=== PATIENT | male | born 1950 | race Caucasian/White ===

== ENCOUNTER 2017-10-23 09:13 | Inpatient (IN) | payer MEDICARE, SELFPAY ==
[2017-10-23] VITALS (16 sets, daily range): BP systolic 114–152; BP diastolic 63–86; PULSE 57–100; RESP 14–26; TEMP 36.6–36.9; O2SAT 91–98; BMI 33.0; BMI 32.1
--- NOTE | 2017-10-23 09:46 | CT_ITS ---
STUDY: CT BRAIN WITHOUT CONTRAST REASON FOR EXAM: Male, 67 years old. Dizziness. Right hand tremor. RADIATION DOSAGE (If Supplied By Facility): CTDIvol = ( 44.99 ) mGy, DLP = ( 796.11 ) mGycm TECHNIQUE: Transaxial CT imaging of the brain was performed without administration of intravenous contrast material. Individualized dose optimization techniques were used for this CT. COMPARISON: None. FINDINGS: Normal soft tissue structures. Normal calvarium. There is mild cerebral atrophy with widening of the extra-axial spaces and ventricular dilatation. Normal white matter tracts of the cerebral hemispheres. There is evidence of old lacunar infarcts in the basal ganglia worse on the left side. Focal encephalomalacia in the superior posterior aspect of the right parietal lobe. Normal brainstem. Normal cerebellum. There is no intracranial hemorrhage. There are no findings of an acute ischemic infarction. Atherosclerotic calcification of the vertebral arteries and cavernous portions of the internal carotid arteries bilaterally. Dense opacification of the right maxillary sinus. CT/Brain/Head without Contrast IMPRESSION: Chronic involutional changes of the brain. Right maxillary sinusitis. Electronically Signed: Shiva Payne MD at 11:20 EST Tel [phone], Service support ,
--- NOTE | 2017-10-23 09:46 | RAD_ITS ---
STUDY: X-RAY CHEST REASON FOR EXAM: Male, 67 years old. Generalized illness. Dizzy spells. TECHNIQUE: Single AP portable view of the chest. COMPARISON: Comparison is made with prior study dated November 01, 2013. FINDINGS: EKG electrodes are seen. Stable mild increased interstitial markings at the lung bases suggestive of scarring. There is no evidence of acute infiltration or CHF. There is no demonstrated pleural abnormality. Sternal cerclage wires and vascular clips are present from a prior sternotomy and coronary artery bypass graft procedure (CABG). Mild cardiomegaly. Normal mediastinum and nba. Normal visualized pulmonary arteries. There is atherosclerotic calcification of the aortic arch with tortuosity. There are diffuse degenerative changes of the visualized thoracic spine. Normal visualized ribs, clavicles, and shoulders. There is no demonstrated abnormality of the visualized soft tissue structures of the upper abdomen. RAD/Chest 1 View IMPRESSION: Cardiomegaly. Mild increased markings at the lung bases suggestive of scarring. No acute abnormality is seen. Electronically Signed: Shiva Payne MD at 10:46 EST Tel [phone], Service support ,
--- NOTE | 2017-10-23 09:46 | EKG12_ITS ---
Test Reason : OTHER PAIN Blood Pressure : / mmHG Vent. Rate : 094 BPM Atrial Rate : 166 BPM P-R Int : 000 ms QRS Dur : 112 ms QT Int : 410 ms P-R-T Axes : 000 -38 123 degrees QTc Int : 512 ms Atrial fibrillation Left axis deviation Inferior infarct , age undetermined Prolonged QT Poor R wave progression Anterior TN, age undetermined, cannot be excluded Abnormal ECG Confirmed by LINA RAINES, MARQUES ([id number]), television news video editor NATALIYA RODRIGUEZ ([id number]) on 10/24/2017 9:50:16 AM Referred By: EDMUNDO Confirmed By:MARQUES MILLS MD
[2017-10-23 10:32] LABS: Absolute Lymphocyte Count 1.95 X10^3/ul (0.83-4.51); Absolute Neutrophil Count 12.4 X10^3/uL (2.0-7.7); Basophil# 0.16 X10^3/uL; Eosinophil# 0.34 X10^3/uL; Eosinophils% 2.1 % (0-5); Hematocrit 44.5 % (40-54); Hemoglobin 15.2 g/dl (13.0-16.5); Lymphocyte # 1.95 X10^3/ul (4.0); Mean Corp Hgb Conc 34.2 g/gl (32-36); Mean Corpuscular Volume 90.6 fL (80-94); Mean Platelet Vol. 11.5 fl (6.2-12.0); Monocyte# 1.22 X10^3/uL; Monocyte% 7.5 % (0-10); Neutrophil # 12.44 X10^3/uL (2.7-7.7); Neutrophil % 76.9 % (47-70); Platelet Count 268 K/mm3 (150-450); RBC Distribution Width CV 14.3 % (11.6-14.6); RBC Distribution Width SD 47.1 fl (35.1-43.9); Red Blood Count 4.91 M/mm3 (4.6-6.2); White Blood Count 16.2 K/mm3 (4.4-11.0)
[2017-10-23 10:33] LABS: POSITIVE COUNT NO; POSITIVE DIFFERENTIAL NO; POSITIVE MORPHOLOGY NO
[2017-10-23 10:47] LABS: Anion Gap 7 (5-15); BUN 20 mg/dL (7-18); BUN/Creat Ratio 20.6 RATIO (10-20); Calcium,Total 9.1 mg/dL (8.5-10.1); Chloride 104 mmol/L (98-107); Creatinine, Serum 0.97 mg/dL (0.70-1.30); EST Glomerular Filtration Rate 82 mL/min (>60); Est Glom Filt Rate - Afr Amer 99 mL/min (>60); Estimated Creatinine Clearance 80.86 ml/min; Glucose 145 mg/dL (74-106); Potassium 3.8 mmol/L (3.5-5.1); Sodium Level 140 mmol/L (136-145)
--- NOTE | 2017-10-23 11:16 | ED.RN ---
BLUE TOP HEMOLYZED FOR THE 2ND TIME, LAB TO COME AND REDRAW.
[2017-10-23 11:25] LABS: Bedside Glucose 138 mg/dL (70-110)
[2017-10-23 11:39] LABS: Prothrombin Time (Protime)PT. 12.5 SECONDS (11.7-14.9)
[2017-10-23 11:40] LABS: Partial Thromboplast Time 32.1 Seconds (24.1-36.2)
--- NOTE | 2017-10-23 12:59 | ED.RN ---
PT DOES NOT WANT TO BE ADMITTED, WANTS TO GO HOME. UPDATED DR. WYATT, SHE REQUESTS DR. HENRIETTA RODRÍGUEZ, NO HOSPITALIST AND AMA FORMS TO BE PRINTED, LEAD ESTHETICIAN AWARE.
--- NOTE | 2017-10-23 13:22 | ED.DCSUM_ITS ---
- ER Visit Summary Date of Service: 10/23/17 Chief Complaint: [Dizziness, slurred speech] History of Present Illness: The patient is a 67 M [who woke up this morning with dizziness and slurred speech. He was not feeling well at all. He was feeling very weak. His wrist is been hurting and he has had a tremor. He has a history of coronary artery disease status post CABG diabetes hypertension COPD. Fever he denies cough he denies nausea vomiting he denies focal weakness chest pain or shortness of breath. He is a poor historian] Physical Examination: [] WN WD NAD PERRL EOMI MMM NECK supple and nontender, no masses RRR no murmur rub or gallop, no peripheral edema, symmetric radial pulses CTAB no respiratory distress ABDOMEN is soft and nontender, normal bowel sounds, no distension, no rebound or guarding SKIN is warm and dry no rashes Alert and Oriented x3, CN II-XII in tact, no motor or sensory deficits, gait normal NIH is 0 however the patient does have some ataxia with heel to toe testing No lymphadenopathy Test Results: [] Emergency Department Course and Treatment: [Stroke workup was pursued. EKG is a atrial arrhythmia. It appears to be a sinus rhythm with PACs however atrial fibrillation is also a consideration. Troponin was normal he does have a white count of 16.2. CT of the head shows multiple old lacunar infarcts and encephalomalacia but no acute process. Urinalysis was ordered. Recommended the patient be admitted to the hospital and he refused. He states he will be fine. I told him that he likely had a TIA versus a stroke his symptoms are currently resolved and he states that he would be fine to go home. I did contact contact and and awaiting return call. I will write him a prescription for aspirin daily as well as Augmentin for sinusitis seen on CAT scan. I did tell him to please return to the emergency department for any worsening symptoms and follow-up with his primary doctor as soon as possible. Patient spoke with his who convinced him to stay in the hospital he will be admitted.] Treatment Plan: [] Disposition: [Admit] Impression: [TIA/stroke] This note was generated with Border[employer] dictation software. It may contain incorrect words, spelling, and punctuation that were not noted in review of the chart prior to signing ED Disposition - Plan for ED Patient: Chief Complaint: Other, Pain/Inj Referrals: Ibrahima Chairez MD [Primary Care Provider] -
--- NOTE | 2017-10-23 13:23 | ED.RN ---
1300 PT DRESSED, REQUESTING IV REMOVED. IV WAS REMOVED AND BANDAGED PLACED. PENDING D/C INSTRUCTIONS AND RX FOR ATB (SINUS INFECTION).
--- NOTE | 2017-10-23 13:24 | ED.RN ---
AT BEDSIDE, PT WILL NOW STAY. LEFT ED TO SMOKE, AND BELONGINGS IN ROOM.
--- NOTE | 2017-10-23 14:46 | MRI_ITS ---
MRA Head W/O Contrast INDICATION: VERTIGOsharp,throbbing pains both hands x 1 week COMPARISON: None TECHNIQUE: MR angiogram of the [place] and 3-D pyfd-au-kvjrlx technique with 3-D reformatted images. FINDINGS: There is symmetric flow related signal and intracranial portions of the internal carotid arteries with symmetric supply to the anterior and middle cerebral arteries and their branching vessels. Posterior circulation demonstrates dominant left distal vertebral artery, normal confluence to the basilar artery. Basilar artery gives rise to both posterior cerebral arteries. Both posterior communicators as well as the anterior communicator demonstrate positive flow related signal. MRI/MRA Head ONLY without Contrast IMPRESSION: No evidence of large vessel occlusion at the [place]. at 1829 Reported and signed by: Jessica Camara MD Electronically Signed: Jessica Camara MD at 17:28 EST Tel , Service support ,
--- NOTE | 2017-10-23 14:46 | MRI_ITS ---
MRA Neck WO/W Contrast INDICATION: VERTIGOsharp,throbbing pains both hands x 1 week COMPARISON: None TECHNIQUE: MR angiogram of the neck and 2-D slpt-fs-[id number] technique and 3-D dvyv-fz-zrlidp technique with 3-D reformatted images. 10 mL of Gadavist was given intravenously. FINDINGS: No significant luminal narrowing at the origins of the common carotid arteries. There is evidence of mild, less than 20% luminal narrowing at the origin of the left internal carotid artery and approximately 40% short segment luminal narrowing at the origin of the right internal carotid artery. Peripheral filling defects are noted suggestive of arteriosclerotic plaque formation at the carotid bifurcations. Internal carotid arteries are otherwise normal and symmetric to the level of the skull base. Posterior circulation demonstrates mild dominance of the left vertebral artery. MRI/MRA Neck WITH and W/O Contrast IMPRESSION: Approximately 20% luminal narrowing at the origin of the left internal carotid artery. Short segment approximately 40% luminal narrowing at the origin of the right internal carotid artery. at 1833 Reported and signed by: Jessica Camara MD Electronically Signed: Jessica Camara MD at 17:32 EST Tel , Service support ,
--- NOTE | 2017-10-23 14:46 | ECHOD_ITS ---
Reason For Study: TIA/CVA Procedure This was a 2D Doppler, Color Flow transthoracic echocardiogram. The exam was of poor technical quality due to body habitus. The study was technically difficult. Contrast injection was performed. Exam performed portable in patient room. Left Ventricle Normal LV size. Mild segmental systolic dysfunction (see wall motion). The estimated ejection fraction is 45 %. Infero-Basal: Akinetic. Basal inferoseptal: Dyskinetic. Mid-Inferior: Hypokinetic. Mid-inferoseptal : Hypokinetic. Mid-anteroseptal : Hypokinetic. Inferior Mckinney : Hypokinetic. Septal Mckin[place] : Hypokinetic. Right Ventricle Normal RV size. Normal systolic function. Atria The left atrium is mildly enlarged. Normal right atrium. No doppler evidence for ASD. Bubble contrast study negative for right to left interatrial shunt. Mitral Valve There is mild mitral annular calcification. Extension of the mitral annular calcification onto the posterior mitral valve leaflet. Trivial mitral valve insufficiency. Tricuspid Valve Normal tricuspid valve. Trivial tricuspid valve insufficiency. Unable to estimate RV systolic pressure/pulmonary artery pressure due to technically difficult study. Aortic Valve Trisinus/trileaflet aortic valve. Mild diffuse aortic valve thickening. Mild diffuse aortic valve calcification. Pulmonic Valve The pulmonic valve is not well visualized. Great Vessels Normal sized aortic root. Pericardium/Pleural No pericardial effusion. Medication Performed a rapid injection of agitated mix of 9 cc saline and 1cc air to assess for atrial septal defect. Diluted definity 3ml given slow IV push to enhance endocardial definition. MMode/2D Measurements & Calculations LVIDd: 5.2 cm IVSd: 1.2 cm LVOT diam: 2.0 cm LVIDs: 4.1 cm LVPWd: 1.4 cm LVOT area: 3.2 cm2 RVDd: 4.0 cm FS: 21.0 % Ao root diam: 3.5 cm LAV(MOD-sp4): 85.8 ml EDV(MOD-sp4): 147.3 ml LA dimension: 4.9 cm ESV(MOD-sp4): 82.6 ml EF(MOD-sp4): 43.9 % EDV(MOD-sp2): 155.1 ml SV(MOD-sp4): 64.7 ml SV(MOD-sp2): 47.4 ml EF(MOD-sp2): 30.5 % LA A4 area: 26.4 cm2 RA A4 area: 21.3 cm2 Doppler Measurements & Calculations MV E max kin: 125.2 cm/sec Ao V2 max: 186.9 cm/sec LV V1 max: 114.8 cm/sec MV A max kin: 40.6 cm/sec Ao max P.0 mmHg LV V1 max P.3 mmHg MV E/A: 3.1 YESSICA(V,D): 2.0 cm2 PA V2 max: 89.4 cm/sec TR max P.2 mmHg Interpretation Summary The study was technically difficult. Contrast injection was performed. Mild segmental systolic dysfunction (see wall motion). The estimated ejection fraction is 45 %. The left atrium is mildly enlarged. There is mild mitral annular calcification. Extension of the mitral annular calcification onto the posterior mitral valve leaflet. Trivial mitral valve insufficiency. Trivial tricuspid valve insufficiency. Mild diffuse aortic valve thickening. Mild diffuse aortic valve calcification. Unable to estimate RV systolic pressure/pulmonary artery pressure due to technically difficult study. Bubble contrast study negative for right to left interatrial shunt. Ordering Physician: Behzad Carvajal Referring Physician: ARTEMIO SHRESTHA Performed By: Ashleigh Arviuz, VÍCTOR, RVT
--- NOTE | 2017-10-23 14:46 | MRI_ITS ---
MR Brain W/O Contrast INDICATION: CVAsharp,throbbing pains both hands x 1 week COMPARISON: MRI brain of January 2008 TECHNIQUE: Multiplanar multisequence MRI examination of the brain without contrast FINDINGS: There is evidence of a very small linear focus of restricted diffusion in the parasagittal cortex of the right frontal lobe (image 13), and a questionable ill-defined punctate focus of faintly restricted diffusion in the left lateral aspect of the body of the corpus callosum (image 20). These may represent very small acute and early chronic foci of infarction. New from the prior study from 2007 is a focal area of encephalomalacia with surrounding gliosis in the right parietal region, compatible with remote infarct, and a smaller infarcts in the bilateral basal ganglia and left frontal lobe. The ventricular system is normal in size and stable. There is no evidence of parenchymal hemorrhage, mass effect, midline shift, or abnormal extra-axial collection. There is normal positioning of the cerebellar tonsils. Mild mucosal thickening is noted throughout the paranasal sinuses and there is complete opacification of the right maxillary sinus with T2 hypointense material, fungal superinfection not excluded. MRI/Brain without Contrast IMPRESSION: Punctate focus of acute infarct in the parasagittal cortex of the right frontal lobe Questionable late subacute/early chronic punctate focus of infarction in the left lateral aspect of the body of the corpus callosum. Multiple bilateral supratentorial infarcts are new compared to 2008. Complete opacification of the right maxillary sinus with T2 hypointense material, concerning for fungal superinfection. at 1820 Reported and signed by: Jessica Camara MD N.B. : The above information has been verbally conveyed by Jessica Camara MD to [facility]- In-Patient RN, on 10/23/2017 19:02:42 (ET). Electronically Signed: Jessica Camara MD at 17:19 EST Tel , Service support , N.B. : The above information has been verbally conveyed by Jessica Camara MD to [facility]- In-Patient RN, on 10/23/2017 19:02:42 (ET).
[2017-10-23 15:56] LABS: Bedside Glucose 242 mg/dL (70-110)
[2017-10-23] MEDS: Glucerna Shake 120 ML LIQUID PO ×2 (17:45→21:51)
--- NOTE | 2017-10-23 20:50 | HP.PCM_ITS ---
Problem List (1) Dizziness Status: Acute (2) Slurred speech Status: Acute History of Present Illness Date of Admission: 10/23/17 Chief Complaint: Dizziness, slurred speech The patient is a 67 year old M was seen in the emergency room at [facility] with a chief complaint of dizziness and slurred speech which lasted for 1-1-1/2 hours starting early this morning when he awoke from sleep. Patient denies any focal weakness, he denies any visual disturbances, he denies any syncope. Workup in the emergency room included labs which showed an elevated white blood cell count 16.2, BUN was 20, glucose was 145. Patient's chest x-ray showed scarring at the lung bases, patient's CT of the brain showed focal encephalomalacia in the superior posterior right parietal lobe and multiple basal ganglia lacunar infarcts. Right maxillary sinusitis was also detected. EKG showed a normal sinus rhythm with PACs. At the time of my examination, patient's symptoms had resolved, he initially did not want to stay in the hospital and his convinced him to stay. Patient complains of wrist weakness and tremor in his right hand, he states though that the tremor in his right hand is been going on for a year. Patient states tremor is worse with movement. Patient takes a baby aspirin at home chronically every day, he had a history of atrial fibrillation but was taken off Coumadin several years ago-this appears to be in 2013 when he had a lower GI bleed. Patient was never restarted on the Coumadin. Patient will be admitted to PCU for TIA, MRI of the brain as well as MRA of the head and neck will be obtained, patient will be placed on Plavix in addition to his aspirin, neurology will see the patient, patient will have an echocardiogram and be evaluated by PT and OT as well as speech therapy. 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) COPD (chronic obstructive pulmonary disease) (Chronic) Depression (Chronic) CHF (congestive heart failure) (Chronic) ef=40% 2012 Allergies Penicillins Allergy (Verified 10/23/17 09:17) Rash Home Medications: Ambulatory Orders Medication Instructions Recorded Lisinopril [Prinivil] 10 mg PO DAILY 10/23/17 Metformin HCl 1,000 mg PO BID 10/23/17 Multivitamin/Iron/Folic Acid 1 each PO DAILY 10/23/17 [Centrum Adults Tablet] [place]-3 Fatty Acids/Fish Oil 1 each PO DAILY 10/23/17 [[place] 3 1,000 mg Softgel] Omeprazole 40 mg PO DAILY 10/23/17 Potassium Chloride [Klor-Con M20] 20 meq PO DAILY 10/23/17 Prednisone 10 mg PO DAILY PRN PRN 10/23/17 Sotalol HCl [Betapace AF (Beta 80 mg PO BID 10/23/17 Ahsan)] Vardenafil HCl [Levitra] 20 mg PO PRN PRN 10/23/17 Surgical History: coronary bypass surgery Psychiatric History: No pertinent psych hx Lives: Spouse/ Significant Other Smoking Status: Current every day smoker Tobacco Use: Cigarettes Alcohol: Rare Drugs: None - *Family History Maternal History Items: Cancer - Breast cancer Paternal History Items: Heart Disease - Congestive heart failure Review of Systems Constitutional: Denies: Anorexia, Chills, Fever, Night Sweats, Malaise, Weakness , Weight Change, Fatigue Eyes: Denies: Blurred vision, Cataracts, Conjunctivae Inflammation, Double vision, Drainage, Eyelid Inflammation HEENT: Denies: Difficulty Hearing, Difficulty Swallowing, Dysphasia, Ear Pain, Eye Pain, Head Aches, Hearing Changes, Nasal bleeding, Nasal Congestion, Post Nasal Drip Cardiovascular: Denies: Chest Pain, Claudication, Chest Pressure, Chest Tightness, Edema, Heaviness, Orthopnea, Palpitations, Paroxysmal Noc. Dyspnea Respiratory: Denies: Cough, Hemoptysis, Pleuritic Pain, Shortness of Breath, Shortness of breath at rest, Shortness of breath upon exertion, Sputum production, Wheezing Gastrointestinal: Denies: Abdominal Pain, Constipation, Diarrhea, Hematemesis, Hematochezia, Nausea, Melena, Vomiting Genitourinary: Denies: Dysuria, Frequency, Hematuria, Hesitancy, Incontinence, Nocturia, Retention, Urgency Musculoskeletal: Denies: Back Pain, Foot Pain, Hand Pain, Joint Pain, Joint stiffness, Joint swelling, Joint Tenderness, Leg Pain Skin: Denies: Dryness, Jaundice, Pruritis, Rash Neurological: Reports: Slurred speech, Tremor - Right hand tremor ?1 year, - - Dizziness. Denies: Balance problems, Blurred vision, Double vision, Difficulty swallowing, Focal weakness, Headaches, Incoordination, Numbness, Tingling Psychiatric: Denies: Anxiety, Depression, Homicidal Ideations, Suicidal Ideations Endocrine: Denies: Change in Body Habitus, Heat/ Cold Intolerance, Polydipsia, Polyuria Hematologic/ Lymphatic: Denies: Adenopathy, Anemia, Easy Bruising, Easy Bleeding , Petechiae, Purpura VTE Information - Inpt Only VTE Present on Admission: No VTE Mechan Device Prophylaxis: None VTE Pharm Prophylaxis ordered?: Yes Patient Problems: Active and Suspected Problems Dizziness (Acute) Slurred speech (Acute) - Physical Exam General: Alert, Oriented x3, Cooperative, No apparent distress, Well developed, Well nourished HEENT: Atraumatic, PERRLA, EOMI, Normocephalic Oral: Moist Mucosa Neck: Supple, No JVD, Negative Carotid Bruits, No Nuchal Rigidity, Trachea Midline, Thyroid Normal Size and Texture Lungs: Clear to auscultation, Normal air movement, No rhonchi, No wheeze, No rales Cardiovascular: Regular rate, Regular Rhythm, Normal S1, Normal S2, No murmurs, No Ectopic Activity, PMI Normal, No rub noted, No Gallop Abdomen: Bowel Sounds Present, Soft, Non Tender, Non-Distended, No hernias noted Extremities: No clubbing, No cyanosis, No edema, Capillary Refill Less than 3 Seconds Skin: No rashes, No breakdown Musculoskeletal: No Tenderness to Palpation of Joints or Extremities, No Muscle Wasting Neurological: Cranial nerves II-XII grossly intact, Neuro grossly intact, - - There is a resting tremor noted in the patient's right hand Psych/Mental Status: Normal Affect, Appropriate, Alert and oriented to time, place, person, mood and affect Vital Signs Temp Pulse Resp BP Pulse Ox 98.3 F 95 18 136/77 H 95 10/23/17 17:41 10/23/17 18:51 10/23/17 17:41 10/23/17 17:41 10/23/17 17:41 Assessment/Plan Active and Suspected Problems Dizziness (Acute) Slurred speech (Acute) #1 TIA versus acute ischemic stroke-patient will be admitted to PCU, MRA of the head and neck will be obtained, MRI of the brain will be obtained, patient will be placed on Plavix in addition to aspirin, echocardiogram will be obtained, neurochecks will be carried out, PT and OT as well as speech therapy will see the patient, patient will be seen by neurology #2 coronary artery disease #3 history of atrial fibrillation-currently he appears to be in sinus rhythm, monitor on telemetry #4 leukocytosis-and reviewed the patient's old lab work, there is been quite a few times with the patient has had an elevated white blood cell count, this will have to be investigated possibly as an outpatient. #5 tremor of the right hand-etiology unclear, patient does not have a visible tremor of the left hand. Neurology will evaluate patient #6 type 2 diabetes-blood sugars will be monitored, sliding scale insulin will be used #7 history of decreased ejection fraction-patient had an echocardiogram done in 2012 which showed a reduced ejection fraction of 40%, echocardiogram will be reordered as part of his stroke workup. #8 cerebrovascular disease as indicated on the patient's head CT today #9 hyperlipidemia-patient will be placed on Lipitor, he takes Crestor at home #10 hypertension Code Visit Inpatient E&M: 21601 Init Hosp L3
[2017-10-23] MEDS: Sotalol Hydrochloride 80 MG Tablet PO (21:52)
[2017-10-23] MEDS: Atorvastatin Calcium 80 MG Tablet PO (21:52)
[2017-10-23] MEDS: 0.9% NaCl Peripheral Flush Adult/Peds IV (21:54)
[2017-10-23 22:06] LABS: Bedside Glucose 216 mg/dL (70-110)
[2017-10-24] VITALS (15 sets, daily range): BP systolic 139–158; BP diastolic 65–84; PULSE 75–90; RESP 16–20; TEMP 36.5–36.8; O2SAT 88–97; BMI 32.1
[2017-10-24 00:42] LABS: Mucous, Urine 0 SEEN /hpf (<or=2+)
[2017-10-24 00:46] LABS: Color, Urine Yellow (Yellow); Glucose, Dipstick Normal (Normal); Ketone-Dipstick Negative (Negative); Leukocyte Esterase-Dipstick 25 /ul (Negative); Nitrite-Dipstick Negative (Negative); Occult Blood-Urine 25 /ul (Negative); Protein-Dipstick 100 mg/dl (Negative); Specific Gravity, Urine 1.015 (1.002-1.030); Urine Bilirubin Dipstick Negative (Negative); Urine Clarity Sl. Cloudy (Clear); Urine Urobilinogen 1 mg/dl (Normal)
[2017-10-24 00:53] LABS: Amorphous Sediment 1+ URATE; Bacteria 1+ /hpf (None Seen); Red Blood Cells-Urine 0-5 SEEN /hpf (0-5); Squamous Epithelial Cells - UA 0-5 SEEN /hpf (0-5); White Blood Cells 0-5 SEEN /hpf (0-5)
[2017-10-24 05:51] LABS: Absolute Lymphocyte Count 2.56 X10^3/ul (0.83-4.51); Absolute Neutrophil Count 9.2 X10^3/uL (2.0-7.7); Basophil# 0.21 X10^3/uL; Basophil% 1.5 % (0-1); Eosinophil# 0.34 X10^3/uL; Eosinophils% 2.5 % (0-5); Hematocrit 43.4 % (40-54); Hemoglobin 14.9 g/dl (13.0-16.5); Lymphocyte # 2.56 X10^3/ul (4.0); Lymphocyte % 18.8 % (19-41); Mean Corp Hgb Conc 34.3 g/gl (32-36); Mean Corpuscular Hgb 30.8 pg (27.0-32.0); Mean Corpuscular Volume 89.9 fL (80-94); Mean Platelet Vol. 11.2 fl (6.2-12.0); Monocyte# 1.24 X10^3/uL; Monocyte% 9.1 % (0-10); Neutrophil # 9.22 X10^3/uL (2.7-7.7); Neutrophil % 67.7 % (47-70); Platelet Count 269 K/mm3 (150-450); RBC Distribution Width CV 14.3 % (11.6-14.6); Red Blood Count 4.83 M/mm3 (4.6-6.2); White Blood Count 13.6 K/mm3 (4.4-11.0)
[2017-10-24 05:54] LABS: POSITIVE COUNT NO; POSITIVE DIFFERENTIAL NO; POSITIVE MORPHOLOGY NO
[2017-10-24 06:04] LABS: Cholesterol 192 mg/dL (200); High Density Lipoprotein 37 mg/dL; Triglycerides 184 mg/dL; Very Low Density Lipoprotein 37 mg/dL (5-40)
[2017-10-24 06:51] LABS: Bedside Glucose 168 mg/dL (70-110)
[2017-10-24] MEDS: Aspirin 81 MG TAB.CHEW PO (08:32)
--- NOTE | 2017-10-24 09:47 | CASEMGMT ---
This RN CM to bedside to complete CM assessment and pt is currently getting ECHO at this time. Will attempt again later. SStaten RN CM
[2017-10-24] MEDS: Glucerna Shake 120 ML LIQUID PO (10:29)
[2017-10-24] MEDS: Sotalol Hydrochloride 80 MG Tablet PO ×2 (10:30→21:06)
[2017-10-24] MEDS: Clopidogrel Bisulfate 75 MG Tablet PO (10:30)
[2017-10-24] MEDS: Lisinopril 10 MG Tablet PO (10:32)
--- NOTE | 2017-10-24 11:14 | CASEMGMT ---
Face to Face with patient for initial transition planning/care coordination assessment. RN EDGARD introduced self and role at [facility], pt voices understanding and consents to assessment at this time. Pt sitting up in bed in no distress at this time. Pt A/O x4 at this time and answers all questions appropriately at this time. Care providers, pharmacy, and demographics verified. See attached link. Pt voices no further concerns/needs at this time. Advised pt to ask for CM if any further questions/concerns/needs arise, voices understanding. PLAN: Home with [facility]. SStskye SHULTZ CM
[2017-10-24 12:01] LABS: Bedside Glucose 274 mg/dL (70-110)
--- NOTE | 2017-10-24 13:16 | PCM.PN.HOSP ---
Patient Problems: Active and Suspected Problems Slurred speech (Acute) Dizziness (Acute) Subjective: CC: Dizziness and slurred speech Is a 7-year-old male with history of coronary artery disease and chronic atrial fibrillation who currently does not take anticoagulation therapy due to GI bleeds in 2013. EGD and colonoscopy at the time did not reveal any clear source of bleeding. Vitals/I&O's: Vital Signs Temp Pulse Resp BP Pulse Ox 97.8 F 80 20 H 148/75 H 90 10/24/17 11:41 10/24/17 11:41 10/24/17 11:41 10/24/17 11:41 10/24/17 11:41 Oxygen Flow Rate 2 Oxygen Delivery Method Room Air Weight: 104.5 kg Body Mass Index (BMI) 32.1 Intake and Output for Last 24 Hours 10/22/17 10/23/17 10/24/17 23:59 23:59 23:59 Intake Total 960 / 960 Output Total 340 / 340 Balance 620 / 620 General: Alert, Oriented x3 HEENT: Atraumatic Oral: Moist Mucosa Neck: Supple Lungs: Clear to auscultation Cardiovascular: Regular rate, Normal S1, Normal S2 Abdomen: Bowel Sounds Present, Soft, Non Tender, Non-Distended Extremities: No edema Laboratory Results 10/23/17 21:49: POC Glucose 216 H 10/24/17 00:35: Urine Color Yellow, Urine Clarity Sl. Cloudy, Urine pH 6.0, Ur Specific [place] 1.015, Urine Protein 100 H, Urine Glucose (UA) Normal, Urine Ketones Negative, Urine Occult Blood 25 H, Urine Nitrite Negative, Urine Bilirubin Negative, Urine Urobilinogen 1 H, Ur Leukocyte Esterase 25 H, Urine RBC 0-5 SEEN, Urine WBC 0-5 SEEN, Ur Squamous Epith Cells 0-5 SEEN, Amorphous Sediment 1+ URATE, Urine Bacteria 1+, Urine Mucus 0 SEEN 10/24/17 05:25: WBC 13.6 H, RBC 4.83, Hgb 14.9, Hct 43.4, MCV 89.9, MCH 30.8, MCHC 34.3, RDW 14.3, RDW Differential 47.0 H, Plt Count 269, MPV 11.2, Immature Gran % (Auto) 0.400, Neut % (Auto) 67.7, Lymph % (Auto) 18.8 L, [place] % (Auto) 9.1, Eos % (Auto) 2.5, Baso % (Auto) 1.5 H, Absolute Neuts (auto) 9.2 H, Absolute Lymphs (auto) 2.56, Total Counted Not Reportable 10/24/17 05:25: Triglycerides 184, Cholesterol 192, LDL Cholesterol 118, VLDL Cholesterol 37, HDL Cholesterol 37 L 10/24/17 06:40: POC Glucose 168 H 10/24/17 11:26: POC Glucose 274 H Current Medications Acetaminophen (Tylenol) 650 mg PO Q4H PRN PRN PRN Reason: Headache/Temp>99F Aspirin (Aspirin, Baby) 81 mg PO DAILY@0800 [facility] Last Admin: 10/24/17 08:32 Dose: 81 mg Atorvastatin Calcium (Lipitor) 80 mg PO QHS [facility] Last Admin: 10/23/17 21:52 Dose: 80 mg Clopidogrel Bisulfate (Plavix) 75 mg PO DAILY [facility] Last Admin: 10/24/17 10:30 Dose: 75 mg Dextrose (D50w Syringe) 0 gm IV X1 PRN; Protocol PRN Reason: Hypoglycemia Fluticasone Propionate (Flonase Nasal [place]) 1 spray NASAL BID [facility] Glucagon () 1 mg IM .X1 PRN PRN Reason: Hypoglycemia Heparin Sodium (Porcine) (Heparin Na) 5,000 unit SC Q8 [facility] Last Admin: 10/24/17 05:31 Dose: 5,000 units Insulin Aspart (Novolog Flexpen (Bkc)) 0 units SC ACHS [facility] PRN Reason: Protocol Last Admin: 10/24/17 11:29 Dose: 6 u Lisinopril (Zestril) 10 mg PO DAILY [facility] Last Admin: 10/24/17 10:32 Dose: 10 mg Metformin HCl (Glucophage) 1,000 mg PO BIDCM [facility] Last Admin: 10/23/17 17:41 Dose: Not Given Pantoprazole Sodium (Protonix) 40 mg PO DAILY PRN PRN PRN Reason: GI UPSET Potassium Chloride (K-Dur) 20 meq PO DAILY [facility] Last Admin: 10/24/17 10:31 Dose: 20 meq Sodium Chloride () 5 - 30 ml IV UD PRN PRN Reason: SALINE FLUSH Last Admin: 10/23/17 21:54 Dose: 10 ml Sotalol HCl (Betapace (G)) 80 mg PO BID [facility] Last Admin: 10/24/17 10:30 Dose: 80 mg Assessment/Plan Active and Suspected Problems Slurred speech (Acute) Dizziness (Acute) 1. Cardioembolic stroke from A. fib; patient will be started on Eliquis 2 Coronary artery disease; he reports no symptoms of angina at this time, will continue his cardioprotective medications as they are. 3 chronic atrial fibrillation; anticoagulation therapy due to previous GI bleed. 4 right hand tremor may be related to his stroke , neurology consulted. 5. DM 2; we will continue on RISS 6. Dyslipidemia; he is on statin. Code Visit Inpatient E&M: 23785 Subs Hosp L3
--- NOTE | 2017-10-24 13:37 | PN_ITS ---
Patient Problems: Active and Suspected Problems Slurred speech (Acute) Dizziness (Acute) Subjective: CC: Dizziness and slurred speech Is a 7-year-old male with history of coronary artery disease and chronic atrial fibrillation who currently does not take anticoagulation therapy due to GI bleeds in 2013. EGD and colonoscopy at the time did not reveal any clear source of bleeding. Vitals/I&O's: Vital Signs Temp Pulse Resp BP Pulse Ox 97.8 F 80 20 H 148/75 H 90 10/24/17 11:41 10/24/17 11:41 10/24/17 11:41 10/24/17 11:41 10/24/17 11:41 Oxygen Flow Rate 2 Oxygen Delivery Method Room Air Weight: 104.5 kg Body Mass Index (BMI) 32.1 Intake and Output for Last 24 Hours 10/22/17 10/23/17 10/24/17 23:59 23:59 23:59 Intake Total 960 / 960 Output Total 340 / 340 Balance 620 / 620 General: Alert, Oriented x3 HEENT: Atraumatic Oral: Moist Mucosa Neck: Supple Lungs: Clear to auscultation Cardiovascular: Regular rate, Normal S1, Normal S2 Abdomen: Bowel Sounds Present, Soft, Non Tender, Non-Distended Extremities: No edema Laboratory Results 10/23/17 21:49: POC Glucose 216 H 10/24/17 00:35: Urine Color Yellow, Urine Clarity Sl. Cloudy, Urine pH 6.0, Ur Specific [place] 1.015, Urine Protein 100 H, Urine Glucose (UA) Normal, Urine Ketones Negative, Urine Occult Blood 25 H, Urine Nitrite Negative, Urine Bilirubin Negative, Urine Urobilinogen 1 H, Ur Leukocyte Esterase 25 H, Urine RBC 0-5 SEEN, Urine WBC 0-5 SEEN, Ur Squamous Epith Cells 0-5 SEEN, Amorphous Sediment 1+ URATE, Urine Bacteria 1+, Urine Mucus 0 SEEN 10/24/17 05:25: WBC 13.6 H, RBC 4.83, Hgb 14.9, Hct 43.4, MCV 89.9, MCH 30.8, MCHC 34.3, RDW 14.3, RDW Differential 47.0 H, Plt Count 269, MPV 11.2, Immature Gran % (Auto) 0.400, Neut % (Auto) 67.7, Lymph % (Auto) 18.8 L, [place] % (Auto) 9.1, Eos % (Auto) 2.5, Baso % (Auto) 1.5 H, Absolute Neuts (auto) 9.2 H, Absolute Lymphs (auto) 2.56, Total Counted Not Reportable 10/24/17 05:25: Triglycerides 184, Cholesterol 192, LDL Cholesterol 118, VLDL Cholesterol 37, HDL Cholesterol 37 L 10/24/17 06:40: POC Glucose 168 H 10/24/17 11:26: POC Glucose 274 H Current Medications Acetaminophen (Tylenol) 650 mg PO Q4H PRN PRN PRN Reason: Headache/Temp>99F Aspirin (Aspirin, Baby) 81 mg PO DAILY@0800 [facility] Last Admin: 10/24/17 08:32 Dose: 81 mg Atorvastatin Calcium (Lipitor) 80 mg PO QHS [facility] Last Admin: 10/23/17 21:52 Dose: 80 mg Clopidogrel Bisulfate (Plavix) 75 mg PO DAILY [facility] Last Admin: 10/24/17 10:30 Dose: 75 mg Dextrose (D50w Syringe) 0 gm IV X1 PRN; Protocol PRN Reason: Hypoglycemia Fluticasone Propionate (Flonase Nasal [place]) 1 spray NASAL BID [facility] Glucagon () 1 mg IM .X1 PRN PRN Reason: Hypoglycemia Heparin Sodium (Porcine) (Heparin Na) 5,000 unit SC Q8 [facility] Last Admin: 10/24/17 05:31 Dose: 5,000 units Insulin Aspart (Novolog Flexpen (Bkc)) 0 units SC ACHS [facility] PRN Reason: Protocol Last Admin: 10/24/17 11:29 Dose: 6 u Lisinopril (Zestril) 10 mg PO DAILY [facility] Last Admin: 10/24/17 10:32 Dose: 10 mg Metformin HCl (Glucophage) 1,000 mg PO BIDCM [facility] Last Admin: 10/23/17 17:41 Dose: Not Given Pantoprazole Sodium (Protonix) 40 mg PO DAILY PRN PRN PRN Reason: GI UPSET Potassium Chloride (K-Dur) 20 meq PO DAILY [facility] Last Admin: 10/24/17 10:31 Dose: 20 meq Sodium Chloride () 5 - 30 ml IV UD PRN PRN Reason: SALINE FLUSH Last Admin: 10/23/17 21:54 Dose: 10 ml Sotalol HCl (Betapace (G)) 80 mg PO BID [facility] Last Admin: 10/24/17 10:30 Dose: 80 mg Assessment/Plan Active and Suspected Problems Slurred speech (Acute) Dizziness (Acute) 1. Cardioembolic stroke from A. fib; patient will be started on Eliquis 2 Coronary artery disease; he reports no symptoms of angina at this time, will continue his cardioprotective medications as they are. 3 chronic atrial fibrillation; anticoagulation therapy due to previous GI bleed. 4 right hand tremor may be related to his stroke , neurology consulted. 5. DM 2; we will continue on RISS 6. Dyslipidemia; he is on statin. Code Visit Inpatient E&M: 28258 Subs Hosp L3
--- NOTE | 2017-10-24 13:54 | PCM.CONS.GEN ---
Reason for Consult Date of Consultation: 10/24/17 Reason for Consultation: vertigo History of Present Illness: The patient is a 67 year old right handed white male with history of afib, previously on coumadin, dc'd due to gi bleed. doesnt remember name of gi doctor, yesterday am awoke with spinning, now resolved, no recent illness, infection, fevers or chills. believes coumadin dc'd '10. per hosp note:The patient is a 67 year old M was seen in the emergency room at [facility] with a chief complaint of dizziness and slurred speech which lasted for 1-1-1/2 hours starting early this morning when he awoke from sleep. Patient denies any focal weakness, he denies any visual disturbances, he denies any syncope. Workup in the emergency room included labs which showed an elevated white blood cell count 16.2, BUN was 20, glucose was 145. Patient's chest x-ray showed scarring at the lung bases, patient's CT of the brain showed focal encephalomalacia in the superior posterior right parietal lobe and multiple basal ganglia lacunar infarcts. Right maxillary sinusitis was also detected. EKG showed a normal sinus rhythm with PACs. At the time of my examination, patient's symptoms had resolved, he initially did not want to stay in the hospital and his convinced him to stay. Patient complains of wrist weakness and tremor in his right hand, he states though that the tremor in his right hand is been going on for a year. Patient states tremor is worse with movement. Patient takes a baby aspirin at home chronically every day, he had a history of atrial fibrillation but was taken off Coumadin several years ago-this appears to be in 2013 when he had a lower GI bleed. Patient was never restarted on the Coumadin. Patient will be admitted to PCU for TIA, MRI of the brain as well as MRA of the head and neck will be obtained, patient will be placed on Plavix in addition to his aspirin, neurology will see the patient, patient will have an echocardiogram and be evaluated by PT and OT as well as speech therapy. 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) COPD (chronic obstructive pulmonary disease) (Chronic) Depression (Chronic) CHF (congestive heart failure) (Chronic) ef=40% 2012 Allergies Penicillins Allergy (Verified 10/23/17 09:17) Rash Home Medications: Ambulatory Orders Medication Instructions Recorded Lisinopril [Prinivil] 10 mg PO DAILY 10/23/17 Metformin HCl 1,000 mg PO BID 10/23/17 Multivitamin/Iron/Folic Acid 1 each PO DAILY 10/23/17 [Centrum Adults Tablet] [place]-3 Fatty Acids/Fish Oil 1 each PO DAILY 10/23/17 [[place] 3 1,000 mg Softgel] Omeprazole 40 mg PO DAILY 10/23/17 Potassium Chloride [Klor-Con M20] 20 meq PO DAILY 10/23/17 Prednisone 10 mg PO DAILY PRN PRN 10/23/17 Sotalol HCl [Betapace AF (Beta 80 mg PO BID 10/23/17 Ahsan)] Vardenafil HCl [Levitra] 20 mg PO PRN PRN 10/23/17 Surgical History: coronary bypass surgery Psychiatric History: No pertinent psych hx Lives: Spouse/ Significant Other Smoking Status: Current every day smoker Tobacco Use: Cigarettes Alcohol: Rare Drugs: None - *Family History Maternal History Items: Cancer - Breast cancer Paternal History Items: Heart Disease - Congestive heart failure Review of Systems Constitutional: Denies: Chills, Fever, Weight Change HEENT: Denies: Head Aches, Sinus Congestion, Sinus Drainage Cardiovascular: Denies: Chest Pain, Palpitations Respiratory: Denies: Cough, Shortness of breath at rest, Sputum production Gastrointestinal: Denies: Abdominal Pain, Nausea, Vomiting Genitourinary: Denies: Dysuria Musculoskeletal: Denies: Joint Pain, Joint Tenderness Skin: Denies: Rash, Wounds Neurological: Denies: Numbness, Tingling, Focal weakness Psychiatric: Denies: Anxiety, Depression, Homicidal Ideations, Suicidal Ideations Hematologic/ Lymphatic: Denies: Easy Bruising, Easy Bleeding Patient Problems: Active and Suspected Problems Dizziness (Acute) Slurred speech (Acute) - Physical Exam General: Alert, Oriented x3, Cooperative HEENT: Atraumatic, PERRLA, EOMI, Normocephalic Neck: Supple, No JVD, Negative Carotid Bruits Lungs: Clear to auscultation, Normal air movement Cardiovascular: Regular rate, No murmurs Abdomen: Bowel Sounds Present, Soft, Non Tender Extremities: No edema, Capillary Refill Less than 3 Seconds Skin: No rashes, No breakdown Musculoskeletal: No Tenderness to Palpation of Joints or Extremities Neurological: Cranial nerves II-XII grossly intact, - - rest tremor on right, masked facies Psych/Mental Status: Normal Affect, Appropriate Vital Signs Temp Pulse Resp BP Pulse Ox 36.6 C 80 20 H 148/75 H 90 10/24/17 11:41 10/24/17 11:41 10/24/17 11:41 10/24/17 11:41 10/24/17 11:41 Oxygen Flow Rate 2 Oxygen Delivery Method Room Air Weight: 104.5 kg Body Mass Index (BMI) 32.1 Intake and Output for Last 24 Hours 10/22/17 10/23/17 10/24/17 23:59 23:59 23:59 Intake Total 960 / 960 Output Total 340 / 340 Balance 620 / 620 Laboratory Tests Past 24 Hrs 10/24/17 10/24/17 10/24/17 00:35 05:25 05:25 WBC 13.6 H RBC 4.83 Hgb 14.9 Hct 43.4 MCV 89.9 MCH 30.8 MCHC 34.3 RDW 14.3 RDW Differential 47.0 H Plt Count 269 MPV 11.2 Immature Gran % (Auto) 0.400 Neut % (Auto) 67.7 Lymph % (Auto) 18.8 [place] % (Auto) 9.1 Eos % (Auto) 2.5 Baso % (Auto) 1.5 H Absolute Neuts (auto) 9.2 H Absolute Lymphs (auto) 2.56 Total Counted Not Reportable Triglycerides 184 Cholesterol 192 LDL Cholesterol 118 VLDL Cholesterol 37 HDL Cholesterol 37 L Urine Color Yellow Urine Clarity Sl. Cloudy Urine pH 6.0 Ur Specific [place] 1.015 Urine Protein 100 H Urine Glucose (UA) Normal Urine Ketones Negative Urine Occult Blood 25 H Urine Nitrite Negative Urine Bilirubin Negative Urine Urobilinogen 1 H Ur Leukocyte Esterase 25 H Urine RBC 0-5 SEEN Urine WBC 0-5 SEEN Ur Squamous Epith Cells 0-5 SEEN Amorphous Sediment 1+ URATE Urine Bacteria 1+ Urine Mucus 0 SEEN POC Glucose 10/24/17 10/24/17 10/23/17 11:26 06:40 21:49 POC Glucose 274 H 168 H 216 H Assessment/Plan Active and Suspected Problems Dizziness (Acute) Slurred speech (Acute) 1. cardioembolic cva, afib pt/ot/sp restart oac if ok with gi ?hemoccult 2. parkinsonism: outpt rx
--- NOTE | 2017-10-24 14:47 | CASEMGMT ---
SW spoke with patient as he was asking about doing a healthcare power of commercial real estate attorney. He said his was interested and she left for about an hour. SW told him SW will leave the documents with him and SW can check back with him tomorrow. Arlene PAREDES MSW
[2017-10-24 16:06] LABS: Bedside Glucose 206 mg/dL (70-110)
[2017-10-24] MEDS: 0.9% NaCl Peripheral Flush Adult/Peds IV ×2 (16:58→21:06)
[2017-10-24] MEDS: Fluticasone 0.05% 1 SPRAY NASAL.SRY NASAL (21:06)
[2017-10-24] MEDS: Acetaminophen 325 MG Tablet 650 MG PO (21:06)
[2017-10-24] MEDS: Atorvastatin Calcium 80 MG Tablet PO (21:06)
[2017-10-24 21:16] LABS: Bedside Glucose 225 mg/dL (70-110)
[2017-10-25] VITALS (7 sets, daily range): BP systolic 127–158; BP diastolic 77–98; PULSE 78–92; RESP 18; TEMP 36.3–36.4; O2SAT 92–96
[2017-10-25 06:56] LABS: Bedside Glucose 221 mg/dL (70-110)
[2017-10-25] MEDS: Aspirin 81 MG TAB.CHEW PO (09:32)
[2017-10-25] MEDS: Sotalol Hydrochloride 80 MG Tablet PO (09:32)
[2017-10-25] MEDS: Lisinopril 10 MG Tablet PO (09:33)
[2017-10-25] MEDS: Acetaminophen 325 MG Tablet 650 MG PO (09:33)
[2017-10-25] MEDS: Fluticasone 0.05% 1 SPRAY NASAL.SRY NASAL (09:33)
[2017-10-25] MEDS: Clopidogrel Bisulfate 75 MG Tablet PO (09:33)
--- NOTE | 2017-10-25 12:29 | PCM.DC ---
- Discharge Diagnoses Current Active Problems: Current Active and Chronic Problems Slurred speech (Acute) Dizziness (Acute) You will use the following diet at home:: Regular Discharge Activity: Return to Normal Activity Allergies/Adverse Reactions: Allergies Penicillins Allergy (Verified 10/23/17 09:17) Rash Medications to take at Discharge Lisinopril [Prinivil] 10 mg PO DAILY 10/23/17 Metformin HCl 1,000 mg PO BID 10/23/17 Multivitamin/Iron/Folic Acid [Centrum Adults Tablet] 1 each PO DAILY 10/23/17 [place]-3 Fatty Acids/Fish Oil [[place] 3 1,000 mg Softgel] 1 each PO DAILY 10/23/17 Omeprazole 40 mg PO DAILY 10/23/17 Potassium Chloride [Klor-Con M20] 20 meq PO DAILY 10/23/17 Prednisone 10 mg PO DAILY PRN PRN 10/23/17 Sotalol HCl [Betapace AF (Beta Ahsan)] 80 mg PO BID 10/23/17 Vardenafil HCl [Levitra] 20 mg PO PRN PRN 10/23/17 Apixaban [Eliquis] 5 mg PO BID #60 tab 10/25/17 Aspirin [Aspirin, Baby] 81 mg PO DAILY@0800 tab.chew 10/25/17 The following prescriptions were given: Apixaban [Eliquis] 5 mg PO BID #60 tab Primary Care Physician: Ibrahima Chairez MD [Primary Care Provider] - Within 2 Weeks
--- NOTE | 2017-10-25 12:31 | DS.PCM_ITS ---
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 EGD and colonoscopy at the time did not reveal any clear source of bleeding except a polyp that was resected. He presented to the emergency room with dizziness and slurred speech, contrast CT scan of the head showed chronic involutional changes of the brain and right maxillary sinusitis. MRI of the brain showed; Punctate focus of acute infarct in the parasagittal cortex of the right frontal lobe. Questionable late subacute/early chronic punctate focus of infarction inthe left lateral aspect of the body of the corpus callosum.Multiple bilateral supratentorial infarcts are new compared to 2008. Complete opacification of the right maxillary sinus with T2 hypointense material, concerning for fungal superinfection. Patient was seen by neurology and was recommended to restart his oral anticoagulation for his A. fib as his stroke is cardioembolic in nature. He was started on Eliquis. 1. Cardioembolic stroke from A. fib; patient will be started on Eliquis. 2 Coronary artery disease; he reports no symptoms of angina at this time, will continue his cardioprotective medications as they are. 3 chronic atrial fibrillation; anticoagulation therapy due to previous GI bleed. 4 right hand tremor may be related to his stroke , neurology consulted. 5. DM 2; we will continue on RISS 6. Dyslipidemia; he is on statin. 7.Complete opacification of the right maxillary sinus with T2 hypointense material, concerning for fungal superinfection; oral Diflucan and recommended to follow with his primary care doctor to coordinate consultation with an ENT surgeon. Discharge Diet: No Restrictions Discharge Activity: Return to Normal Activity Home Medications: Medications to take at Discharge Lisinopril [Prinivil] 10 mg PO DAILY 10/23/17 Metformin HCl 1,000 mg PO BID 10/23/17 Multivitamin/Iron/Folic Acid [Centrum Adults Tablet] 1 each PO DAILY 10/23/17 [place]-3 Fatty Acids/Fish Oil [[place] 3 1,000 mg Softgel] 1 each PO DAILY Omeprazole 40 mg PO DAILY 10/23/17 Potassium Chloride [Klor-Con M20] 20 meq PO DAILY 10/23/17 Prednisone 10 mg PO DAILY PRN PRN 10/23/17 Sotalol HCl [Betapace AF (Beta Ahsan)] 80 mg PO BID 10/23/17 Vardenafil HCl [Levitra] 20 mg PO PRN PRN 10/23/17 Apixaban [Eliquis] 5 mg PO BID #60 tab 10/25/17 Aspirin [Aspirin, Baby] 81 mg PO DAILY@0800 tab.chew 10/25/17 Following Prescrptions Were Given to Patient: Apixaban [Eliquis] 5 mg PO BID #60 tab Primary Care Physician: Ibrahima Chairez MD [Primary Care Provider] - Within 2 Weeks Disposition: Home Patient Condition:: Good Meaningful Use Info Meaningful Use Diagnoses (Choose all that apply): None applicable Code Visit Inpatient E&M: 85777 Disch Hosp
[2017-10-25 12:45] LABS: Bedside Glucose 226 mg/dL (70-110)
--- NOTE | 2017-10-25 13:00 | CASEMGMT ---
Addendum entered by Kayla Negro 10/25/17 13:42: Wendi SHULTZ CM spoke with Mera at [facility] and she states that pt's co-pay for Eliquis will be $47.00/month. Pt given 30 day free trial card for Eliquis at this time. Pt and updated on all at this time, voice understanding. Theo SHULTZ aware that pt is ready for discharge, voices understanding. Daphne SHULTZ CM Original Note: Per Dr. Odell, pt to be sent home on Eliquis. Script to [facility]. Call placed to [facility] and they state to call back in about 30min to check co-pay. Daphne SHULTZ CM
[2017-10-25] MEDS: APIXABAN 5 MG TABLET PO (13:51)
--- NOTE | 2017-10-25 13:58 | NURSING ---
discharge instructions given to pt &
== END 2017-10-25 13:59 | disposition home health service (06) | DRG 65 ==
LOC: ED 10:42 → PCU 14:25
PROVIDERS: Admitting Provider Internal Medicine; Emergency Provider Emergency Medicine; Family Provider Family Medicine; PCP Family Medicine; Visit Provider Internal Medicine
DX: I63.40 Cerebral infarction due to embolism of unspecified cerebral artery (principal); I50.32 Chronic diastolic (congestive) heart failure; I48.2 Chronic atrial fibrillation; I11.0 Hypertensive heart disease with heart failure; E11.9 Type 2 diabetes mellitus without complications; J32.0 Chronic maxillary sinusitis; E78.5 Hyperlipidemia, unspecified; R47.81 Slurred speech; J44.9 Chronic obstructive pulmonary disease, unspecified; Z23 Encounter for immunization; R42 Dizziness and giddiness; F17.210 Nicotine dependence, cigarettes, uncomplicated; F32.9 Major depressive disorder, single episode, unspecified; K21.9 Gastro-esophageal reflux disease without esophagitis; I25.10 Atherosclerotic heart disease of native coronary artery without angina pectoris; R25.1 Tremor, unspecified; Z79.82 Long term (current) use of aspirin; Z95.1 Presence of aortocoronary bypass graft; Z79.84 Long term (current) use of oral hypoglycemic drugs
CPT/HCPCS: 36415; 70450; 70544; 70549; 70551; 71045; 80048; 80061; 81001; 82962; 84484; 85025; 85610; 85730; 92523; 93005; 93306; 97110; 97116; 97162; 97166; 97530; 97802; 99285; A9585; Q9957; 90686; A4216; C8929

== ENCOUNTER → 2018-02-13 06:29 | Outpatient (CLI) | payer MEDICARE, SELFPAY ==
--- NOTE | 2018-02-13 10:29 | NEURO_ITS ---
NCS and/or EMG Patient Report Ordering Doctor: Gina Sawant DATE OF SERVICE: 02/13/18 This is a bilateral upper extremity nerve conduction study performed on this 68- year-old male with a history of dropping things for an unknown timeframe as well as tremor in his right hand. Denies pain in arms or hands, and no history of neck pain but he does have a history of diabetes. Bilateral upper extremity sensory and motor nerve conduction studies are performed. The median motor and sensory distal latencies are prolonged bilaterally into the moderate to severe range, worse on the right side. Velocities are symmetrically slowed, amplitudes are diminished on the right. Ulnar motor amplitude is diffusely reduced on the left side, with slowed conduction velocities. The ulnar sensory responses are preserved as are the radial sensory responses. Bilateral median and left ulnar F wave latency is prolonged. Impression this is an abnormal electrophysiology study of the bilateral upper extremities consistent with moderate to severe carpal tunnel syndrome at the wrist bilaterally, there is also a non-localizable left ulnar neuropathy.
== END ==
PROVIDERS: Family Provider Family Medicine; PCP Family Medicine; Visit Provider Nurse Practitioner Acute Care
DX: R20.0 Anesthesia of skin (principal)
CPT/HCPCS: 95911

== ENCOUNTER 2018-02-23 23:53 | Inpatient (IN) | payer MEDICARE, MEDICAID, SELFPAY ==
--- NOTE | 2018-02-24 03:30 | DT_ITS ---
This patient was seen during an EMR downtime February 19, 2018 - February 26, 2018. This patient may have a combination of paper and electronic documentation or all paper documentation. All documentation is viewable within the e-chart portion of [employer] for each patient visit.
--- NOTE | 2018-02-24 13:36 | EKG12_ITS ---
Test Reason : WEAKNESS Blood Pressure : / mmHG Vent. Rate : 088 BPM Atrial Rate : 097 BPM P-R Int : 000 ms QRS Dur : 118 ms QT Int : 432 ms P-R-T Axes : 000 -35 106 degrees QTc Int : 522 ms Sinus with 1st degree block Confirmed by LUIS MIGUEL KAPOOR MD ([id number]), desk editor NATALIYA RODRIGUEZ ([id number]) on 02/28/2018 5:38:15 PM Referred By: CARLOS Confirmed By:LUIS MIGUEL KAPOOR MD
--- NOTE | 2018-02-24 16:12 | MRI_ITS ---
STUDY: MRI BRAIN WITHOUT CONTRAST REASON FOR EXAM: Male, 68 years old. Weakness, unable to follow directions. TECHNIQUE: Standardized multiplanar fat and water weighted pulse sequences were obtained. COMPARISON: None. FINDINGS: There is moderate cerebral atrophy with widening of the extra-axial spaces and ventricular dilatation. There are multiple confluent white matter hyperintensities, distributed throughout the deep white matter tracts of the cerebral hemispheres, consistent with severe chronic white matter ischemic changes. Encephalomalacia within the left frontal and right posterior parietal-occipital region. There is a punctate region of acute infarct within the left inferior medial cerebellum measuring approximately 5 mm and within the right cerebral peduncle periphery as seen on series 4 image 14 measuring approximately 3 mm. Normal bilateral basal ganglia. Normal thalami. There is no extra-axial fluid accumulation. Normal flow voids within the major intracranial circulation suggesting patency by spin echo criteria. Normal sella turcica, pituitary gland, infundibular stalk, optic chiasm and hypothalamus. Normal tectal plate and pineal gland. There are chronic white matter ischemic changes of the sage. The midbrain and medulla are otherwise normal. Normal basal cisterns. Normal bilateral temporal bones. Normal bilateral internal auditory canals. No demonstrated orbital abnormality, within the constraints of a routine brain study. Normal visualized paranasal sinuses. Normal calvarium and skull base. Normal visualized soft tissue structures. Normal visualized upper cervical spine. MRI/Brain without Contrast IMPRESSION: 1. Punctate infarcts within the left medial inferior cerebellum and right lateral cerebral peduncle as above. No evidence of large territorial ischemia. No evidence of acute intracranial bleed or mass. Electronically Signed: Arden Vivas DO at 22:20 EDT , Service support ,
--- NOTE | 2018-02-24 16:12 | MRI_ITS ---
STUDY: MRI CERVICAL SPINE WITHOUT CONTRAST REASON FOR EXAM: Male, 68 years old. Weakness, no history obtained from patient, unable to respond, combative. TECHNIQUE: Standardized fat and water weighted pulse sequences were obtained in the sagittal and axial planes. Overall severely limited exam secondary to motion artifact with nearly unreadable axial imaging. COMPARISON: None FINDINGS: Normal foramen magnum and brainstem-cervical cord junction. Normal craniovertebral junction. Normal anterior atlantoaxial articulation. Normal odontoid process. Normal cervical lordosis. Normal vertebral bodies and posterior osseous elements. C2-3: Disc desiccation and decreased disc space with minor disc bulge without associated spinal canal narrowing or foraminal narrowing. C3-4: Mild decreased disc space and broad-based disc bulge effacing the thecal sac without evidence of cord signal abnormality. There is likely bilateral mild to moderate foraminal narrowing though limited. C4-5: Disc desiccation and disc osteophyte complex partially effacing the thecal sac. There is likely left mild to moderate foraminal narrowing with no significant spinal canal narrowing, however limited by motion. C5-6: Disc desiccation and disc osteophyte complex effacing the thecal sac with likely moderate bilateral foraminal narrowing secondary to uncovertebral joint arthropathy, however limited in view. C6-7: Normal endplates. Normal disc height, signal and morphology. Normal central canal and intervertebral neural foramina. C7-T1: Normal endplates. Normal disc height, signal and morphology. Normal central canal and intervertebral neural foramina. Normal cervical cord. Normal visualized soft tissue structures. MRI/Spine Cervical (Routine) IMPRESSION: 1. Severely limited exam secondary to motion artifact with noted degenerative changes as above. Electronically Signed: Arden Vivas DO at 20:31 EDT , Service support ,
[2018-02-25 07:36] LABS: Hematocrit 37.6 % (40-54); Hemoglobin 12.3 g/dl (13.0-16.5); Mean Corp Hgb Conc 32.7 g/gl (32-36); Mean Corpuscular Hgb 29.1 pg (27.0-32.0); Mean Corpuscular Volume 88.9 fL (80-94); Mean Platelet Vol. 10.7 fl (6.2-12.0); Platelet Count 337 K/mm3 (150-450); RBC Distribution Width CV 15.2 % (11.6-14.6); RBC Distribution Width SD 48.9 fl (35.1-43.9); Red Blood Count 4.23 M/mm3 (4.6-6.2); Scan Indicated on CBC? Y/N NO; White Blood Count 12.4 K/mm3 (4.4-11.0)
[2018-02-25 12:48] LABS: Anion Gap 7 (5-15); BUN 17 mg/dL (7-18); BUN/Creat Ratio 20.7 RATIO (10-20); Calcium,Total 9.3 mg/dL (8.5-10.1); Chloride 107 mmol/L (98-107); Cholesterol 113 mg/dL (200); Creatinine, Serum 0.82 mg/dL (0.70-1.30); EST Glomerular Filtration Rate 100 mL/min (>60); Est Glom Filt Rate - Afr Amer 121 mL/min (>60); Glucose 144 mg/dL (74-106); High Density Lipoprotein 41 mg/dL; Magnesium 1.8 mg/dL (1.6-2.6); Sodium Level 143 mmol/L (136-145); Triglycerides 81 mg/dL; Very Low Density Lipoprotein 16 mg/dL (5-40)
--- NOTE | 2018-02-25 16:20 | CT_ITS ---
STUDY: CTA OF THE BRAIN REASON FOR EXAM: Male, 68 years old. CVA WORK UP RADIATION DOSAGE (If Supplied By Facility): CTDIvol = ( 35.72 ) mGy, DLP = ( 1553.09 ) mGycm TECHNIQUE: CT angiography was performed with a multi-detector CT scanner. Data acquisition was obtained from the skull base through the vertex following intravenous administration of 100 ml of ISO 370. MIP images were reconstructed from the axial data set. Post-processing of the angiographic images was performed, with multiplanar reformation and 3D reconstruction. Individualized dose optimization techniques were used for this CT. COMPARISON: None. FINDINGS: Normal bilateral petrous carotid arteries. There is calcified plaque formation of the right cavernous carotid artery, without a cross-sectional luminal stenosis. There is calcified plaque formation of the left cavernous carotid artery, without a cross-sectional luminal stenosis. Normal right A1 segments of the anterior cerebral artery. Normal left A1 segments of the anterior cerebral artery. Normal intact anterior communicating artery (ACOM). Normal bilateral A2 segments of the anterior cerebral arteries. Normal right M1 and M2 segments of the middle cerebral arteries, with a normal M1 bifurcation. Normal left M1 and M2 segments of the middle cerebral arteries, with a normal M1 bifurcation. Normal right posterior communicating artery (PCOM). Normal left posterior communicating artery (PCOM). Normal bilateral vertebral arteries. Normal basilar artery with a normal basilar bifurcation. The visualized bilateral superior cerebellar (SCA) arteries are normal. Normal bilateral P1, P2 and visualized P3 segments of the posterior cerebral arteries. There is no demonstrated aneurysm of the [place]. There is mild cerebral atrophy with widening of the extra-axial spaces and ventricular dilatation. There are areas of decreased attenuation within the white matter tracts of the supratentorial brain, consistent with microvascular disease changes. Normal basal ganglia and thalami. Normal brainstem. There is mild cerebellar atrophy. CT/CTA Head W/WO Contrast IMPRESSION: There is no hemodynamically significant stenosis. Calculated stenosis of the Right and Left ICA's is less than 50%. Electronically Signed: Kvng Dietz MD at 18:03 EDT , Service support ,
--- NOTE | 2018-02-25 16:20 | CT_ITS ---
STUDY: CTA NECK WITH CONTRAST REASON FOR EXAM: Male, 68 years old. CVA WORK UP RADIATION DOSAGE (If Supplied By Facility): CTDIvol = ( 35.72 ) mGy, DLP = ( 1553.09 ) mGycm TECHNIQUE: CT angiography with multi-detector data acquisition was performed from the aortic arch to the skull base following intravenous administration of 100 ml of Isovue 370 contrast. MIP images were reconstructed from the axial data set. Post-processing of the angiographic images was performed, with multiplanar reformation and 3D reconstruction. COMPARISON: None. FINDINGS: Multiple median sternotomy wires are noted consistent for cardiac surgery. There are scattered blebs and bullae. This can be seen in pulmonary emphysema. Scattered bilateral groundglass infiltrates bilaterally. AORTIC ARCH: Normal visualized aortic arch. Normal origins of the brachiocephalic, left common carotid, and left subclavian arteries. RIGHT CAROTID ARTERIES: Normal right common carotid artery (CCA). Normal right common carotid bulb. There is mild atherosclerotic plaque formation of the origin of the right internal carotid artery with less than 50% cross sectional diameter stenosis. Normal visualized cervical portion of the right internal carotid artery. Normal origin of the right external carotid artery (ECA). LEFT CAROTID ARTERIES: Normal left common carotid artery (CCA). Normal left common carotid bulb. There is mild atherosclerotic plaque formation of the origin of the left internal carotid artery with less than 50% cross sectional diameter stenosis. Normal visualized cervical portion of the left internal carotid artery. Normal origin of the left external carotid artery (ECA). VERTEBRAL ARTERIES: Normal bilateral vertebral arteries. CT/CTA Neck W/WO Contrast IMPRESSION: There are calcifications around the cavernous carotid arteries. This is consistent for atherosclerotic disease. No hemodynamically sent to stenosis. Scattered bilateral ground glass densities suggest possible air trapping or restrictive airways disease. Electronically Signed: Kvng Dietz MD at 18:04 EDT , Service support ,
[2018-02-26] VITALS (11 sets, daily range): BP systolic 118–147; BP diastolic 68–82; PULSE 77–110; RESP 14–20; TEMP 36.4–36.7; O2SAT 92–96
--- NOTE | 2018-02-26 07:50 | ECHOD_ITS ---
Reason For Study: TIA/CVA Procedure This was a 2D Doppler, Color Flow transthoracic echocardiogram. The study was technically difficult. Contrast injection was performed. Exam performed portable in patient room. Left Ventricle Normal LV size. The estimated ejection fraction is 55 %. Unable to assess diastolic dysfunction. No regional wall motion abnormalities noted. Right Ventricle Normal RV size. Normal systolic function. Atria The left atrium is mildly enlarged. Normal right atrium. Mitral Valve Normal mitral valve. Tricuspid Valve Normal tricuspid valve. Mild (1+) tricuspid valve insufficiency. Pulmonary artery systolic pressure is 31 mmHg. Aortic Valve Trisinus/trileaflet aortic valve. Moderate focal aortic valve calcification. Peak aortic valve gradient 19 mmHg. Mean aortic valve gradient 11 mmHg. Mild aortic stenosis. Pulmonic Valve Normal pulmonic valve. Great Vessels Normal aortic root. The pulmonary artery is normal size. Normal inferior vena cava. Pericardium/Pleural No pericardial effusion. Medication Diluted definity 4.0ml given slow IV push to enhance endocardial definition. MMode/2D Measurements & Calculations LVIDd: 5.3 cm IVSd: 1.3 cm LVOT diam: 2.2 cm LVIDs: 3.8 cm LVPWd: 1.3 cm LVOT area: 3.9 cm2 RVDd: 3.4 cm FS: 27.9 % Ao root diam: 3.0 cm LAV(MOD-bp): 86.2 ml LA dimension: 4.5 cm LAV(MOD-bp) Indexed: 37.4 ml/m2 LA A4 area: 23.8 cm2 LAV(MOD-sp2): 86.9 ml LAV(MOD-sp4): 79.6 ml RA A4 area: 19.9 cm2 Doppler Measurements & Calculations MV E max kendrick: 123.4 cm/sec Lat Peak E' Kendrick: 8.6 cm/sec Med Peak E' Kendrick: 7.6 cm/sec E/E' lat: 14.3 E/E' med: 16.2 Ao V2 max: 219.5 cm/sec LV V1 max: 105.5 cm/sec SV(LVOT): 75.9 ml Ao max P.3 mmHg LV V1 max P.5 mmHg Ao V2 mean: 160.1 cm/sec LV V1 mean P.3 mmHg Ao mean P.2 mmHg LV V1 mean: 72.3 cm/sec Ao V2 VTI: 38.0 cm LV V1 VTI: 19.2 cm YESSICA(I,D): 2.0 cm2 YESSICA(V,D): 1.9 cm2 PA V2 max: 98.8 cm/sec TR max kendrick: 254.6 cm/sec TR max P.0 mmHg Interpretation Summary Normal LV size. The estimated ejection fraction is 55 %. Unable to assess diastolic dysfunction. The left atrium is mildly enlarged. Pulmonary artery systolic pressure is 31 mmHg. Contrast injection was performed. Ordering Physician: Jose Hoang MD Referring Physician: Gina Sawant Performed By: Lay Banks RDCS, RVT
[2018-02-26] MEDS: 0.9% Normal Saline 1,000 ML 75 ML IV (08:50)
[2018-02-26] MEDS: Ipratropium/Albuterol Sulfate 3 ML AMPUL.NEB INHALATION ×3 (09:05→22:52)
[2018-02-26 09:29] LABS: Hemoglobin A1c 6.8 % (4.2-6.3)
[2018-02-26 09:29] LABS: Vitamin B12 719 pg/mL (211-911)
--- NOTE | 2018-02-26 10:54 | CASEMGMT ---
Addendum entered by Samantha Benitez 02/26/18 11:59: SW spoke w/ in the hallway, reviewed the benefits w/. SW also asked for a second choice in the event [facility] cannot take pt. TCU is their second choice. SW will let know as soon as this SW knows, if [facility] can take pt. ORLANDO Lovell, [employer]CHITECT Original Note: Addendum entered by Samantha Benitez 02/26/18 11:34: SW spoke w/Jackie from [facility], they are reviewing the referral and will let this SW know if they can take pt. Also, she states pt's benefits are as follows: days 1-20 are covered at 100%, beyond 20 days the copay is $167/day with a maximum out of pocket of $5800. SW will let pt's know. ORLANDO Lovell, RENETTA Original Note: PT/OT are recommending SNF placement for pt. SW spoke w/pt and in room in regard to plan. in agreement w/SNF placement for now, would like [facility], as they know an RN who works there. SW explained will send the referral to see if they can take pt. Pt inquired about cost, SW explained that if [facility] can take pt, they will get an authorization from [facility] to cover the cost. would like to know what specifically are the halfway benefits. SW explained will find out. SW called [facility], message left for Jackie and referral faxed. SW also left in message if she can take pt, will she call insurance, if not, this SW will call to find out benefits. SW will continue to follow. OR[place]O Lovell, RENETTA
--- NOTE | 2018-02-26 11:45 | PCM.PN.NEU ---
Subjective: Patient and his are present. Treatment options are discussed. His tells me today that he likely has missed a number of doses of his Eliquis. We discussed a simpler option including once a day dosing with Xarelto to which she agrees to. Believes that he is improved today but still has some left-sided weakness. We discussed possible rehab, the patient is reluctant at this point but agrees to discuss this with his . Swallow evaluation is pending. Objective: Mentation he is alert and oriented Masked facies Mild bradyphrenia Right resting tremor. - Physical Exam General: Alert, Oriented x3, Cooperative Vital Signs Pulse Resp Pulse Ox 106 H 20 H 92 02/26/18 09:05 02/26/18 09:05 02/26/18 09:05 Oxygen Delivery Method Room Air Laboratory Tests Past 24 Hrs 02/25/18 02/26/18 05:10 05:10 Sodium 143 Potassium 4.0 Chloride 107 Carbon Dioxide 29.0 Anion Gap 7 BUN 17 Creatinine 0.82 Est GFR (MDRD) Af Amer 121 Est GFR (MDRD) Non-Af 100 BUN/Creatinine Ratio 20.7 H Glucose 144 H Hemoglobin A1c 6.8 H Calcium 9.3 Magnesium 1.8 Triglycerides 81 Cholesterol 113 LDL Cholesterol 56 VLDL Cholesterol 16 HDL Cholesterol 41 Current Medications Generic Name Dose Route Start Last Admin Trade Name Freq PRN Reason Stop Dose Admin Acetaminophen 650 mg 02/24/18 02:00 Tylenol PO Q4H PRN PRN PAIN/FEVER Albuterol Sulfate 2.5 mg 02/24/18 09:16 Ventolin Aerosols INHALATION Q2H PRN PRN DYSPNEA/WHEEZING Albuterol/Ipratropium 3 ml 02/24/18 09:30 02/26/18 09:05 Duoneb INHALATION 3 ml Q4H.RT [facility] Administration Allopurinol 100 mg 02/24/18 10:00 Zyloprim PO DAILY [facility] Apixaban 5 mg 02/24/18 10:00 Eliquis PO BID [facility] Atorvastatin Calcium 80 mg 02/25/18 22:00 Lipitor PO QHS [facility] Carbidopa/Levodopa 1 tablet 02/24/18 14:00 Sinemet PO TID [facility] Famotidine 20 mg 02/24/18 10:00 Pepcid PO BID [facility] Ferrous Sulfate 325 mg 02/24/18 10:00 Ferrous Sulfate PO BID [facility] Furosemide 40 mg 02/24/18 10:00 Lasix PO BID [facility] Hydralazine HCl 10 mg 02/24/18 10:19 Apresoline Iv IV Q4H PRN PRN SBP >/= 160 Hydrocortisone 1 applic 02/24/18 10:00 Hytone TOPICAL DAILY [facility] Sodium Chloride 1,000 mls @ 75 mls/hr 02/26/18 09:10 IV .[id number] [facility] Insulin Human Lispro 0 unit 02/24/18 11:00 Humalog Kwikpen (Bkc) SC ACHS [facility] Protocol Lisinopril 10 mg 02/24/18 10:00 Zestril PO DAILY [facility] Morphine Sulfate 1 - 2 mg 02/24/18 02:00 IV Q4H PRN PRN SEVERE PAIN (6-10/10) Multivitamins/Minerals 1 tablet 02/24/18 10:00 Multivitamin With Minerals PO DAILY [facility] Nystatin 1 applic 02/24/18 22:00 Mycostatin Powder TOPICAL TID [facility] Uvies-2-Yfch Ethyl Esters 1 gm 02/24/18 10:00 Lovaza PO DAILY [facility] Ondansetron HCl 4 mg 02/24/18 02:00 Zofran IV Q6H PRN PRN NAUSEA/VOMITING Oxycodone HCl 5 - 10 mg 02/24/18 02:00 Oxyir PO Q4H PRN PRN MILD-MOD PAIN (1-5/10) Potassium Chloride 40 meq 02/24/18 10:00 K-Dur PO DAILY [facility] Sodium Chloride 5 - 30 ml 02/24/18 09:18 IV UD PRN SALINE FLUSH Sotalol HCl 80 mg 02/24/18 10:00 Betapace (G) PO BID [facility] I reviewed his MRI. He has 2 punctate infarcts, he has a right peduncular infarct which is acute, and a left cerebellar infarct which I think is probably acute/subacute. Reviewed the CTA of his head and neck which appears to be essentially normal. Medical Necessity - Tobacco Use Smoking Status: Current every day smoker Assessment/Plan All Active Problems Slurred speech (Acute) Dizziness (Acute) Impression: 1. Acute bilateral cerebellar infarcts likely due to atrial fibrillation, suboptimal compliance with Eliquis: Recommend change to once daily dosing with Xarelto PT, OT, speech therapy, await clearance from speech therapy BP control Recommend acute inpatient rehab, patient considering. 2. Parkinsonism: Stable. Continue current dose of Sinemet when able to take p.o.
--- NOTE | 2018-02-26 11:49 | PN.NEURO_ITS ---
Subjective: Patient and his are present. Treatment options are discussed. His tells me today that he likely has missed a number of doses of his Eliquis. We discussed a simpler option including once a day dosing with Xarelto to which she agrees to. Believes that he is improved today but still has some left- sided weakness. We discussed possible rehab, the patient is reluctant at this point but agrees to discuss this with his . Swallow evaluation is pending. Objective: Mentation he is alert and oriented Masked facies Mild bradyphrenia Right resting tremor. - Physical Exam General: Alert, Oriented x3, Cooperative Vital Signs Pulse Resp Pulse Ox 106 H 20 H 92 02/26/18 09:05 02/26/18 09:05 02/26/18 09:05 Oxygen Delivery Method Room Air Laboratory Tests Past 24 Hrs 02/25/18 02/26/18 05:10 05:10 Sodium 143 Potassium 4.0 Chloride 107 Carbon Dioxide 29.0 Anion Gap 7 BUN 17 Creatinine 0.82 Est GFR (MDRD) Af Amer 121 Est GFR (MDRD) Non-Af 100 BUN/Creatinine Ratio 20.7 H Glucose 144 H Hemoglobin A1c 6.8 H Calcium 9.3 Magnesium 1.8 Triglycerides 81 Cholesterol 113 LDL Cholesterol 56 VLDL Cholesterol 16 HDL Cholesterol 41 Current Medications Generic Name Dose Route Start Last Admin Trade Name Freq PRN Reason Stop Dose Admin Acetaminophen 650 mg 02/24/18 02:00 Tylenol PO Q4H PRN PRN PAIN/FEVER Albuterol Sulfate 2.5 mg 02/24/18 09:16 Ventolin Aerosols INHALATION Q2H PRN PRN DYSPNEA/WHEEZING Albuterol/Ipratropium 3 ml 02/24/18 09:30 02/26/18 09:05 Duoneb INHALATION 3 ml Q4H.RT [facility] Administration Allopurinol 100 mg 02/24/18 10:00 Zyloprim PO DAILY [facility] Apixaban 5 mg 02/24/18 10:00 Eliquis PO BID [facility] Atorvastatin Calcium 80 mg 02/25/18 22:00 Lipitor PO QHS [facility] Carbidopa/Levodopa 1 tablet 02/24/18 14:00 Sinemet PO TID [facility] Famotidine 20 mg 02/24/18 10:00 Pepcid PO BID [facility] Ferrous Sulfate 325 mg 02/24/18 10:00 Ferrous Sulfate PO BID [facility] Furosemide 40 mg 02/24/18 10:00 Lasix PO BID [facility] Hydralazine HCl 10 mg 02/24/18 10:19 Apresoline Iv IV Q4H PRN PRN SBP >/= 160 Hydrocortisone 1 applic 02/24/18 10:00 Hytone TOPICAL DAILY [facility] Sodium Chloride 1,000 mls @ 75 mls/hr 02/26/18 09:10 IV .[id number] [facility] Insulin Human Lispro 0 unit 02/24/18 11:00 Humalog Kwikpen (Bkc) SC ACHS [facility] Protocol Lisinopril 10 mg 02/24/18 10:00 Zestril PO DAILY [facility] Morphine Sulfate 1 - 2 mg 02/24/18 02:00 IV Q4H PRN PRN SEVERE PAIN (6-10/10) Multivitamins/Minerals 1 tablet 02/24/18 10:00 Multivitamin With Minerals PO DAILY [facility] Nystatin 1 applic 02/24/18 22:00 Mycostatin Powder TOPICAL TID [facility] Owjie-3-Vofk Ethyl Esters 1 gm 02/24/18 10:00 Lovaza PO DAILY [facility] Ondansetron HCl 4 mg 02/24/18 02:00 Zofran IV Q6H PRN PRN NAUSEA/VOMITING Oxycodone HCl 5 - 10 mg 02/24/18 02:00 Oxyir PO Q4H PRN PRN MILD-MOD PAIN (1-5/10) Potassium Chloride 40 meq 02/24/18 10:00 K-Dur PO DAILY [facility] Sodium Chloride 5 - 30 ml 02/24/18 09:18 IV UD PRN SALINE FLUSH Sotalol HCl 80 mg 02/24/18 10:00 Betapace (G) PO BID [facility] I reviewed his MRI. He has 2 punctate infarcts, he has a right peduncular infarct which is acute, and a left cerebellar infarct which I think is probably acute/subacute. Reviewed the CTA of his head and neck which appears to be essentially normal. Medical Necessity - Tobacco Use Smoking Status: Current every day smoker Assessment/Plan All Active Problems Slurred speech (Acute) Dizziness (Acute) Impression: 1. Acute bilateral cerebellar infarcts likely due to atrial fibrillation, suboptimal compliance with Eliquis: * Recommend change to once daily dosing with Xarelto * PT, OT, speech therapy, await clearance from speech therapy * BP control * Recommend acute inpatient rehab, patient considering. 2. Parkinsonism: Stable. Continue current dose of Sinemet when able to take p.o.
--- NOTE | 2018-02-26 12:54 | CASEMGMT ---
SW received a message from Jackie at [facility], they can take pt as long as pt is okay w/not smoking at [facility], asked when to start precert. SW called , let her know that [facility] can take pt, and asked about pt's smoking. states pt does not smoke much, and it's probably best not to ask him about smoking and remind him about it. states she asked for pt to be prescribed a patch here. states she is hoping pt will go to rehab, she states she asked pt's son to come in and talk to pt about it, as pt does not want to go. explains she does not want pt to be mad at her for making this decision. SW offered support to . SW called [facility], message left for Jackie letting her know that SW spoke w/, and the smoking should not be an issue for pt. SW also let her know she can start precert now, though if she needs updated PT/OT we will fax those whenever available. SW will continue to follow, plan is for pt to go to [facility] at discharge pending precert. [place]O Lovell, [employer]OT[employer]YING EQUIPMENT MECHANIC
[2018-02-26 13:31] LABS: Bedside Glucose 157 mg/dL (70-110)
[2018-02-26] MEDS: Famotidine 20 MG Tablet PO ×2 (13:52→21:54)
[2018-02-26] MEDS: Allopurinol 100 MG Tablet PO (13:53)
[2018-02-26] MEDS: Carbidopa/Levodopa 25/100 Tablet PO ×2 (13:53→21:54)
[2018-02-26] MEDS: Multivitamins,Ther W-Minerals Tablet 1 TABLET PO (13:53)
[2018-02-26] MEDS: Sotalol Hydrochloride 80 MG Tablet PO ×2 (13:54→21:53)
[2018-02-26] MEDS: APIXABAN 5 MG TABLET PO ×2 (13:54→21:53)
[2018-02-26] MEDS: Lisinopril 10 MG Tablet PO (13:54)
[2018-02-26] MEDS: Omega-3 Acid Ethyl Esters 1 GM Capsule PO (13:54)
[2018-02-26] MEDS: Furosemide 40 MG Tablet PO ×2 (13:55→21:56)
[2018-02-26] MEDS: Ferrous Sulfate 325 MG Tablet PO ×2 (13:55→21:53)
[2018-02-26] MEDS: Insulin Lispro 100 UNIT/ML INSULN.PEN SC ×3 (13:55→21:51)
[2018-02-26] MEDS: Nystatin Powder 15gm Bottle 1 APPLIC TOPICAL ×3 (14:00→21:54)
[2018-02-26 18:05] LABS: Bedside Glucose 254 mg/dL (70-110)
[2018-02-26] MEDS: Atorvastatin Calcium 80 MG Tablet PO (21:54)
[2018-02-26 23:00] LABS: Bedside Glucose 260 mg/dL (70-110)
[2018-02-27] VITALS (13 sets, daily range): BP systolic 116–142; BP diastolic 68–78; PULSE 76–99; RESP 14–18; TEMP 36.6–36.8; O2SAT 92–94
[2018-02-27] MEDS: Ipratropium/Albuterol Sulfate 3 ML AMPUL.NEB INHALATION ×3 (03:30→14:34)
[2018-02-27] MEDS: Carbidopa/Levodopa 25/100 Tablet PO ×2 (05:43→13:55)
[2018-02-27] MEDS: Nystatin Powder 15gm Bottle 1 APPLIC TOPICAL ×2 (05:43→13:56)
[2018-02-27 06:35] LABS: Bacteria 0 SEEN /hpf (None Seen); Mucous, Urine 0 SEEN /hpf (<or=2+); Red Blood Cells-Urine 0 SEEN /hpf (0-5); White Blood Cells 0 SEEN /hpf (0-5)
[2018-02-27 06:55] LABS: Bedside Glucose 190 mg/dL (70-110)
[2018-02-27 06:57] LABS: Anion Gap 6 (5-15); BUN 18 mg/dL (7-18); BUN/Creat Ratio 18.5 RATIO (10-20); Calcium,Total 8.3 mg/dL (8.5-10.1); Chloride 108 mmol/L (98-107); Creatinine, Serum 0.97 mg/dL (0.70-1.30); EST Glomerular Filtration Rate 82 mL/min (>60); Est Glom Filt Rate - Afr Amer 99 mL/min (>60); Glucose 181 mg/dL (74-106); Magnesium 1.6 mg/dL (1.6-2.6); Sodium Level 140 mmol/L (136-145)
[2018-02-27 06:57] LABS: Color, Urine Yellow (Yellow); Glucose, Dipstick NEGATIVE (Normal); Ketone-Dipstick Negative (Negative); Specific Gravity, Urine 1.005 (1.002-1.030); Urine Bilirubin Dipstick Negative (Negative); Urine Clarity Clear (Clear)
[2018-02-27 06:58] LABS: Leukocyte Esterase-Dipstick 25 /ul (Negative); Nitrite-Dipstick Negative (Negative); Occult Blood-Urine 25 /ul (Negative); Protein-Dipstick 100 mg/dl (Negative); Squamous Epithelial Cells - UA 0-5 SEEN /hpf (0-5); Urine Urobilinogen Normal (Normal)
[2018-02-27] MEDS: Insulin Lispro 100 UNIT/ML INSULN.PEN SC ×2 (08:12→11:25)
[2018-02-27] MEDS: Ferrous Sulfate 325 MG Tablet PO (08:13)
[2018-02-27] MEDS: Sotalol Hydrochloride 80 MG Tablet PO (08:13)
[2018-02-27] MEDS: Hydrocortisone 2.5% Crm 1 APPLIC TOPICAL (08:13)
[2018-02-27] MEDS: Omega-3 Acid Ethyl Esters 1 GM Capsule PO (08:14)
[2018-02-27] MEDS: Furosemide 40 MG Tablet PO (08:14)
[2018-02-27] MEDS: Famotidine 20 MG Tablet PO (08:15)
[2018-02-27] MEDS: Lisinopril 10 MG Tablet PO (08:15)
[2018-02-27] MEDS: Allopurinol 100 MG Tablet PO (08:15)
[2018-02-27] MEDS: Multivitamins,Ther W-Minerals Tablet 1 TABLET PO (08:15)
[2018-02-27] MEDS: APIXABAN 5 MG TABLET PO (08:15)
--- NOTE | 2018-02-27 08:38 | CASEMGMT ---
ANT faxed PT/OT notes from yesterday to [facility] and asked that she start the pre-cert. Plan: d/c to [facility] [place] pending insurance approval. Arlene PAREDES MSW
[2018-02-27 09:55] LABS: BUN 17 mg/dL (7-18); BUN/Creat Ratio 21.5 RATIO (10-20); Calcium,Total 9.4 mg/dL (8.5-10.1); Creatinine, Serum 0.79 mg/dL (0.70-1.30); EST Glomerular Filtration Rate 104 mL/min (>60); Est Glom Filt Rate - Afr Amer 126 mL/min (>60); Glucose 106 mg/dL (74-106); Magnesium 1.8 mg/dL (1.6-2.6); Sodium Level 142 mmol/L (136-145)
[2018-02-27 09:56] LABS: Anion Gap 9 (5-15); Chloride 105 mmol/L (98-107); Potassium 3.9 mmol/L (3.5-5.1); Thyroid Stim Hormone (TSH) 3.14 uIU/mL (0.358-3.74)
[2018-02-27 10:38] LABS: Anion Gap 7 (5-15); BUN 20 mg/dL (7-18); BUN/Creat Ratio 23.8 RATIO (10-20); Calcium,Total 9.4 mg/dL (8.5-10.1); Chloride 103 mmol/L (98-107); Creatinine, Serum 0.84 mg/dL (0.70-1.30); EST Glomerular Filtration Rate 97 mL/min (>60); Est Glom Filt Rate - Afr Amer 118 mL/min (>60); Glucose 116 mg/dL (74-106); Sodium Level 138 mmol/L (136-145)
[2018-02-27 11:01] LABS: Bedside Glucose 157 mg/dL (70-110)
[2018-02-27 11:05] LABS: Bedside Glucose 231 mg/dL (70-110)
--- NOTE | 2018-02-27 12:11 | PCM.PN.HOSP ---
Vitals/I&O's: Vital Signs Temp Pulse Resp BP Pulse Ox 98.0 F 77 16 116/68 92 02/27/18 11:49 02/27/18 11:49 02/27/18 11:49 02/27/18 11:49 02/27/18 11:49 Oxygen Delivery Method Room Air Weight: 97.4 kg Intake and Output for Last 24 Hours 02/25/18 02/26/18 02/27/18 23:59 23:59 23:59 Intake Total 1278 / 1278 360 / 360 Balance 1278 / 1278 360 / 360 Laboratory Results 02/26/18 06:46: POC Glucose 157 H 02/26/18 11:42: POC Glucose 157 H 02/26/18 17:37: POC Glucose 254 H 02/26/18 21:48: POC Glucose 260 H 02/27/18 05:50: Sodium 140, Potassium 4.0, Chloride 108 H, Carbon Dioxide 26.0, Anion Gap 6, BUN 18, Creatinine 0.97, Est GFR (MDRD) Af Amer 99, Est GFR (MDRD) Non-Af 82, BUN/Creatinine Ratio 18.5, Glucose 181 H, Calcium 8.3 L, Magnesium 1.6 02/27/18 06:44: POC Glucose 190 H 02/27/18 11:02: POC Glucose 231 H Current Medications Acetaminophen (Tylenol) 650 mg PO Q4H PRN PRN PRN Reason: PAIN/FEVER Albuterol Sulfate (Ventolin Aerosols) 2.5 mg INHALATION Q2H PRN PRN PRN Reason: DYSPNEA/WHEEZING Albuterol/Ipratropium (Duoneb) 3 ml INHALATION Q4H.RT [facility] Last Admin: 02/27/18 11:10 Dose: Not Given Allopurinol (Zyloprim) 100 mg PO DAILY [facility] Last Admin: 02/27/18 08:15 Dose: 100 mg Apixaban (Eliquis) 5 mg PO BID [facility] Last Admin: 02/27/18 08:15 Dose: 5 mg Atorvastatin Calcium (Lipitor) 80 mg PO QHS [facility] Last Admin: 02/26/18 21:54 Dose: 80 mg Carbidopa/Levodopa (Sinemet) 1 tablet PO TID [facility] Last Admin: 02/27/18 05:43 Dose: 1 tablet Dextrose (D50w Syringe) 0 gm IV X1 PRN; Protocol PRN Reason: Hypoglycemia Famotidine (Pepcid) 20 mg PO BID [facility] Last Admin: 02/27/18 08:15 Dose: 20 mg Ferrous Sulfate (Ferrous Sulfate) 325 mg PO BID [facility] Last Admin: 02/27/18 08:13 Dose: 325 mg Furosemide (Lasix) 40 mg PO BID [facility] Last Admin: 02/27/18 08:14 Dose: 40 mg Glucagon () 1 mg IM .X1 PRN PRN Reason: Hypoglycemia Hydralazine HCl (Apresoline Iv) 10 mg IV Q4H PRN PRN PRN Reason: SBP >/= 160 Hydrocortisone (Hytone) 1 applic TOPICAL DAILY [facility] Last Admin: 02/27/18 08:13 Dose: 1 applicatio Insulin Human Lispro (Humalog Kwikpen (Bkc)) 0 unit SC ACHS ALCIRA PRN Reason: Protocol Last Admin: 02/27/18 11:25 Dose: 3 unit Lisinopril (Zestril) 10 mg PO DAILY [facility] Last Admin: 02/27/18 08:15 Dose: 10 mg Morphine Sulfate () 1 - 2 mg IV Q4H PRN PRN PRN Reason: SEVERE PAIN (6-10/10) Multivitamins/Minerals (Multivitamin With Minerals) 1 tablet PO DAILY [facility] Last Admin: 02/27/18 08:15 Dose: 1 tablet Nystatin (Mycostatin Powder) 1 applic TOPICAL TID [facility] Last Admin: 02/27/18 05:43 Dose: 1 applic Waakv-0-Ddzw Ethyl Esters (Lovaza) 1 gm PO DAILY [facility] Last Admin: 02/27/18 08:14 Dose: 1 gm Ondansetron HCl (Zofran) 4 mg IV Q6H PRN PRN PRN Reason: NAUSEA/VOMITING Oxycodone HCl (Oxyir) 5 - 10 mg PO Q4H PRN PRN PRN Reason: MILD-MOD PAIN (1-5/10) Potassium Chloride (K-Dur) 40 meq PO DAILY [facility] Last Admin: 02/27/18 08:14 Dose: 40 meq Sodium Chloride () 5 - 30 ml IV UD PRN PRN Reason: SALINE FLUSH Sotalol HCl (Betapace (G)) 80 mg PO BID [facility] Last Admin: 02/27/18 08:13 Dose: 80 mg Medical Necessity - Tobacco Use Smoking Status: Unknown if ever smoked Assessment/Plan All Active Problems Slurred speech (Acute) Dizziness (Acute)
--- NOTE | 2018-02-27 14:01 | CASEMGMT ---
Received insurance approval for patient to [facility]. interior design assistant paged physician to let him know. Arlene PAREDES MSW
--- NOTE | 2018-02-27 14:40 | TREXTCAR_ITS ---
- Diet 02/26/18 17:55 Diet: Cardiac: Calorie-Controlled Food consistency:: Mechanical Soft/Ground Liquid Consistency:: [place] Thick Dietary Modifications:: [place] Thick Liquids Mechanical Soft Diet Diet Comments: Supervision with feeding. Pills whole with purees. How many daily calories?: 1800 calorie - Routine Orders/Code Status Code Status: Full Code - Therapies Physical Therapy: Eval and Treat Occupational Therapy: Eval and Treat Speech Therapy: Eval and Treat - Allergies/Procedures Done in Hospital Allergies/Adverse Reactions: Allergies Penicillins Allergy (Verified 10/23/17 09:17) Rash varenicline [From Chantix] Adverse Reaction (Verified 02/26/18 13:51) Unknown - Type of Care/Length of Stay Estimated LOS: Convalescent Care Less Than 30 days Type of Care Needed: Skilled Rehab Potential: Fair Prognosis: Fair - Additional Orders/Day of Discharge H&P will serve as current which was dated: 02/24/18 Day of Discharge: 02/27/18 - Dietary and Speech Recommendations Dietitian Recommendations/Changes: Consider liberal carbohydrate-controlled, cardiac with texture/consistency as per speech. Current weight as able. - Follow Up Care Primary Care Physician: Ibrahima Chairez MD [Primary Care Provider] - Within 2 Weeks
--- NOTE | 2018-02-27 14:40 | PCM.DC.SUM ---
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 Subsequent workup revealed acute bilateral cerebellar infarcts likely due to atrial fibrillation, suboptimal compliance with Eliquis. Neurology was consulted and Dr. Angel recommended changing to once daily dosing with Xarelto, PT, OT, speech therapy and BP control. The patient was discharged to a [facility] facility to continue post acute care and rehabilitation. Regarding his Parkinsonism disease this is stable. He is to continue Sinemet . Exam at the time of discharge; vital signs were stable. He was alert and oriented to time place and person. He did not appear to be any form of distress. S1 and S2 heard no murmur or gallop Lung exam was clear to auscultation with no adventitious sounds. Abdomen was soft nontender with normal bowel sounds. extremity exam did not reveal any edema, palpable pulses bilaterally. Neurologic ; alert and oriented to time place and person. Rest tremor. strength 4/4 on the left U/L extremities. Discharge Diet: No Restrictions Home Medications: Medications to take at Discharge Lisinopril [Prinivil] 10 mg PO DAILY 10/23/17 Metformin HCl 1,000 mg PO BID 10/23/17 [place]-3 Fatty Acids/Fish Oil [[place] 3 1,000 mg Softgel] 1 each PO DAILY 10/23/17 Omeprazole 40 mg PO DAILY 10/23/17 Potassium Chloride [Klor-Con M20] 20 meq PO DAILY 10/23/17 Sotalol HCl [Betapace AF (Beta Ahsan)] 80 mg PO BID 10/23/17 Vardenafil HCl [Levitra] 20 mg PO PRN PRN 10/23/17 Aspirin [Aspirin, Baby] 81 mg PO DAILY@0800 tab.chew 10/25/17 Albuterol Inhaler [Ventolin Hfa] 1 puff INHALATION Q4H PRN PRN 02/26/18 Allopurinol 100 mg PO DAILY 02/26/18 Carbidopa/Levodopa 25/100 [Sinemet 25/100] 1 tablet PO BIDAC 02/26/18 Ferrous Sulfate [Iron] 325 mg PO BID 02/26/18 Furosemide [Lasix] 40 mg PO BID 02/26/18 Insulin Aspart [Novolog Flexpen] 10 units SC DINNER 02/26/18 Insulin Aspart [Novolog Flexpen] 10 units SC LUNCH 02/26/18 Insulin Aspart [Novolog Flexpen] 20 units SC BREAKFAST 02/26/18 Insulin Glargine,Hum.rec.anlog [Toujeo Solostar] 44 unit SQ DAILY 02/26/18 Atorvastatin Calcium [Lipitor] 80 mg PO QHS tablet 02/27/18 Carbidopa/Levodopa 25/100 [Sinemet 25/100] 1 tablet PO TID tablet 02/27/18 Famotidine [Pepcid] 20 mg PO BID tablet 02/27/18 Ferrous Sulfate 325 mg PO BID tablet 02/27/18 Furosemide [Lasix] 40 mg PO BID tablet 02/27/18 Hydrocortisone 2.5% Crm [Hytone] 1 applic TOPICAL DAILY tube 02/27/18 Lisinopril [Zestril] 10 mg PO DAILY tablet 02/27/18 Nicotine [Nicotine Patch] 1 each TD DAILY #14 patch.td24 02/27/18 Nystatin Powder [Mycostatin Powder] 1 applic TOPICAL TID bottle 02/27/18 [place]-3 Acid Ethyl Esters [Lovaza] 1 gm PO DAILY capsule 02/27/18 Potassium Chloride [K-Dur] 40 meq PO DAILY tablet 02/27/18 Prednisone 10 mg PO DAILY #0 02/27/18 Rivaroxaban [Xarelto] 20 mg PO DAILY 30 Days #30 tablet 02/27/18 Following Prescrptions Were Given to Patient: Nicotine [Nicotine Patch] 1 each TD DAILY #14 patch.td24 Rivaroxaban [Xarelto] 20 mg PO DAILY 30 Days #30 tablet Primary Care Physician: Ibrahima Chairez MD [Primary Care Provider] - Within 2 Weeks Disposition: Senior Living facility Patient Condition:: Good Medical Necessity - Tobacco Use Smoking Status: Heavy Smoker (>10/day) - Smoking cessation advised patient was discharged on nicotine patch Meaningful Use Info Meaningful Use Diagnoses (Choose all that apply): None applicable Code Visit Inpatient E&M: 13816 Disch Hosp
--- NOTE | 2018-02-27 15:02 | CASEMGMT ---
Patient is ready for discharge to [facility]. Faxed orders to [facility]. Completed convalescent on HENS. Called [facility] and arranged transportation for 430 via [employer] van. SW called patient's and notified her of garbage pick up man time. SW also left a message for Jackie letting her know. RN was also notified. SW also let patient's know about cost of ambulette. Plan: d/c to [facility] under skilled level of care on a convalescent stay. [facility] transported via [employer] van. Arlene PAREDES CIRCULATION ASSISTANT
--- NOTE | 2018-02-27 15:05 | NURSING ---
report called to Falgnui SHULTZ at [facility]
[2018-02-27 16:45] LABS: AST(SGOT) 17 U/L (15-37); Alanine Aminotransfer ALT/SGPT 8 U/L (16-61); Albumin, Serum 2.2 g/dL (3.2-5.0); Alkaline Phosphatase 169 U/L (45-117); Bilirubin, Direct 0.21 mg/dL (0.00-0.30); CPK Total, Creatine Kinase 22 U/L (39-308); Globulin 4.8 g/dL (2.2-4.2)
[2018-02-27 18:01] LABS: White Blood Count 11.7 K/mm3 (4.4-11.0)
[2018-02-27 18:02] LABS: Absolute Lymphocyte Count 1.86 X10^3/ul (0.83-4.51); Basophil# 0.18 X10^3/uL; Basophil% 1.3 % (0-1); Eosinophil# 0.38 X10^3/uL; Eosinophils% 3.3 % (0-5); Hematocrit 37.3 % (40-54); Hemoglobin 12.2 g/dl (13.0-16.5); Lymphocyte # 1.86 X10^3/ul (4.0); Mean Corp Hgb Conc 32.7 g/gl (32-36); Mean Corpuscular Hgb 29.4 pg (27.0-32.0); Mean Corpuscular Volume 89.9 fL (80-94); Monocyte# 1.26 X10^3/uL; Monocyte% 10.8 % (0-10); Neutrophil # 7.96 X10^3/uL (2.7-7.7); Neutrophil % 68.2 % (47-70); POSITIVE COUNT NO; POSITIVE DIFFERENTIAL NO; POSITIVE MORPHOLOGY NO; Platelet Count 351 K/mm3 (150-450); RBC Distribution Width SD 48.8 fl (35.1-43.9); Red Blood Count 4.15 M/mm3 (4.6-6.2)
[2018-02-27 21:33] LABS: Basophil% 1.2 % (0-1); Eosinophils% 3.3 % (0-5); Hematocrit 38.4 % (40-54); Hemoglobin 12.8 g/dl (13.0-16.5); Mean Corp Hgb Conc 33.3 g/gl (32-36); Mean Corpuscular Hgb 29.7 pg (27.0-32.0); Mean Corpuscular Volume 89.1 fL (80-94); Mean Platelet Vol. 10.7 fl (6.2-12.0); Monocyte% 9.9 % (0-10); Neutrophil # 8.92 X10^3/uL (2.7-7.7); Neutrophil % 68.2 % (47-70); POSITIVE COUNT NO; POSITIVE DIFFERENTIAL NO; POSITIVE MORPHOLOGY NO; Platelet Count 354 K/mm3 (150-450); RBC Distribution Width CV 14.9 % (11.6-14.6); RBC Distribution Width SD 48.8 fl (35.1-43.9); Red Blood Count 4.31 M/mm3 (4.6-6.2); White Blood Count 13.1 K/mm3 (4.4-11.0)
[2018-02-27 21:34] LABS: Absolute Lymphocyte Count 2.22 X10^3/ul (0.83-4.51); Absolute Neutrophil Count 8.9 X10^3/uL (2.0-7.7); Basophil# 0.16 X10^3/uL; Eosinophil# 0.43 X10^3/uL; Lymphocyte # 2.22 X10^3/ul (4.0)
[2018-03-02 14:47] LABS: Bedside Glucose 249 mg/dL (70-110)
[2018-03-02 14:51] LABS: Bedside Glucose 187 mg/dL (70-110)
[2018-03-02 15:16] LABS: Bedside Glucose 154 mg/dL (70-110)
[2018-03-02 18:29] LABS: Bedside Glucose 160 mg/dL (70-110)
[2018-03-02 18:31] LABS: Bedside Glucose 144 mg/dL (70-110)
[2018-03-02 18:32] LABS: Bedside Glucose 127 mg/dL (70-110)
[2018-03-02 18:34] LABS: Bedside Glucose 127 mg/dL (70-110)
[2018-03-03 14:39] LABS: Bedside Glucose 119 mg/dL (70-110)
== END 2018-02-27 16:36 | disposition skilled nursing facility (03) | DRG 65 ==
LOC: ED 02-24 08:33 → PCU 02-26 10:03 → MS3 02-28 13:33
PROVIDERS: Family Medicine; Internal Medicine; Admitting Provider Family Medicine; Emergency Provider Emergency Medicine; Family Provider Family Medicine; PCP Family Medicine; Visit Provider Internal Medicine
DX: I63.443 Cerebral infarction due to embolism of bilateral cerebellar arteries (principal); G81.94 Hemiplegia, unspecified affecting left nondominant side; R47.89 Other speech disturbances; I11.0 Hypertensive heart disease with heart failure; I50.9 Heart failure, unspecified; E11.9 Type 2 diabetes mellitus without complications; J44.9 Chronic obstructive pulmonary disease, unspecified; G20 Parkinson's disease; R29.6 Repeated falls; I48.0 Paroxysmal atrial fibrillation; I25.10 Atherosclerotic heart disease of native coronary artery without angina pectoris; F17.210 Nicotine dependence, cigarettes, uncomplicated; F32.9 Major depressive disorder, single episode, unspecified; K21.9 Gastro-esophageal reflux disease without esophagitis; M10.9 Gout, unspecified; E78.5 Hyperlipidemia, unspecified; Z86.73 Personal history of transient ischemic attack (TIA), and cerebral infarction without residual deficits; Z79.84 Long term (current) use of oral hypoglycemic drugs; Z79.51 Long term (current) use of inhaled steroids; Z79.02 Long term (current) use of antithrombotics/antiplatelets; Z79.899 Other long term (current) drug therapy
CPT/HCPCS: 36415; 70496; 70498; 70551; 72141; 80048; 80061; 80076; 81001; 82140; 82550; 82607; 82962; 83036; 83735; 84443; 84484; 85025; 85027; 92507; 92526; 93005; 93306; 94640; 97110; 97116; 97162; 97166; 97530; 97802; 97803; 99284; J7030; Q9957; Q9967; A4216; C8929; G8978; G8979; G8987; G8988

== ENCOUNTER 2018-03-20 18:52 | Inpatient (IN) | payer MEDICARE, MEDICAID, SELFPAY ==
[2018-03-20] VITALS (9 sets, daily range): BP systolic 92–113; BP diastolic 50–62; PULSE 69–77; RESP 14–27; TEMP 36.2–36.6; O2SAT 91–95; BMI 27.2; BMI 27.1; BMI 27.3
--- NOTE | 2018-03-20 19:48 | CT_ITS ---
STUDY: CT BRAIN WITHOUT CONTRAST REASON FOR EXAM: Male, 68 years old. Altered mental status. RADIATION DOSAGE (If Supplied By Facility): CTDIvol = ( 44.99 ) mGy, DLP = ( 829.85 ) mGycm TECHNIQUE: Transaxial CT imaging of the brain was performed without administration of intravenous contrast material. Individualized dose optimization techniques were used for this CT. COMPARISON: 02/25/2018. FINDINGS: There is no definite acute abnormality. There is diffuse mild symmetric atrophy. There is atrophy of the posterior fossa structures. There is diffuse small vessel ischemic disease of the white matter. There are stable bilateral lacunar infarcts. Stable encephalomalacia in the right occipital lobe from previous infarct. There is no definite acute infarct. There is no bleed. There is no gross mass, mass effect, or midline shift. There is no acute abnormality of the skull. No fractures. Grossly normal orbits. Grossly normal sinuses. CT/Brain/Head without Contrast IMPRESSION: Chronic age related changes and atrophy. No acute abnormality or change. Electronically Signed: Tj Farley MD at 21:22 EDT , Service support ,
--- NOTE | 2018-03-20 19:49 | EKG12_ITS ---
Test Reason : ABD LABS Blood Pressure : / mmHG Vent. Rate : 069 BPM Atrial Rate : 069 BPM P-R Int : 248 ms QRS Dur : 114 ms QT Int : 482 ms P-R-T Axes : 000 -40 097 degrees QTc Int : 516 ms Sinus rhythm with 1st degree A-V block Left axis deviation Low voltage QRS Inferior infarct , age undetermined Prolonged QT Abnormal ECG Confirmed by EMELIA RAINES, LUIS MIGUEL ([id number]), publication editor NATALIYA RODRIGUEZ ([id number]) on 03/22/2018 2:34:47 PM Referred By: LYUBOV Confirmed By:LUIS MIGUEL KAPOOR MD
[2018-03-20] MEDS: 0.9% Normal Saline 1,000 ML 150 ML IV (20:15)
[2018-03-20 20:29] LABS: Absolute Lymphocyte Count 1.56 X10^3/ul (0.83-4.51); Absolute Neutrophil Count 18.1 X10^3/uL (2.0-7.7); Basophil# 0.16 X10^3/uL; Basophil% 0.7 % (0-1); Eosinophil# 0.24 X10^3/uL; Eosinophils% 1.1 % (0-5); Hematocrit 48.4 % (40-54); Hemoglobin 15.6 g/dl (13.0-16.5); International Normalized Ratio 1.2; Lymphocyte # 1.56 X10^3/ul (4.0); Lymphocyte % 7.3 % (19-41); Mean Corp Hgb Conc 32.2 g/gl (32-36); Mean Corpuscular Hgb 28.9 pg (27.0-32.0); Mean Corpuscular Volume 89.6 fL (80-94); Mean Platelet Vol. 12.2 fl (6.2-12.0); Monocyte# 1.32 X10^3/uL; Monocyte% 6.2 % (0-10); Neutrophil # 18.13 X10^3/uL (2.7-7.7); Neutrophil % 84.5 % (47-70); Platelet Count 246 K/mm3 (150-450); Prothrombin Time (Protime)PT. 15.5 SECONDS (11.7-14.9); RBC Distribution Width CV 15.9 % (11.6-14.6); RBC Distribution Width SD 50.6 fl (35.1-43.9); White Blood Count 21.5 K/mm3 (4.4-11.0)
[2018-03-20 20:30] LABS: Partial Thromboplast Time 35.1 Seconds (24.1-36.2)
--- NOTE | 2018-03-20 20:30 | RAD_ITS ---
STUDY: X-RAY CHEST REASON FOR EXAM: Male, 68 years old. Dehydration. TECHNIQUE: Single AP portable view of the chest. COMPARISON: 10/23/2017. FINDINGS: The lungs are hyperexpanded. There are coarsened interstitial markings suggestive of mild chronic fibrosis. No gross focal infiltrates. No gross effusions. Sternal cerclage wires and vascular clips are present from a prior sternotomy and coronary artery bypass graft procedure (CABG). Normal mediastinum and nba. Normal visualized pulmonary arteries. Normal visualized aortic arch and descending thoracic aorta. The visualized bones and joints show degenerative changes. There is no demonstrated abnormality of the visualized soft tissue structures of the upper abdomen. RAD/Chest 1 View (Portable) IMPRESSION: There are findings consistent with COPD. There is no evidence of acute chest disease. Electronically Signed: Tj Farley MD at 20:49 EDT , Service support ,
[2018-03-20 20:34] LABS: POSITIVE COUNT NO; POSITIVE DIFFERENTIAL NO; POSITIVE MORPHOLOGY NO
[2018-03-20 20:42] LABS: ALB/GLOB Ratio 0.3 RATIO (0.9-2.4); AST(SGOT) 18 U/L (15-37); Alanine Aminotransfer ALT/SGPT < 6 U/L (16-61); Albumin, Serum 2.3 g/dL (3.2-5.0); Alkaline Phosphatase 190 U/L (45-117); Anion Gap 7 (5-15); BUN 86 mg/dL (7-18); BUN/Creat Ratio 20.6 RATIO (10-20); Calcium,Total 10.1 mg/dL (8.5-10.1); Chloride 131 mmol/L (98-107); Creatinine, Serum 4.18 mg/dL (0.70-1.30); EST Glomerular Filtration Rate 15 mL/min (>60); Est Glom Filt Rate - Afr Amer 18 mL/min (>60); Estimated Creatinine Clearance 17.95 ml/min; Globulin 6.6 g/dL (2.2-4.2); Glucose 178 mg/dL (74-106); Lipase 130 U/L (73-393); Potassium 7.1 mmol/L (3.5-5.1); Protein, Total 8.9 g/dL (6.4-8.2); Sodium Level 157 mmol/L (136-145)
--- NOTE | 2018-03-20 20:42 | ED.RN ---
lab called with critical lab results. potassium level 7.1. Chloride level 131. Dr. Rice made aware. no new orders at this time
[2018-03-20 20:59] LABS: Bacteria 0 SEEN /hpf (None Seen); Mucous, Urine 0 SEEN /hpf (<or=2+); Red Blood Cells-Urine 0 SEEN /hpf (0-5)
[2018-03-20 21:01] LABS: Color, Urine Yellow (Yellow); Glucose, Dipstick Normal (Normal); Ketone-Dipstick 5 mg/dl (Negative); Leukocyte Esterase-Dipstick 25 /ul (Negative); Nitrite-Dipstick Negative (Negative); Occult Blood-Urine 10 /ul (Negative); Protein-Dipstick 30 mg/dl (Negative); Urine Clarity Clear (Clear); Urine Urobilinogen Normal (Normal)
[2018-03-20 21:03] LABS: Urine Bilirubin Dipstick 1 mg/dL (Negative)
[2018-03-20 21:13] LABS: Hyaline Cast 10-25 SEEN /lpf (0-5); Squamous Epithelial Cells - UA 5-10 SEEN /hpf (0-5)
[2018-03-20 21:14] LABS: Amorphous Sediment 1+; Calcium Oxalate Crystals Ur RARE /hpf (<or=2+)
[2018-03-20 21:15] LABS: White Blood Cells 0-5 SEEN /hpf (0-5)
[2018-03-20] MEDS: 0.9% Normal Saline 1,000 ML 999 ML IV (21:23)
--- NOTE | 2018-03-20 21:40 | ED.VISSUMM ---
- ER Visit Summary Date of Service: 03/20/18 Chief Complaint: Abnormal labs History of Present Illness: The patient is a 68 M who recently was given a diagnosis of Parkinson's and shortly thereafter was diagnosed with acute bilateral cerebellar infarcts. He was transferred to rehab facility where he has been on a mechanical soft diet for the . states he has been getting rather depressed and seemed like he is giving up. Most recently had blood work done which showed worsening creatinine and BUN and elevated potassium. states he has been increasingly confused. He has history of these recent stroke coronary artery disease having had a CABG, atrial fibrillation, Parkinson's, CHF with ejection fraction of 40%, hypercholesterolemia and diabetes. Physical Examination: 101/55 temperature 97.9 heart rate is 69 respirations are 22 pulse ox is 95% on 2 L. Gen: Well-nourished well-developed Head: Normocephalic atraumatic Eyes: Perrl EOMI ENT: TMs clear no rhinorrhea moist dry membranes Neck: Supple no lymphadenopathy no JVD nontender CVS: Regular rate rhythm no murmurs normal S1-S2 Respiratory: No distress clear to auscultation bilaterally chest nontender Abdomen: Soft nontender nondistended normal bowel sounds no masses Back: Nontender Extremity: Nontender no edema Skin: Normal color no rash Neuro: Lethargic. Attentive. Moves all extremities ?4. Responds to voice. Test Results: EKG shows a sinus rhythm with a first-degree AV block. This does not seem particularly changed him prior though the QT interval is slightly longer. White count 21.5. Sodium of 157 with potassium of 7.1. Chloride 131. Bicarb is 19. Normal anion gap. Glucose 178 with a BUN of 86 and a creatinine of 4.18. Chest x-ray and head CT showed no acute findings Emergency Department Course and Treatment: Patient received a liter of IV fluids prehospital. He received an additional liter of fluids here in the department as well as an amp of bicarbonate. Cardenas catheter was placed which returned only 60 cc. I believe the patient should be hydrated. This will most likely fix his potassium which at this point he is not having ectopy or significant widening of the QRS interval or QT interval. Per hospital policy patient will go to the ICU. Impression: 1. Acute renal failure 2. Metabolic encephalopathy 3. Hyperkalemia/hyponatremia 4. Dehydration 5. Critical care time 35 minutes This note was generated with [employer] dictation software. It may contain incorrect words, spelling, and punctuation that were not noted in review of the chart prior to signing ED Disposition - Plan for ED Patient: Chief Complaint: Abn Labs Referrals: Wesley Maldonado MD [Primary Care Provider] -
--- NOTE | 2018-03-20 22:24 | ED.RN ---
, LIBBY, PHONE NUMBER: [phone] CALL HER WITH CHANGE IN PT'S CONDITION PLEASE; INFORMED OF 9AM ROUNDS IN ICU
[2018-03-20] MEDS: Sodium Bicarbonate 8.4% 50 ML Syringe 50 MEQ IV (22:37)
--- NOTE | 2018-03-20 23:29 | PCM.HP.STD ---
Problem List (1) Acute renal failure Status: Acute (2) Hyperkalemia Status: Acute (3) Dehydration Status: Acute (4) Slurred speech Status: Chronic (5) Atrial fibrillation Status: Chronic (6) Benign essential hypertension Status: Chronic (7) CHF (congestive heart failure) Status: Chronic Comment: ef=40% 2012, 55% in February of 2018 (8) COPD (chronic obstructive pulmonary disease) Status: Chronic (9) Depression Status: Chronic (10) Gastroesophageal reflux disease Status: Chronic (11) History of coronary artery bypass graft x 2 Status: Chronic (12) Hyperlipidemia Status: Chronic (13) Tobacco abuse Status: Chronic Comment: 1/2 ppd now 3ppd in the past (14) Type 2 diabetes mellitus Status: Chronic (15) Parkinsons disease Status: Chronic (16) Recent cerebrovascular accident (CVA) Status: Chronic Comment: BL cerebellar infarcts February 2018 (17) Dysphagia Status: Chronic (18) Metabolic encephalopathy Status: Acute History of Present Illness Date of Admission: 03/20/18 Chief Complaint: sent to the ED from [facility] for increased BUN/CREAT and increased confusion The patient is a 68 year old M with a past medical history of COPD, coronary artery disease, CABG in the past, hypertension, diabetes mellitus type 2, GERD, hyperlipidemia, depression, atrial fibrillation, tobacco dependence, recently diagnosed Parkinson's disease and recently diagnosed bilateral cerebellar ischemic infarcts in early February 2018 who was sent to the [facility] ED due to increasing BUN/CREAT in association with change in mental status. Vital signs at presentation to the emergency room were temperature 97.5, pulse rate 90, blood pressure 140/80, respiratory rate 18 and he was 93% saturated on room air. White blood cell count was elevated at 21.5 with 84.5% neutrophils. Hemoglobin was 15.6 and platelets were within normal limits. Sodium was increased at 157 and the potassium was increased at 7.1. Bicarb was low at 19 and the BUN was 86 with a creatinine of 4.18. UA had 0-5 WBCs but 10-25 hyaline casts per high-power field. On physical examination he is unable to follow commands and is obtunded with slurred speech. His stated he has not been eating at the [place] because he does not like how the food looks and dose not like thickened liquids. He has continued to take Furosemide despite poor intake. He is being admitted to the hospital for KARO and hyperkalemia. Past Medical History Past Medical History (Chronic Problems): Chronic Problems Parkinsons disease (Chronic) Recent cerebrovascular accident (CVA) (Chronic) BL cerebellar infarcts February 2018 Dysphagia (Chronic) Depression (Chronic) COPD (chronic obstructive pulmonary disease) (Chronic) 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) Tobacco abuse (Chronic) 1/2 ppd now 3ppd in the past Hyperlipidemia (Chronic) Gastroesophageal reflux disease (Chronic) Type 2 diabetes mellitus (Chronic) Benign essential hypertension (Chronic) Slurred speech (Chronic) CHF (congestive heart failure) (Chronic) ef=40% 2012, 55% in February of 2018 Atrial fibrillation (Chronic) Allergies Penicillins Allergy (Verified 03/20/18 19:39) Rash varenicline [From Chantix] Adverse Reaction (Verified 03/20/18 19:39) Unknown Home Medications: Ambulatory Orders Medication Instructions Recorded Metformin HCl 500 mg PO BID 10/23/17 Omeprazole 20 mg PO DAILY 10/23/17 Potassium Chloride [Klor-Con M20] 20 meq PO DAILY 10/23/17 Sotalol HCl [Betapace AF (Beta 80 mg PO BID 10/23/17 Ahsan)] Aspirin [Aspirin, Baby] 81 mg PO DAILY@0800 tab.chew 10/25/17 Albuterol Inhaler [Ventolin Hfa] 1 puff INHALATION Q4H PRN PRN 02/26/18 Allopurinol 100 mg PO DAILY 02/26/18 Carbidopa/Levodopa 25/100 [Sinemet 1 tablet PO BIDAC 02/26/18 25/100] Furosemide [Lasix] 40 mg PO BID 02/26/18 Insulin Aspart [Novolog Flexpen] 8 units SC TIDCM 02/26/18 Atorvastatin Calcium [Lipitor] 80 mg PO QHS tablet 02/27/18 Famotidine [Pepcid] 20 mg PO BID tablet 02/27/18 Ferrous Sulfate 325 mg PO BID tablet 02/27/18 Lisinopril [Zestril] 10 mg PO DAILY tablet 02/27/18 [place]-3 Acid Ethyl Esters [Lovaza] 1 gm PO DAILY capsule 02/27/18 Rivaroxaban [Xarelto] 20 mg PO DAILY 30 Days #30 tablet 02/27/18 Nicotine [Nicotine Patch] 21 mg TD DAILY 03/20/18 Surgical History: coronary bypass surgery Psychiatric History: Depression Lives: Residential Smoking Status: Light Smoker (<10/day) Tobacco Use: Cigarettes Alcohol: None Drugs: None - *Family History Maternal History Items: Cancer - Breast cancer Paternal History Items: Heart Disease - Congestive heart failure Review of Systems Unable to obtain accurate/complete ROS d/t: could not be obtained....he is obtunded and unable to answer questions VTE Information - Inpt Only VTE Present on Admission: No VTE Mechan Device Prophylaxis: SCD's, Knee High HIREN Hose VTE Pharm Prophylaxis ordered?: No Reason prophylaxis not ordered:: Treatment Not Indicated - has been on Xarelto for AF Patient Problems: Active and Suspected Problems Acute renal failure (Acute) Hyperkalemia (Acute) Dehydration (Acute) Metabolic encephalopathy (Acute) - Physical Exam General: Well developed, Well nourished, Lethargic, Non-Cooperative, - - unable to answer my questions or follow commands HEENT: Atraumatic, PERRLA, Normocephalic Oral: Dry Mucosa Neck: No Nodes, No Nuchal Rigidity, Trachea Midline Lungs: Clear to auscultation, Diminished, - - very poor inspiratory effort Cardiovascular: Regular rate, Regular Rhythm, Normal S1, Normal S2, No murmurs, No rub noted, No Gallop Abdomen: Bowel Sounds Present, Soft, Non-Distended, - - no guarding with palpation Extremities: No clubbing, No cyanosis, No edema, Diminished Peripheral Pulses Skin: No rashes, No breakdown Musculoskeletal: No Muscle Wasting Neurological: Cranial nerves II-XII grossly intact, - - moving all extremities, has tremors of the hands BL Psych/Mental Status: - - non-cooperative due to metabolic encephalopathy Vital Signs Temp Pulse Resp BP Pulse Ox 97.4 F L 75 27 H 113/50 L 94 03/20/18 22:13 03/20/18 23:18 03/20/18 22:13 03/20/18 22:13 03/20/18 22:13 Oxygen Flow Rate (L/min) 3 Oxygen Delivery Method Nasal Cannula Laboratory Tests Past 24 Hrs 03/20/18 23:11 MRSA (PCR) Pending Assessment/Plan All Active Problems Acute renal failure (Acute) Hyperkalemia (Acute) Dehydration (Acute) Metabolic encephalopathy (Acute) Impressions 1. KARO - due to dehydration 2. Hyperkalemia 3. dehydration due to poor intake with continued administration of Furosemide 4. Recent, second week of February, BL cerebellar infarcts 5. dysphagia - on soft diet with nectar thick liquids 6. HTN 7. DM II 8. HLD 9. CAD with hx of CABG 10. COPD 11. Atrial fibrillation 12. GERD 13. History of depression 14. Chronic anticoagulation with Xarelto 15. Gout with hyperuricemia on allopurinol 16. Recently diagnosed Parkinson's disease 17. Tobacco dependence 18. metabolic encephalopathy Admit to the ICU hydrate with D5 0.[address] eval prior to starting a diet accuchecks and SSI coverage DC Lisinopril and Potassium and Lasix. Hold all oral meds tonight DC the Xarelto......will either need to use Eliquis or heparin infusion if unable to take PO.......may take a few days for the Xarelto to wash out Recheck the lab in the AM I find no source of infection so will not order antibiotics at this time Accurate I&O's....henson inserted in the ED daily weights Depending on the lab in the AM may need to consult nephrology Smoking cessation counselling when he is alert and able to participate. He has a hx of depression and is not currently on an antidepressant.......when he is able to take PO again will need to start an antidepressant in light of recent strokes, diagnosis of PD and now with KARO. He should be getting psychotherapy in the [place] Code Visit Inpatient E&M: 41435 Init Hosp L3
[2018-03-20] MEDS: Dext 5%-0.45% NS 1,000 ML 125 ML IV (23:45)
[2018-03-21] VITALS (31 sets, daily range): BP systolic 91–128; BP diastolic 48–89; PULSE 68–79; RESP 14–26; TEMP 36.2–37.1; O2SAT 91–99
[2018-03-21 00:45] LABS: M R Staph aureus DNA By PCR Negative (Negative); Probe Check PASS; Specimen Processing Control PASS
[2018-03-21] MEDS: Insulin Lispro 100 UNIT/ML INSULN.PEN SC ×5 (00:49→22:07)
[2018-03-21 00:56] LABS: Bedside Glucose 179 mg/dL (70-110)
[2018-03-21 04:59] LABS: International Normalized Ratio 1.3; Prothrombin Time (Protime)PT. 15.8 SECONDS (11.7-14.9)
[2018-03-21 05:08] LABS: Absolute Lymphocyte Count 2.03 X10^3/ul (0.83-4.51); Absolute Neutrophil Count 17.4 X10^3/uL (2.0-7.7); Basophil# 0.19 X10^3/uL; Basophil% 0.9 % (0-1); Differential Indicated SCAN CRITERIA MET; Eosinophil# 0.24 X10^3/uL; Eosinophils% 1.1 % (0-5); Hematocrit 41.3 % (40-54); Hemoglobin 13.3 g/dl (13.0-16.5); Lymphocyte # 2.03 X10^3/ul (4.0); Lymphocyte % 9.6 % (19-41); Mean Corp Hgb Conc 32.2 g/gl (32-36); Mean Corpuscular Hgb 28.9 pg (27.0-32.0); Mean Corpuscular Volume 89.8 fL (80-94); Mean Platelet Vol. 12.8 fl (6.2-12.0); Monocyte# 1.22 X10^3/uL; Monocyte% 5.8 % (0-10); Neutrophil % 82.4 % (47-70); POSITIVE COUNT NO; POSITIVE DIFFERENTIAL NO; POSITIVE MORPHOLOGY YES; Platelet Count 228 K/mm3 (150-450); RBC Distribution Width CV 15.8 % (11.6-14.6); RBC Distribution Width SD 50.5 fl (35.1-43.9); White Blood Count 21.1 K/mm3 (4.4-11.0)
[2018-03-21 05:25] LABS: ALB/GLOB Ratio 0.4 RATIO (0.9-2.4); AST(SGOT) 16 U/L (15-37); Alanine Aminotransfer ALT/SGPT 7 U/L (16-61); Albumin, Serum 2.1 g/dL (3.2-5.0); Alkaline Phosphatase 156 U/L (45-117); Anion Gap 7 (5-15); BUN 81 mg/dL (7-18); BUN/Creat Ratio 21.8 RATIO (10-20); Calcium,Total 9.4 mg/dL (8.5-10.1); Chloride 130 mmol/L (98-107); Creatinine, Serum 3.72 mg/dL (0.70-1.30); EST Glomerular Filtration Rate 17 mL/min (>60); Est Glom Filt Rate - Afr Amer 21 mL/min (>60); Estimated Creatinine Clearance 20.17 ml/min; Globulin 5.2 g/dL (2.2-4.2); Glucose 239 mg/dL (74-106); Magnesium 1.4 mg/dL (1.6-2.6); Phosphorus 3.8 mg/dL (2.5-4.9); Potassium 6.1 mmol/L (3.5-5.1); Protein, Total 7.3 g/dL (6.4-8.2); Sodium Level 158 mmol/L (136-145)
--- NOTE | 2018-03-21 06:26 | CON.PCM_ITS ---
Reason for Consult Date of Consultation: 03/21/18 Reason for Consultation: Acute kidney injury History of Present Illness: The patient is a 68-year-old male, with a history as outlined below, who presented to the emergency department on March 20 with encephalopathy and acute kidney injury. The patient currently resides in a nursing facility following a cardioembolic stroke (B/L cerebellar infarctions) from atrial fibrillation recently. The patient also has a history of parkinsonism, coronary artery disease status post CABG, reported COPD of unknown severity and atrial fibrillation. The patient's baseline mentation is not known. Per documentation , the patient's p.o. intake has been suboptimal, as the patient is currently prescribed some form of a modified diet and he has not been happy with the food choices made available to him. Despite this, the patient has been continued on 40 mg of Lasix twice daily. On presentation to the emergency department, the patient was noted to be afebrile hemodynamically stable. He was maintaining appropriate oxygen saturations on 3 L/min. Laboratory evaluation revealed elevated white blood cell count to 21,000. INR was normal at 1.2. Sodium was elevated to 157 with a potassium of 7.1, chloride of 131, bicarbonate of 19 and creatinine of 4.18. The patient's BUN was elevated to 86. The patient was noted to have a serum creatinine of 1.19 on March 07, 2018. Troponin was negative. MRSA screen was negative. CT head was negative for acute intracranial pathology and plain film chest x-ray showed no acute cardiopulmonary process. The patient was initially started on IV fluid hydration with D5 half-normal saline. He was subsequently transferred to the medical intensive care unit for ongoing management. Past Medical History Past Medical History (Chronic Problems): Chronic Problems Parkinsons disease (Chronic) Recent cerebrovascular accident (CVA) (Chronic) BL cerebellar infarcts February 2018 Dysphagia (Chronic) Depression (Chronic) COPD (chronic obstructive pulmonary disease) (Chronic) 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) Tobacco abuse (Chronic) 1/2 ppd now 3ppd in the past Hyperlipidemia (Chronic) Gastroesophageal reflux disease (Chronic) Type 2 diabetes mellitus (Chronic) Benign essential hypertension (Chronic) Slurred speech (Chronic) CHF (congestive heart failure) (Chronic) ef=40% 2012, 55% in February of 2018 Atrial fibrillation (Chronic) Allergies Penicillins Allergy (Verified 03/20/18 19:39) Rash varenicline [From Chantix] Adverse Reaction (Verified 03/20/18 19:39) Unknown Home Medications: Ambulatory Orders Medication Instructions Recorded Metformin HCl 500 mg PO BID 10/23/17 Omeprazole 20 mg PO DAILY 10/23/17 Potassium Chloride [Klor-Con M20] 20 meq PO DAILY 10/23/17 Sotalol HCl [Betapace AF (Beta 80 mg PO BID 10/23/17 Ahsan)] Aspirin [Aspirin, Baby] 81 mg PO DAILY@0800 tab.chew 10/25/17 Albuterol Inhaler [Ventolin Hfa] 1 puff INHALATION Q4H PRN PRN 02/26/18 Allopurinol 100 mg PO DAILY 02/26/18 Carbidopa/Levodopa 25/100 [Sinemet 1 tablet PO BIDAC 02/26/18 25/100] Furosemide [Lasix] 40 mg PO BID 02/26/18 Insulin Aspart [Novolog Flexpen] 8 units SC TIDCM 02/26/18 Atorvastatin Calcium [Lipitor] 80 mg PO QHS tablet 02/27/18 Famotidine [Pepcid] 20 mg PO BID tablet 02/27/18 Ferrous Sulfate 325 mg PO BID tablet 02/27/18 Lisinopril [Zestril] 10 mg PO DAILY tablet 02/27/18 [place]-3 Acid Ethyl Esters [Lovaza] 1 gm PO DAILY capsule 02/27/18 Rivaroxaban [Xarelto] 20 mg PO DAILY 30 Days #30 tablet 02/27/18 Nicotine [Nicotine Patch] 21 mg TD DAILY 03/20/18 Surgical History: coronary bypass surgery Psychiatric History: Depression Lives: Detention Smoking Status: Light Smoker (<10/day) Tobacco Use: Cigarettes Alcohol: None Drugs: None - *Family History Maternal History Items: Cancer - Breast cancer Paternal History Items: Heart Disease - Congestive heart failure Review of Systems Unable to obtain accurate/complete ROS d/t: Due to current encephalopathic state Patient Problems: Active and Suspected Problems Acute renal failure (Acute) Hyperkalemia (Acute) Dehydration (Acute) Metabolic encephalopathy (Acute) Hypernatremia (Acute) Hypernatremia (Acute) Objective: The patient's most recent lab work, culture data and imaging studies have all been personally reviewed. Head CT revealed chronic age-related changes and atrophy. Plain film chest x-ray revealed no acute cardiopulmonary process. - Physical Exam General: Lethargic, - - Will arouse and track to verbal stimulation. No acute distress. Resting comfortably in bed. HEENT: Atraumatic, Normocephalic Oral: Dry Mucosa Neck: Supple, No Nodes, Trachea Midline Lungs: - - Globally diminished air movement bilaterally. No appreciable wheezes , rales or rhonchi. Cardiovascular: Regular rate, Regular Rhythm, Normal S1, Normal S2, No murmurs Abdomen: Bowel Sounds Present, Soft, Non Tender, Non-Distended Extremities: No clubbing, No cyanosis, No edema Skin: No breakdown Musculoskeletal: No Muscle Wasting Lymphatic: No Cervical, Supraclavicular, or Inguinal Adenopathy Neurological: - - Appears to move all extremities spontaneously. Baseline tremors present. The patient is essentially nonverbal. Psych/Mental Status: Flat Affect Vital Signs Temp Pulse Resp BP Pulse Ox 97.8 F 70 21 H 120/59 L 97 03/21/18 06:00 03/21/18 06:00 03/21/18 06:00 03/21/18 06:00 03/21/18 06:00 Oxygen Flow Rate (L/min) 2 Oxygen Delivery Method Room Air Weight: 189 lb 13.088 oz Body Mass Index (BMI) 27.1 Intake and Output for Last 24 Hours 03/19/18 03/20/18 03/21/18 23:59 23:59 23:59 Intake Total 6 / 2056 Output Total 410 / 410 Balance 1646 / 1646 Laboratory Tests Past 24 Hrs 03/20/18 03/21/18 03/21/18 23:11 04:30 04:30 WBC 21.1 H RBC 4.60 Hgb 13.3 Hct 41.3 MCV 89.8 MCH 28.9 MCHC 32.2 RDW 15.8 H RDW Differential 50.5 H Plt Count 228 MPV 12.8 H Immature Gran % (Auto) 0.200 Neut % (Auto) 82.4 H Lymph % (Auto) 9.6 L [place] % (Auto) 5.8 Eos % (Auto) 1.1 Baso % (Auto) 0.9 Absolute Neuts (auto) 17.4 H Absolute Lymphs (auto) 2.03 Total Counted Pending PT 15.8 H INR 1.3 Sodium Potassium Chloride Carbon Dioxide Anion Gap BUN Creatinine Estim Creat Clear Calc Est GFR (MDRD) Af Amer Est GFR (MDRD) Non-Af BUN/Creatinine Ratio Glucose Calcium Phosphorus Magnesium Total Bilirubin AST ALT Alkaline Phosphatase Total Protein Albumin Globulin Albumin/Globulin Ratio MRSA (PCR) Negative 03/21/18 04:30 WBC RBC Hgb Hct MCV MCH MCHC RDW RDW Differential Plt Count MPV Immature Gran % (Auto) Neut % (Auto) Lymph % (Auto) [place] % (Auto) Eos % (Auto) Baso % (Auto) Absolute Neuts (auto) Absolute Lymphs (auto) Total Counted PT INR Sodium 158 H Potassium 6.1 H* Chloride 130 H* Carbon Dioxide 21.0 Anion Gap 7 BUN 81 H Creatinine 3.72 H Estim Creat Clear Calc 20.17 Est GFR (MDRD) Af Amer 21 L Est GFR (MDRD) Non-Af 17 L BUN/Creatinine Ratio 21.8 H Glucose 239 H Calcium 9.4 Phosphorus 3.8 Magnesium 1.4 L Total Bilirubin 0.50 AST 16 ALT 7 L Alkaline Phosphatase 156 H Total Protein 7.3 Albumin 2.1 L Globulin 5.2 H Albumin/Globulin Ratio 0.4 L MRSA (PCR) POC Glucose 03/21/18 00:48 POC Glucose 179 H Clinical Impression(s) from Imaging Studies Brain CT 03/20/18 19:48 IMPRESSION: Chronic age related changes and atrophy. No acute abnormality or change. Electronically Signed: Tj Farley MD at 21:22 EDT , Service support , Chest X-Ray 03/20/18 20:30 IMPRESSION: There are findings consistent with COPD. There is no evidence of acute chest disease. Electronically Signed: Tj Farley MD at 20:49 EDT , Service support , Assessment/Plan Active and Suspected Problems Acute renal failure (Acute) Hyperkalemia (Acute) Dehydration (Acute) Metabolic encephalopathy (Acute) Hypernatremia (Acute) Hypernatremia (Acute) RECOMMENDATIONS: 1. Transition to D5W for supplemental IV fluid hydration. 2. Medical management of hyperkalemia 3. Check urine lytes and osmolality 4. Obtain nephrology consultation. 5. Clarify patient's baseline mentation. Patient to remain n.p.o. for now. He will require formal speech therapy evaluation prior to advancement of diet. 6. Agree with discontinuation of Lasix and lisinopril. 7. Continue to hold Xarelto. Start weight-based heparin infusion. IMPRESSIONS: 1. Acute kidney injury/hypernatremia/hyperkalemia/hyperchloremia Likely multifactorial in etiology with intravascular volume depletion leading to prerenal azotemia as a likely inciting factor, compounded by concurrent use of diuretics and SUNNY inhibitor. Plan to continue supplemental IV fluid hydration with D5W. Monitor serial electrolytes. Continue to hold diuretics and SUNNY inhibitor. Avoid additional nephrotoxic medications. There is no current indication for renal replacement therapy. Nephrology consultation is pending. 2. Metabolic encephalopathy Likely related to metabolic derangements in the setting of acute kidney injury. The patient's baseline mentation is a bit unclear. Will clarify this with the patient's . Anticipate slow improvement with correction of the patient' s underlying metabolic/electrolyte derangements. CT head revealed no acute intracranial pathology. 3. Failure to thrive following recent CVA/baseline parkinsonism/dysphagia The patient's underlying nutrition status will need to be addressed during this hospitalization. Will ask speech therapy to evaluate the patient. If he is unable to take n.p.o. nutrition, will need to seek alternative means of feeding. May need to consider PEG tube placement. In the meantime, a small bore feeding tube may need to be placed to facilitate p.o. medication administration. 4. Paroxysmal atrial fibrillation Given the patient's renal insufficiency and metabolic derangements, recommend holding Xarelto and transitioning to weight-based heparin infusion. Nutrition/ p.o. status will need to be addressed prior to resumption of oral anticoagulants. Continue sotalol. 5. Reported COPD of unknown severity/coronary artery disease status post CABG/ history of tobacco dependence/hyperlipidemia/diabetes Complicates care, management, recovery and prognosis. Discontinue metformin and initiate sliding scale insulin coverage. P.o. medications are currently on hold. Continue scheduled bronchodilators as ordered. This note was generated with [employer] software. It may contain incorrect words, spelling, and punctuation that were not noted in checking the note before signing. Code Visit Inpatient E&M: 20935 Init Hosp L3
[2018-03-21] MEDS: CHLORHEXIDINE GLUC 2% CLOTH 1 EACH TOWELETTE TOPICAL (06:28)
--- NOTE | 2018-03-21 06:42 | US_ITS ---
STUDY: RENAL ULTRASOUND - COMPLETE REASON FOR EXAM: Male, 68 years old. Acute renal failure TECHNIQUE: Transverse and longitudinal imaging of the kidneys and bladder was obtained using real-time ultrasound. COMPARISON: None. FINDINGS: RIGHT KIDNEY: The right kidney is normal in location. The right kidney measures 11.9 x 6.3 x 6.6 cm. The renal cortex is normal in appearance. The renal cortex measures 8.1 mm (obtained in the sagittal plane mid pole from the capsule to the pyramid- normal is greater than or equal to 6 mm). There is no demonstrated renal mass. There is no dilatation of the collecting system. LEFT KIDNEY: The left kidney is normal in location. The left kidney measures 12.9 x 6.9 x 5.9 cm. The renal cortex is normal in appearance. The renal cortex measures 12.2 mm (obtained in the sagittal plane mid pole from the capsule to the pyramid- normal is greater than or equal to 6 mm). There is no demonstrated renal mass. There is no dilatation of the collecting system. BLADDER: The urinary bladder is decompressed with a Cardenas catheter present. US/Kidney and Bladder IMPRESSION: The kidneys are normal in size and echogenicity without hydronephrosis. Electronically Signed: Charo Mccoy MD at 11:36 EDT Tel Direct: [phone], Service support ,
[2018-03-21 07:11] LABS: Bedside Glucose 228 mg/dL (70-110)
[2018-03-21 07:59] LABS: Osmolality, Serum 357 mOsm/KG (280-301)
[2018-03-21 07:59] LABS: Osmolality, Urine 526 mOsm/KG
--- NOTE | 2018-03-21 09:39 | PCM.PN.HOSP ---
Patient Problems: Active and Suspected Problems Acute renal failure (Acute) Hyperkalemia (Acute) Dehydration (Acute) Metabolic encephalopathy (Acute) Hypernatremia (Acute) Hypernatremia (Acute) Subjective: The patient is a 68 year old M with a past medical history of COPD, coronary artery disease, CABG , hypertension, diabetes mellitus type 2, GERD, hyperlipidemia, depression, atrial fibrillation, tobacco dependence, recently diagnosed Parkinson's disease and recently diagnosed bilateral cerebellar ischemic infarcts in early February 2018. He was admitted via the ED on 03/[facility]/18 [facility] on account of altered mental status and increase in BUN and creatinine. In the ED was noted to have hyperkalemia with potassium of 7.1 and hyponatremia with sodium of 157. He was reported to not have been eating in the prison because he did not like the nectar thick liquids. He has continued to take his diuretics despite his poor intake as well. Labs also showed leukocytosis with white cell count of 21.5 with 84.5% neutrophils, platelets and hemoglobin were within normal limits. BUN was 86 and creatinine was 4.18. He was admitted and is being managed for acute kidney injury, hyperkalemia and hypernatremia. Patient seen and examined. He was conscious and alert but not very responsive. He would only monitor in response to questions asked. Unable to do review of systems as patient has expressive and receptive aphasia. Vitals/I&O's: Vital Signs Temp Pulse Resp BP Pulse Ox 97.9 F 70 21 H 121/64 H 96 03/21/18 08:00 03/21/18 08:00 03/21/18 08:00 03/21/18 08:00 03/21/18 08:00 Oxygen Flow Rate (L/min) 1 Oxygen Delivery Method Nasal Cannula Weight: 193 lb 12.581 oz Body Mass Index (BMI) 27.1 Intake and Output for Last 24 Hours 03/19/18 03/20/18 03/21/18 23:59 23:59 23:59 Intake Total 2055 / 2055 Output Total 410 / 410 Balance 1646 / 1646 General: Alert, - - not responsive to questions asked. has expressive and receptive aphasia HEENT: Atraumatic, PERRLA, EOMI, Normocephalic Oral: Dry Mucosa Neck: Supple, No JVD, Negative Carotid Bruits Lungs: Clear to auscultation, Normal air movement, No rhonchi, No wheeze Cardiovascular: Regular rate, Regular Rhythm, Normal S1, Normal S2, No murmurs Abdomen: Bowel Sounds Present, Soft, Non Tender, Non-Distended, No Hepato-splenomegaly Extremities: No clubbing, No cyanosis, No edema, Capillary Refill Less than 3 Seconds Skin: No rashes, No breakdown Musculoskeletal: No Tenderness to Palpation of Joints or Extremities Lymphatic: No Cervical, Supraclavicular, or Inguinal Adenopathy Neurological: Cranial nerves II-XII grossly intact, - - has hyperreflexia in all extremities. Reflexes were brisk in all extremities (3+), with clonus bilaterally. Extensor plantar reflexes were equivocal Psych/Mental Status: - - conscious, flat affect, expressive and receptive aphasia Laboratory Results 03/20/18 23:11: MRSA (PCR) Negative 03/21/18 00:48: POC Glucose 179 H 03/21/18 04:30: WBC 21.1 H, RBC 4.60, Hgb 13.3, Hct 41.3, MCV 89.8, MCH 28.9, MCHC 32.2, RDW 15.8 H, RDW Differential 50.5 H, Plt Count 228, MPV 12.8 H, Immature Gran % (Auto) 0.200, Neut % (Auto) 82.4 H, Lymph % (Auto) 9.6 L, [place] % (Auto) 5.8, Eos % (Auto) 1.1, Baso % (Auto) 0.9, Absolute Neuts (auto) 17.4 H, Absolute Lymphs (auto) 2.03, Total Counted Not Reportable 03/21/18 04:30: PT 15.8 H, INR 1.3 03/21/18 04:30: Sodium 158 H, Potassium 6.1 H*, Chloride 130 H*, Carbon Dioxide 21.0, Anion Gap 7, BUN 81 H, Creatinine 3.72 H, Estim Creat Clear Calc 20.17, Est GFR (MDRD) Af Amer 21 L, Est GFR (MDRD) Non-Af 17 L, BUN/Creatinine Ratio 21.8 H, Glucose 239 H, Calcium 9.4, Phosphorus 3.8, Magnesium 1.4 L, Total Bilirubin 0.50, AST 16, ALT 7 L, Alkaline Phosphatase 156 H, Total Protein 7.3, Albumin 2.1 L, Globulin 5.2 H, Albumin/Globulin Ratio 0.4 L 03/21/18 06:55: Serum Osmolality 357 H 03/21/18 07:00: Urine Osmolality 526 03/21/18 07:08: POC Glucose 228 H Current Medications Allopurinol (Zyloprim) 100 mg PO DAILYCM [facility] Last Admin: 03/21/18 09:31 Dose: Not Given Aspirin (Aspirin, Baby) 81 mg PO DAILY@0800 [facility] Last Admin: 03/21/18 09:29 Dose: Not Given Atorvastatin Calcium (Lipitor) 80 mg PO QHS [facility] Last Admin: 03/21/18 00:35 Dose: Not Given Carbidopa/Levodopa (Sinemet) 1 tablet PO BIDAC [facility] Last Admin: 03/21/18 07:50 Dose: Not Given Chlorhexidine Gluconate () 1 each TOPICAL DAILY [facility] Last Admin: 03/21/18 06:28 Dose: 1 each Famotidine (Pepcid) 20 mg PO BID [facility] Last Admin: 03/21/18 00:35 Dose: Not Given Sodium Chloride () 250 mls @ 15 mls/hr IV .[id number] PRN PRN Reason: SALINE FLUSH Dextrose () 1,000 mls @ 150 mls/hr IV .[id number] [facility] Last Admin: 03/21/18 06:45 Dose: 150 mls/hr Insulin Human Lispro (Humalog Kwikpen (Bkc)) 0 unit SC ACHS [facility] PRN Reason: Protocol Last Admin: 03/21/18 07:51 Dose: 2 u Magnesium Hydroxide (Milk Of Magnesia) 30 ml PO DAILY PRN PRN PRN Reason: Constipation Nicotine (Nicoderm Cq (Pbkc)) 21 mg TRANSDERM. DAILY [facility] Nutritional Formula (Lactose Free) (Glucerna Shake) 120 ml PO TIDCM [facility] Last Admin: 03/21/18 09:31 Dose: Not Given [id number] Ethyl Esters (Lovaza) 1 gm PO DAILY [facility] Sodium Chloride () 5 - 30 ml IV UD PRN PRN Reason: SALINE FLUSH Sotalol HCl (Betapace (G)) 80 mg PO BID [facility] Last Admin: 03/21/18 00:34 Dose: Not Given Medical Necessity - Tobacco Use Smoking Status: Light Smoker (<10/day) Tobacco Use: Cigarettes Assessment/Plan All Active Problems Acute renal failure (Acute) Hyperkalemia (Acute) Dehydration (Acute) Metabolic encephalopathy (Acute) Hypernatremia (Acute) Hypernatremia (Acute) This 68-year-old male admitted from the prison with complaint of altered mental status and worsening kidney function. 1. Altered mental status likely due to metabolic encephalopathy from azotemia and hypernatremia noted to be more confused in SNF patient is conscious this morning, but has expressive and receptive aphasia, from recent bilateral cerebellar infarcts CT head done was negative for any acute intracranial process received IVF to help with hydration; will continue will monitor 2. KARO and azotemia likely pre-renal due to decreased intake had not been eating in the SNF due to him not liking the thickened meals had also been taking his furosemide despite his poor oral intake Cr was 4.18 on admission; down to 3.72 today; BUN down to 81 from 86 on admission eGFR was 15, up to 17 today. nephrology consulted; will await rec's received IV NS on admission; fluid switched by sales training manager to D5W due to hypernatremia. Will await nephrology rec's about IVF. lasix on hold 3. Hyperkalemia K was 7.1 on admission; now down to 6.1. No EKG changes on admisson lisinopril, potassium on hold kayexalate not an option as patient is NPO nephrology consulted. Potassium on hold 3. Hypernatremia this is likely hypovolemic duye to hyponatremia. serum osmolality is 357, pointing towards hypovolemia and dehydration. This is supported by BUN/Cr ration of ~21 received IVF NS 2L since admission. Now switched to D5W per sales training manager nephrology consulted; will await rec's will check urine electrolytes 4. Dysphagia due to stroke had bilateral cerebellar infarcts in 6.18; was not eating food in the prison because he was thickened and he did not like it. At risk of aspiration. Will get formal swallow evaluation by speech therapy before commencing diet. Monitor. 5. Leucocytosis: possibly reactive. No active focus of infection. CXR showed no clear infiltrate. Lungs are clear to auscultation. He has been afebrile, and UA showed no clear evidence of UTI. will monitor for now. 6. Diabetes mellitus accuchecks ACHS on ISS; awaiting formal speech therapy evaluation before resuming usual meds-metformin, insulin 8IU tidwm 7. History of bilateral cerebellar infarcts still has receptive and receptive aphasia; has hyperreflexia as well on aspirin, statin; on xarelto, which is currently on hold as he is NPO. Will start heparin drip to anticoagulate him in the interim 8. Afib: rate controlled. On sotalol and xarelto. xarelto on hold currently. Will start heparin drip due to history of recent cardioembolic stroke. 9. Parkinson's disease: on levodopa/carbidopa 10. Gout: on allopurinol 10. CAD with CABG: on aspirin, statin, 12. history of depression: May need psychotherapy DVT prophylaxis; SCDs This note was generated with [employer] dictation software. It may contain incorrect words, spelling, and punctuation that were not noted in checking the note before signing. A Code Visit Inpatient E&M: 18427 Subs Hosp L3
--- NOTE | 2018-03-21 10:04 | PN_ITS ---
Patient Problems: Active and Suspected Problems Acute renal failure (Acute) Hyperkalemia (Acute) Dehydration (Acute) Metabolic encephalopathy (Acute) Hypernatremia (Acute) Hypernatremia (Acute) Subjective: The patient is a 68 year old M with a past medical history of COPD, coronary artery disease, CABG , hypertension, diabetes mellitus type 2, GERD, hyperlipidemia, depression, atrial fibrillation, tobacco dependence, recently diagnosed Parkinson's disease and recently diagnosed bilateral cerebellar ischemic infarcts in early February 2018. He was admitted via the ED on 03/20/18 from his custodial on account of altered mental status and increase in BUN and creatinine. In the ED was noted to have hyperkalemia with potassium of 7.1 and hyponatremia with sodium of 157. He was reported to not have been eating in the custodial because he did not like the nectar thick liquids. He has continued to take his diuretics despite his poor intake as well. Labs also showed leukocytosis with white cell count of 21.5 with 84.5% neutrophils, platelets and hemoglobin were within normal limits. BUN was 86 and creatinine was 4.18. He was admitted and is being managed for acute kidney injury, hyperkalemia and hypernatremia. Patient seen and examined. He was conscious and alert but not very responsive. He would only monitor in response to questions asked. Unable to do review of systems as patient has expressive and receptive aphasia. Vitals/I&O's: Vital Signs Temp Pulse Resp BP Pulse Ox 97.9 F 70 21 H 121/64 H 96 03/21/18 08:00 03/21/18 08:00 03/21/18 08:00 03/21/18 08:00 03/21/18 08:00 Oxygen Flow Rate (L/min) 1 Oxygen Delivery Method Nasal Cannula Weight: 193 lb 12.581 oz Body Mass Index (BMI) 27.1 Intake and Output for Last 24 Hours 03/19/18 03/20/18 03/21/18 23:59 23:59 23:59 Intake Total 2055 / 2055 Output Total 410 / 410 Balance 1646 / 1646 General: Alert, - - not responsive to questions asked. has expressive and receptive aphasia HEENT: Atraumatic, PERRLA, EOMI, Normocephalic Oral: Dry Mucosa Neck: Supple, No JVD, Negative Carotid Bruits Lungs: Clear to auscultation, Normal air movement, No rhonchi, No wheeze Cardiovascular: Regular rate, Regular Rhythm, Normal S1, Normal S2, No murmurs Abdomen: Bowel Sounds Present, Soft, Non Tender, Non-Distended, No Hepato- splenomegaly Extremities: No clubbing, No cyanosis, No edema, Capillary Refill Less than 3 Seconds Skin: No rashes, No breakdown Musculoskeletal: No Tenderness to Palpation of Joints or Extremities Lymphatic: No Cervical, Supraclavicular, or Inguinal Adenopathy Neurological: Cranial nerves II-XII grossly intact, - - has hyperreflexia in all extremities. Reflexes were brisk in all extremities (3+), with clonus bilaterally. Extensor plantar reflexes were equivocal Psych/Mental Status: - - conscious, flat affect, expressive and receptive aphasia Laboratory Results 03/20/18 23:11: MRSA (PCR) Negative 03/21/18 00:48: POC Glucose 179 H 03/21/18 04:30: WBC 21.1 H, RBC 4.60, Hgb 13.3, Hct 41.3, MCV 89.8, MCH 28.9, MCHC 32.2, RDW 15.8 H, RDW Differential 50.5 H, Plt Count 228, MPV 12.8 H, Immature Gran % (Auto) 0.200, Neut % (Auto) 82.4 H, Lymph % (Auto) 9.6 L, [place] % (Auto) 5.8, Eos % (Auto) 1.1, Baso % (Auto) 0.9, Absolute Neuts (auto) 17.4 H , Absolute Lymphs (auto) 2.03, Total Counted Not Reportable 03/21/18 04:30: PT 15.8 H, INR 1.3 03/21/18 04:30: Sodium 158 H, Potassium 6.1 H*, Chloride 130 H*, Carbon Dioxide 21.0, Anion Gap 7, BUN 81 H, Creatinine 3.72 H, Estim Creat Clear Calc 20.17, Est GFR (MDRD) Af Amer 21 L, Est GFR (MDRD) Non-Af 17 L, BUN/Creatinine Ratio 21.8 H, Glucose 239 H, Calcium 9.4, Phosphorus 3.8, Magnesium 1.4 L, Total Bilirubin 0.50, AST 16, ALT 7 L, Alkaline Phosphatase 156 H, Total Protein 7.3, Albumin 2.1 L, Globulin 5.2 H, Albumin/Globulin Ratio 0.4 L 03/21/18 06:55: Serum Osmolality 357 H 03/21/18 07:00: Urine Osmolality 526 03/21/18 07:08: POC Glucose 228 H Current Medications Allopurinol (Zyloprim) 100 mg PO DAILYCM [facility] Last Admin: 03/21/18 09:31 Dose: Not Given Aspirin (Aspirin, Baby) 81 mg PO DAILY@0800 [facility] Last Admin: 03/21/18 09:29 Dose: Not Given Atorvastatin Calcium (Lipitor) 80 mg PO QHS [facility] Last Admin: 03/21/18 00:35 Dose: Not Given Carbidopa/Levodopa (Sinemet) 1 tablet PO BIDAC [facility] Last Admin: 03/21/18 07:50 Dose: Not Given Chlorhexidine Gluconate () 1 each TOPICAL DAILY [facility] Last Admin: 03/21/18 06:28 Dose: 1 each Famotidine (Pepcid) 20 mg PO BID [facility] Last Admin: 03/21/18 00:35 Dose: Not Given Sodium Chloride () 250 mls @ 15 mls/hr IV .[id number] PRN PRN Reason: SALINE FLUSH Dextrose () 1,000 mls @ 150 mls/hr IV .[id number] [facility] Last Admin: 03/21/18 06:45 Dose: 150 mls/hr Insulin Human Lispro (Humalog Kwikpen (Bkc)) 0 unit SC ACHS [facility] PRN Reason: Protocol Last Admin: 03/21/18 07:51 Dose: 2 u Magnesium Hydroxide (Milk Of Magnesia) 30 ml PO DAILY PRN PRN PRN Reason: Constipation Nicotine (Nicoderm Cq (Pbkc)) 21 mg TRANSDERM. DAILY [facility] Nutritional Formula (Lactose Free) (Glucerna Shake) 120 ml PO TIDCM [facility] Last Admin: 03/21/18 09:31 Dose: Not Given Qyuhw-2-Sjol Ethyl Esters (Lovaza) 1 gm PO DAILY [facility] Sodium Chloride () 5 - 30 ml IV UD PRN PRN Reason: SALINE FLUSH Sotalol HCl (Betapace (G)) 80 mg PO BID [facility] Last Admin: 03/21/18 00:34 Dose: Not Given Medical Necessity - Tobacco Use Smoking Status: Light Smoker (<10/day) Tobacco Use: Cigarettes Assessment/Plan All Active Problems Acute renal failure (Acute) Hyperkalemia (Acute) Dehydration (Acute) Metabolic encephalopathy (Acute) Hypernatremia (Acute) Hypernatremia (Acute) This 68-year-old male admitted from the custodial with complaint of altered mental status and worsening kidney function. 1. Altered mental status likely due to metabolic encephalopathy from azotemia and hypernatremia * noted to be more confused in SNF * patient is conscious this morning, but has expressive and receptive aphasia, from recent bilateral cerebellar infarcts * CT head done was negative for any acute intracranial process * received IVF to help with hydration; will continue * will monitor * 2. KARO and azotemia likely pre-renal due to decreased intake * had not been eating in the SNF due to him not liking the thickened meals * had also been taking his furosemide despite his poor oral intake * Cr was 4.18 on admission; down to 3.72 today; BUN down to 81 from 86 on admission * eGFR was 15, up to 17 today. * nephrology consulted; will await rec's * received IV NS on admission; fluid switched by building pressure washer to D5W due to hypernatremia. Will await nephrology rec's about IVF. * lasix on hold * 3. Hyperkalemia * K was 7.1 on admission; now down to 6.1. No EKG changes on admisson * lisinopril, potassium on hold * kayexalate not an option as patient is NPO * nephrology consulted. Potassium on hold * 3. Hypernatremia * this is likely hypovolemic duye to hyponatremia. * serum osmolality is 357, pointing towards hypovolemia and dehydration. This is supported by BUN/Cr ration of ~21 * received IVF NS 2L since admission. Now switched to D5W per building pressure washer * nephrology consulted; will await rec's * will check urine electrolytes * 4. Dysphagia due to stroke * had bilateral cerebellar infarcts in 6.18; was not eating food in the custodial because he was thickened and he did not like it. * At risk of aspiration. Will get formal swallow evaluation by speech therapy before commencing diet. * Monitor. * 5. Leucocytosis: * possibly reactive. No active focus of infection. CXR showed no clear infiltrate. Lungs are clear to auscultation. He has been afebrile, and UA showed no clear evidence of UTI. * will monitor for now. 6. Diabetes mellitus * accuchecks ACHS * on ISS; awaiting formal speech therapy evaluation before resuming usual meds- metformin, insulin 8IU tidwm * 7. History of bilateral cerebellar infarcts * still has receptive and receptive aphasia; has hyperreflexia as well * on aspirin, statin; on xarelto, which is currently on hold as he is NPO. Will start heparin drip to anticoagulate him in the interim 8. Afib: rate controlled. On sotalol and xarelto. xarelto on hold currently. Will start heparin drip due to history of recent cardioembolic stroke. 9. Parkinson's disease: on levodopa/carbidopa 10. Gout: on allopurinol 10. CAD with CABG: on aspirin, statin, 12. history of depression: May need psychotherapy DVT prophylaxis; SCDs This note was generated with [employer] dictation software. It may contain incorrect words, spelling, and punctuation that were not noted in checking the note before signing. A Code Visit Inpatient E&M: [id number] [facility] L3
[2018-03-21] MEDS: 0.9% NaCl Peripheral Flush Adult/Peds IV ×4 (11:31→18:30)
[2018-03-21 12:25] LABS: Urea Nitrogen, Urine 794 mg/dL (NO RANGE EST.)
[2018-03-21 12:51] LABS: Bedside Glucose 276 mg/dL (70-110)
--- NOTE | 2018-03-21 12:52 | PCM.CONS.R ---
Problem List (1) Hypernatremia Status: Acute (2) Hypernatremia Status: Acute (3) Acute renal failure Status: Acute (4) Hyperkalemia Status: Acute Consultation - Renal 03/21/18 PCP/ Referring MD: Requesting physician: Dr Puente Primary care physician: Augustus Maldonado MD Reason for Consultation:: KARO - History of Present Illness History of Present Illness: The patient is a 68 year old M presented to hospital with AMS. history of AFIB and cardioembolic stroke. apparently was on a modified diet and could not eat for the most part. has been obtunded for 2-3 days now as per family. found to have KARO, several electrolyte abnormalities. currently drowsy, minimally responsive most of history is from charts - Allergies Allergies: Allergies Penicillins Allergy (Verified 03/20/18 19:39) Rash varenicline [From Chantix] Adverse Reaction (Verified 03/20/18 19:39) Unknown - Current Medications Current Medications: Current Medications Allopurinol (Zyloprim) 100 mg PO DAILYCM [facility] Last Admin: 03/21/18 09:31 Dose: Not Given Aspirin (Aspirin, Baby) 81 mg PO DAILY@0800 [facility] Last Admin: 03/21/18 09:29 Dose: Not Given Atorvastatin Calcium (Lipitor) 80 mg PO QHS [facility] Last Admin: 03/21/18 00:35 Dose: Not Given Carbidopa/Levodopa (Sinemet) 1 tablet PO BIDAC [facility] Last Admin: 03/21/18 07:50 Dose: Not Given Chlorhexidine Gluconate () 1 each TOPICAL DAILY [facility] Last Admin: 03/21/18 06:28 Dose: 1 each Famotidine (Pepcid) 20 mg PO BID [facility] Last Admin: 03/21/18 11:26 Dose: Not Given Heparin Sodium (Porcine) (Heparin Na) 0 unit IV UD PRN PRN Reason: Protocol Sodium Chloride () 250 mls @ 15 mls/hr IV .[id number] PRN PRN Reason: SALINE FLUSH Dextrose () 1,000 mls @ 150 mls/hr IV .[id number] [facility] Last Admin: 03/21/18 06:45 Dose: 150 mls/hr Heparin Sodium/Sodium Chloride () 25,000 unit in 250 mls @ 12 mls/hr IV .[id number] [facility]; As Directed PRN Reason: Protocol Last Admin: 03/21/18 12:34 Dose: 12 mls/hr Insulin Human Lispro (Humalog Kwikpen (Bkc)) 0 unit SC ACHS [facility] PRN Reason: Protocol Last Admin: 03/21/18 12:38 Dose: 3 u Magnesium Hydroxide (Milk Of Magnesia) 30 ml PO DAILY PRN PRN PRN Reason: Constipation Nicotine (Nicoderm Cq (Pbkc)) 21 mg TRANSDERM. DAILY [facility] Last Admin: 03/21/18 11:25 Dose: 21 mg Nutritional Formula (Lactose Free) (Glucerna Shake) 120 ml PO TIDCM [facility] Last Admin: 03/21/18 12:49 Dose: Not Given Vljkd-[id number] Ethyl Esters (Lovaza) 1 gm PO DAILY [facility] Last Admin: 03/21/18 10:33 Dose: Not Given Sodium Bicarbonate (Sodium Bicarbonate 8.4%) 100 meq IV X1 ONE Stop: 03/21/18 12:48 Sodium Chloride () 5 - 30 ml IV UD PRN PRN Reason: SALINE FLUSH Last Admin: 03/21/18 11:31 Dose: 10 ml Sotalol HCl (Betapace (G)) 80 mg PO BID [facility] Last Admin: 03/21/18 10:32 Dose: Not Given - Past Medical History Past Medical History (Chronic Problems): Chronic Problems Parkinsons disease (Chronic) Recent cerebrovascular accident (CVA) (Chronic) BL cerebellar infarcts February 2018 Dysphagia (Chronic) Depression (Chronic) COPD (chronic obstructive pulmonary disease) (Chronic) 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) Tobacco abuse (Chronic) 1/2 ppd now 3ppd in the past Hyperlipidemia (Chronic) Gastroesophageal reflux disease (Chronic) Type 2 diabetes mellitus (Chronic) Benign essential hypertension (Chronic) Slurred speech (Chronic) CHF (congestive heart failure) (Chronic) ef=40% 2012, 55% in February of 2018 Atrial fibrillation (Chronic) - Past Surgical History Surgical History: coronary bypass surgery - Social History Smoking Status: Light Smoker (<10/day) Alcohol: None Drugs: None - Family History Maternal History Items: Cancer - Breast cancer Paternal History Items: Heart Disease - Congestive heart failure Review of Systems Unable to obtain accurate/complete ROS d/t: mental status Patient Problems: Active and Suspected Problems Acute renal failure (Acute) Hyperkalemia (Acute) Dehydration (Acute) Metabolic encephalopathy (Acute) Hypernatremia (Acute) Hypernatremia (Acute) - Physical Exam General: Confused Neck: Supple Lungs: Clear to auscultation Cardiovascular: Regular rate Abdomen: Bowel Sounds Present Extremities: No clubbing Skin: No rashes Musculoskeletal: No Tenderness to Palpation of Joints or Extremities Vital Signs Temp Pulse Resp BP Pulse Ox 97.8 F 72 26 H 113/64 96 03/21/18 12:00 03/21/18 12:00 03/21/18 12:00 03/21/18 12:00 03/21/18 12:00 Oxygen Flow Rate (L/min) 2 Oxygen Delivery Method Nasal Cannula Weight: 87.9 kg Body Mass Index (BMI) 27.1 Intake and Output for Last 24 Hours 03/19/18 03/20/18 03/21/18 23:59 23:59 23:59 Intake Total 2056 / 2056 Output Total 410 / 410 Balance 1646 / 1646 Laboratory Tests Past 24 Hrs 03/20/18 03/21/18 03/21/18 23:11 04:30 04:30 WBC 21.1 H RBC 4.60 Hgb 13.3 Hct 41.3 MCV 89.8 MCH 28.9 MCHC 32.2 RDW 15.8 H RDW Differential 50.5 H Plt Count 228 MPV 12.8 H Immature Gran % (Auto) 0.200 Neut % (Auto) 82.4 H Lymph % (Auto) 9.6 L [place] % (Auto) 5.8 Eos % (Auto) 1.1 Baso % (Auto) 0.9 Absolute Neuts (auto) 17.4 H Absolute Lymphs (auto) 2.03 Total Counted Not Reportable PT 15.8 H INR 1.3 Sodium Potassium Chloride Carbon Dioxide Anion Gap BUN Creatinine Estim Creat Clear Calc Est GFR (MDRD) Af Amer Est GFR (MDRD) Non-Af BUN/Creatinine Ratio Glucose Serum Osmolality Calcium Phosphorus Magnesium Total Bilirubin AST ALT Alkaline Phosphatase Total Protein Albumin Globulin Albumin/Globulin Ratio Urine Osmolality Urine Creatinine Urine Urea Nitrogen MRSA (PCR) Negative 03/21/18 03/21/18 03/21/18 04:30 06:55 07:00 WBC RBC Hgb Hct MCV MCH MCHC RDW RDW Differential Plt Count MPV Immature Gran % (Auto) Neut % (Auto) Lymph % (Auto) [place] % (Auto) Eos % (Auto) Baso % (Auto) Absolute Neuts (auto) Absolute Lymphs (auto) Total Counted PT INR Sodium 158 H Potassium 6.1 H* Chloride 130 H* Carbon Dioxide 21.0 Anion Gap 7 BUN 81 H Creatinine 3.72 H Estim Creat Clear Calc 20.17 Est GFR (MDRD) Af Amer 21 L Est GFR (MDRD) Non-Af 17 L BUN/Creatinine Ratio 21.8 H Glucose 239 H Serum Osmolality 357 H Calcium 9.4 Phosphorus 3.8 Magnesium 1.4 L Total Bilirubin 0.50 AST 16 ALT 7 L Alkaline Phosphatase 156 H Total Protein 7.3 Albumin 2.1 L Globulin 5.2 H Albumin/Globulin Ratio 0.4 L Urine Osmolality 526 Urine Creatinine Urine Urea Nitrogen MRSA (PCR) 03/21/18 03/21/18 11:20 11:20 WBC RBC Hgb Hct MCV MCH MCHC RDW RDW Differential Plt Count MPV Immature Gran % (Auto) Neut % (Auto) Lymph % (Auto) [place] % (Auto) Eos % (Auto) Baso % (Auto) Absolute Neuts (auto) Absolute Lymphs (auto) Total Counted PT INR Sodium Potassium Chloride Carbon Dioxide Anion Gap BUN Creatinine Estim Creat Clear Calc Est GFR (MDRD) Af Amer Est GFR (MDRD) Non-Af BUN/Creatinine Ratio Glucose Serum Osmolality Calcium Phosphorus Magnesium Total Bilirubin AST ALT Alkaline Phosphatase Total Protein Albumin Globulin Albumin/Globulin Ratio Urine Osmolality Urine Creatinine 131.00 Urine Urea Nitrogen 794 MRSA (PCR) POC Glucose 03/21/18 03/21/18 03/21/18 12:37 07:08 00:48 POC Glucose 276 H 228 H 179 H Assessment/Plan All Active Problems Acute renal failure (Acute) Hyperkalemia (Acute) Dehydration (Acute) Metabolic encephalopathy (Acute) Hypernatremia (Acute) Hypernatremia (Acute) KARO. normal baseline as of last month (2 weeks ago). looks significantly dehydrated. urine output is borderline but present. hyperkalemia better. hold off on [employer] TE[employer]ER. should improve with IVF resuscitation Hypernatremia. likely related to poor oral intake. unlikely DI as he is not making much urine. Free water deficit of almost 5 L. will correct over 2 days. continue D5W for today. repeat BMP this afternoon Hyperkalemia. better. likely related to non gap acidosis as he is significantly hyperchloremic. will give 100 meq of sodium bicarbonate as IV push. NPO hence cant give oral kayexalate d/w family and ICU staff
--- NOTE | 2018-03-21 13:00 | CON.PCM_ITS ---
Problem List (1) Hypernatremia Status: Acute (2) Hypernatremia Status: Acute (3) Acute renal failure Status: Acute (4) Hyperkalemia Status: Acute Consultation - Renal 03/21/18 PCP/ Referring MD: Requesting physician: Dr Puente Primary care physician: Augustus Maldonado MD Reason for Consultation:: KARO - History of Present Illness History of Present Illness: The patient is a 68 year old M presented to hospital with AMS. history of AFIB and cardioembolic stroke. apparently was on a modified diet and could not eat for the most part. has been obtunded for 2-3 days now as per family. found to have KARO, several electrolyte abnormalities. currently drowsy, minimally responsive most of history is from charts - Allergies Allergies: Allergies Penicillins Allergy (Verified 03/20/18 19:39) Rash varenicline [From Chantix] Adverse Reaction (Verified 03/20/18 19:39) Unknown - Current Medications Current Medications: Current Medications Allopurinol (Zyloprim) 100 mg PO DAILYCM [facility] Last Admin: 03/21/18 09:31 Dose: Not Given Aspirin (Aspirin, Baby) 81 mg PO DAILY@0800 [facility] Last Admin: 03/21/18 09:29 Dose: Not Given Atorvastatin Calcium (Lipitor) 80 mg PO QHS [facility] Last Admin: 03/21/18 00:35 Dose: Not Given Carbidopa/Levodopa (Sinemet) 1 tablet PO BIDAC [facility] Last Admin: 03/21/18 07:50 Dose: Not Given Chlorhexidine Gluconate () 1 each TOPICAL DAILY [facility] Last Admin: 03/21/18 06:28 Dose: 1 each Famotidine (Pepcid) 20 mg PO BID [facility] Last Admin: 03/21/18 11:26 Dose: Not Given Heparin Sodium (Porcine) (Heparin Na) 0 unit IV UD PRN PRN Reason: Protocol Sodium Chloride () 250 mls @ 15 mls/hr IV .[id number] PRN PRN Reason: SALINE FLUSH Dextrose () 1,000 mls @ 150 mls/hr IV .[id number] [facility] Last Admin: 03/21/18 06:45 Dose: 150 mls/hr Heparin Sodium/Sodium Chloride () 25,000 unit in 250 mls @ 12 mls/hr IV .[id number] [facility]; As Directed PRN Reason: Protocol Last Admin: 03/21/18 12:34 Dose: 12 mls/hr Insulin Human Lispro (Humalog Kwikpen (Bkc)) 0 unit SC ACHS [facility] PRN Reason: Protocol Last Admin: 03/21/18 12:38 Dose: 3 u Magnesium Hydroxide (Milk Of Magnesia) 30 ml PO DAILY PRN PRN PRN Reason: Constipation Nicotine (Nicoderm Cq (Pbkc)) 21 mg TRANSDERM. DAILY [facility] Last Admin: 03/21/18 11:25 Dose: 21 mg Nutritional Formula (Lactose Free) (Glucerna Shake) 120 ml PO TIDCM [facility] Last Admin: 03/21/18 12:49 Dose: Not Given [id number] Ethyl Esters (Lovaza) 1 gm PO DAILY [facility] Last Admin: 03/21/18 10:33 Dose: Not Given Sodium Bicarbonate (Sodium Bicarbonate 8.4%) 100 meq IV X1 ONE Stop: 03/21/18 12:48 Sodium Chloride () 5 - 30 ml IV UD PRN PRN Reason: SALINE FLUSH Last Admin: 03/21/18 11:31 Dose: 10 ml Sotalol HCl (Betapace (G)) 80 mg PO BID [facility] Last Admin: 03/21/18 10:32 Dose: Not Given - Past Medical History Past Medical History (Chronic Problems): Chronic Problems Parkinsons disease (Chronic) Recent cerebrovascular accident (CVA) (Chronic) BL cerebellar infarcts February 2018 Dysphagia (Chronic) Depression (Chronic) COPD (chronic obstructive pulmonary disease) (Chronic) 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) Tobacco abuse (Chronic) 1/2 ppd now 3ppd in the past Hyperlipidemia (Chronic) Gastroesophageal reflux disease (Chronic) Type 2 diabetes mellitus (Chronic) Benign essential hypertension (Chronic) Slurred speech (Chronic) CHF (congestive heart failure) (Chronic) ef=40% 2012, 55% in February of 2018 Atrial fibrillation (Chronic) - Past Surgical History Surgical History: coronary bypass surgery - Social History Smoking Status: Light Smoker (<10/day) Alcohol: None Drugs: None - Family History Maternal History Items: Cancer - Breast cancer Paternal History Items: Heart Disease - Congestive heart failure Review of Systems Unable to obtain accurate/complete ROS d/t: mental status Patient Problems: Active and Suspected Problems Acute renal failure (Acute) Hyperkalemia (Acute) Dehydration (Acute) Metabolic encephalopathy (Acute) Hypernatremia (Acute) Hypernatremia (Acute) - Physical Exam General: Confused Neck: Supple Lungs: Clear to auscultation Cardiovascular: Regular rate Abdomen: Bowel Sounds Present Extremities: No clubbing Skin: No rashes Musculoskeletal: No Tenderness to Palpation of Joints or Extremities Vital Signs Temp Pulse Resp BP Pulse Ox 97.8 F 72 26 H 113/64 96 03/21/18 12:00 03/21/18 12:00 03/21/18 12:00 03/21/18 12:00 03/21/18 12:00 Oxygen Flow Rate (L/min) 2 Oxygen Delivery Method Nasal Cannula Weight: 87.9 kg Body Mass Index (BMI) 27.1 Intake and Output for Last 24 Hours 03/19/18 03/20/18 03/21/18 23:59 23:59 23:59 Intake Total 2056 / 2056 Output Total 410 / 410 Balance 1646 / 1646 Laboratory Tests Past 24 Hrs 03/20/18 03/21/18 03/21/18 23:11 04:30 04:30 WBC 21.1 H RBC 4.60 Hgb 13.3 Hct 41.3 MCV 89.8 MCH 28.9 MCHC 32.2 RDW 15.8 H RDW Differential 50.5 H Plt Count 228 MPV 12.8 H Immature Gran % (Auto) 0.200 Neut % (Auto) 82.4 H Lymph % (Auto) 9.6 L [place] % (Auto) 5.8 Eos % (Auto) 1.1 Baso % (Auto) 0.9 Absolute Neuts (auto) 17.4 H Absolute Lymphs (auto) 2.03 Total Counted Not Reportable PT 15.8 H INR 1.3 Sodium Potassium Chloride Carbon Dioxide Anion Gap BUN Creatinine Estim Creat Clear Calc Est GFR (MDRD) Af Amer Est GFR (MDRD) Non-Af BUN/Creatinine Ratio Glucose Serum Osmolality Calcium Phosphorus Magnesium Total Bilirubin AST ALT Alkaline Phosphatase Total Protein Albumin Globulin Albumin/Globulin Ratio Urine Osmolality Urine Creatinine Urine Urea Nitrogen MRSA (PCR) Negative 03/21/18 03/21/18 03/21/18 04:30 06:55 07:00 WBC RBC Hgb Hct MCV MCH MCHC RDW RDW Differential Plt Count MPV Immature Gran % (Auto) Neut % (Auto) Lymph % (Auto) [place] % (Auto) Eos % (Auto) Baso % (Auto) Absolute Neuts (auto) Absolute Lymphs (auto) Total Counted PT INR Sodium 158 H Potassium 6.1 H* Chloride 130 H* Carbon Dioxide 21.0 Anion Gap 7 BUN 81 H Creatinine 3.72 H Estim Creat Clear Calc 20.17 Est GFR (MDRD) Af Amer 21 L Est GFR (MDRD) Non-Af 17 L BUN/Creatinine Ratio 21.8 H Glucose 239 H Serum Osmolality 357 H Calcium 9.4 Phosphorus 3.8 Magnesium 1.4 L Total Bilirubin 0.50 AST 16 ALT 7 L Alkaline Phosphatase 156 H Total Protein 7.3 Albumin 2.1 L Globulin 5.2 H Albumin/Globulin Ratio 0.4 L Urine Osmolality 526 Urine Creatinine Urine Urea Nitrogen MRSA (PCR) 03/21/18 03/21/18 11:20 11:20 WBC RBC Hgb Hct MCV MCH MCHC RDW RDW Differential Plt Count MPV Immature Gran % (Auto) Neut % (Auto) Lymph % (Auto) [place] % (Auto) Eos % (Auto) Baso % (Auto) Absolute Neuts (auto) Absolute Lymphs (auto) Total Counted PT INR Sodium Potassium Chloride Carbon Dioxide Anion Gap BUN Creatinine Estim Creat Clear Calc Est GFR (MDRD) Af Amer Est GFR (MDRD) Non-Af BUN/Creatinine Ratio Glucose Serum Osmolality Calcium Phosphorus Magnesium Total Bilirubin AST ALT Alkaline Phosphatase Total Protein Albumin Globulin Albumin/Globulin Ratio Urine Osmolality Urine Creatinine 131.00 Urine Urea Nitrogen 794 MRSA (PCR) POC Glucose 03/21/18 03/21/18 03/21/18 12:37 07:08 00:48 POC Glucose 276 H 228 H 179 H Assessment/Plan All Active Problems Acute renal failure (Acute) Hyperkalemia (Acute) Dehydration (Acute) Metabolic encephalopathy (Acute) Hypernatremia (Acute) Hypernatremia (Acute) KARO. normal baseline as of last month (2 weeks ago). looks significantly dehydrated. urine output is borderline but present. hyperkalemia better. 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 should improve with IVF resuscitation Hypernatremia. likely related to poor oral intake. unlikely DI as he is not making much urine. Free water deficit of almost 5 L. will correct over 2 days. continue D5W for today. repeat BMP this afternoon Hyperkalemia. better. likely related to non gap acidosis as he is significantly hyperchloremic. will give 100 meq of sodium bicarbonate as IV push. NPO hence cant give oral kayexalate d/w family and ICU staff
[2018-03-21] MEDS: Sodium Bicarbonate 8.4% 50 ML Syringe 100 MEQ IV (13:49)
[2018-03-21 16:52] LABS: Anion Gap 6 (5-15); BUN 71 mg/dL (7-18); BUN/Creat Ratio 23.8 RATIO (10-20); Calcium,Total 9.4 mg/dL (8.5-10.1); Chloride 126 mmol/L (98-107); Creatinine, Serum 2.98 mg/dL (0.70-1.30); EST Glomerular Filtration Rate 23 mL/min (>60); Est Glom Filt Rate - Afr Amer 27 mL/min (>60); Estimated Creatinine Clearance 25.18 ml/min; Glucose 231 mg/dL (74-106); Potassium 5.4 mmol/L (3.5-5.1); Sodium Level 155 mmol/L (136-145)
[2018-03-21 18:20] LABS: Bedside Glucose 233 mg/dL (70-110)
[2018-03-21 22:16] LABS: Bedside Glucose 223 mg/dL (70-110)
[2018-03-22] VITALS (29 sets, daily range): BP systolic 88–160; BP diastolic 51–95; PULSE 68–104; RESP 13–30; TEMP 36.3–36.9; O2SAT 92–99
[2018-03-22 02:08] LABS: Partial Thromboplast Time 132.2 Seconds (24.1-36.2)
[2018-03-22] MEDS: CHLORHEXIDINE GLUC 2% CLOTH 1 EACH TOWELETTE TOPICAL (02:27)
[2018-03-22 04:47] LABS: Absolute Neutrophil Count 9.6 X10^3/uL (2.0-7.7); Basophil# 0.15 X10^3/uL; Basophil% 1.1 % (0-1); Eosinophil# 0.58 X10^3/uL; Eosinophils% 4.4 % (0-5); Hematocrit 38.2 % (40-54); Hemoglobin 12.3 g/dl (13.0-16.5); Mean Corp Hgb Conc 32.2 g/gl (32-36); Mean Corpuscular Hgb 28.4 pg (27.0-32.0); Mean Corpuscular Volume 88.2 fL (80-94); Mean Platelet Vol. 12.4 fl (6.2-12.0); Monocyte# 0.92 X10^3/uL; Monocyte% 6.9 % (0-10); Neutrophil # 9.64 X10^3/uL (2.7-7.7); Neutrophil % 72.5 % (47-70); Platelet Count 193 K/mm3 (150-450); RBC Distribution Width CV 15.7 % (11.6-14.6); RBC Distribution Width SD 49.9 fl (35.1-43.9); Red Blood Count 4.33 M/mm3 (4.6-6.2); White Blood Count 13.3 K/mm3 (4.4-11.0)
[2018-03-22 04:48] LABS: POSITIVE COUNT NO; POSITIVE DIFFERENTIAL NO; POSITIVE MORPHOLOGY NO
[2018-03-22 04:50] LABS: International Normalized Ratio 1.2; Prothrombin Time (Protime)PT. 15.6 SECONDS (11.7-14.9)
[2018-03-22 04:59] LABS: Albumin, Serum 1.9 g/dL (3.2-5.0); BUN 56 mg/dL (7-18); BUN/Creat Ratio 25.6 RATIO (10-20); Calcium,Total 9.3 mg/dL (8.5-10.1); Chloride 123 mmol/L (98-107); Creatinine, Serum 2.19 mg/dL (0.70-1.30); EST Glomerular Filtration Rate 32 mL/min (>60); Est Glom Filt Rate - Afr Amer 39 mL/min (>60); Estimated Creatinine Clearance 34.26 ml/min; Glucose 266 mg/dL (74-106); Phosphorus 2.9 mg/dL (2.5-4.9); Potassium 4.7 mmol/L (3.5-5.1); Sodium Level 153 mmol/L (136-145)
--- NOTE | 2018-03-22 05:05 | PN_ITS ---
Subjective: The patient was seen and examined at the bedside this morning. Events from the last 24 hours have been reviewed. The patient is currently afebrile, hemodynamically stable and maintaining appropriate oxygen saturations on 2 L/ min via nasal cannula. Nursing staff reports his supplemental oxygen was applied overnight, as the patient was noted to have periodic oxygen desaturations while sleeping. His urine output has increased. Given that the patient is currently n.p.o., he has become more tremulous due to inability to administer his baseline Sinemet. Objective: The patient's most recent lab work, culture data and imaging studies have all been personally reviewed. Head CT revealed chronic age-related changes and atrophy. Plain film chest x-ray revealed no acute cardiopulmonary process. Leukocytosis has improved. Sodium is down to 153 with a normal potassium and improving chloride of 123. Creatinine is also improving. Renal ultrasound revealed kidneys to be normal in size and echogenicity without hydronephrosis. General: - - More alert today. No acute distress. Resting comfortably in bed. is present at the bedside. HEENT: Atraumatic, Normocephalic Oral: No Gingival or Mucosal Lesions/ Ulcerations Neck: Supple, No Nodes, Trachea Midline Lungs: No rhonchi, No wheeze, No rales, Diminished, - - Poor patient dependent inspiratory effort. Cardiovascular: Regular rate, Regular Rhythm, Normal S1, Normal S2, No murmurs Abdomen: Soft, Non Tender, Hypoactive Bowel Sounds Extremities: No clubbing, No cyanosis, No edema Skin: No breakdown Musculoskeletal: No Muscle Wasting Lymphatic: No Cervical, Supraclavicular, or Inguinal Adenopathy Neurological: - - Follows and tracks to verbal stimulus. Still is essentially nonverbal, however. Moves extremities spontaneously. Psych/Mental Status: Flat Affect Vital Signs Temp Pulse Resp BP Pulse Ox 98.1 F 78 20 H 121/57 H 94 03/22/18 00:00 03/22/18 00:00 03/22/18 00:00 03/22/18 00:00 03/22/18 00:00 Oxygen Flow Rate (L/min) 2 Oxygen Delivery Method Room Air Weight: 193 lb 12.581 oz Body Mass Index (BMI) 27.1 Intake and Output for Last 24 Hours 03/20/18 03/21/18 03/22/18 23:59 23:59 23:59 Intake Total 3919 / 3919 953.9 / 953.9 Output Total 1010 / 1010 400 / 400 Balance 2909 / 2909 553.9 / 553.9 Labs (Last 48 Hours) 03/20/18 03/21/18 03/21/18 23:11 00:48 04:30 WBC 21.1 H RBC 4.60 Hgb 13.3 Hct 41.3 MCV 89.8 MCH 28.9 MCHC 32.2 RDW 15.8 H RDW Differential 50.5 H Plt Count 228 MPV 12.8 H Immature Gran % (Auto) 0.200 Neut % (Auto) 82.4 H Lymph % (Auto) 9.6 L [place] % (Auto) 5.8 Eos % (Auto) 1.1 Baso % (Auto) 0.9 Absolute Neuts (auto) 17.4 H Absolute Lymphs (auto) 2.03 Total Counted Not Reportable PT INR APTT Sodium Potassium Chloride Carbon Dioxide Anion Gap BUN Creatinine Estim Creat Clear Calc Est GFR (MDRD) Af Amer Est GFR (MDRD) Non-Af BUN/Creatinine Ratio Glucose Serum Osmolality Calcium Phosphorus Magnesium Total Bilirubin AST ALT Alkaline Phosphatase Total Protein Albumin Globulin Albumin/Globulin Ratio Urine Osmolality Urine Creatinine Urine Urea Nitrogen MRSA (PCR) Negative POC Glucose 179 H 03/21/18 03/21/18 03/21/18 04:30 04:30 06:55 WBC RBC Hgb Hct MCV MCH MCHC RDW RDW Differential Plt Count MPV Immature Gran % (Auto) Neut % (Auto) Lymph % (Auto) [place] % (Auto) Eos % (Auto) Baso % (Auto) Absolute Neuts (auto) Absolute Lymphs (auto) Total Counted PT 15.8 H INR 1.3 APTT Sodium 158 H Potassium 6.1 H* Chloride 130 H* Carbon Dioxide 21.0 Anion Gap 7 BUN 81 H Creatinine 3.72 H Estim Creat Clear Calc 20.17 Est GFR (MDRD) Af Amer 21 L Est GFR (MDRD) Non-Af 17 L BUN/Creatinine Ratio 21.8 H Glucose 239 H Serum Osmolality 357 H Calcium 9.4 Phosphorus 3.8 Magnesium 1.4 L Total Bilirubin 0.50 AST 16 ALT 7 L Alkaline Phosphatase 156 H Total Protein 7.3 Albumin 2.1 L Globulin 5.2 H Albumin/Globulin Ratio 0.4 L Urine Osmolality Urine Creatinine Urine Urea Nitrogen MRSA (PCR) POC Glucose 03/21/18 03/21/18 03/21/18 07:00 07:08 11:20 WBC RBC Hgb Hct MCV MCH MCHC RDW RDW Differential Plt Count MPV Immature Gran % (Auto) Neut % (Auto) Lymph % (Auto) [place] % (Auto) Eos % (Auto) Baso % (Auto) Absolute Neuts (auto) Absolute Lymphs (auto) Total Counted PT INR APTT Sodium Potassium Chloride Carbon Dioxide Anion Gap BUN Creatinine Estim Creat Clear Calc Est GFR (MDRD) Af Amer Est GFR (MDRD) Non-Af BUN/Creatinine Ratio Glucose Serum Osmolality Calcium Phosphorus Magnesium Total Bilirubin AST ALT Alkaline Phosphatase Total Protein Albumin Globulin Albumin/Globulin Ratio Urine Osmolality 526 Urine Creatinine 131.00 Urine Urea Nitrogen MRSA (PCR) POC Glucose 228 H 03/21/18 03/21/18 03/21/18 11:20 12:37 16:10 WBC RBC Hgb Hct MCV MCH MCHC RDW RDW Differential Plt Count MPV Immature Gran % (Auto) Neut % (Auto) Lymph % (Auto) [place] % (Auto) Eos % (Auto) Baso % (Auto) Absolute Neuts (auto) Absolute Lymphs (auto) Total Counted PT INR APTT Sodium 155 H Potassium 5.4 H Chloride 126 H Carbon Dioxide 23.0 Anion Gap 6 BUN 71 H Creatinine 2.98 H Estim Creat Clear Calc 25.18 Est GFR (MDRD) Af Amer 27 L Est GFR (MDRD) Non-Af 23 L BUN/Creatinine Ratio 23.8 H Glucose 231 H Serum Osmolality Calcium 9.4 Phosphorus Magnesium Total Bilirubin AST ALT Alkaline Phosphatase Total Protein Albumin Globulin Albumin/Globulin Ratio Urine Osmolality Urine Creatinine Urine Urea Nitrogen 794 MRSA (PCR) POC Glucose 276 H 03/21/18 03/21/18 03/21/18 18:03 18:26 22:06 WBC RBC Hgb Hct MCV MCH MCHC RDW RDW Differential Plt Count MPV Immature Gran % (Auto) Neut % (Auto) Lymph % (Auto) [place] % (Auto) Eos % (Auto) Baso % (Auto) Absolute Neuts (auto) Absolute Lymphs (auto) Total Counted PT INR APTT 86.0 H Sodium Potassium Chloride Carbon Dioxide Anion Gap BUN Creatinine Estim Creat Clear Calc Est GFR (MDRD) Af Amer Est GFR (MDRD) Non-Af BUN/Creatinine Ratio Glucose Serum Osmolality Calcium Phosphorus Magnesium Total Bilirubin AST ALT Alkaline Phosphatase Total Protein Albumin Globulin Albumin/Globulin Ratio Urine Osmolality Urine Creatinine Urine Urea Nitrogen MRSA (PCR) POC Glucose 233 H 223 H 03/22/18 03/22/18 03/22/18 01:40 04:35 04:35 WBC 13.3 H RBC 4.33 L Hgb 12.3 L Hct 38.2 L MCV 88.2 MCH 28.4 MCHC 32.2 RDW 15.7 H RDW Differential 49.9 H Plt Count 193 MPV 12.4 H Immature Gran % (Auto) 0.100 Neut % (Auto) 72.5 H Lymph % (Auto) 15.0 L [place] % (Auto) 6.9 Eos % (Auto) 4.4 Baso % (Auto) 1.1 H Absolute Neuts (auto) 9.6 H Absolute Lymphs (auto) 2.00 Total Counted Not Reportable PT INR APTT 132.2 H* Sodium 153 H Potassium 4.7 Chloride 123 H Carbon Dioxide 24.0 Anion Gap BUN 56 H Creatinine 2.19 H Estim Creat Clear Calc 34.26 Est GFR (MDRD) Af Amer 39 L Est GFR (MDRD) Non-Af 32 L BUN/Creatinine Ratio 25.6 H Glucose 266 H Serum Osmolality Calcium 9.3 Phosphorus 2.9 Magnesium Total Bilirubin AST ALT Alkaline Phosphatase Total Protein Albumin 1.9 L Globulin Albumin/Globulin Ratio Urine Osmolality Urine Creatinine Urine Urea Nitrogen MRSA (PCR) POC Glucose 03/22/18 04:35 WBC RBC Hgb Hct MCV MCH MCHC RDW RDW Differential Plt Count MPV Immature Gran % (Auto) Neut % (Auto) Lymph % (Auto) [place] % (Auto) Eos % (Auto) Baso % (Auto) Absolute Neuts (auto) Absolute Lymphs (auto) Total Counted PT 15.6 H INR 1.2 APTT Sodium Potassium Chloride Carbon Dioxide Anion Gap BUN Creatinine Estim Creat Clear Calc Est GFR (MDRD) Af Amer Est GFR (MDRD) Non-Af BUN/Creatinine Ratio Glucose Serum Osmolality Calcium Phosphorus Magnesium Total Bilirubin AST ALT Alkaline Phosphatase Total Protein Albumin Globulin Albumin/Globulin Ratio Urine Osmolality Urine Creatinine Urine Urea Nitrogen MRSA (PCR) POC Glucose Clinical Impression(s) from Imaging Studies Brain CT 03/20/18 19:48 IMPRESSION: Chronic age related changes and atrophy. No acute abnormality or change. Electronically Signed: Tj Farley MD at 21:22 EDT , Service support , Chest X-Ray 03/20/18 20:30 IMPRESSION: There are findings consistent with COPD. There is no evidence of acute chest disease. Electronically Signed: Tj Farley MD at 20:49 EDT , Service support , Renal Ultrasound 03/21/18 06:42 IMPRESSION: The kidneys are normal in size and echogenicity without hydronephrosis. Electronically Signed: Charo Mccoy MD at 11:36 EDT Tel Direct: [phone], Service support , Medical Necessity - Tobacco Use Smoking Status: Light Smoker (<10/day) Tobacco Use: Cigarettes Assessment/Plan All Active Problems Acute renal failure (Acute) Hyperkalemia (Acute) Dehydration (Acute) Metabolic encephalopathy (Acute) Hypernatremia (Acute) Hypernatremia (Acute) RECOMMENDATIONS: 1. Continue D5W for supplemental IV fluid hydration. 2. Recheck BMP this afternoon. 3. Reevaluation by speech therapy this morning. If the patient does not pass a swallow evaluation, consider alternative means of nutrition. 4. Continue weight-based heparin infusion. 5. Continue insulin coverage. IMPRESSIONS: 1. Acute kidney injury/hypernatremia/hyperkalemia/hyperchloremia Improving at this time. Likely multifactorial in etiology with intravascular volume depletion leading to prerenal azotemia as a likely inciting factor, compounded by concurrent use of diuretics and SUNNY inhibitor. Plan to continue supplemental IV fluid hydration with D5W. Recheck BMP this afternoon. Continue to hold diuretics and SUNNY inhibitor. Avoid additional nephrotoxic medications. There is no current indication for renal replacement therapy. Nephrology is following with recommendations appreciated. 2. Metabolic encephalopathy Improving. Likely related to metabolic derangements in the setting of acute kidney injury. Anticipate slow improvement with correction of the patient's underlying metabolic/electrolyte derangements. CT head revealed no acute intracranial pathology. 3. Failure to thrive following recent CVA/baseline parkinsonism/dysphagia The patient's underlying nutrition status will need to be addressed during this hospitalization. Speech therapy to reevaluate patient this morning. If he is unable to take p.o. nutrition, will need to seek alternative means of feeding. May need to consider PEG tube placement. In the meantime, a small bore feeding tube may need to be placed to facilitate p.o. medication administration. 4. Paroxysmal atrial fibrillation Given the patient's renal insufficiency and metabolic derangements, continue holding Xarelto. Continue weight-based heparin infusion. Nutrition/p.o. status will need to be addressed prior to resumption of oral anticoagulants. Continue sotalol. 5. Reported COPD of unknown severity/coronary artery disease status post CABG/ history of tobacco dependence/hyperlipidemia/diabetes Complicates care, management, recovery and prognosis. Discontinue metformin and continue sliding scale insulin coverage. P.o. medications are currently on hold. Continue scheduled bronchodilators as ordered. This note was generated with [employer] dictation software. It may contain incorrect words, spelling, and punctuation that were not noted in checking the note before signing. Code Visit Inpatient E&M: 29[facility]
[2018-03-22] MEDS: Insulin Lispro 100 UNIT/ML INSULN.PEN SC ×4 (06:14→22:55)
[2018-03-22 06:21] LABS: Bedside Glucose 248 mg/dL (70-110)
[2018-03-22 08:43] LABS: Partial Thromboplast Time 76.8 Seconds (24.1-36.2)
[2018-03-22] MEDS: 0.9% NaCl Peripheral Flush Adult/Peds IV (09:34)
--- NOTE | 2018-03-22 09:43 | PCM.PN.HOSP ---
Patient Problems: Active and Suspected Problems Acute renal failure (Acute) Hyperkalemia (Acute) Dehydration (Acute) Metabolic encephalopathy (Acute) Hypernatremia (Acute) Hypernatremia (Acute) Subjective: The patient is a 68 year old M with a past medical history of COPD, coronary artery disease, CABG , hypertension, diabetes mellitus type 2, GERD, hyperlipidemia, depression, atrial fibrillation, tobacco dependence, recently diagnosed Parkinson's disease and recently diagnosed bilateral cerebellar ischemic infarcts in early February 2018. He was admitted via the ED on 03/20/18 from his [facility] on account of altered mental status and increase in BUN and creatinine. In the ED was noted to have hyperkalemia with potassium of 7.1 and hyponatremia with sodium of 157. He was reported to not have been eating in the [facility] because he did not like the nectar thick liquids. He has continued to take his diuretics despite his poor intake as well. Labs also showed leukocytosis with white cell count of 21.5 with 84.5% neutrophils, platelets and hemoglobin were within normal limits. BUN was 86 and creatinine was 4.18. He was admitted and is being managed for acute kidney injury, hyperkalemia and hypernatremia. Patient seen and examined this morning. He still aphasic and so not able to communicate. According to his nurse his tremors have increased because he is not getting his Parkinson disease medications. Remained afebrile overnight and was put on oxygen yesterday because of some desaturation. Has otherwise remained stable. He is due to have a barium swallow this morning. Vitals/I&O's: Vital Signs Temp Pulse Resp BP Pulse Ox 97.7 F L 72 22 H 127/63 H 96 03/22/18 08:00 03/22/18 09:00 03/22/18 09:00 03/22/18 09:00 03/22/18 09:00 Oxygen Flow Rate (L/min) 3 Oxygen Delivery Method Nasal Cannula Weight: 192 lb 10.944 oz Body Mass Index (BMI) 27.1 Intake and Output for Last 24 Hours 03/20/18 03/21/18 03/22/18 23:59 23:59 23:59 Intake Total 3919 / 3919 1768.3 / 1768.3 Output Total 1010 / 1010 900 / 900 Balance 2909 / 2909 868.3 / 868.3 General: - - alert, aphasic. Unable to communicate HEENT: Atraumatic, PERRLA, EOMI, Normocephalic Oral: Dry Mucosa Neck: Supple, No JVD, Negative Carotid Bruits Lungs: Normal air movement, - - Mildly decreased breath sounds in lung bases. Cardiovascular: Regular rate, Regular Rhythm, Normal S1, Normal S2, No murmurs Abdomen: Bowel Sounds Present, Soft, Non Tender, Non-Distended, No Hepato-splenomegaly Extremities: No clubbing, No cyanosis, No edema, Capillary Refill Less than 3 Seconds, - Skin: No rashes, No breakdown Musculoskeletal: No Tenderness to Palpation of Joints or Extremities Lymphatic: No Cervical, Supraclavicular, or Inguinal Adenopathy Neurological: Cranial nerves II-XII grossly intact, - - has tremors mainly of LUE and RUE, as well as clonus of both LEs and mild hypertonia in all extremities Psych/Mental Status: - - alert, aphasic. Laboratory Results 03/21/18 11:20: Urine Creatinine 131.00 03/21/18 11:20: Urine Urea Nitrogen 794 03/21/18 12:37: POC Glucose 276 H 03/21/18 16:10: Sodium 155 H, Potassium 5.4 H, Chloride 126 H, Carbon Dioxide 23.0, Anion Gap 6, BUN 71 H, Creatinine 2.98 H, Estim Creat Clear Calc 25.18, Est GFR (MDRD) Af Amer 27 L, Est GFR (MDRD) Non-Af 23 L, BUN/Creatinine Ratio 23.8 H, Glucose 231 H, Calcium 9.4 03/21/18 18:03: POC Glucose 233 H 03/21/18 18:26: APTT 86.0 H 03/21/18 22:06: POC Glucose 223 H 03/22/18 01:40: APTT 132.2 H* 03/22/18 04:35: WBC 13.3 H, RBC 4.33 L, Hgb 12.3 L, Hct 38.2 L, MCV 88.2, MCH 28.4, MCHC 32.2, RDW 15.7 H, RDW Differential 49.9 H, Plt Count 193, MPV 12.4 H, Immature Gran % (Auto) 0.100, Neut % (Auto) 72.5 H, Lymph % (Auto) 15.0 L, [place] % (Auto) 6.9, Eos % (Auto) 4.4, Baso % (Auto) 1.1 H, Absolute Neuts (auto) 9.6 H, Absolute Lymphs (auto) 2.00, Total Counted Not Reportable 03/22/18 04:35: Sodium 153 H, Potassium 4.7, Chloride 123 H, Carbon Dioxide 24.0, BUN 56 H, Creatinine 2.19 H, Estim Creat Clear Calc 34.26, Est GFR (MDRD) Af Amer 39 L, Est GFR (MDRD) Non-Af 32 L, BUN/Creatinine Ratio 25.6 H, Glucose 266 H, Calcium 9.3, Phosphorus 2.9, Albumin 1.9 L 03/22/18 04:35: PT 15.6 H, INR 1.2 03/22/18 06:12: POC Glucose 248 H 03/22/18 08:10: APTT 76.8 H Current Medications Allopurinol (Zyloprim) 100 mg PO DAILYCM [facility] Last Admin: 03/22/18 07:52 Dose: Not Given Aspirin (Aspirin, Baby) 81 mg PO DAILY@0800 [facility] Last Admin: 03/22/18 07:52 Dose: Not Given Atorvastatin Calcium (Lipitor) 80 mg PO QHS [facility] Last Admin: 03/21/18 21:23 Dose: Not Given Carbidopa/Levodopa (Sinemet) 1 tablet PO BIDAC [facility] Last Admin: 03/22/18 07:52 Dose: Not Given Chlorhexidine Gluconate () 1 each TOPICAL DAILY [facility] Last Admin: 03/22/18 02:27 Dose: 1 each Famotidine (Pepcid) 20 mg PO BID [facility] Last Admin: 03/22/18 09:35 Dose: Not Given Heparin Sodium (Porcine) (Heparin Na) 0 unit IV UD PRN PRN Reason: Protocol Sodium Chloride () 250 mls @ 15 mls/hr IV .[id number] PRN PRN Reason: SALINE FLUSH Dextrose () 1,000 mls @ 150 mls/hr IV .[id number] [facility] Last Admin: 03/22/18 09:35 Dose: Not Given Heparin Sodium/Sodium Chloride () 25,000 unit in 250 mls @ 12 mls/hr IV .[id number] [facility]; As Directed PRN Reason: Protocol Last Admin: 03/21/18 12:34 Dose: 12 mls/hr Insulin Human Lispro (Humalog Kwikpen (Bkc)) 0 unit SC ACHS ALCIR[facility] PRN Reason: Protocol Magnesium Hydroxide (Milk Of Magnesia) 30 ml PO DAILY PRN PRN PRN Reason: Constipation Nicotine (Nicoderm Cq (Pbkc)) 21 mg TRANSDERM. DAILY [facility] Last Admin: 03/22/18 09:36 Dose: 21 mg Nutritional Formula (Lactose Free) (Glucerna Shake) 120 ml PO TIDCM [facility] Last Admin: 03/22/18 07:52 Dose: Not Given Fxgox-5-Iwoi Ethyl Esters (Lovaza) 1 gm PO DAILY [facility] Last Admin: 03/22/18 09:35 Dose: Not Given Sodium Chloride () 5 - 30 ml IV UD PRN PRN Reason: SALINE FLUSH Last Admin: 03/22/18 09:34 Dose: 10 ml Sotalol HCl (Betapace (G)) 80 mg PO BID [facility] Last Admin: 03/22/18 09:35 Dose: Not Given Medical Necessity - Tobacco Use Smoking Status: Light Smoker (<10/day) Tobacco Use: Cigarettes Assessment/Plan All Active Problems Acute renal failure (Acute) Hyperkalemia (Acute) Dehydration (Acute) Metabolic encephalopathy (Acute) Hypernatremia (Acute) Hypernatremia (Acute) This 68-year-old male [facility] with complaint of altered mental status and worsening kidney function. 1. metabolic encephalopathy from azotemia and hypernatremia resolving Patient conscious but still has expressive and receptive aphasia from bilateral cervical infarcts. CT head negative for any acute intracranial process. hypernatremia and azotemia are resolving. Will continue monitoring. 2. Pre-renal KARO and azotemia from decreased intake Resolving. Trended down from 4.18 on admission to 2.19. On D5 water due to hyponatremia. Will continue to monitor. nephrology on board. renal ultrasound showed normal kidneys and normal echogenicity with no hydronephrosis 3. Hyperkalemia due to KARO Resolving. Potassium was 7.1 admission is down to 4.7 today. nephrology on board. Potassium supplementation on hold. We will continue monitoring. 4. Hypernatremia Resolving. Sodium was 157 on admission is around 153 today. On D5 water. Will continue. nephrology on board 5 Dysphagia due to stroke had bilateral cerebellar infarcts in 6.18; was not eating food in the [facility] because he was thickened and he did not like it. At risk of aspiration. failed formal swallow evaluation by speech therapy to get modified barium swallow today will keep NPO 6. Leucocytosis: possibly reactive. No active focus of infection. CXR showed no clear infiltrate. Lungs are clear to auscultation. He has been afebrile, and UA showed no clear evidence of UTI. resolving. Was 21.5 on admission, and is down to 13.3 toay. will continue monitoring 7. Diabetes mellitus accuchecks ACHS on ISS; currently NPO, so oral medications on hold-metformin 8. History of bilateral cerebellar infarcts still has receptive and receptive aphasia; has hyperreflexia as well on aspirin, statin; on xarelto, which is currently on hold as he is NPO. Will start heparin drip to anticoagulate him in the interim 9. Afib: rate controlled. On sotalol and xarelto. xarelto on hold currently. on heparin drip due to history of recent cardioembolic stroke. 9. Parkinson's disease: on levodopa/carbidopa, which he has not been receiving o/a of being NPO 10. Gout: on allopurinol 11. CAD with CABG: on aspirin, statin, 12. history of depression: will benefit from psychotherapy on outpatient basis 13. DVT prophylaxis; SCDs; heparin drip This note was generated with [employer] dictation software. It may contain incorrect words, spelling, and punctuation that were not noted in checking the note before signing. A Code Visit Inpatient E&M: 31950 Subs Hosp L3
--- NOTE | 2018-03-22 09:56 | PN_ITS ---
Patient Problems: Active and Suspected Problems Acute renal failure (Acute) Hyperkalemia (Acute) Dehydration (Acute) Metabolic encephalopathy (Acute) Hypernatremia (Acute) Hypernatremia (Acute) Subjective: The patient is a 68 year old M with a past medical history of COPD, coronary artery disease, CABG , hypertension, diabetes mellitus type 2, GERD, hyperlipidemia, depression, atrial fibrillation, tobacco dependence, recently diagnosed Parkinson's disease and recently diagnosed bilateral cerebellar ischemic infarcts in early February 2018. [facility] of altered mental status and increase in BUN and creatinine. In the ED was noted to have hyperkalemia with potassium of 7.1 and hyponatremia with sodium of 157. He was reported to not have been eating in the jail because he did not like the nectar thick liquids. He has continued to take his diuretics despite his poor intake as well. Labs also showed leukocytosis with white cell count of 21.5 with 84.5% neutrophils, platelets and hemoglobin were within normal limits. BUN was 86 and creatinine was 4.18. He was admitted and is being managed for acute kidney injury, hyperkalemia and hypernatremia. Patient seen and examined this morning. He still aphasic and so not able to communicate. According to his nurse his tremors have increased because he is not getting his Parkinson disease medications. Remained afebrile overnight and was put on oxygen yesterday because of some desaturation. Has otherwise remained stable. He is due to have a barium swallow this morning. Vitals/I&O's: Vital Signs Temp Pulse Resp BP Pulse Ox 97.7 F L 72 22 H 127/63 H 96 03/22/18 08:00 03/22/18 09:00 03/22/18 09:00 03/22/18 09:00 03/22/18 09:00 Oxygen Flow Rate (L/min) 3 Oxygen Delivery Method Nasal Cannula Weight: 192 lb 10.944 oz Body Mass Index (BMI) 27.1 Intake and Output for Last 24 Hours 03/20/18 03/21/18 03/22/18 23:59 23:59 23:59 Intake Total 3919 / 3919 1768.3 / 1768.3 Output Total 1010 / 1010 900 / 900 Balance 2909 / 2909 868.3 / 868.3 General: - - alert, aphasic. Unable to communicate HEENT: Atraumatic, PERRLA, EOMI, Normocephalic Oral: Dry Mucosa Neck: Supple, No JVD, Negative Carotid Bruits Lungs: Normal air movement, - - Mildly decreased breath sounds in lung bases. Cardiovascular: Regular rate, Regular Rhythm, Normal S1, Normal S2, No murmurs Abdomen: Bowel Sounds Present, Soft, Non Tender, Non-Distended, No Hepato- splenomegaly Extremities: No clubbing, No cyanosis, No edema, Capillary Refill Less than 3 Seconds, - Skin: No rashes, No breakdown Musculoskeletal: No Tenderness to Palpation of Joints or Extremities Lymphatic: No Cervical, Supraclavicular, or Inguinal Adenopathy Neurological: Cranial nerves II-XII grossly intact, - - has tremors mainly of LUE and RUE, as well as clonus of both LEs and mild hypertonia in all extremities Psych/Mental Status: - - alert, aphasic. Laboratory Results 03/21/18 11:20: Urine Creatinine 131.00 03/21/18 11:20: Urine Urea Nitrogen 794 03/21/18 12:37: POC Glucose 276 H 03/21/18 16:10: Sodium 155 H, Potassium 5.4 H, Chloride 126 H, Carbon Dioxide 23.0, Anion Gap 6, BUN 71 H, Creatinine 2.98 H, Estim Creat Clear Calc 25.18, Est GFR (MDRD) Af Amer 27 L, Est GFR (MDRD) Non-Af 23 L, BUN/Creatinine Ratio 23.8 H, Glucose 231 H, Calcium 9.4 03/21/18 18:03: POC Glucose 233 H 03/21/18 18:26: APTT 86.0 H 03/21/18 22:06: POC Glucose 223 H 03/22/18 01:40: APTT 132.2 H* 03/22/18 04:35: WBC 13.3 H, RBC 4.33 L, Hgb 12.3 L, Hct 38.2 L, MCV 88.2, MCH 28.4, MCHC 32.2, RDW 15.7 H, RDW Differential 49.9 H, Plt Count 193, MPV 12.4 H , Immature Gran % (Auto) 0.100, Neut % (Auto) 72.5 H, Lymph % (Auto) 15.0 L, [place] % (Auto) 6.9, Eos % (Auto) 4.4, Baso % (Auto) 1.1 H, Absolute Neuts (auto) 9.6 H, Absolute Lymphs (auto) 2.00, Total Counted Not Reportable 03/22/18 04:35: Sodium 153 H, Potassium 4.7, Chloride 123 H, Carbon Dioxide 24.0 , BUN 56 H, Creatinine 2.19 H, Estim Creat Clear Calc 34.26, Est GFR (MDRD) Af Amer 39 L, Est GFR (MDRD) Non-Af 32 L, BUN/Creatinine Ratio 25.6 H, Glucose 266 H, Calcium 9.3, Phosphorus 2.9, Albumin 1.9 L 03/22/18 04:35: PT 15.6 H, INR 1.2 03/22/18 06:12: POC Glucose 248 H 03/22/18 08:10: APTT 76.8 H Current Medications Allopurinol (Zyloprim) 100 mg PO DAILYCM [facility] Last Admin: 03/22/18 07:52 Dose: Not Given Aspirin (Aspirin, Baby) 81 mg PO DAILY@0800 [facility] Last Admin: 03/22/18 07:52 Dose: Not Given Atorvastatin Calcium (Lipitor) 80 mg PO QHS [facility] Last Admin: 03/21/18 21:23 Dose: Not Given Carbidopa/Levodopa (Sinemet) 1 tablet PO BIDAC [facility] Last Admin: 03/22/18 07:52 Dose: Not Given Chlorhexidine Gluconate () 1 each TOPICAL DAILY [facility] Last Admin: 03/22/18 02:27 Dose: 1 each Famotidine (Pepcid) 20 mg PO BID [facility] Last Admin: 03/22/18 09:35 Dose: Not Given Heparin Sodium (Porcine) (Heparin Na) 0 unit IV UD PRN PRN Reason: Protocol Sodium Chloride () 250 mls @ 15 mls/hr IV .[id number] PRN PRN Reason: SALINE FLUSH Dextrose () 1,000 mls @ 150 mls/hr IV .[id number] [facility] Last Admin: 03/22/18 09:35 Dose: Not Given Heparin Sodium/Sodium Chloride () 25,000 unit in 250 mls @ 12 mls/hr IV .[id number] [facility]; As Directed PRN Reason: Protocol Last Admin: 03/21/18 12:34 Dose: 12 mls/hr Insulin Human Lispro (Humalog Kwikpen (Bkc)) 0 unit SC ACHS [facility] PRN Reason: Protocol Magnesium Hydroxide (Milk Of Magnesia) 30 ml PO DAILY PRN PRN PRN Reason: Constipation Nicotine (Nicoderm Cq (Pbkc)) 21 mg TRANSDERM. DAILY [facility] Last Admin: 03/22/18 09:36 Dose: 21 mg Nutritional Formula (Lactose Free) (Glucerna Shake) 120 ml PO TIDCM [facility] Last Admin: 03/22/18 07:52 Dose: Not Given Ohibw-9-Ttix Ethyl Esters (Lovaza) 1 gm PO DAILY [facility] Last Admin: 03/22/18 09:35 Dose: Not Given Sodium Chloride () 5 - 30 ml IV UD PRN PRN Reason: SALINE FLUSH Last Admin: 03/22/18 09:34 Dose: 10 ml Sotalol HCl (Betapace (G)) 80 mg PO BID [facility] Last Admin: 03/22/18 09:35 Dose: Not Given Medical Necessity - Tobacco Use Smoking Status: Light Smoker (<10/day) Tobacco Use: Cigarettes Assessment/Plan All Active Problems Acute renal failure (Acute) Hyperkalemia (Acute) Dehydration (Acute) Metabolic encephalopathy (Acute) Hypernatremia (Acute) Hypernatremia (Acute) This 68-year-old male [facility] with complaint of altered mental status and worsening kidney function. 1. metabolic encephalopathy from azotemia and hypernatremia * resolving * Patient conscious but still has expressive and receptive aphasia from bilateral cervical infarcts. * CT head negative for any acute intracranial process. * hypernatremia and azotemia are resolving. * Will continue monitoring. * 2. Pre-renal KARO and azotemia from decreased intake * Resolving. Trended down from 4.18 on admission to 2.19. * On D5 water due to hyponatremia. Will continue to monitor. * nephrology on board. * renal ultrasound showed normal kidneys and normal echogenicity with no hydronephrosis * 3. Hyperkalemia due to KARO * Resolving. Potassium was 7.1 admission is down to 4.7 today. * nephrology on board. Potassium supplementation on hold. We will continue monitoring. * 4. Hypernatremia * Resolving. Sodium was 157 on admission is around 153 today. * On D5 water. Will continue. * nephrology on board * 5 Dysphagia due to stroke * had bilateral cerebellar infarcts in 6.18; was not eating food in the jail because he was thickened and he did not like it. * At risk of aspiration. * failed formal swallow evaluation by speech therapy * to get modified barium swallow today * will keep NPO * 6. Leucocytosis: * possibly reactive. No active focus of infection. CXR showed no clear infiltrate. Lungs are clear to auscultation. He has been afebrile, and UA showed no clear evidence of UTI. * resolving. Was 21.5 on admission, and is down to 13.3 toay. * will continue monitoring * 7. Diabetes mellitus * accuchecks ACHS * on ISS; currently NPO, so oral medications on hold-metformin * * 8. History of bilateral cerebellar infarcts * still has receptive and receptive aphasia; has hyperreflexia as well * on aspirin, statin; on xarelto, which is currently on hold as he is NPO. Will start heparin drip to anticoagulate him in the interim 9. Afib: rate controlled. * On sotalol and xarelto. xarelto on hold currently. * on heparin drip due to history of recent cardioembolic stroke. 9. Parkinson's disease: on levodopa/carbidopa, which he has not been receiving o /a of being NPO 10. Gout: on allopurinol 11. CAD with CABG: on aspirin, statin, 12. history of depression: will benefit from psychotherapy on outpatient basis 13. DVT prophylaxis; SCDs; heparin drip This note was generated with [employer] dictation software. It may contain incorrect words, spelling, and punctuation that were not noted in checking the note before signing. A Code Visit Inpatient E&M: 54542 Subs Hosp L3
--- NOTE | 2018-03-22 10:03 | CASEMGMT ---
SW participated in ICU rounds this morning, pt is here from [facility], has been there since February 27. Pt's is present. SW spoke w/ in room in regard to discharge plan after rounds. expressed concern in regard to pt returning to [facility], she is questioning how pt became so dehydrated at the longterm. plans to speak w/someone at the longterm about what happened. She is also going to speak w/pt and his family(pt has children from a previous marriage) to see what they want to do when pt leaves the hospital. did ask if he needs to return to a longterm. SW explained that if she can manage pt at home this is fine, however this may be difficult. SW explained we can make a longterm referral to a different facility if they would like to make a change, and SW gave a list of SNF's in the area, and gave her this SW's number as well. SW explained will check back w/her tomorrow regarding new referral to a different SNF vs. pt returning to [facility]. SW will continue to follow. ORLANDO Lovell, [employer]GER
[2018-03-22 12:20] LABS: Bedside Glucose 333 mg/dL (70-110)
[2018-03-22 14:44] LABS: Partial Thromboplast Time 71.7 Seconds (24.1-36.2)
[2018-03-22 14:51] LABS: Anion Gap 6 (5-15); BUN 43 mg/dL (7-18); BUN/Creat Ratio 24.6 RATIO (10-20); Calcium,Total 8.7 mg/dL (8.5-10.1); Chloride 117 mmol/L (98-107); Creatinine, Serum 1.75 mg/dL (0.70-1.30); EST Glomerular Filtration Rate 42 mL/min (>60); Est Glom Filt Rate - Afr Amer 50 mL/min (>60); Estimated Creatinine Clearance 42.87 ml/min; Glucose 268 mg/dL (74-106); Potassium 4.5 mmol/L (3.5-5.1); Sodium Level 145 mmol/L (136-145)
[2018-03-22 16:41] LABS: Bedside Glucose 206 mg/dL (70-110)
[2018-03-22] MEDS: Dext 5%-0.45% NS 1,000 ML 100 ML IV (17:30)
[2018-03-22 20:57] LABS: Partial Thromboplast Time 65.4 Seconds (24.1-36.2)
[2018-03-22 23:01] LABS: Bedside Glucose 160 mg/dL (70-110)
[2018-03-23] VITALS (19 sets, daily range): BP systolic 86–131; BP diastolic 52–80; PULSE 77–92; RESP 12–33; TEMP 36.7–37.2; O2SAT 94–99
[2018-03-23] MEDS: Dext 5%-0.45% NS 1,000 ML 100 ML IV (03:33)
[2018-03-23] MEDS: CHLORHEXIDINE GLUC 2% CLOTH 1 EACH TOWELETTE TOPICAL (04:26)
[2018-03-23 04:29] LABS: Absolute Lymphocyte Count 1.75 X10^3/ul (0.83-4.51); Absolute Neutrophil Count 9.3 X10^3/uL (2.0-7.7); Basophil# 0.08 X10^3/uL; Basophil% 0.6 % (0-1); Eosinophil# 0.53 X10^3/uL; Eosinophils% 4.1 % (0-5); Hematocrit 36.9 % (40-54); Hemoglobin 11.9 g/dl (13.0-16.5); Lymphocyte # 1.75 X10^3/ul (4.0); Lymphocyte % 13.7 % (19-41); Mean Corp Hgb Conc 32.2 g/gl (32-36); Mean Corpuscular Hgb 28.5 pg (27.0-32.0); Mean Corpuscular Volume 88.3 fL (80-94); Mean Platelet Vol. 12.8 fl (6.2-12.0); Monocyte# 1.13 X10^3/uL; Monocyte% 8.8 % (0-10); Neutrophil # 9.28 X10^3/uL (2.7-7.7); Neutrophil % 72.6 % (47-70); Platelet Count 186 K/mm3 (150-450); RBC Distribution Width CV 15.6 % (11.6-14.6); RBC Distribution Width SD 49.3 fl (35.1-43.9); Red Blood Count 4.18 M/mm3 (4.6-6.2); White Blood Count 12.8 K/mm3 (4.4-11.0)
[2018-03-23 04:30] LABS: POSITIVE COUNT NO; POSITIVE DIFFERENTIAL NO; POSITIVE MORPHOLOGY NO
[2018-03-23 04:36] LABS: Partial Thromboplast Time 71.8 Seconds (24.1-36.2)
[2018-03-23 04:39] LABS: Anion Gap 7 (5-15); BUN 37 mg/dL (7-18); BUN/Creat Ratio 24.2 RATIO (10-20); Calcium,Total 9.1 mg/dL (8.5-10.1); Chloride 117 mmol/L (98-107); Creatinine, Serum 1.53 mg/dL (0.70-1.30); EST Glomerular Filtration Rate 49 mL/min (>60); Est Glom Filt Rate - Afr Amer 59 mL/min (>60); Estimated Creatinine Clearance 49.04 ml/min; Glucose 160 mg/dL (74-106); Magnesium 1.6 mg/dL (1.6-2.6); Potassium 4.4 mmol/L (3.5-5.1); Sodium Level 148 mmol/L (136-145)
[2018-03-23] MEDS: Insulin Lispro 100 UNIT/ML INSULN.PEN SC ×4 (06:41→22:18)
[2018-03-23 06:51] LABS: Bedside Glucose 174 mg/dL (70-110)
--- NOTE | 2018-03-23 07:10 | PN_ITS ---
Subjective: The patient was seen and examined at the bedside this morning. Events from the last 24 hours have been reviewed. The patient is currently afebrile, hemodynamically stable and maintaining appropriate oxygen saturations on 3 L/ min via nasal cannula. The patient is currently overall net +6.6 L for the admission. Sodium is up this morning to 148, after the patient's fluids were changed to D5 half-normal saline by nephrology. Creatinine continues to improve. There are tentative plans for the patient to undergo a modified barium swallow today. Objective: The patient's most recent lab work, culture data and imaging studies have all been personally reviewed. Head CT revealed chronic age-related changes and atrophy. Plain film chest x-ray revealed no acute cardiopulmonary process. Renal ultrasound revealed kidneys to be normal in size and echogenicity without hydronephrosis. General: Alert, No apparent distress, - HEENT: Atraumatic, PERRLA, Normocephalic Oral: No Gingival or Mucosal Lesions/ Ulcerations Neck: Supple, No Nodes, Trachea Midline Lungs: No rhonchi, No wheeze, No rales, Diminished Cardiovascular: Regular rate, Regular Rhythm, Normal S1, Normal S2, No murmurs Abdomen: Soft, Non Tender, Non-Distended, Hypoactive Bowel Sounds Extremities: No clubbing, No cyanosis, No edema Skin: - - No significant change from previous. Musculoskeletal: No Tenderness to Palpation of Joints or Extremities Lymphatic: No Cervical, Supraclavicular, or Inguinal Adenopathy Neurological: - - Little interval change. Still aphasic. Mild resting upper extremity tremor. Psych/Mental Status: Flat Affect Vital Signs Temp Pulse Resp BP Pulse Ox 98.9 F 79 15 89/77 L 96 03/23/18 04:00 03/23/18 06:00 03/23/18 06:00 03/23/18 06:00 03/23/18 06:45 Oxygen Flow Rate (L/min) 4 Oxygen Delivery Method Nasal Cannula Weight: 201 lb 4.513 oz Body Mass Index (BMI) 27.1 Intake and Output for Last 24 Hours 03/21/18 03/22/18 03/23/18 23:59 23:59 23:59 Intake Total 3919 / 3919 4638.3 / 4638.3 1288.8 / 1288.8 Output Total 1010 / 1010 1700 / 1700 450 / 450 Balance 2909 / 2909 2938.3 / 2938.3 838.8 / 838.8 Labs (Last 48 Hours) 03/21/18 03/21/18 03/21/18 06:55 07:00 07:08 WBC RBC Hgb Hct MCV MCH MCHC RDW RDW Differential Plt Count MPV Immature Gran % (Auto) Neut % (Auto) Lymph % (Auto) Mcculloch % (Auto) Eos % (Auto) Baso % (Auto) Absolute Neuts (auto) Absolute Lymphs (auto) Total Counted PT INR APTT Sodium Potassium Chloride Carbon Dioxide Anion Gap BUN Creatinine Estim Creat Clear Calc Est GFR (MDRD) Af Amer Est GFR (MDRD) Non-Af BUN/Creatinine Ratio Glucose Serum Osmolality 357 H Calcium Phosphorus Magnesium Albumin Urine Osmolality 526 Urine Creatinine Urine Urea Nitrogen POC Glucose 228 H 03/21/18 03/21/18 03/21/18 11:20 11:20 12:37 WBC RBC Hgb Hct MCV MCH MCHC RDW RDW Differential Plt Count MPV Immature Gran % (Auto) Neut % (Auto) Lymph % (Auto) Mcculloch % (Auto) Eos % (Auto) Baso % (Auto) Absolute Neuts (auto) Absolute Lymphs (auto) Total Counted PT INR APTT Sodium Potassium Chloride Carbon Dioxide Anion Gap BUN Creatinine Estim Creat Clear Calc Est GFR (MDRD) Af Amer Est GFR (MDRD) Non-Af BUN/Creatinine Ratio Glucose Serum Osmolality Calcium Phosphorus Magnesium Albumin Urine Osmolality Urine Creatinine 131.00 Urine Urea Nitrogen 794 POC Glucose 276 H 03/21/18 03/21/18 03/21/18 16:10 18:03 18:26 WBC RBC Hgb Hct MCV MCH MCHC RDW RDW Differential Plt Count MPV Immature Gran % (Auto) Neut % (Auto) Lymph % (Auto) Mcculloch % (Auto) Eos % (Auto) Baso % (Auto) Absolute Neuts (auto) Absolute Lymphs (auto) Total Counted PT INR APTT 86.0 H Sodium 155 H Potassium 5.4 H Chloride 126 H Carbon Dioxide 23.0 Anion Gap 6 BUN 71 H Creatinine 2.98 H Estim Creat Clear Calc 25.18 Est GFR (MDRD) Af Amer 27 L Est GFR (MDRD) Non-Af 23 L BUN/Creatinine Ratio 23.8 H Glucose 231 H Serum Osmolality Calcium 9.4 Phosphorus Magnesium Albumin Urine Osmolality Urine Creatinine Urine Urea Nitrogen POC Glucose 233 H 03/21/18 03/22/18 03/22/18 22:06 01:40 04:35 WBC 13.3 H RBC 4.33 L Hgb 12.3 L Hct 38.2 L MCV 88.2 MCH 28.4 MCHC 32.2 RDW 15.7 H RDW Differential 49.9 H Plt Count 193 MPV 12.4 H Immature Gran % (Auto) 0.100 Neut % (Auto) 72.5 H Lymph % (Auto) 15.0 L Mcculloch % (Auto) 6.9 Eos % (Auto) 4.4 Baso % (Auto) 1.1 H Absolute Neuts (auto) 9.6 H Absolute Lymphs (auto) 2.00 Total Counted Not Reportable PT INR APTT 132.2 H* Sodium Potassium Chloride Carbon Dioxide Anion Gap BUN Creatinine Estim Creat Clear Calc Est GFR (MDRD) Af Amer Est GFR (MDRD) Non-Af BUN/Creatinine Ratio Glucose Serum Osmolality Calcium Phosphorus Magnesium Albumin Urine Osmolality Urine Creatinine Urine Urea Nitrogen POC Glucose 223 H 03/22/18 03/22/18 03/22/18 04:35 04:35 06:12 WBC RBC Hgb Hct MCV MCH MCHC RDW RDW Differential Plt Count MPV Immature Gran % (Auto) Neut % (Auto) Lymph % (Auto) Mcculloch % (Auto) Eos % (Auto) Baso % (Auto) Absolute Neuts (auto) Absolute Lymphs (auto) Total Counted PT 15.6 H INR 1.2 APTT Sodium 153 H Potassium 4.7 Chloride 123 H Carbon Dioxide 24.0 Anion Gap BUN 56 H Creatinine 2.19 H Estim Creat Clear Calc 34.26 Est GFR (MDRD) Af Amer 39 L Est GFR (MDRD) Non-Af 32 L BUN/Creatinine Ratio 25.6 H Glucose 266 H Serum Osmolality Calcium 9.3 Phosphorus 2.9 Magnesium Albumin 1.9 L Urine Osmolality Urine Creatinine Urine Urea Nitrogen POC Glucose 248 H 03/22/18 03/22/18 03/22/18 08:10 11:44 14:15 WBC RBC Hgb Hct MCV MCH MCHC RDW RDW Differential Plt Count MPV Immature Gran % (Auto) Neut % (Auto) Lymph % (Auto) Mcculloch % (Auto) Eos % (Auto) Baso % (Auto) Absolute Neuts (auto) Absolute Lymphs (auto) Total Counted PT INR APTT 76.8 H 71.7 H Sodium Potassium Chloride Carbon Dioxide Anion Gap BUN Creatinine Estim Creat Clear Calc Est GFR (MDRD) Af Amer Est GFR (MDRD) Non-Af BUN/Creatinine Ratio Glucose Serum Osmolality Calcium Phosphorus Magnesium Albumin Urine Osmolality Urine Creatinine Urine Urea Nitrogen POC Glucose 333 H 03/22/18 03/22/18 03/22/18 14:15 16:37 20:25 WBC RBC Hgb Hct MCV MCH MCHC RDW RDW Differential Plt Count MPV Immature Gran % (Auto) Neut % (Auto) Lymph % (Auto) Mcculloch % (Auto) Eos % (Auto) Baso % (Auto) Absolute Neuts (auto) Absolute Lymphs (auto) Total Counted PT INR APTT 65.4 H Sodium 145 Potassium 4.5 Chloride 117 H Carbon Dioxide 22.0 Anion Gap 6 BUN 43 H Creatinine 1.75 H Estim Creat Clear Calc 42.87 Est GFR (MDRD) Af Amer 50 L Est GFR (MDRD) Non-Af 42 L BUN/Creatinine Ratio 24.6 H Glucose 268 H Serum Osmolality Calcium 8.7 Phosphorus Magnesium Albumin Urine Osmolality Urine Creatinine Urine Urea Nitrogen POC Glucose 206 H 03/22/18 03/23/18 03/23/18 22:52 04:10 04:10 WBC 12.8 H RBC 4.18 L Hgb 11.9 L Hct 36.9 L MCV 88.3 MCH 28.5 MCHC 32.2 RDW 15.6 H RDW Differential 49.3 H Plt Count 186 MPV 12.8 H Immature Gran % (Auto) 0.200 Neut % (Auto) 72.6 H Lymph % (Auto) 13.7 L Mcculloch % (Auto) 8.8 Eos % (Auto) 4.1 Baso % (Auto) 0.6 Absolute Neuts (auto) 9.3 H Absolute Lymphs (auto) 1.75 Total Counted Not Reportable PT INR APTT Sodium 148 H Potassium 4.4 Chloride 117 H Carbon Dioxide 24.0 Anion Gap 7 BUN 37 H Creatinine 1.53 H Estim Creat Clear Calc 49.04 Est GFR (MDRD) Af Amer 59 L Est GFR (MDRD) Non-Af 49 L BUN/Creatinine Ratio 24.2 H Glucose 160 H Serum Osmolality Calcium 9.1 Phosphorus Magnesium 1.6 Albumin Urine Osmolality Urine Creatinine Urine Urea Nitrogen POC Glucose 160 H 03/23/18 03/23/18 04:10 06:41 WBC RBC Hgb Hct MCV MCH MCHC RDW RDW Differential Plt Count MPV Immature Gran % (Auto) Neut % (Auto) Lymph % (Auto) Mcculloch % (Auto) Eos % (Auto) Baso % (Auto) Absolute Neuts (auto) Absolute Lymphs (auto) Total Counted PT INR APTT 71.8 H Sodium Potassium Chloride Carbon Dioxide Anion Gap BUN Creatinine Estim Creat Clear Calc Est GFR (MDRD) Af Amer Est GFR (MDRD) Non-Af BUN/Creatinine Ratio Glucose Serum Osmolality Calcium Phosphorus Magnesium Albumin Urine Osmolality Urine Creatinine Urine Urea Nitrogen POC Glucose 174 H Clinical Impression(s) from Imaging Studies Brain CT 03/20/18 19:48 IMPRESSION: Chronic age related changes and atrophy. No acute abnormality or change. Electronically Signed: Tj Farley MD at 21:22 EDT , Service support , Chest X-Ray 03/20/18 20:30 IMPRESSION: There are findings consistent with COPD. There is no evidence of acute chest disease. Electronically Signed: Tj Farley MD at 20:49 EDT , Service support , Renal Ultrasound 03/21/18 06:42 IMPRESSION: The kidneys are normal in size and echogenicity without hydronephrosis. Electronically Signed: Charo Mccoy MD at 11:36 EDT Tel Direct: [phone], Service support , Medical Necessity - Tobacco Use Smoking Status: Light Smoker (<10/day) Tobacco Use: Cigarettes Assessment/Plan All Active Problems Acute renal failure (Acute) Hyperkalemia (Acute) Dehydration (Acute) Metabolic encephalopathy (Acute) Hypernatremia (Acute) Hypernatremia (Acute) RECOMMENDATIONS: 1. Continue supplemental IV fluid hydration per nephrology recommendations. 2. Await results of modified barium swallow. May need to consider PEG tube placement, if the patient fails. 3. Continue weight-based heparin infusion. 4. Continue insulin coverage. IMPRESSIONS: 1. Acute kidney injury/hypernatremia/hyperkalemia/hyperchloremia Improving at this time. Likely multifactorial in etiology with intravascular volume depletion leading to prerenal azotemia as a likely inciting factor, compounded by concurrent use of diuretics and SUNNY inhibitor. Plan to continue supplemental IV fluid hydration. Continue to hold diuretics and SUNNY inhibitor. Avoid additional nephrotoxic medications. There is no current indication for renal replacement therapy. Nephrology is following with recommendations appreciated. 2. Metabolic encephalopathy Improving. Likely related to metabolic derangements in the setting of acute kidney injury. Anticipate slow improvement with correction of the patient's underlying metabolic/electrolyte derangements. CT head revealed no acute intracranial pathology. 3. Failure to thrive following recent CVA/baseline parkinsonism/dysphagia The patient's underlying nutrition status will need to be addressed during this hospitalization. Speech therapy is following with plans for modified barium swallow today. If he is unable to take p.o. nutrition, will need to seek alternative means of feeding. May need to consider PEG tube placement. 4. Paroxysmal atrial fibrillation Given the patient's renal insufficiency and metabolic derangements, continue holding Xarelto. Continue weight-based heparin infusion. Nutrition/p.o. status will need to be addressed prior to resumption of oral anticoagulants. Continue sotalol. 5. Reported COPD of unknown severity/coronary artery disease status post CABG/ history of tobacco dependence/hyperlipidemia/diabetes Complicates care, management, recovery and prognosis. Continue sliding scale insulin coverage. P.o. medications are currently on hold. Continue scheduled bronchodilators as ordered. This note was generated with [employer] dictation software. It may contain incorrect words, spelling, and punctuation that were not noted in checking the note before signing. DISPOSITION: The patient is medically stable for transfer out of the intensive care unit. Code Visit Inpatient E&M: 94216 [facility] Hosp L3
--- NOTE | 2018-03-23 09:26 | CASEMGMT ---
Addendum entered by Samantha Benitez 03/23/18 11:32: SW left a message for Jackie at [facility] letting her know pt was not able to participate in the barium swallow today. It is anticipated pt will be here through the weekend, so to start the precert on Monday. SW to follow up on Monday. [place]O Lovell, RENETTA Original Note: Addendum entered by Samantha Benitez 03/23/18 10:36: SW called [facility], message left and updates faxed. SW will call back once it is better known the plan for pt in regard to his ability to swallow, pt having a barium swallow at present. Once those results are known, it will be better understood when pt may be ready for discharge. SW will then let [facility] know when to start the precert. [place] Lovell, RENETTA Original Note: SW spoke w/pt's at the bedside, pt is sleeping at present. states she spoke w/the nurses at [facility] and they explained everything that happened leading up to pt's hospitalization. states if pt still needs SNF is comfortable w/pt returning to [facility] and [facility] states they will take pt back. SW explained will make referral back to [facility], and if pt starts doing better he can return home, otherwise, in agreement to plan for return to [facility]. SW will fax updates to [facility] and call shortly. [place]O Lovell, RENETTA
--- NOTE | 2018-03-23 09:47 | PCM.PN.HOSP ---
Patient Problems: Active and Suspected Problems Acute renal failure (Acute) Hyperkalemia (Acute) Dehydration (Acute) Metabolic encephalopathy (Acute) Hypernatremia (Acute) Hypernatremia (Acute) Subjective: he patient is a 68 year old M with a past medical history of COPD, coronary artery disease, CABG , hypertension, diabetes mellitus type 2, GERD, hyperlipidemia, depression, atrial fibrillation, tobacco dependence, recently diagnosed Parkinson's disease and recently diagnosed bilateral cerebellar ischemic infarcts in early February 2018. He was admitted via the ED on 03/20/18 from his longterm on account of altered mental status and increase in BUN and creatinine. In the ED was noted to have hyperkalemia with potassium of 7.1 and hyponatremia with sodium of 157. He was reported to not have been eating in the longterm because he did not like the nectar thick liquids. He has continued to take his diuretics despite his poor intake as well. Labs also showed leukocytosis with white cell count of 21.5 with 84.5% neutrophils, platelets and hemoglobin were within normal limits. BUN was 86 and creatinine was 4.18. He was admitted and is being managed for acute kidney injury, hyperkalemia and hypernatremia. Patient feels well he fell yesterday and is awaiting modified barium swallow. Patient seen and examined today. He is still aphasic and so unable to do review of systems I will communicate with him. According to nurse, no active issues overnight. Vitals/I&O's: Vital Signs Temp Pulse Resp BP Pulse Ox 98.9 F 78 22 H 130/64 H 96 03/23/18 04:00 03/23/18 08:00 03/23/18 08:00 03/23/18 08:00 03/23/18 08:00 Oxygen Flow Rate (L/min) 4 Oxygen Delivery Method Nasal Cannula Weight: 201 lb 4.513 oz Body Mass Index (BMI) 27.1 Intake and Output for Last 24 Hours 03/21/18 03/22/18 03/23/18 23:59 23:59 23:59 Intake Total 3919 / 3919 4638.3 / 4638.3 1288.8 / 1288.8 Output Total 1010 / 1010 1700 / 1700 450 / 450 Balance 2909 / 2909 2938.3 / 2938.3 838.8 / 838.8 General: Alert, - - Expressive and receptive aphasia. Oral: Dry Mucosa Neck: Supple, No JVD, Negative Carotid Bruits Lungs: Clear to auscultation, Normal air movement Cardiovascular: Regular rate, Regular Rhythm, Normal S1, Normal S2, No murmurs Abdomen: Bowel Sounds Present, Soft, Non Tender, Non-Distended, No Hepato-splenomegaly Extremities: No edema, Capillary Refill Less than 3 Seconds Skin: No rashes, No breakdown Musculoskeletal: No Tenderness to Palpation of Joints or Extremities Lymphatic: No Cervical, Supraclavicular, or Inguinal Adenopathy Neurological: Cranial nerves II-XII grossly intact Psych/Mental Status: - - Expressive and receptive aphasia. Tremors of right upper and lower extremities improved. Still has clonus of both lower extremities. Laboratory Results 03/22/18 11:44: POC Glucose 333 H 03/22/18 14:15: APTT 71.7 H 03/22/18 14:15: Sodium 145, Potassium 4.5, Chloride 117 H, Carbon Dioxide 22.0, Anion Gap 6, BUN 43 H, Creatinine 1.75 H, Estim Creat Clear Calc 42.87, Est GFR (MDRD) Af Amer 50 L, Est GFR (MDRD) Non-Af 42 L, BUN/Creatinine Ratio 24.6 H, Glucose 268 H, Calcium 8.7 03/22/18 16:37: POC Glucose 206 H 03/22/18 20:25: APTT 65.4 H 03/22/18 22:52: POC Glucose 160 H 03/23/18 04:10: WBC 12.8 H, RBC 4.18 L, Hgb 11.9 L, Hct 36.9 L, MCV 88.3, MCH 28.5, MCHC 32.2, RDW 15.6 H, RDW Differential 49.3 H, Plt Count 186, MPV 12.8 H, Immature Gran % (Auto) 0.200, Neut % (Auto) 72.6 H, Lymph % (Auto) 13.7 L, Price % (Auto) 8.8, Eos % (Auto) 4.1, Baso % (Auto) 0.6, Absolute Neuts (auto) 9.3 H, Absolute Lymphs (auto) 1.75, Total Counted Not Reportable 03/23/18 04:10: Sodium 148 H, Potassium 4.4, Chloride 117 H, Carbon Dioxide 24.0, Anion Gap 7, BUN 37 H, Creatinine 1.53 H, Estim Creat Clear Calc 49.04, Est GFR (MDRD) Af Amer 59 L, Est GFR (MDRD) Non-Af 49 L, BUN/Creatinine Ratio 24.2 H, Glucose 160 H, Calcium 9.1, Magnesium 1.6 03/23/18 04:10: APTT 71.8 H 03/23/18 06:41: POC Glucose 174 H Current Medications Allopurinol (Zyloprim) 100 mg PO DAILYCM [facility] Last Admin: 03/23/18 08:52 Dose: Not Given Aspirin (Aspirin, Baby) 81 mg PO DAILY@0800 [facility] Last Admin: 03/23/18 08:52 Dose: Not Given Atorvastatin Calcium (Lipitor) 80 mg PO QHS [facility] Last Admin: 03/22/18 21:27 Dose: Not Given Carbidopa/Levodopa (Sinemet) 1 tablet PO BIDAC [facility] Last Admin: 03/23/18 07:35 Dose: Not Given Chlorhexidine Gluconate () 1 each TOPICAL DAILY [facility] Last Admin: 03/23/18 04:26 Dose: 1 each Famotidine (Pepcid) 20 mg PO BID [facility] Last Admin: 03/22/18 21:27 Dose: Not Given Heparin Sodium (Porcine) (Heparin Na) 0 unit IV UD PRN PRN Reason: Protocol Sodium Chloride () 250 mls @ 15 mls/hr IV .[id number] PRN PRN Reason: SALINE FLUSH Heparin Sodium/Sodium Chloride () 25,000 unit in 250 mls @ 12 mls/hr IV .[id number] [facility]; As Directed PRN Reason: Protocol Last Admin: 03/22/18 16:44 Dose: 12 mls/hr Insulin Human Lispro (Humalog Kwikpen (Bkc)) 0 unit SC ACHS [facility] PRN Reason: Protocol Last Admin: 03/23/18 06:41 Dose: 2 units Magnesium Hydroxide (Milk Of Magnesia) 30 ml PO DAILY PRN PRN PRN Reason: Constipation Nicotine (Nicoderm Cq (Pbkc)) 21 mg TRANSDERM. DAILY [facility] Last Admin: 03/22/18 09:36 Dose: 21 mg Zsoun-4-Sezm Ethyl Esters (Lovaza) 1 gm PO DAILY [facility] Last Admin: 03/22/18 09:35 Dose: Not Given Sodium Chloride () 5 - 30 ml IV UD PRN PRN Reason: SALINE FLUSH Last Admin: 03/22/18 09:34 Dose: 10 ml Sotalol HCl (Betapace (G)) 80 mg PO BID [facility] Last Admin: 03/22/18 21:27 Dose: Not Given Medical Necessity - Tobacco Use Smoking Status: Light Smoker (<10/day) Tobacco Use: Cigarettes Assessment/Plan All Active Problems Acute renal failure (Acute) Hyperkalemia (Acute) Dehydration (Acute) Metabolic encephalopathy (Acute) Hypernatremia (Acute) Hypernatremia (Acute) This 68-year-old male admitted from the longterm with complaint of altered mental status and worsening kidney function. 1. metabolic encephalopathy from azotemia and hypernatremia resolving Patient conscious but still has expressive and receptive aphasia from bilateral cervical infarcts. CT head negative for any acute intracranial process. hypernatremia and azotemia are resolving. Will continue monitoring. 2. Pre-renal KARO and azotemia from decreased intake resolved. Cr is now down to 1.53 D5W stopped yesterday per nephro. Will consider resuming for gentle hydration renal ultrasound WNL nephrology on board 3. Hyperkalemia due to KARO resoved. K is 4.4 today 4. Hypernatremia Resolving. Na is 148 today WIll resume D5W at gentle rate. nephrology on board 5 Dysphagia due to stroke (bilateral cerebellar infarcts) had bilateral cerebellar infarcts in 618; was not eating food in the longterm because he was thickened and he did not like it. At risk of aspiration. failed formal swallow evaluation by speech therapy; awaiting modified barium swallow today If he fails the barium swallow, will discuss possibility of PEG tube with family maintain NPO 6. Leucocytosis: resolving. Likely reactive. down to 12.8 today. Continue monitoring 7. Diabetes mellitus accuchecks ACHS on ISS; currently NPO, so oral medications on hold-metformin 8. History of bilateral cerebellar infarcts still has receptive and receptive aphasia; on aspirin, statin; on heparin drip as xarelto is on hold 9. Afib: rate controlled. On sotalol and xarelto. xarelto on hold currently. on heparin drip due to history of recent cardioembolic stroke. 10. Parkinson's disease: on levodopa/carbidopa, which he has not been receiving o/a of being NPO 11. Gout: on allopurinol 12. CAD with CABG: on aspirin, statin, 13. history of depression: will benefit from psychotherapy on outpatient basis 14. DVT prophylaxis; SCDs; heparin drip 3:16pm I spoke with extensively about the option of a PEG tube in light of patient failing the modified barium swallow. stated that she would like patient to be involved in the discussion. and I went to the patient's bedside. He was much more alert and was able to communicate. He stated that he would prefer to wait for couple more days to see if he could swallow orally before the option for PEG tube. I also proposed passing an NG tube to give patient nutrition for now. Patient and refused option of an NG tube and said they would want to wait until about Monday to make the decision about a PEG tube. This note was generated with [employer] dictation software. It may contain incorrect words, spelling, and punctuation that were not noted in checking the note before signing. A Code Visit Inpatient E&M: 86559 [facility] Hosp L3
--- NOTE | 2018-03-23 09:54 | PN_ITS ---
Patient Problems: Active and Suspected Problems Acute renal failure (Acute) Hyperkalemia (Acute) Dehydration (Acute) Metabolic encephalopathy (Acute) Hypernatremia (Acute) Hypernatremia (Acute) Subjective: he patient is a 68 year old M with a past medical history of COPD, coronary artery disease, CABG , hypertension, diabetes mellitus type 2, GERD, hyperlipidemia, depression, atrial fibrillation, tobacco dependence, recently diagnosed Parkinson's disease and recently diagnosed bilateral cerebellar ischemic infarcts in early February 2018. He was admitted via the ED on 03/20/18 from his snf on account of altered mental status and increase in BUN and creatinine. In the ED was noted to have hyperkalemia with potassium of 7.1 and hyponatremia with sodium of 157. He was reported to not have been eating in the snf because he did not like the nectar thick liquids. He has continued to take his diuretics despite his poor intake as well. Labs also showed leukocytosis with white cell count of 21.5 with 84.5% neutrophils, platelets and hemoglobin were within normal limits. BUN was 86 and creatinine was 4.18. He was admitted and is being managed for acute kidney injury, hyperkalemia and hypernatremia. Patient feels well he fell yesterday and is awaiting modified barium swallow. Patient seen and examined today. He is still aphasic and so unable to do review of systems I will communicate with him. According to nurse, no active issues overnight. Vitals/I&O's: Vital Signs Temp Pulse Resp BP Pulse Ox 98.9 F 78 22 H 130/64 H 96 03/23/18 04:00 03/23/18 08:00 03/23/18 08:00 03/23/18 08:00 03/23/18 08:00 Oxygen Flow Rate (L/min) 4 Oxygen Delivery Method Nasal Cannula Weight: 201 lb 4.513 oz Body Mass Index (BMI) 27.1 Intake and Output for Last 24 Hours 03/21/18 03/22/18 03/23/18 23:59 23:59 23:59 Intake Total 3919 / 3919 4638.3 / 4638.3 1288.8 / 1288.8 Output Total 1010 / 1010 1700 / 1700 450 / 450 Balance 2909 / 2909 2938.3 / 2938.3 838.8 / 838.8 General: Alert, - - Expressive and receptive aphasia. Oral: Dry Mucosa Neck: Supple, No JVD, Negative Carotid Bruits Lungs: Clear to auscultation, Normal air movement Cardiovascular: Regular rate, Regular Rhythm, Normal S1, Normal S2, No murmurs Abdomen: Bowel Sounds Present, Soft, Non Tender, Non-Distended, No Hepato- splenomegaly Extremities: No edema, Capillary Refill Less than 3 Seconds Skin: No rashes, No breakdown Musculoskeletal: No Tenderness to Palpation of Joints or Extremities Lymphatic: No Cervical, Supraclavicular, or Inguinal Adenopathy Neurological: Cranial nerves II-XII grossly intact Psych/Mental Status: - - Expressive and receptive aphasia. Tremors of right upper and lower extremities improved. Still has clonus of both lower extremities. Laboratory Results 03/22/18 11:44: POC Glucose 333 H 03/22/18 14:15: APTT 71.7 H 03/22/18 14:15: Sodium 145, Potassium 4.5, Chloride 117 H, Carbon Dioxide 22.0, Anion Gap 6, BUN 43 H, Creatinine 1.75 H, Estim Creat Clear Calc 42.87, Est GFR (MDRD) Af Amer 50 L, Est GFR (MDRD) Non-Af 42 L, BUN/Creatinine Ratio 24.6 H, Glucose 268 H, Calcium 8.7 03/22/18 16:37: POC Glucose 206 H 03/22/18 20:25: APTT 65.4 H 03/22/18 22:52: POC Glucose 160 H 03/23/18 04:10: WBC 12.8 H, RBC 4.18 L, Hgb 11.9 L, Hct 36.9 L, MCV 88.3, MCH 28.5, MCHC 32.2, RDW 15.6 H, RDW Differential 49.3 H, Plt Count 186, MPV 12.8 H , Immature Gran % (Auto) 0.200, Neut % (Auto) 72.6 H, Lymph % (Auto) 13.7 L, [place] % (Auto) 8.8, Eos % (Auto) 4.1, Baso % (Auto) 0.6, Absolute Neuts (auto) 9.3 H, Absolute Lymphs (auto) 1.75, Total Counted Not Reportable 03/23/18 04:10: Sodium 148 H, Potassium 4.4, Chloride 117 H, Carbon Dioxide 24.0 , Anion Gap 7, BUN 37 H, Creatinine 1.53 H, Estim Creat Clear Calc 49.04, Est GFR (MDRD) Af Amer 59 L, Est GFR (MDRD) Non-Af 49 L, BUN/Creatinine Ratio 24.2 H , Glucose 160 H, Calcium 9.1, Magnesium 1.6 03/23/18 04:10: APTT 71.8 H 03/23/18 06:41: POC Glucose 174 H Current Medications Allopurinol (Zyloprim) 100 mg PO DAILYCM [facility] Last Admin: 03/23/18 08:52 Dose: Not Given Aspirin (Aspirin, Baby) 81 mg PO DAILY@0800 [facility] Last Admin: 03/23/18 08:52 Dose: Not Given Atorvastatin Calcium (Lipitor) 80 mg PO QHS [facility] Last Admin: 03/22/18 21:27 Dose: Not Given Carbidopa/Levodopa (Sinemet) 1 tablet PO BIDAC [facility] Last Admin: 03/23/18 07:35 Dose: Not Given Chlorhexidine Gluconate () 1 each TOPICAL DAILY [facility] Last Admin: 03/23/18 04:26 Dose: 1 each Famotidine (Pepcid) 20 mg PO BID [facility] Last Admin: 03/22/18 21:27 Dose: Not Given Heparin Sodium (Porcine) (Heparin Na) 0 unit IV UD PRN PRN Reason: Protocol Sodium Chloride () 250 mls @ 15 mls/hr IV .[id number] PRN PRN Reason: SALINE FLUSH Heparin Sodium/Sodium Chloride () 25,000 unit in 250 mls @ 12 mls/hr IV .[id number] [facility]; As Directed PRN Reason: Protocol Last Admin: 03/22/18 16:44 Dose: 12 mls/hr Insulin Human Lispro (Humalog Kwikpen (Bkc)) 0 unit SC ACHS [facility] PRN Reason: Protocol Last Admin: 03/23/18 06:41 Dose: 2 units Magnesium Hydroxide (Milk Of Magnesia) 30 ml PO DAILY PRN PRN PRN Reason: Constipation Nicotine (Nicoderm Cq (Pbkc)) 21 mg TRANSDERM. DAILY [facility] Last Admin: 03/22/18 09:36 Dose: 21 mg [id number] Ethyl Esters (Lovaza) 1 gm PO DAILY [facility] Last Admin: 03/22/18 09:35 Dose: Not Given Sodium Chloride () 5 - 30 ml IV UD PRN PRN Reason: SALINE FLUSH Last Admin: 03/22/18 09:34 Dose: 10 ml Sotalol HCl (Betapace (G)) 80 mg PO BID [facility] Last Admin: 03/22/18 21:27 Dose: Not Given Medical Necessity - Tobacco Use Smoking Status: Light Smoker (<10/day) Tobacco Use: Cigarettes Assessment/Plan All Active Problems Acute renal failure (Acute) Hyperkalemia (Acute) Dehydration (Acute) Metabolic encephalopathy (Acute) Hypernatremia (Acute) Hypernatremia (Acute) This 68-year-old male admitted from the snf with complaint of altered mental status and worsening kidney function. 1. metabolic encephalopathy from azotemia and hypernatremia * resolving * Patient conscious but still has expressive and receptive aphasia from bilateral cervical infarcts. * CT head negative for any acute intracranial process. * hypernatremia and azotemia are resolving. * Will continue monitoring. * 2. Pre-renal KARO and azotemia from decreased intake * resolved. Cr is now down to 1.53 * D5W stopped yesterday per nephro. Will consider resuming for gentle hydration * renal ultrasound WNL * nephrology on board * 3. Hyperkalemia due to KARO * resoved. K is 4.4 today * * * 4. Hypernatremia * Resolving. Na is 148 today * WIll resume D5W at gentle rate. * nephrology on board * 5 Dysphagia due to stroke (bilateral cerebellar infarcts) * had bilateral cerebellar infarcts in 03.05; was not eating food in the snf because he was thickened and he did not like it. * At risk of aspiration. * failed formal swallow evaluation by speech therapy; awaiting modified barium swallow today * If he fails the barium swallow, will discuss possibility of PEG tube with family * maintain NPO * 6. Leucocytosis: * resolving. Likely reactive. * down to 12.8 today. * Continue monitoring * 7. Diabetes mellitus * accuchecks ACHS * on ISS; currently NPO, so oral medications on hold-metformin * * 8. History of bilateral cerebellar infarcts * still has receptive and receptive aphasia; * on aspirin, statin; on heparin drip as xarelto is on hold 9. Afib: rate controlled. * On sotalol and xarelto. xarelto on hold currently. * on heparin drip due to history of recent cardioembolic stroke. 10. Parkinson's disease: on levodopa/carbidopa, which he has not been receiving o/a of being NPO 11. Gout: on allopurinol 12. CAD with CABG: on aspirin, statin, 13. history of depression: will benefit from psychotherapy on outpatient basis 14. DVT prophylaxis; SCDs; heparin drip 3:16pm I spoke with extensively about the option of a PEG tube in light of patient failing the modified barium swallow. stated that she would like patient to be involved in the discussion. and I went to the patient's bedside. He was much more alert and was able to communicate. He stated that he would prefer to wait for couple more days to see if he could swallow orally before the option for PEG tube. I also proposed passing an NG tube to give patient nutrition for now. Patient and refused option of an NG tube and said they would want to wait until about Monday to make the decision about a PEG tube. This note was generated with [employer] dictation software. It may contain incorrect words, spelling, and punctuation that were not noted in checking the note before signing. A Code Visit Inpatient E&M: 99413 Subs Hosp L3
--- NOTE | 2018-03-23 10:05 | PN.RENAL_ITS ---
Patient Problems: Active and Suspected Problems Acute renal failure (Acute) Hyperkalemia (Acute) Dehydration (Acute) Metabolic encephalopathy (Acute) Hypernatremia (Acute) Hypernatremia (Acute) Subjective: drowsy poorly responsive - Physical Exam HEENT: Atraumatic, PERRLA, EOMI, Normocephalic Neck: Supple, No JVD, Negative Carotid Bruits Lungs: Clear to auscultation, Normal air movement Cardiovascular: Regular rate, No murmurs Abdomen: Bowel Sounds Present, Soft, Non Tender Extremities: No edema, Capillary Refill Less than 3 Seconds Skin: No rashes, No breakdown Musculoskeletal: No Tenderness to Palpation of Joints or Extremities Vital Signs Temp Pulse Resp BP Pulse Ox 98.9 F 78 22 H 130/64 H 96 03/23/18 04:00 03/23/18 08:00 03/23/18 08:00 03/23/18 08:00 03/23/18 08:00 Oxygen Flow Rate (L/min) 4 Oxygen Delivery Method Nasal Cannula Weight: 91.3 kg Body Mass Index (BMI) 27.1 Intake and Output for Last 24 Hours 03/21/18 03/22/18 03/23/18 23:59 23:59 23:59 Intake Total 3919 / 3919 4638.3 / 4638.3 1288.8 / 1288.8 Output Total 1010 / 1010 1700 / 1700 450 / 450 Balance 2909 / 2909 2938.3 / 2938.3 838.8 / 838.8 Laboratory Tests Past 24 Hrs 03/22/18 03/22/18 03/22/18 14:15 14:15 20:25 WBC RBC Hgb Hct MCV MCH MCHC RDW RDW Differential Plt Count MPV Immature Gran % (Auto) Neut % (Auto) Lymph % (Auto) [place] % (Auto) Eos % (Auto) Baso % (Auto) Absolute Neuts (auto) Absolute Lymphs (auto) Total Counted APTT 71.7 H 65.4 H Sodium 145 Potassium 4.5 Chloride 117 H Carbon Dioxide 22.0 Anion Gap 6 BUN 43 H Creatinine 1.75 H Estim Creat Clear Calc 42.87 Est GFR (MDRD) Af Amer 50 L Est GFR (MDRD) Non-Af 42 L BUN/Creatinine Ratio 24.6 H Glucose 268 H Calcium 8.7 Magnesium 03/23/18 03/23/18 03/23/18 04:10 04:10 04:10 WBC 12.8 H RBC 4.18 L Hgb 11.9 L Hct 36.9 L MCV 88.3 MCH 28.5 MCHC 32.2 RDW 15.6 H RDW Differential 49.3 H Plt Count 186 MPV 12.8 H Immature Gran % (Auto) 0.200 Neut % (Auto) 72.6 H Lymph % (Auto) 13.7 L [place] % (Auto) 8.8 Eos % (Auto) 4.1 Baso % (Auto) 0.6 Absolute Neuts (auto) 9.3 H Absolute Lymphs (auto) 1.75 Total Counted Not Reportable APTT 71.8 H Sodium 148 H Potassium 4.4 Chloride 117 H Carbon Dioxide 24.0 Anion Gap 7 BUN 37 H Creatinine 1.53 H Estim Creat Clear Calc 49.04 Est GFR (MDRD) Af Amer 59 L Est GFR (MDRD) Non-Af 49 L BUN/Creatinine Ratio 24.2 H Glucose 160 H Calcium 9.1 Magnesium 1.6 POC Glucose 03/23/18 03/22/18 03/22/18 06:41 22:52 16:37 POC Glucose 174 H 160 H 206 H 03/22/18 11:44 POC Glucose 333 H Medical Necessity - Tobacco Use Smoking Status: Light Smoker (<10/day) Tobacco Use: Cigarettes Assessment/Plan All Active Problems Acute renal failure (Acute) Hyperkalemia (Acute) Dehydration (Acute) Metabolic encephalopathy (Acute) Hypernatremia (Acute) Hypernatremia (Acute) KARO. normal baseline as of last month (2 weeks ago). KARO likely related to volume depletion. urine output is ok. hyperkalemia better. creatinine overall improved significantly Hypernatremia. likely related to poor oral intake. unlikely DI as he is not making that much urine. sodium is at 148, slightly higher today. will change back fluids to D5W Hyperkalemia. better. patient going for barium swallow today, Looking at his mental status unlikely to pass. ? PEG tube d/w ICU staff
--- NOTE | 2018-03-23 10:30 | RAD_ITS ---
STUDY: X-RAY - ESOPHAGUS (BARIUM SWALLOW) WITH FLUOROSCOPY REASON FOR EXAM: Male, 68 years old. Dysphagia. TECHNIQUE: Patient was unable to drink the barium. FLUOROSCOPY TIME (if supplied): (0:37) minutes/seconds RAD/Esophagus Only IMPRESSION: The examination was not performed. The patient was not able to drink the barium. Electronically Signed: Shiva Payne MD at 11:54 EDT Tel [phone], Service support ,
[2018-03-23 13:06] LABS: Bedside Glucose 197 mg/dL (70-110)
--- NOTE | 2018-03-23 15:38 | NURSING ---
Maximus from speech therapy, stated pt could have medications in crushed in pureed food.
[2018-03-23 17:01] LABS: Bedside Glucose 223 mg/dL (70-110)
[2018-03-23] MEDS: Sotalol Hydrochloride 80 MG Tablet PO (22:19)
[2018-03-23] MEDS: Famotidine 20 MG Tablet PO (22:19)
[2018-03-23] MEDS: Atorvastatin Calcium 80 MG Tablet PO (22:25)
[2018-03-23 23:31] LABS: Bedside Glucose 156 mg/dL (70-110)
[2018-03-24] VITALS (11 sets, daily range): BP systolic 104–126; BP diastolic 49–62; PULSE 63–88; RESP 16–20; TEMP 36.7–37.8; O2SAT 92–97
[2018-03-24 06:36] LABS: Absolute Lymphocyte Count 1.39 X10^3/ul (0.83-4.51); Absolute Neutrophil Count 8.9 X10^3/uL (2.0-7.7); Basophil# 0.07 X10^3/uL; Basophil% 0.6 % (0-1); Eosinophil# 0.48 X10^3/uL; Eosinophils% 4.1 % (0-5); Hematocrit 34.6 % (40-54); Hemoglobin 11.4 g/dl (13.0-16.5); Lymphocyte # 1.39 X10^3/ul (4.0); Lymphocyte % 11.9 % (19-41); Mean Corp Hgb Conc 32.9 g/gl (32-36); Mean Corpuscular Hgb 28.9 pg (27.0-32.0); Mean Corpuscular Volume 87.6 fL (80-94); Monocyte# 0.91 X10^3/uL; Monocyte% 7.8 % (0-10); Neutrophil # 8.85 X10^3/uL (2.7-7.7); Neutrophil % 75.4 % (47-70); Platelet Count 171 K/mm3 (150-450); RBC Distribution Width CV 15.3 % (11.6-14.6); RBC Distribution Width SD 47.9 fl (35.1-43.9); Red Blood Count 3.95 M/mm3 (4.6-6.2); White Blood Count 11.7 K/mm3 (4.4-11.0)
[2018-03-24 06:37] LABS: Partial Thromboplast Time 68.8 Seconds (24.1-36.2)
[2018-03-24 06:38] LABS: POSITIVE COUNT NO; POSITIVE DIFFERENTIAL NO; POSITIVE MORPHOLOGY NO
[2018-03-24 07:06] LABS: Anion Gap 9 (5-15); BUN 23 mg/dL (7-18); BUN/Creat Ratio 19.8 RATIO (10-20); Calcium,Total 8.3 mg/dL (8.5-10.1); Chloride 114 mmol/L (98-107); Creatinine, Serum 1.16 mg/dL (0.70-1.30); EST Glomerular Filtration Rate 67 mL/min (>60); Est Glom Filt Rate - Afr Amer 81 mL/min (>60); Estimated Creatinine Clearance 64.68 ml/min; Glucose 179 mg/dL (74-106); Potassium 3.8 mmol/L (3.5-5.1); Sodium Level 143 mmol/L (136-145)
[2018-03-24 07:11] LABS: Bedside Glucose 219 mg/dL (70-110)
[2018-03-24] MEDS: Allopurinol 100 MG Tablet PO (08:39)
[2018-03-24] MEDS: Carbidopa/Levodopa 25/100 Tablet PO ×2 (08:39→16:22)
[2018-03-24] MEDS: Aspirin 81 MG TAB.CHEW PO (08:39)
[2018-03-24] MEDS: Insulin Lispro 100 UNIT/ML INSULN.PEN SC ×4 (08:40→23:53)
--- NOTE | 2018-03-24 08:49 | PCM.PROGNOTE ---
Patient Problems: Active and Suspected Problems Acute renal failure (Acute) Hyperkalemia (Acute) Dehydration (Acute) Metabolic encephalopathy (Acute) Hypernatremia (Acute) Hypernatremia (Acute) Subjective: The patient was seen and examined at the bedside this morning. Events from the last 24 hours have been reviewed. The patient is currently afebrile, hemodynamically stable and maintaining appropriate oxygen saturations on 4 L/min via nasal cannula. Modified barium swallow was unable to be completed yesterday due to patient lethargy. He refused NG placement. He remains n.p.o. accordingly. Metabolic/electrolyte abnormalities have resolved. The patient is now overall net +7.1 L for the admission. Objective: The patient's most recent lab work, culture data and imaging studies have all been personally reviewed. Head CT revealed chronic age-related changes and atrophy. Plain film chest x-ray revealed no acute cardiopulmonary process. Renal ultrasound revealed kidneys to be normal in size and echogenicity without hydronephrosis. - Physical Exam General: Alert, No apparent distress HEENT: Atraumatic, PERRLA, Normocephalic Oral: No Gingival or Mucosal Lesions/ Ulcerations Neck: Supple, No Nodes, Trachea Midline Lungs: No rhonchi, No wheeze, No rales, Diminished Cardiovascular: Regular rate, Regular Rhythm, Normal S1, Normal S2, No murmurs Abdomen: Bowel Sounds Present, Soft, Non Tender Extremities: No clubbing, No cyanosis, No edema Skin: No breakdown Musculoskeletal: No Tenderness to Palpation of Joints or Extremities Lymphatic: No Cervical, Supraclavicular, or Inguinal Adenopathy Neurological: Cranial nerves II-XII grossly intact, - - Receptive and expressive aphasia. Mild tremors present Vital Signs Temp Pulse Resp BP Pulse Ox 98.0 F 74 18 120/54 L 97 03/24/18 03:35 03/24/18 06:57 03/24/18 03:35 03/24/18 03:35 03/24/18 03:35 Oxygen Flow Rate (L/min) 4 Oxygen Delivery Method Nasal Cannula Weight: 201 lb 4.513 oz Body Mass Index (BMI) 27.1 Intake and Output for Last 24 Hours 03/22/18 03/23/18 03/24/18 23:59 23:59 23:59 Intake Total 4638.3 / 4638.3 3102.8 / 3102.8 612 / 612 Output Total 1700 / 1700 2125 / 2125 250 / 250 Balance 2938.3 / 2938.3 977.8 / 977.8 362 / 362 Laboratory Tests Past 24 Hrs 03/24/18 03/24/18 03/24/18 05:35 05:35 05:35 WBC 11.7 H RBC 3.95 L Hgb 11.4 L Hct 34.6 L MCV 87.6 MCH 28.9 MCHC 32.9 RDW 15.3 H RDW Differential 47.9 H Plt Count 171 MPV 13.0 H Immature Gran % (Auto) 0.200 Neut % (Auto) 75.4 H Lymph % (Auto) 11.9 L [place] % (Auto) 7.8 Eos % (Auto) 4.1 Baso % (Auto) 0.6 Absolute Neuts (auto) 8.9 H Absolute Lymphs (auto) 1.39 Total Counted Not Reportable APTT 68.8 H Sodium 143 Potassium 3.8 Chloride 114 H Carbon Dioxide 20.0 L Anion Gap 9 BUN 23 H Creatinine 1.16 Estim Creat Clear Calc 64.68 Est GFR (MDRD) Af Amer 81 Est GFR (MDRD) Non-Af 67 BUN/Creatinine Ratio 19.8 Glucose 179 H Calcium 8.3 L POC Glucose 03/24/18 03/23/18 03/23/18 07:05 22:05 16:53 POC Glucose 219 H 156 H 223 H 03/23/18 13:01 POC Glucose 197 H Clinical Impression(s) from Imaging Studies Brain CT 03/20/18 19:48 IMPRESSION: Chronic age related changes and atrophy. No acute abnormality or change. Electronically Signed: Tj Farley MD at 21:22 EDT , Service support , Chest X-Ray 03/20/18 20:30 IMPRESSION: There are findings consistent with COPD. There is no evidence of acute chest disease. Electronically Signed: Tj Farley MD at 20:49 EDT , Service support , Renal Ultrasound 03/21/18 06:42 IMPRESSION: The kidneys are normal in size and echogenicity without hydronephrosis. Electronically Signed: Charo Mccoy MD at 11:36 EDT Tel Direct: [phone], Service support , Barium Swallow X-Ray 03/23/18 10:30 IMPRESSION: The examination was not performed. The patient was not able to drink the barium. Electronically Signed: Shiva Payne MD at 11:54 EDT Tel [phone], Service support , Medical Necessity - Tobacco Use Smoking Status: Light Smoker (<10/day) Tobacco Use: Cigarettes Assessment/Plan All Active Problems Acute renal failure (Acute) Hyperkalemia (Acute) Dehydration (Acute) Metabolic encephalopathy (Acute) Hypernatremia (Acute) Hypernatremia (Acute) RECOMMENDATIONS: 1. Recommend discontinuation of supplemental IV fluids, as the patient is significantly overall net positive. 2. Patient to remain n.p.o., pending further evaluation/recommendations by speech therapy. 3. Continue weight-based heparin infusion. 4. Continue insulin coverage. IMPRESSIONS: 1. Acute kidney injury/hypernatremia/hyperkalemia/hyperchloremia Improving at this time. Likely multifactorial in etiology with intravascular volume depletion leading to prerenal azotemia as a likely inciting factor, compounded by concurrent use of diuretics and SUNNY inhibitor. Continue to hold diuretics and SUNNY inhibitor. Avoid additional nephrotoxic medications. There is no current indication for renal replacement therapy. Nephrology is following with recommendations appreciated. Recommend discontinuation of supplemental IV fluids at this time. 2. Metabolic encephalopathy Improving. Likely related to metabolic derangements in the setting of acute kidney injury. Anticipate slow improvement with correction of the patient's underlying metabolic/electrolyte derangements. CT head revealed no acute intracranial pathology. 3. Failure to thrive following recent CVA/baseline parkinsonism/dysphagia The patient's underlying nutrition status will need to be addressed during this hospitalization. Speech therapy is following. If he is unable to take p.o. nutrition, will need to seek alternative means of feeding. May need to consider PEG tube placement. 4. Paroxysmal atrial fibrillation Given the patient's renal insufficiency and metabolic derangements, continue holding Xarelto. Continue weight-based heparin infusion. Nutrition/p.o. status will need to be addressed prior to resumption of oral anticoagulants. Continue sotalol. 5. Reported COPD of unknown severity/coronary artery disease status post CABG/history of tobacco dependence/hyperlipidemia/diabetes Complicates care, management, recovery and prognosis. Continue sliding scale insulin coverage. P.o. medications are currently on hold. Continue scheduled bronchodilators as ordered. This note was generated with [employer] dictation software. It may contain incorrect words, spelling, and punctuation that were not noted in checking the note before signing. Given the lack of ongoing ICU needs, will sign off. Please call with any additional questions. Code Visit Inpatient E&M: 03046 Subs Hosp L2
--- NOTE | 2018-03-24 08:53 | PN_ITS ---
Patient Problems: Active and Suspected Problems Acute renal failure (Acute) Hyperkalemia (Acute) Dehydration (Acute) Metabolic encephalopathy (Acute) Hypernatremia (Acute) Hypernatremia (Acute) Subjective: The patient was seen and examined at the bedside this morning. Events from the last 24 hours have been reviewed. The patient is currently afebrile, hemodynamically stable and maintaining appropriate oxygen saturations on 4 L/ min via nasal cannula. Modified barium swallow was unable to be completed yesterday due to patient lethargy. He refused NG placement. He remains n.p.o. accordingly. Metabolic/electrolyte abnormalities have resolved. The patient is now overall net +7.1 L for the admission. Objective: The patient's most recent lab work, culture data and imaging studies have all been personally reviewed. Head CT revealed chronic age-related changes and atrophy. Plain film chest x-ray revealed no acute cardiopulmonary process. Renal ultrasound revealed kidneys to be normal in size and echogenicity without hydronephrosis. - Physical Exam General: Alert, No apparent distress HEENT: Atraumatic, PERRLA, Normocephalic Oral: No Gingival or Mucosal Lesions/ Ulcerations Neck: Supple, No Nodes, Trachea Midline Lungs: No rhonchi, No wheeze, No rales, Diminished Cardiovascular: Regular rate, Regular Rhythm, Normal S1, Normal S2, No murmurs Abdomen: Bowel Sounds Present, Soft, Non Tender Extremities: No clubbing, No cyanosis, No edema Skin: No breakdown Musculoskeletal: No Tenderness to Palpation of Joints or Extremities Lymphatic: No Cervical, Supraclavicular, or Inguinal Adenopathy Neurological: Cranial nerves II-XII grossly intact, - - Receptive and expressive aphasia. Mild tremors present Vital Signs Temp Pulse Resp BP Pulse Ox 98.0 F 74 18 120/54 L 97 03/24/18 03:35 03/24/18 06:57 03/24/18 03:35 03/24/18 03:35 03/24/18 03:35 Oxygen Flow Rate (L/min) 4 Oxygen Delivery Method Nasal Cannula Weight: 201 lb 4.513 oz Body Mass Index (BMI) 27.1 Intake and Output for Last 24 Hours 03/22/18 03/23/18 03/24/18 23:59 23:59 23:59 Intake Total 4638.3 / 4638.3 3102.8 / 3102.8 612 / 612 Output Total 1700 / 1700 2125 / 2125 250 / 250 Balance 2938.3 / 2938.3 977.8 / 977.8 362 / 362 Laboratory Tests Past 24 Hrs 03/24/18 03/24/18 03/24/18 05:35 05:35 05:35 WBC 11.7 H RBC 3.95 L Hgb 11.4 L Hct 34.6 L MCV 87.6 MCH 28.9 MCHC 32.9 RDW 15.3 H RDW Differential 47.9 H Plt Count 171 MPV 13.0 H Immature Gran % (Auto) 0.200 Neut % (Auto) 75.4 H Lymph % (Auto) 11.9 L [place] % (Auto) 7.8 Eos % (Auto) 4.1 Baso % (Auto) 0.6 Absolute Neuts (auto) 8.9 H Absolute Lymphs (auto) 1.39 Total Counted Not Reportable APTT 68.8 H Sodium 143 Potassium 3.8 Chloride 114 H Carbon Dioxide 20.0 L Anion Gap 9 BUN 23 H Creatinine 1.16 Estim Creat Clear Calc 64.68 Est GFR (MDRD) Af Amer 81 Est GFR (MDRD) Non-Af 67 BUN/Creatinine Ratio 19.8 Glucose 179 H Calcium 8.3 L POC Glucose 03/24/18 03/23/18 03/23/18 07:05 22:05 16:53 POC Glucose 219 H 156 H 223 H 03/23/18 13:01 POC Glucose 197 H Clinical Impression(s) from Imaging Studies Brain CT 03/20/18 19:48 IMPRESSION: Chronic age related changes and atrophy. No acute abnormality or change. Electronically Signed: Tj Farley MD at 21:22 EDT , Service support , Chest X-Ray 03/20/18 20:30 IMPRESSION: There are findings consistent with COPD. There is no evidence of acute chest disease. Electronically Signed: Tj Farley MD at 20:49 EDT , Service support , Renal Ultrasound 03/21/18 06:42 IMPRESSION: The kidneys are normal in size and echogenicity without hydronephrosis. Electronically Signed: Charo Mccoy MD at 11:36 EDT Tel Direct: [phone], Service support , Barium Swallow X-Ray 03/23/18 10:30 IMPRESSION: The examination was not performed. The patient was not able to drink the barium. Electronically Signed: Shiva Payne MD at 11:54 EDT Tel [phone], Service support , Medical Necessity - Tobacco Use Smoking Status: Light Smoker (<10/day) Tobacco Use: Cigarettes Assessment/Plan All Active Problems Acute renal failure (Acute) Hyperkalemia (Acute) Dehydration (Acute) Metabolic encephalopathy (Acute) Hypernatremia (Acute) Hypernatremia (Acute) RECOMMENDATIONS: 1. Recommend discontinuation of supplemental IV fluids, as the patient is significantly overall net positive. 2. Patient to remain n.p.o., pending further evaluation/recommendations by speech therapy. 3. Continue weight-based heparin infusion. 4. Continue insulin coverage. IMPRESSIONS: 1. Acute kidney injury/hypernatremia/hyperkalemia/hyperchloremia Improving at this time. Likely multifactorial in etiology with intravascular volume depletion leading to prerenal azotemia as a likely inciting factor, compounded by concurrent use of diuretics and SUNNY inhibitor. Continue to hold diuretics and SUNNY inhibitor. Avoid additional nephrotoxic medications. There is no current indication for renal replacement therapy. Nephrology is following with recommendations appreciated. Recommend discontinuation of supplemental IV fluids at this time. 2. Metabolic encephalopathy Improving. Likely related to metabolic derangements in the setting of acute kidney injury. Anticipate slow improvement with correction of the patient's underlying metabolic/electrolyte derangements. CT head revealed no acute intracranial pathology. 3. Failure to thrive following recent CVA/baseline parkinsonism/dysphagia The patient's underlying nutrition status will need to be addressed during this hospitalization. Speech therapy is following. If he is unable to take p.o. nutrition, will need to seek alternative means of feeding. May need to consider PEG tube placement. 4. Paroxysmal atrial fibrillation Given the patient's renal insufficiency and metabolic derangements, continue holding Xarelto. Continue weight-based heparin infusion. Nutrition/p.o. status will need to be addressed prior to resumption of oral anticoagulants. Continue sotalol. 5. Reported COPD of unknown severity/coronary artery disease status post CABG/ history of tobacco dependence/hyperlipidemia/diabetes Complicates care, management, recovery and prognosis. Continue sliding scale insulin coverage. P.o. medications are currently on hold. Continue scheduled bronchodilators as ordered. This note was generated with [employer] dictation software. It may contain incorrect words, spelling, and punctuation that were not noted in checking the note before signing. Given the lack of ongoing ICU needs, will sign off. Please call with any additional questions. Code Visit Inpatient E&M: 84648 Subs Hosp L2
[2018-03-24] MEDS: Sotalol Hydrochloride 80 MG Tablet PO (10:31)
[2018-03-24] MEDS: Famotidine 20 MG Tablet PO (10:33)
[2018-03-24] MEDS: Omega-3 Acid Ethyl Esters 1 GM Capsule PO (10:33)
--- NOTE | 2018-03-24 10:57 | PCM.PN.HOSP ---
Patient Problems: Active and Suspected Problems Acute renal failure (Acute) Hyperkalemia (Acute) Dehydration (Acute) Metabolic encephalopathy (Acute) Hypernatremia (Acute) Hypernatremia (Acute) Subjective: patient is a 68 year old M with a past medical history of COPD, coronary artery disease, CABG , hypertension, diabetes mellitus type 2, GERD, hyperlipidemia, depression, atrial fibrillation, tobacco dependence, recently diagnosed Parkinson's disease and recently diagnosed bilateral cerebellar ischemic infarcts in early February 2018. He was admitted via the ED on 03/20/18 from his [place] [facility] on account of altered mental status and increase in BUN and creatinine. In the ED was noted to have hyperkalemia with potassium of 7.1 and hyponatremia with sodium of 157. He was reported to not have been eating in the [place] [facility] because he did not like the nectar thick liquids. Labs also showed leukocytosis with white cell count of 21.5 with 84.5% neutrophils, platelets and hemoglobin were within normal limits. BUN was 86 and creatinine was 4.18. He was admitted and managed for acute kidney injury, metabolic encephalopathy, hyperkalemia and hypernatremia. Patient seen and examined today. He is much more alert and able to talk to me. He denies any fever or chills, any cough or chest pain, any shortness of breath, abdominal pain, any diarrhea vomiting. He was reevaluated by speech therapy yesterday and passed a swallow exam. He is currently on nectar thick liquids. Vitals reviewed and labs reviewed. Vitals/I&O's: Vital Signs Temp Pulse Resp BP Pulse Ox 98.4 F 74 18 112/49 L 97 03/24/18 09:35 03/24/18 09:35 03/24/18 09:35 03/24/18 09:35 03/24/18 09:35 Oxygen Flow Rate (L/min) 4 Oxygen Delivery Method Nasal Cannula Weight: 205 lb 11.06 oz Body Mass Index (BMI) 27.1 Intake and Output for Last 24 Hours 03/22/18 03/23/18 03/24/18 23:59 23:59 23:59 Intake Total 4638.3 / 4638.3 3102.8 / 3102.8 612 / 612 Output Total 1700 / 1700 2125 / 2125 250 / 250 Balance 2938.3 / 2938.3 977.8 / 977.8 362 / 362 General: Alert, Oriented x3, Cooperative HEENT: Atraumatic, PERRLA, EOMI, Normocephalic Oral: Dry Mucosa Neck: Supple, No JVD, Negative Carotid Bruits Lungs: Clear to auscultation, Normal air movement, No rhonchi, No wheeze, No rales Cardiovascular: Regular rate, Regular Rhythm, Normal S1, Normal S2, No murmurs Abdomen: Bowel Sounds Present, Soft, Non Tender, Non-Distended, No Hepato-splenomegaly Extremities: No clubbing, No cyanosis, No edema, Capillary Refill Less than 3 Seconds Skin: No rashes, No breakdown Musculoskeletal: No Tenderness to Palpation of Joints or Extremities Lymphatic: No Cervical, Supraclavicular, or Inguinal Adenopathy Neurological: Cranial nerves II-XII grossly intact, - - Patient is much more alert and able to communicate. He answers questions asked today. Tremors of extremities have improved significantly. Psych/Mental Status: Normal Affect, Appropriate, Alert and oriented to time, place, person, mood and affect Laboratory Results 03/23/18 13:01: POC Glucose 197 H 03/23/18 16:53: POC Glucose 223 H 03/23/18 22:05: POC Glucose 156 H 03/24/18 05:35: WBC 11.7 H, RBC 3.95 L, Hgb 11.4 L, Hct 34.6 L, MCV 87.6, MCH 28.9, MCHC 32.9, RDW 15.3 H, RDW Differential 47.9 H, Plt Count 171, MPV 13.0 H, Immature Gran % (Auto) 0.200, Neut % (Auto) 75.4 H, Lymph % (Auto) 11.9 L, [place] % (Auto) 7.8, Eos % (Auto) 4.1, Baso % (Auto) 0.6, Absolute Neuts (auto) 8.9 H, Absolute Lymphs (auto) 1.39, Total Counted Not Reportable 03/24/18 05:35: Sodium 143, Potassium 3.8, Chloride 114 H, Carbon Dioxide 20.0 L, Anion Gap 9, BUN 23 H, Creatinine 1.16, Estim Creat Clear Calc 64.68, Est GFR (MDRD) Af Amer 81, Est GFR (MDRD) Non-Af 67, BUN/Creatinine Ratio 19.8, Glucose 179 H, Calcium 8.3 L 03/24/18 05:35: APTT 68.8 H 03/24/18 07:05: POC Glucose 219 H Current Medications Allopurinol (Zyloprim) 100 mg PO DAILYCM [facility] Last Admin: 03/24/18 08:39 Dose: 100 mg Aspirin (Aspirin, Baby) 81 mg PO DAILY@0800 [facility] Last Admin: 03/24/18 08:39 Dose: 81 mg Atorvastatin Calcium (Lipitor) 80 mg PO QHS [facility] Last Admin: 03/23/18 22:25 Dose: 80 mg Carbidopa/Levodopa (Sinemet) 1 tablet PO BIDAC [facility] Last Admin: 03/24/18 08:39 Dose: 1 tablet Chlorhexidine Gluconate () 1 each TOPICAL DAILY [facility] Last Admin: 03/24/18 10:32 Dose: Not Given Famotidine (Pepcid) 20 mg PO BID [facility] Last Admin: 03/24/18 10:33 Dose: 20 mg Heparin Sodium (Porcine) (Heparin Na) 0 unit IV UD PRN PRN Reason: Protocol Sodium Chloride () 250 mls @ 15 mls/hr IV .[id number] PRN PRN Reason: SALINE FLUSH Heparin Sodium/Sodium Chloride () 25,000 unit in 250 mls @ 12 mls/hr IV .[id number] [facility]; As Directed PRN Reason: Protocol Last Admin: 03/23/18 23:49 Dose: 12 mls/hr Dextrose () 1,000 mls @ 100 mls/hr IV .Q10H [facility] Last Admin: 03/24/18 08:38 Dose: 100 mls/hr Insulin Human Lispro (Humalog Kwikpen (Bkc)) 0 unit SC ACHS [facility] PRN Reason: Protocol Last Admin: 03/24/18 08:40 Dose: 4 units Magnesium Hydroxide (Milk Of Magnesia) 30 ml PO DAILY PRN PRN PRN Reason: Constipation Nicotine (Nicoderm Cq (Pbkc)) 21 mg TRANSDERM. DAILY [facility] Last Admin: 03/24/18 10:32 Dose: 21 mg [id number] Ethyl Esters (Lovaza) 1 gm PO DAILY [facility] Last Admin: 03/24/18 10:33 Dose: 1 gm Sodium Chloride () 5 - 30 ml IV UD PRN PRN Reason: SALINE FLUSH Last Admin: 03/22/18 09:34 Dose: 10 ml Sotalol HCl (Betapace (G)) 80 mg PO BID [facility] Last Admin: 03/24/18 10:31 Dose: 80 mg Medical Necessity - Tobacco Use Smoking Status: Light Smoker (<10/day) Tobacco Use: Cigarettes Assessment/Plan All Active Problems Acute renal failure (Acute) Hyperkalemia (Acute) Dehydration (Acute) Metabolic encephalopathy (Acute) Hypernatremia (Acute) Hypernatremia (Acute) This 68-year-old male admitted from the [place] [facility] with complaint of altered mental status and worsening kidney function. 1. metabolic encephalopathy from azotemia and hypernatremia resolved Patient is much more alert today and is able to answer questions appropriately. continue monitoring. . 2. Pre-renal KARO and azotemia from decreased intake resolved. Cr is now down to 1.53 D5W stopped yesterday per nephro. Will consider resuming for gentle hydration renal ultrasound WNL nephrology on board 3. Hyperkalemia due to KARO resolved. K is 4.4 today 4. Hypernatremia Resolved. Na is 143 today nephrology on board 5 Dysphagia due to stroke (bilateral cerebellar infarcts) Resolving. Speech is much clear today. Tolerated by speech yesterday. Past swallow eval and is currently on nectar thick liquids. Aspiration precautions. 6. Reactive Leucocytosis: resolving is 11.7 today Continue monitoring 7. Diabetes mellitus accuchecks ACHS now on nectar thick liquids on ISS: if he tolerates it, will resume oral hypoglycemic agents 8. History of bilateral cerebellar infarcts Stable. Expressive receptive aphasia has improved significantly. Now that he can take oral intake, will stop heparin drip and resume Xarelto. 9. Afib: rate controlled. On sotalol and xarelto. Will resume xarelto as he can take in orally now. 10. Parkinson's disease: on levodopa/carbidopa; will resume, as he can now take in nectar thick liquids. 11. Gout: on allopurinol 12. CAD with CABG: on aspirin, statin, 13. history of depression: will benefit from psychotherapy on outpatient basis 14. DVT prophylaxis; SCDs; will resume xarelto today and stop heparin drip Disposition: DC to [place] [facility]. Awaiting precert. This note was generated with [employer] software. It may contain incorrect words, spelling, and punctuation that were not noted in checking the note before signing. A Code Visit Inpatient E&M: 67439 Subs Hosp L3
--- NOTE | 2018-03-24 11:07 | PN_ITS ---
Patient Problems: Active and Suspected Problems Acute renal failure (Acute) Hyperkalemia (Acute) Dehydration (Acute) Metabolic encephalopathy (Acute) Hypernatremia (Acute) Hypernatremia (Acute) Subjective: patient is a 68 year old M with a past medical history of COPD, coronary artery disease, CABG , hypertension, diabetes mellitus type 2, GERD, hyperlipidemia, depression, atrial fibrillation, tobacco dependence, recently diagnosed Parkinson's disease and recently diagnosed bilateral cerebellar ischemic infarcts in early February 2018. He was [facility] on account of altered mental status and increase in BUN and creatinine. In the ED was noted to have hyperkalemia with potassium of 7.1 and hyponatremia with sodium of 157. He was reported to not have been eating in the [facility] because he did not like the nectar thick liquids. Labs also showed leukocytosis with white cell count of 21.5 with 84.5% neutrophils, platelets and hemoglobin were within normal limits. BUN was 86 and creatinine was 4.18. He was admitted and managed for acute kidney injury, metabolic encephalopathy, hyperkalemia and hypernatremia. Patient seen and examined today. He is much more alert and able to talk to me. He denies any fever or chills, any cough or chest pain, any shortness of breath, abdominal pain, any diarrhea vomiting. He was reevaluated by speech therapy yesterday and passed a swallow exam. He is currently on nectar thick liquids. Vitals reviewed and labs reviewed. Vitals/I&O's: Vital Signs Temp Pulse Resp BP Pulse Ox 98.4 F 74 18 112/49 L 97 03/24/18 09:35 03/24/18 09:35 03/24/18 09:35 03/24/18 09:35 03/24/18 09:35 Oxygen Flow Rate (L/min) 4 Oxygen Delivery Method Nasal Cannula Weight: 205 lb 11.06 oz Body Mass Index (BMI) 27.1 Intake and Output for Last 24 Hours 03/22/18 03/23/18 03/24/18 23:59 23:59 23:59 Intake Total 4638.3 / 4638.3 3102.8 / 3102.8 612 / 612 Output Total 1700 / 1700 2125 / 2125 250 / 250 Balance 2938.3 / 2938.3 977.8 / 977.8 362 / 362 General: Alert, Oriented x3, Cooperative HEENT: Atraumatic, PERRLA, EOMI, Normocephalic Oral: Dry Mucosa Neck: Supple, No JVD, Negative Carotid Bruits Lungs: Clear to auscultation, Normal air movement, No rhonchi, No wheeze, No rales Cardiovascular: Regular rate, Regular Rhythm, Normal S1, Normal S2, No murmurs Abdomen: Bowel Sounds Present, Soft, Non Tender, Non-Distended, No Hepato- splenomegaly Extremities: No clubbing, No cyanosis, No edema, Capillary Refill Less than 3 Seconds Skin: No rashes, No breakdown Musculoskeletal: No Tenderness to Palpation of Joints or Extremities Lymphatic: No Cervical, Supraclavicular, or Inguinal Adenopathy Neurological: Cranial nerves II-XII grossly intact, - - Patient is much more alert and able to communicate. He answers questions asked today. Tremors of extremities have improved significantly. Psych/Mental Status: Normal Affect, Appropriate, Alert and oriented to time, place, person, mood and affect Laboratory Results 03/23/18 13:01: POC Glucose 197 H 03/23/18 16:53: POC Glucose 223 H 03/23/18 22:05: POC Glucose 156 H 03/24/18 05:35: WBC 11.7 H, RBC 3.95 L, Hgb 11.4 L, Hct 34.6 L, MCV 87.6, MCH 28.9, MCHC 32.9, RDW 15.3 H, RDW Differential 47.9 H, Plt Count 171, MPV 13.0 H , Immature Gran % (Auto) 0.200, Neut % (Auto) 75.4 H, Lymph % (Auto) 11.9 L, [place] % (Auto) 7.8, Eos % (Auto) 4.1, Baso % (Auto) 0.6, Absolute Neuts (auto) 8.9 H, Absolute Lymphs (auto) 1.39, Total Counted Not Reportable 03/24/18 05:35: Sodium 143, Potassium 3.8, Chloride 114 H, Carbon Dioxide 20.0 L , Anion Gap 9, BUN 23 H, Creatinine 1.16, Estim Creat Clear Calc 64.68, Est GFR (MDRD) Af Amer 81, Est GFR (MDRD) Non-Af 67, BUN/Creatinine Ratio 19.8, Glucose 179 H, Calcium 8.3 L 03/24/18 05:35: APTT 68.8 H 03/24/18 07:05: POC Glucose 219 H Current Medications Allopurinol (Zyloprim) 100 mg PO DAILYCM [facility] Last Admin: 03/24/18 08:39 Dose: 100 mg Aspirin (Aspirin, Baby) 81 mg PO DAILY@0800 [facility] Last Admin: 03/24/18 08:39 Dose: 81 mg Atorvastatin Calcium (Lipitor) 80 mg PO QHS [facility] Last Admin: 03/23/18 22:25 Dose: 80 mg Carbidopa/Levodopa (Sinemet) 1 tablet PO BIDAC [facility] Last Admin: 03/24/18 08:39 Dose: 1 tablet Chlorhexidine Gluconate () 1 each TOPICAL DAILY [facility] Last Admin: 03/24/18 10:32 Dose: Not Given Famotidine (Pepcid) 20 mg PO BID [facility] Last Admin: 03/24/18 10:33 Dose: 20 mg Heparin Sodium (Porcine) (Heparin Na) 0 unit IV UD PRN PRN Reason: Protocol Sodium Chloride () 250 mls @ 15 mls/hr IV .[id number] PRN PRN Reason: SALINE FLUSH Heparin Sodium/Sodium Chloride () 25,000 unit in 250 mls @ 12 mls/hr IV .[id number] [facility]; As Directed PRN Reason: Protocol Last Admin: 03/23/18 23:49 Dose: 12 mls/hr Dextrose () 1,000 mls @ 100 mls/hr IV .Q10H [facility] Last Admin: 03/24/18 08:38 Dose: 100 mls/hr Insulin Human Lispro (Humalog Kwikpen (Bkc)) 0 unit SC ACHS [facility] PRN Reason: Protocol Last Admin: 03/24/18 08:40 Dose: 4 units Magnesium Hydroxide (Milk Of Magnesia) 30 ml PO DAILY PRN PRN PRN Reason: Constipation Nicotine (Nicoderm Cq (Pbkc)) 21 mg TRANSDERM. DAILY [facility] Last Admin: 03/24/18 10:32 Dose: 21 mg Eeevv-4-Bfcn Ethyl Esters (Lovaza) 1 gm PO DAILY [facility] Last Admin: 03/24/18 10:33 Dose: 1 gm Sodium Chloride () 5 - 30 ml IV UD PRN PRN Reason: SALINE FLUSH Last Admin: 03/22/18 09:34 Dose: 10 ml Sotalol HCl (Betapace (G)) 80 mg PO BID [facility] Last Admin: 03/24/18 10:31 Dose: 80 mg Medical Necessity - Tobacco Use Smoking Status: Light Smoker (<10/day) Tobacco Use: Cigarettes Assessment/Plan All Active Problems Acute renal failure (Acute) Hyperkalemia (Acute) Dehydration (Acute) Metabolic encephalopathy (Acute) Hypernatremia (Acute) Hypernatremia (Acute) This 68-year-old male [facility] with complaint of altered mental status and worsening kidney function. 1. metabolic encephalopathy from azotemia and hypernatremia * resolved * Patient is much more alert today and is able to answer questions appropriately. * continue monitoring. * . * 2. Pre-renal KARO and azotemia from decreased intake * resolved. Cr is now down to 1.53 * D5W stopped yesterday per nephro. Will consider resuming for gentle hydration * renal ultrasound WNL * nephrology on board * 3. Hyperkalemia due to KARO * resolved. K is 4.4 today * * * 4. Hypernatremia * Resolved. Na is 143 today * nephrology on board * 5 Dysphagia due to stroke (bilateral cerebellar infarcts) * Resolving. Speech is much clear today. * Tolerated by speech yesterday. Past swallow eval and is currently on nectar thick liquids. * Aspiration precautions. * * 6. Reactive Leucocytosis: * resolving * is 11.7 today * Continue monitoring * 7. Diabetes mellitus * accuchecks ACHS * now on nectar thick liquids * on ISS: if he tolerates it, will resume oral hypoglycemic agents * * 8. History of bilateral cerebellar infarcts * Stable. Expressive receptive aphasia has improved significantly. * Now that he can take oral intake, will stop heparin drip and resume Xarelto. 9. Afib: rate controlled. * On sotalol and xarelto. Will resume xarelto as he can take in orally now. * 10. Parkinson's disease: on levodopa/carbidopa; will resume, as he can now take in nectar thick liquids. 11. Gout: on allopurinol 12. CAD with CABG: on aspirin, statin, 13. history of depression: will benefit from psychotherapy on outpatient basis 14. DVT prophylaxis; SCDs; will resume xarelto today and stop heparin drip Disposition: DC to [facility]. Awaiting precert. This note was generated with [employer] software. It may contain incorrect words, spelling, and punctuation that were not noted in checking the note before signing. A Code Visit Inpatient E&M: [id number] Subs Hosp L3
[2018-03-24 12:15] LABS: Bedside Glucose 219 mg/dL (70-110)
--- NOTE | 2018-03-24 14:09 | NURSING ---
While feeding pt he continuosly coughed. Notifed ST and she will reevaluate in am. NPO until further eval.
--- NOTE | 2018-03-24 15:30 | PCM.PN.REN ---
Patient Problems: Active and Suspected Problems Acute renal failure (Acute) Hyperkalemia (Acute) Dehydration (Acute) Metabolic encephalopathy (Acute) Hypernatremia (Acute) Hypernatremia (Acute) Subjective: looks remarkably better today - Physical Exam General: Alert, Cooperative HEENT: Atraumatic, PERRLA, EOMI, Normocephalic Neck: Supple, No JVD, Negative Carotid Bruits Lungs: Clear to auscultation, Normal air movement Cardiovascular: Regular rate, No murmurs Abdomen: Bowel Sounds Present, Soft, Non Tender Extremities: No edema, Capillary Refill Less than 3 Seconds Skin: No rashes, No breakdown Musculoskeletal: No Tenderness to Palpation of Joints or Extremities Psych/Mental Status: Normal Affect, Appropriate Vital Signs Temp Pulse Resp BP Pulse Ox 98.4 F 63 18 112/49 L 96 03/24/18 09:35 03/24/18 11:08 03/24/18 09:35 03/24/18 09:35 03/24/18 10:59 Oxygen Flow Rate (L/min) 4 Oxygen Delivery Method Nasal Cannula Weight: 93.3 kg Body Mass Index (BMI) 27.1 Intake and Output for Last 24 Hours 03/22/18 03/23/18 03/24/18 23:59 23:59 23:59 Intake Total 4638.3 / 4638.3 3102.8 / 3102.8 1429 / 1429 Output Total 1700 / 1700 2125 / 2125 650 / 650 Balance 2938.3 / 2938.3 977.8 / 977.8 779 / 779 Laboratory Tests Past 24 Hrs 03/24/18 03/24/18 03/24/18 05:35 05:35 05:35 WBC 11.7 H RBC 3.95 L Hgb 11.4 L Hct 34.6 L MCV 87.6 MCH 28.9 MCHC 32.9 RDW 15.3 H RDW Differential 47.9 H Plt Count 171 MPV 13.0 H Immature Gran % (Auto) 0.200 Neut % (Auto) 75.4 H Lymph % (Auto) 11.9 L [place] % (Auto) 7.8 Eos % (Auto) 4.1 Baso % (Auto) 0.6 Absolute Neuts (auto) 8.9 H Absolute Lymphs (auto) 1.39 Total Counted Not Reportable APTT 68.8 H Sodium 143 Potassium 3.8 Chloride 114 H Carbon Dioxide 20.0 L Anion Gap 9 BUN 23 H Creatinine 1.16 Estim Creat Clear Calc 64.68 Est GFR (MDRD) Af Amer 81 Est GFR (MDRD) Non-Af 67 BUN/Creatinine Ratio 19.8 Glucose 179 H Calcium 8.3 L POC Glucose 03/24/18 03/24/18 03/23/18 12:11 07:05 22:05 POC Glucose 219 H 219 H 156 H 03/23/18 16:53 POC Glucose 223 H Medical Necessity - Tobacco Use Smoking Status: Light Smoker (<10/day) Tobacco Use: Cigarettes Assessment/Plan All Active Problems Acute renal failure (Acute) Hyperkalemia (Acute) Dehydration (Acute) Metabolic encephalopathy (Acute) Hypernatremia (Acute) Hypernatremia (Acute) KARO. normal baseline as of last month (2 weeks ago). KARO likely related to volume depletion. urine output is ok. hyperkalemia better. creatinine overall improved significantly Hypernatremia. likely related to poor oral intake. unlikely DI as he is not making that much urine. sodium is close to normal now Hyperkalemia. better. he is now cleared for nectar thich liquids. can dc IV fluids as monitor. doesnt look like he is eating much. refused PEG tube
[2018-03-24 16:50] LABS: Bedside Glucose 234 mg/dL (70-110)
[2018-03-24] MEDS: Dext 5%-0.45% NS 1,000 ML 100 ML IV (21:14)
[2018-03-24 23:56] LABS: Bedside Glucose 207 mg/dL (70-110)
[2018-03-25] VITALS (11 sets, daily range): BP systolic 103–127; BP diastolic 48–64; PULSE 74–90; RESP 18; TEMP 36.8–37.3; O2SAT 93–97
[2018-03-25 05:49] LABS: Absolute Lymphocyte Count 1.28 X10^3/ul (0.83-4.51); Absolute Neutrophil Count 8.4 X10^3/uL (2.0-7.7); Basophil# 0.07 X10^3/uL; Basophil% 0.6 % (0-1); Eosinophil# 0.42 X10^3/uL; Eosinophils% 3.8 % (0-5); Hematocrit 32.8 % (40-54); Lymphocyte # 1.28 X10^3/ul (4.0); Lymphocyte % 11.4 % (19-41); Mean Corp Hgb Conc 33.5 g/gl (32-36); Mean Corpuscular Hgb 29.2 pg (27.0-32.0); Mean Platelet Vol. 12.1 fl (6.2-12.0); Monocyte# 0.95 X10^3/uL; Monocyte% 8.5 % (0-10); Neutrophil # 8.43 X10^3/uL (2.7-7.7); Neutrophil % 75.4 % (47-70); POSITIVE COUNT NO; POSITIVE DIFFERENTIAL NO; POSITIVE MORPHOLOGY NO; Platelet Count 158 K/mm3 (150-450); RBC Distribution Width CV 15.2 % (11.6-14.6); RBC Distribution Width SD 46.4 fl (35.1-43.9); Red Blood Count 3.77 M/mm3 (4.6-6.2); White Blood Count 11.2 K/mm3 (4.4-11.0)
[2018-03-25 06:07] LABS: Anion Gap 6 (5-15); BUN 22 mg/dL (7-18); BUN/Creat Ratio 20.6 RATIO (10-20); Calcium,Total 8.9 mg/dL (8.5-10.1); Chloride 115 mmol/L (98-107); Creatinine, Serum 1.07 mg/dL (0.70-1.30); EST Glomerular Filtration Rate 74 mL/min (>60); Est Glom Filt Rate - Afr Amer 89 mL/min (>60); Estimated Creatinine Clearance 70.12 ml/min; Glucose 203 mg/dL (74-106); Potassium 3.8 mmol/L (3.5-5.1); Sodium Level 142 mmol/L (136-145)
[2018-03-25] MEDS: Dext 5%-0.45% NS 1,000 ML 100 ML IV ×2 (06:21→17:36)
[2018-03-25] MEDS: Insulin Lispro 100 UNIT/ML INSULN.PEN SC ×4 (06:22→23:57)
[2018-03-25 06:31] LABS: Bedside Glucose 190 mg/dL (70-110)
--- NOTE | 2018-03-25 12:00 | NURSING ---
Spoke with Kristen in lab-will draw labs to initiate Heparin drip.
[2018-03-25 12:22] LABS: Absolute Lymphocyte Count 1.27 X10^3/ul (0.83-4.51); Absolute Neutrophil Count 7.8 X10^3/uL (2.0-7.7); Basophil# 0.04 X10^3/uL; Basophil% 0.4 % (0-1); Eosinophil# 0.41 X10^3/uL; Eosinophils% 3.9 % (0-5); Hematocrit 34.3 % (40-54); Hemoglobin 11.2 g/dl (13.0-16.5); Lymphocyte # 1.27 X10^3/ul (4.0); Lymphocyte % 12.2 % (19-41); Mean Corp Hgb Conc 32.7 g/gl (32-36); Mean Corpuscular Hgb 28.1 pg (27.0-32.0); Mean Corpuscular Volume 86.2 fL (80-94); Mean Platelet Vol. 12.3 fl (6.2-12.0); Monocyte# 0.91 X10^3/uL; Monocyte% 8.7 % (0-10); Neutrophil # 7.78 X10^3/uL (2.7-7.7); Neutrophil % 74.7 % (47-70); POSITIVE COUNT NO; POSITIVE DIFFERENTIAL NO; POSITIVE MORPHOLOGY NO; Platelet Count 166 K/mm3 (150-450); RBC Distribution Width CV 15.6 % (11.6-14.6); RBC Distribution Width SD 48.5 fl (35.1-43.9); Red Blood Count 3.98 M/mm3 (4.6-6.2); White Blood Count 10.4 K/mm3 (4.4-11.0)
[2018-03-25 12:29] LABS: International Normalized Ratio 1.2; Prothrombin Time (Protime)PT. 14.8 SECONDS (11.7-14.9)
[2018-03-25 12:30] LABS: Partial Thromboplast Time 42.1 Seconds (24.1-36.2)
--- NOTE | 2018-03-25 12:54 | PCM.PN.HOSP ---
Patient Problems: Active and Suspected Problems Acute renal failure (Acute) Hyperkalemia (Acute) Dehydration (Acute) Metabolic encephalopathy (Acute) Hypernatremia (Acute) Hypernatremia (Acute) Subjective: patient is a 68 year old M with a past medical history of COPD, coronary artery disease, CABG , hypertension, diabetes mellitus type 2, GERD, hyperlipidemia, depression, atrial fibrillation, tobacco dependence, recently diagnosed Parkinson's disease and recently diagnosed bilateral cerebellar ischemic infarcts in early February 2018. He was admitted via the ED on 03/20/18 from his custodial on account of altered mental status and increase in BUN and creatinine. In the ED was noted to have hyperkalemia with potassium of 7.1 and hyponatremia with sodium of 157. He was reported to not have been eating in the custodial because he did not like the nectar thick liquids. Labs also showed leukocytosis with white cell count of 21.5 with 84.5% neutrophils, platelets and hemoglobin were within normal limits. BUN was 86 and creatinine was 4.18. He was admitted and managed for acute kidney injury, metabolic encephalopathy, hyperkalemia and hypernatremia. Seen and examined. He feels well and has no complaints. He is alert and oriented and is able to communicate verbally. He denies any fever chills, any cough or chest pain, shortness of breath, abdominal pain, any diarrhea vomiting. Patient was made n.p.o. yesterday again because when nurse attempted to feed him he started choking. He therefore did not receive Xarelto last night. Vitals/I&O's: Vital Signs Temp Pulse Resp BP Pulse Ox 99.2 F H 79 18 105/54 L 94 03/25/18 09:30 03/25/18 11:09 03/25/18 09:30 03/25/18 09:30 03/25/18 09:30 Oxygen Flow Rate (L/min) 3 Oxygen Delivery Method Nasal Cannula Weight: 203 lb 4.259 oz Body Mass Index (BMI) 27.1 Intake and Output for Last 24 Hours 03/23/18 03/24/18 03/25/18 23:59 23:59 23:59 Intake Total 3102.8 / 3102.8 2220 / 2220 1205 / 1205 Output Total 2125 / 2125 1225 / 1225 675 / 675 Balance 977.8 / 977.8 995 / 995 530 / 530 General: Alert, Oriented x3, Cooperative, No apparent distress HEENT: Atraumatic, PERRLA, EOMI, Normocephalic Oral: Dry Mucosa Neck: Supple, No JVD, Negative Carotid Bruits, No Nodes Lungs: Clear to auscultation, Normal air movement, No rhonchi, No wheeze, No rales Cardiovascular: No murmurs, Irregular Rate - and rhythm Abdomen: Bowel Sounds Present, Soft, Non Tender, Non-Distended, No Hepato-splenomegaly Extremities: No clubbing, No cyanosis, No edema, Capillary Refill Less than 3 Seconds Skin: No rashes, No breakdown Musculoskeletal: No Tenderness to Palpation of Joints or Extremities Lymphatic: No Cervical, Supraclavicular, or Inguinal Adenopathy Neurological: Cranial nerves II-XII grossly intact, - - still has some tremors of his LUE but it is much better. Psych/Mental Status: Normal Affect, Appropriate, Alert and oriented to time, place, person, mood and affect Laboratory Results 03/24/18 16:25: POC Glucose 234 H 03/24/18 23:47: POC Glucose 207 H 03/25/18 05:30: WBC 11.2 H, RBC 3.77 L, Hgb 11.0 L, Hct 32.8 L, MCV 87.0, MCH 29.2, MCHC 33.5, RDW 15.2 H, RDW Differential 46.4 H, Plt Count 158, MPV 12.1 H, Immature Gran % (Auto) 0.300, Neut % (Auto) 75.4 H, Lymph % (Auto) 11.4 L, [place] % (Auto) 8.5, Eos % (Auto) 3.8, Baso % (Auto) 0.6, Absolute Neuts (auto) 8.4 H, Absolute Lymphs (auto) 1.28, Total Counted Not Reportable 03/25/18 05:30: Sodium 142, Potassium 3.8, Chloride 115 H, Carbon Dioxide 21.0, Anion Gap 6, BUN 22 H, Creatinine 1.07, Estim Creat Clear Calc 70.12, Est GFR (MDRD) Af Amer 89, Est GFR (MDRD) Non-Af 74, BUN/Creatinine Ratio 20.6 H, Glucose 203 H, Calcium 8.9 07/08/18 06:19: POC Glucose 190 H 03/25/18 12:10: WBC 10.4, RBC 3.98 L, Hgb 11.2 L, Hct 34.3 L, MCV 86.2, MCH 28.1, MCHC 32.7, RDW 15.6 H, RDW Differential 48.5 H, Plt Count 166, MPV 12.3 H, Immature Gran % (Auto) 0.100, Neut % (Auto) 74.7 H, Lymph % (Auto) 12.2 L, [place] % (Auto) 8.7, Eos % (Auto) 3.9, Baso % (Auto) 0.4, Absolute Neuts (auto) 7.8 H, Absolute Lymphs (auto) 1.27, Total Counted Not Reportable 03/25/18 12:10: PT 14.8, INR 1.2, APTT 42.1 H Current Medications Allopurinol (Zyloprim) 100 mg PO DAILYCM [facility] Last Admin: 03/25/18 08:33 Dose: Not Given Aspirin (Aspirin, Baby) 81 mg PO DAILY@0800 [facility] Last Admin: 03/25/18 08:33 Dose: Not Given Atorvastatin Calcium (Lipitor) 80 mg PO QHS [facility] Last Admin: 03/24/18 21:14 Dose: Not Given Carbidopa/Levodopa (Sinemet) 1 tablet PO BIDAC [facility] Last Admin: 03/25/18 08:33 Dose: Not Given Chlorhexidine Gluconate () 1 each TOPICAL DAILY [facility] Last Admin: 03/25/18 10:13 Dose: Not Given Famotidine (Pepcid) 20 mg PO BID [facility] Last Admin: 03/25/18 10:14 Dose: Not Given Heparin Sodium (Porcine) (Heparin Na) 0 unit IV UD PRN PRN Reason: Protocol Sodium Chloride () 250 mls @ 15 mls/hr IV .[id number] PRN PRN Reason: SALINE FLUSH Dextrose/Sodium Chloride () 1,000 mls @ 100 mls/hr IV .Q10H [facility] Last Admin: 03/25/18 06:21 Dose: 100 mls/hr Heparin Sodium/Dextrose () 25,000 units in 250 mls @ 14 mls/hr IV .[id number] [facility]; As Directed PRN Reason: Protocol Insulin Human Lispro (Humalog Kwikpen (Bkc)) 0 unit SC Q6 [facility] PRN Reason: Protocol Last Admin: 03/25/18 11:56 Dose: 4 u Magnesium Hydroxide (Milk Of Magnesia) 30 ml PO DAILY PRN PRN PRN Reason: Constipation Nicotine (Nicoderm Cq (Pbkc)) 21 mg TRANSDERM. DAILY [facility] Last Admin: 03/25/18 11:37 Dose: Not Given [id number] Ethyl Esters (Lovaza) 1 gm PO DAILY [facility] Last Admin: 03/25/18 10:14 Dose: Not Given Sodium Chloride () 5 - 30 ml IV UD PRN PRN Reason: SALINE FLUSH Last Admin: 03/22/18 09:34 Dose: 10 ml Sotalol HCl (Betapace (G)) 80 mg PO BID [facility] Last Admin: 03/25/18 10:13 Dose: Not Given Medical Necessity - Tobacco Use Smoking Status: Light Smoker (<10/day) Tobacco Use: Cigarettes Assessment/Plan All Active Problems Acute renal failure (Acute) Hyperkalemia (Acute) Dehydration (Acute) Metabolic encephalopathy (Acute) Hypernatremia (Acute) Hypernatremia (Acute) This 68-year-old male admitted from the custodial with complaint of altered mental status and worsening kidney function. 1. metabolic encephalopathy from azotemia and hypernatremia resolved 2. Pre-renal KARO and azotemia from decreased intake resolved. renal ultrasound WNL nephrology on board 5 Dysphagia due to stroke (bilateral cerebellar infarcts) Resolving. Speech is much clear today. Past swallow evaluation by speech yesterday. However when nurse tried feeding patient started to choke and so he was made n.p.o. again. Per discussion with patient and , the okay with having PEG tube placed. General surgery consulted. Spoke to Dr. Mars. For PEG tube placement tomorrow. 6. Reactive Leucocytosis: resolved. na is 10.4 today 7. Diabetes mellitus accuchecks q6hrs on NPO sliding scale now on nectar thick liquids on ISS: if he tolerates it, will resume oral hypoglycemic agents 8. History of bilateral cerebellar infarcts Stable. Expressive receptive aphasia has improved significantly. resumed heparin drip as he was made NPO again 9. Afib: rate controlled. On sotalol and xarelto. Didnt get xarelto overnight due to NPO state will resume heparin drip 10. Parkinson's disease: on levodopa/carbidopa; 11. Gout: on allopurinol 12. CAD with CABG: on aspirin, statin, 13. history of depression: stable 14. DVT prophylaxis; SCDs; will resume start heparin drip again as he is NPO. Disposition: DC to custodial tomorrow after PEG tube if PreCert received. This note was generated with [employer] software. It may contain incorrect words, spelling, and punctuation that were not noted in checking the note before signing. Code Visit Inpatient E&M: 77422 Subs Hosp L3
--- NOTE | 2018-03-25 12:59 | PN_ITS ---
Patient Problems: Active and Suspected Problems Acute renal failure (Acute) Hyperkalemia (Acute) Dehydration (Acute) Metabolic encephalopathy (Acute) Hypernatremia (Acute) Hypernatremia (Acute) Subjective: patient is a 68 year old M with a past medical history of COPD, coronary artery disease, CABG , hypertension, diabetes mellitus type 2, GERD, hyperlipidemia, depression, atrial fibrillation, tobacco dependence, recently diagnosed Parkinson's disease and recently diagnosed bilateral cerebellar ischemic infarcts in early February 2018. He was admitted via the ED on 03/20/18 from his long term on account of altered mental status and increase in BUN and creatinine. In the ED was noted to have hyperkalemia with potassium of 7.1 and hyponatremia with sodium of 157. He was reported to not have been eating in the long term because he did not like the nectar thick liquids. Labs also showed leukocytosis with white cell count of 21.5 with 84.5% neutrophils, platelets and hemoglobin were within normal limits. BUN was 86 and creatinine was 4.18. He was admitted and managed for acute kidney injury, metabolic encephalopathy, hyperkalemia and hypernatremia. Seen and examined. He feels well and has no complaints. He is alert and oriented and is able to communicate verbally. He denies any fever chills, any cough or chest pain, shortness of breath, abdominal pain, any diarrhea vomiting. Patient was made n.p.o. yesterday again because when nurse attempted to feed him he started choking. He therefore did not receive Xarelto last night. Vitals/I&O's: Vital Signs Temp Pulse Resp BP Pulse Ox 99.2 F H 79 18 105/54 L 94 03/25/18 09:30 03/25/18 11:09 03/25/18 09:30 03/25/18 09:30 03/25/18 09:30 Oxygen Flow Rate (L/min) 3 Oxygen Delivery Method Nasal Cannula Weight: 203 lb 4.259 oz Body Mass Index (BMI) 27.1 Intake and Output for Last 24 Hours 03/23/18 03/24/18 03/25/18 23:59 23:59 23:59 Intake Total 3102.8 / 3102.8 2220 / 2220 1205 / 1205 Output Total 2125 / 2125 1225 / 1225 675 / 675 Balance 977.8 / 977.8 995 / 995 530 / 530 General: Alert, Oriented x3, Cooperative, No apparent distress HEENT: Atraumatic, PERRLA, EOMI, Normocephalic Oral: Dry Mucosa Neck: Supple, No JVD, Negative Carotid Bruits, No Nodes Lungs: Clear to auscultation, Normal air movement, No rhonchi, No wheeze, No rales Cardiovascular: No murmurs, Irregular Rate - and rhythm Abdomen: Bowel Sounds Present, Soft, Non Tender, Non-Distended, No Hepato- splenomegaly Extremities: No clubbing, No cyanosis, No edema, Capillary Refill Less than 3 Seconds Skin: No rashes, No breakdown Musculoskeletal: No Tenderness to Palpation of Joints or Extremities Lymphatic: No Cervical, Supraclavicular, or Inguinal Adenopathy Neurological: Cranial nerves II-XII grossly intact, - - still has some tremors of his LUE but it is much better. Psych/Mental Status: Normal Affect, Appropriate, Alert and oriented to time, place, person, mood and affect Laboratory Results 03/24/18 16:25: POC Glucose 234 H 03/24/18 23:47: POC Glucose 207 H 03/25/18 05:30: WBC 11.2 H, RBC 3.77 L, Hgb 11.0 L, Hct 32.8 L, MCV 87.0, MCH 29.2, MCHC 33.5, RDW 15.2 H, RDW Differential 46.4 H, Plt Count 158, MPV 12.1 H , Immature Gran % (Auto) 0.300, Neut % (Auto) 75.4 H, Lymph % (Auto) 11.4 L, [place] % (Auto) 8.5, Eos % (Auto) 3.8, Baso % (Auto) 0.6, Absolute Neuts (auto) 8.4 H, Absolute Lymphs (auto) 1.28, Total Counted Not Reportable 03/25/18 05:30: Sodium 142, Potassium 3.8, Chloride 115 H, Carbon Dioxide 21.0, Anion Gap 6, BUN 22 H, Creatinine 1.07, Estim Creat Clear Calc 70.12, Est GFR ( MDRD) Af Amer 89, Est GFR (MDRD) Non-Af 74, BUN/Creatinine Ratio 20.6 H, Glucose 203 H, Calcium 8.9 07/08/18 06:19: POC Glucose 190 H 03/25/18 12:10: WBC 10.4, RBC 3.98 L, Hgb 11.2 L, Hct 34.3 L, MCV 86.2, MCH 28.1 , MCHC 32.7, RDW 15.6 H, RDW Differential 48.5 H, Plt Count 166, MPV 12.3 H, Immature Gran % (Auto) 0.100, Neut % (Auto) 74.7 H, Lymph % (Auto) 12.2 L, [place] % (Auto) 8.7, Eos % (Auto) 3.9, Baso % (Auto) 0.4, Absolute Neuts (auto) 7.8 H, Absolute Lymphs (auto) 1.27, Total Counted Not Reportable 03/25/18 12:10: PT 14.8, INR 1.2, APTT 42.1 H Current Medications Allopurinol (Zyloprim) 100 mg PO DAILYCM [facility] Last Admin: 03/25/18 08:33 Dose: Not Given Aspirin (Aspirin, Baby) 81 mg PO DAILY@0800 [facility] Last Admin: 03/25/18 08:33 Dose: Not Given Atorvastatin Calcium (Lipitor) 80 mg PO QHS [facility] Last Admin: 03/24/18 21:14 Dose: Not Given Carbidopa/Levodopa (Sinemet) 1 tablet PO BIDAC [facility] Last Admin: 03/25/18 08:33 Dose: Not Given Chlorhexidine Gluconate () 1 each TOPICAL DAILY [facility] Last Admin: 03/25/18 10:13 Dose: Not Given Famotidine (Pepcid) 20 mg PO BID [facility] Last Admin: 03/25/18 10:14 Dose: Not Given Heparin Sodium (Porcine) (Heparin Na) 0 unit IV UD PRN PRN Reason: Protocol Sodium Chloride () 250 mls @ 15 mls/hr IV .[id number] PRN PRN Reason: SALINE FLUSH Dextrose/Sodium Chloride () 1,000 mls @ 100 mls/hr IV .Q10H [facility] Last Admin: 03/25/18 06:21 Dose: 100 mls/hr Heparin Sodium/Dextrose () 25,000 units in 250 mls @ 14 mls/hr IV .[id number] [facility] ; As Directed PRN Reason: Protocol Insulin Human Lispro (Humalog Kwikpen (Bkc)) 0 unit SC Q6 [facility] PRN Reason: Protocol Last Admin: 03/25/18 11:56 Dose: 4 u Magnesium Hydroxide (Milk Of Magnesia) 30 ml PO DAILY PRN PRN PRN Reason: Constipation Nicotine (Nicoderm Cq (Pbkc)) 21 mg TRANSDERM. DAILY [facility] Last Admin: 03/25/18 11:37 Dose: Not Given Dlhgo-8-Lmmz Ethyl Esters (Lovaza) 1 gm PO DAILY [facility] Last Admin: 03/25/18 10:14 Dose: Not Given Sodium Chloride () 5 - 30 ml IV UD PRN PRN Reason: SALINE FLUSH Last Admin: 03/22/18 09:34 Dose: 10 ml Sotalol HCl (Betapace (G)) 80 mg PO BID [facility] Last Admin: 03/25/18 10:13 Dose: Not Given Medical Necessity - Tobacco Use Smoking Status: Light Smoker (<10/day) Tobacco Use: Cigarettes Assessment/Plan All Active Problems Acute renal failure (Acute) Hyperkalemia (Acute) Dehydration (Acute) Metabolic encephalopathy (Acute) Hypernatremia (Acute) Hypernatremia (Acute) This 68-year-old male admitted from the long term with complaint of altered mental status and worsening kidney function. 1. metabolic encephalopathy from azotemia and hypernatremia * resolved * 2. Pre-renal KARO and azotemia from decreased intake * resolved. * renal ultrasound WNL * nephrology on board * 5 Dysphagia due to stroke (bilateral cerebellar infarcts) * Resolving. Speech is much clear today. * Past swallow evaluation by speech yesterday. However when nurse tried feeding patient started to choke and so he was made n.p.o. again. * Per discussion with patient and , the okay with having PEG tube placed. * General surgery consulted. Spoke to Dr. Mars. For PEG tube placement tomorrow. * * 6. Reactive Leucocytosis: * resolved. na is 10.4 today 7. Diabetes mellitus * accuchecks q6hrs * on NPO sliding scale * now on nectar thick liquids * on ISS: if he tolerates it, will resume oral hypoglycemic agents * * 8. History of bilateral cerebellar infarcts * Stable. Expressive receptive aphasia has improved significantly. * resumed heparin drip as he was made NPO again 9. Afib: rate controlled. * On sotalol and xarelto. Didnt get xarelto overnight due to NPO state * will resume heparin drip * 10. Parkinson's disease: on levodopa/carbidopa; 11. Gout: on allopurinol 12. CAD with CABG: on aspirin, statin, 13. history of depression: stable 14. DVT prophylaxis; SCDs; will resume start heparin drip again as he is NPO. Disposition: DC to long term tomorrow after PEG tube if PreCert received. This note was generated with [employer] dictation software. It may contain incorrect words, spelling, and punctuation that were not noted in checking the note before signing. Code Visit Inpatient E&M: 66645 Subs Hosp L3
[2018-03-25] MEDS: HEPARIN/D5w 25,000 UNITS 25,000 UNITS/250 ML IV.SOLN. 14 UNITS IV (13:10)
[2018-03-25 13:20] LABS: Bedside Glucose 230 mg/dL (70-110)
--- NOTE | 2018-03-25 15:28 | CON.PCM_ITS ---
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 Apparently at that time he was on Eliquis therapy but somewhat erratic with his consistency. He was discharged on aspirin and Xarelto to the [place] [facility]. He was known to have oral dysphagia and by report is been placed on thickened liquids. He has had at least a 25 pound weight loss. He was readmitted to the [facility] back on March 20, 2018. He had acute renal failure hyperkalemia dehydration. CT of the head showed stable encephalomalacia in the right occipital lobe from a previous infarct. There is no acute infarct. Renal ultrasound was obtained showing normal size and echogenicity no hydronephrosis. was consulted on March 21. Beals that the patient's acute kidney the anterior secondary to significant dehydration. IV fluid resuscitation was recommended and renal replacement therapy was not felt to be needed. Was felt that the patient had a free water deficit of 5 L. A barium swallow was performed on March 23 but could not be accomplished as the patient was not able to drink the barium. A more recent diagnosis also include Parkinson's disease. The patient apparently was not eating well at the [place] [facility] because he was prescribed neck target thick liquids and did not like that product. Upon attempting to see the patient today again he had recurrent choking. I have been asked to see him by for surgical consultation regarding placement of the PEG tube and a electronic copy of my surgical consult recommendations will be in the chart. Pertinent significant medications include allopurinol and aspirin and atorvastatin and Sinemet and Pepcid and IV heparin and insulin and omega-3 As of today his white blood cell count is 10.4 with a hemoglobin low at 11.2 and hematocrit 34.3 and platelet count of 166,000. 74% neutrophils. INR is 1.2 with a PTT of 42.1 his most recent BMP was yesterday with a BUN of 22 and creatinine 1.07. Recent glucose is 230 Most recent temperatures slight fever at 99.2 he is on 3 L nasal prong oxygen with a SaO2 of 94%. 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) Tobacco abuse (Chronic) 1/2 ppd now 3ppd in the past Hyperlipidemia (Chronic) Gastroesophageal reflux disease (Chronic) Type 2 diabetes mellitus (Chronic) Benign essential hypertension (Chronic) Slurred speech (Chronic) CHF (congestive heart failure) (Chronic) ef=40% 2012, 55% in February of 2018 Atrial fibrillation (Chronic) Allergies Penicillins Allergy (Verified 03/20/18 19:39) Rash varenicline [From Chantix] Adverse Reaction (Verified 03/20/18 19:39) Unknown Home Medications: Ambulatory Orders Medication Instructions Recorded Metformin HCl 500 mg PO BID 10/23/17 Omeprazole 20 mg PO DAILY 10/23/17 Potassium Chloride [Klor-Con M20] 20 meq PO DAILY 10/23/17 Sotalol HCl [Betapace AF (Beta 80 mg PO BID 10/23/17 Ahsan)] Aspirin [Aspirin, Baby] 81 mg PO DAILY@0800 tab.chew 10/25/17 Albuterol Inhaler [Ventolin Hfa] 1 puff INHALATION Q4H PRN PRN 02/26/18 Allopurinol 100 mg PO DAILY 02/26/18 Carbidopa/Levodopa 25/100 [Sinemet 1 tablet PO BIDAC 02/26/18 25/100] Furosemide [Lasix] 40 mg PO BID 02/26/18 Insulin Aspart [Novolog Flexpen] 8 units SC TIDCM 02/26/18 Atorvastatin Calcium [Lipitor] 80 mg PO QHS tablet 02/27/18 Famotidine [Pepcid] 20 mg PO BID tablet 02/27/18 Ferrous Sulfate 325 mg PO BID tablet 02/27/18 Lisinopril [Zestril] 10 mg PO DAILY tablet 02/27/18 [place]-3 Acid Ethyl Esters [Lovaza] 1 gm PO DAILY capsule 02/27/18 Rivaroxaban [Xarelto] 20 mg PO DAILY 30 Days #30 tablet 02/27/18 Nicotine [Nicotine Patch] 21 mg TD DAILY 07/03/18 Surgical History: coronary bypass surgery Psychiatric History: Depression Lives: Half-Way Smoking Status: Light Smoker (<10/day) Tobacco Use: Cigarettes Alcohol: None Drugs: None - *Family History Maternal History Items: Cancer - Breast cancer Paternal History Items: Heart Disease - Congestive heart failure Review of Systems Constitutional: Reports: Anorexia Eyes: Denies: Blurred vision HEENT: Reports: Difficulty Swallowing, Dysphasia, - - Slurred speech Cardiovascular: Denies: Chest Pain Respiratory: Reports: Cough Gastrointestinal: Denies: Abdominal Pain Genitourinary: Reports: Retention Musculoskeletal: Denies: Leg Pain Skin: Reports: Dryness Neurological: Reports: Balance problems Endocrine: Reports: Change in Body Habitus, - - Significant 25 pound weight loss Hematologic/ Lymphatic: Denies: Adenopathy Patient Problems: Active and Suspected Problems Acute renal failure (Acute) Hyperkalemia (Acute) Dehydration (Acute) Metabolic encephalopathy (Acute) Hypernatremia (Acute) Hypernatremia (Acute) - Physical Exam General: Alert Oral: Moist Mucosa Neck: Supple Lungs: Clear to auscultation Cardiovascular: Irregular Rate Abdomen: Bowel Sounds Present, Soft, Non Tender, - - Evidence of recent weight loss Extremities: Clubbing, - - Heavy tobacco staining of his right fingers Calves are supple nontender Skin: No rashes Musculoskeletal: No Tenderness to Palpation of Joints or Extremities Lymphatic: No Cervical, Supraclavicular, or Inguinal Adenopathy Psych/Mental Status: Flat Affect Vital Signs Temp Pulse Resp BP Pulse Ox 99.2 F H 79 18 105/54 L 94 03/25/18 09:30 03/25/18 11:09 03/25/18 09:30 03/25/18 09:30 03/25/18 09:30 Oxygen Flow Rate (L/min) 3 Oxygen Delivery Method Nasal Cannula Weight: 203 lb 4.259 oz Body Mass Index (BMI) 27.1 Intake and Output for Last 24 Hours 03/23/18 03/24/18 03/25/18 23:59 23:59 23:59 Intake Total 3102.8 / 3102.8 2220 / 2220 1205 / 1205 Output Total 2125 / 2125 1225 / 1225 675 / 675 Balance 977.8 / 977.8 995 / 995 530 / 530 Laboratory Tests Past 24 Hrs 03/25/18 03/25/1818 05:30 05:30 12:10 WBC 11.2 H 10.4 RBC 3.77 L 3.98 L Hgb 11.0 L 11.2 L Hct 32.8 L 34.3 L MCV 87.0 86.2 MCH 29.2 28.1 MCHC 33.5 32.7 RDW 15.2 H 15.6 H RDW Differential 46.4 H 48.5 H Plt Count 158 166 MPV 12.1 H 12.3 H Immature Gran % (Auto) 0.300 0.100 Neut % (Auto) 75.4 H 74.7 H Lymph % (Auto) 11.4 L 12.2 L [place] % (Auto) 8.5 8.7 Eos % (Auto) 3.8 3.9 Baso % (Auto) 0.6 0.4 Absolute Neuts (auto) 8.4 H 7.8 H Absolute Lymphs (auto) 1.28 1.27 Total Counted Not Reportable Not Reportable PT INR APTT Sodium 142 Potassium 3.8 Chloride 115 H Carbon Dioxide 21.0 Anion Gap 6 BUN 22 H Creatinine 1.07 Estim Creat Clear Calc 70.12 Est GFR (MDRD) Af Amer 89 Est GFR (MDRD) Non-Af 74 BUN/Creatinine Ratio 20.6 H Glucose 203 H Calcium 8.9 03/25/18 12:10 WBC RBC Hgb Hct MCV MCH MCHC RDW RDW Differential Plt Count MPV Immature Gran % (Auto) Neut % (Auto) Lymph % (Auto) [place] % (Auto) Eos % (Auto) Baso % (Auto) Absolute Neuts (auto) Absolute Lymphs (auto) Total Counted PT 14.8 INR 1.2 APTT 42.1 H Sodium Potassium Chloride Carbon Dioxide Anion Gap BUN Creatinine Estim Creat Clear Calc Est GFR (MDRD) Af Amer Est GFR (MDRD) Non-Af BUN/Creatinine Ratio Glucose Calcium POC Glucose 03/25/18 03/25/18 03/24/18 11:54 06:19 23:47 POC Glucose 230 H 190 H 207 H 03/24/18 16:25 POC Glucose 234 H Assessment/Plan All Active Problems Acute renal failure (Acute) Hyperkalemia (Acute) Dehydration (Acute) Metabolic encephalopathy (Acute) Hypernatremia (Acute) Hypernatremia (Acute) With the patient's present I discussed the technique of a percutaneous endoscopic gastrostomy tube placement. We discussed the technique, benefits, risks, alternatives. No guarantees of success have been offered. We furthermore discussed that the reason for placing a PEG tube would be then to limit oral intake to allow for nutrition and medications to be given through the PEG tube and limit the patient's risk of recurrent aspiration. The patient is aware that he will need to work with therapist to assist with regaining his swallowing function. His stroke combined with his Parkinson's may make this challenging. They have had an opportunity to ask and have questions answered. I will hold the patient n.p.o. after midnight. Pending endoscopy scheduling we will try to proceed with a PEG tube placement tomorrow. I appreciate the opportunity of assisting with her surgical care Roni Cavazos M.D., F.A.C.S.
--- NOTE | 2018-03-25 17:14 | PCM.PN.REN ---
Patient Problems: Active and Suspected Problems Acute renal failure (Acute) Hyperkalemia (Acute) Dehydration (Acute) Metabolic encephalopathy (Acute) Hypernatremia (Acute) Hypernatremia (Acute) - Physical Exam General: Alert HEENT: Atraumatic Neck: Supple Lungs: Clear to auscultation Vital Signs Temp Pulse Resp BP Pulse Ox 99.1 F 77 18 103/48 L 95 03/25/18 15:30 03/25/18 15:30 03/25/18 15:30 03/25/18 15:30 03/25/18 15:30 Oxygen Flow Rate (L/min) 3 Oxygen Delivery Method Nasal Cannula Weight: 92.2 kg Body Mass Index (BMI) 27.1 Intake and Output for Last 24 Hours 03/23/18 03/24/18 03/25/18 23:59 23:59 23:59 Intake Total 3102.8 / 3102.8 2220 / 2220 1205 / 1205 Output Total 2125 / 2125 1225 / 1225 675 / 675 Balance 977.8 / 977.8 995 / 995 530 / 530 Laboratory Tests Past 24 Hrs 03/25/18 03/25/18 03/25/18 05:30 05:30 12:10 WBC 11.2 H 10.4 RBC 3.77 L 3.98 L Hgb 11.0 L 11.2 L Hct 32.8 L 34.3 L MCV 87.0 86.2 MCH 29.2 28.1 MCHC 33.5 32.7 RDW 15.2 H 15.6 H RDW Differential 46.4 H 48.5 H Plt Count 158 166 MPV 12.1 H 12.3 H Immature Gran % (Auto) 0.300 0.100 Neut % (Auto) 75.4 H 74.7 H Lymph % (Auto) 11.4 L 12.2 L [place] % (Auto) 8.5 8.7 Eos % (Auto) 3.8 3.9 Baso % (Auto) 0.6 0.4 Absolute Neuts (auto) 8.4 H 7.8 H Absolute Lymphs (auto) 1.28 1.27 Total Counted Not Reportable Not Reportable PT INR APTT Sodium 142 Potassium 3.8 Chloride 115 H Carbon Dioxide 21.0 Anion Gap 6 BUN 22 H Creatinine 1.07 Estim Creat Clear Calc 70.12 Est GFR (MDRD) Af Amer 89 Est GFR (MDRD) Non-Af 74 BUN/Creatinine Ratio 20.6 H Glucose 203 H Calcium 8.9 03/25/18 12:10 WBC RBC Hgb Hct MCV MCH MCHC RDW RDW Differential Plt Count MPV Immature Gran % (Auto) Neut % (Auto) Lymph % (Auto) [place] % (Auto) Eos % (Auto) Baso % (Auto) Absolute Neuts (auto) Absolute Lymphs (auto) Total Counted PT 14.8 INR 1.2 APTT 42.1 H Sodium Potassium Chloride Carbon Dioxide Anion Gap BUN Creatinine Estim Creat Clear Calc Est GFR (MDRD) Af Amer Est GFR (MDRD) Non-Af BUN/Creatinine Ratio Glucose Calcium POC Glucose 03/25/18 03/25/18 03/24/18 11:54 06:19 23:47 POC Glucose 230 H 190 H 207 H Medical Necessity - Tobacco Use Smoking Status: Light Smoker (<10/day) Tobacco Use: Cigarettes Assessment/Plan All Active Problems Acute renal failure (Acute) Hyperkalemia (Acute) Dehydration (Acute) Metabolic encephalopathy (Acute) Hypernatremia (Acute) Hypernatremia (Acute) KARO. normal baseline as of last month (2 weeks ago). KARO likely related to volume depletion. urine output is ok. hyperkalemia better. creatinine overall improved significantly Hypernatremia. likely related to poor oral intake. unlikely DI as he is not making that much urine. sodium is close to normal now Hyperkalemia. better. he is now cleared for nectar thich liquids. can dc IV fluids as monitor. doesnt look like he is eating much. refused PEG tube
[2018-03-25 18:25] LABS: Bedside Glucose 180 mg/dL (70-110)
[2018-03-25 19:43] LABS: Partial Thromboplast Time 104.1 Seconds (24.1-36.2)
[2018-03-26] VITALS (18 sets, daily range): BP systolic 124–160; BP diastolic 60–97; PULSE 84–101; RESP 16–22; TEMP 36.6–37.4; O2SAT 93–99; BMI 29.5
--- NOTE | 2018-03-26 | COLBX_PTH ---
PATIENT: JUNIOR Ana RICHARDSON LOC: [facility] U#:[id number] AGE/SX: 68/M ROOM: [facility] RE03/20/[address]: Dr. Iram Hart MD : 1950 BED: 1 DIS: 03/27/2018 SPEC #: [id number] RECD: 03/26/18 16:43 STATUS: ARNAV RE #: [id number] PARISH: 03/26/18 00:[address]: Roni Cavazos DEPT: SURGICAL PATHOLOGY RECD BY: Darwin Cho ENTERED: 03/27/18 08:25 SP TYPE: COLON BX OTHR DR: MD Dr. Ishan Arteaga MD Dr. Mary Catherine Sementi, DO Dr. Derek Brown, DO Dr. Nana Yaa Koram, MD Dr. Natthavat Tanphaichitr, MD Tissues: A - Duodenum, NOS B - Gastric mucous membrane Procedures: Surgery Specimen Level IV HEADER OPERATION: Insertion, peg tube PRE-OP DIAGNOSIS: Dysphagia TISSUE SUBMITTED: A. Duodenal biopsy, B. Antral biopsy MICROSCOPIC DIAGNOSIS A. Duodenum, biopsy: Fragments of small intestinal mucosa, no pathologic diagnosis. B. Antral biopsy: Mild gastritis. See microscopic description and comment. SJ:lissette 03/28/18 COMMENT B. The results of immunohistochemistry for Helicobacter pylori will be reported separately ([id number]). MICROSCOPIC DESCRIPTION Slides are reviewed. B. The specimen shows fragments of gastric mucosa with chronic inflammatory cell infiltrates in the lamina propria consisting of lymphocytes and plasma cells, consistent with mild chronic gastritis. GROSS DESCRIPTION A - Received in fixative is one container labeled with the patient's name and designated duodenal biopsy. The specimen consists of multiple irregular fragments of light nguyen soft tissue that in aggregate measure 0.6 x 0.1 x 0.1 cm. The specimen is totally submitted in one cassette. B - Received in fixative is one container labeled with the patient's name and designated antral biopsy. The specimen consists of two irregular fragments of light nguyen soft tissue that in aggregate measure 0.3 x 0.2 x 0.1 cm. The specimen is totally submitted in one cassette. / MIKALA:lissette 03/27/18 TC:3 CPT: 78846 x2
--- NOTE | 2018-03-26 | IMM_PTH ---
PATIENT: JUNIOR Ana RICHARDSON LOC: [facility] U#:[id number] AGE/SX: 68/M ROOM: [facility] RE03/20/[address]: Dr. Iram Hart MD : 1950 BED: 1 DIS: 03/27/2018 SPEC #: [id number] RECD: 03/28/18 13:07 STATUS: ARNAV REQ #: [id number] PARISH: 03/26/18 00:[address]: Roni Cavazos DEPT: IMMUNOHISTOCHEMISTRY RECD BY: Mary Houston ENTERED: 03/28/18 13:07 SP TYPE: IMMUNO OTHR DR: MD Dr. Ishan Arteaga MD Dr. Mary Catherine Sementi, DO Dr. Derek Brown, DO Dr. Nana Yaa Koram, MD Dr. Natthavat Tanphaichitr, MD Tissues: B - Stomach, NOS Procedures: H Pylori (initial) Comments: @ Ordering doctor for H.PYLORI edited from to @ anthony SAUNDERS at 03/28/18 1307 @ Submitting doctor edited from to @ anthony SAUNDERS at 03/28/18 [address] [place] [id number] SPECIMEN INFORMATION: Tissue Source: B ? Antral biopsy Clinical Info: Dysphagia Specimen Number: [id number] CPT code: 20116 METHODOLOGY: Deparaffinized sections of prefer/formalin-fixed tissue or PAP/DQ stained slides are incubated with monoclonal/polyclonal antibodies/oligonucleotide probes. Localization is made via biotin free immunoperoxidase method. Appropriate controls are performed and reacted as expected. Results on target cell population are indicated in the following table: RESULTS: ANTIBODY / CLONE RESULT Block B H Pylori (polyclonal) negative These tests were developed and their performance characteristics determined by [facility]. They may not have been cleared or approved by the U.[place]. Food and Drug Administration. The FDA has determined that such clearance or approval is not necessary. INTERPRETATION: B. Antral biopsy: Negative for Helicobacter pylori organisms. MIKALA:lissette 03/28/18
[2018-03-26 00:16] LABS: Bedside Glucose 204 mg/dL (70-110)
[2018-03-26 01:49] LABS: Partial Thromboplast Time 54.4 Seconds (24.1-36.2)
[2018-03-26] MEDS: Dext 5%-0.45% NS 1,000 ML 100 ML IV ×3 (03:58→17:59)
[2018-03-26 06:06] LABS: Bedside Glucose 206 mg/dL (70-110)
[2018-03-26 06:12] LABS: Absolute Lymphocyte Count 1.24 X10^3/ul (0.83-4.51); Basophil# 0.09 X10^3/uL; Basophil% 0.9 % (0-1); Eosinophil# 0.51 X10^3/uL; Eosinophils% 5.1 % (0-5); Hematocrit 34.7 % (40-54); Hemoglobin 11.6 g/dl (13.0-16.5); Lymphocyte # 1.24 X10^3/ul (4.0); Lymphocyte % 12.5 % (19-41); Mean Corp Hgb Conc 33.4 g/gl (32-36); Mean Corpuscular Hgb 28.9 pg (27.0-32.0); Mean Corpuscular Volume 86.5 fL (80-94); Mean Platelet Vol. 12.6 fl (6.2-12.0); Monocyte# 1.09 X10^3/uL; Neutrophil # 6.98 X10^3/uL (2.7-7.7); Neutrophil % 70.4 % (47-70); Platelet Count 189 K/mm3 (150-450); RBC Distribution Width CV 15.3 % (11.6-14.6); RBC Distribution Width SD 46.9 fl (35.1-43.9); Red Blood Count 4.01 M/mm3 (4.6-6.2); White Blood Count 9.9 K/mm3 (4.4-11.0)
[2018-03-26] MEDS: Insulin Lispro 100 UNIT/ML INSULN.PEN SC ×3 (06:12→18:13)
[2018-03-26 06:21] LABS: Partial Thromboplast Time 53.5 Seconds (24.1-36.2)
[2018-03-26 06:24] LABS: Anion Gap 6 (5-15); BUN 12 mg/dL (7-18); BUN/Creat Ratio 13.7 RATIO (10-20); Calcium,Total 9.2 mg/dL (8.5-10.1); Chloride 115 mmol/L (98-107); Creatinine, Serum 0.88 mg/dL (0.70-1.30); EST Glomerular Filtration Rate 93 mL/min (>60); Est Glom Filt Rate - Afr Amer 112 mL/min (>60); Estimated Creatinine Clearance 85.26 ml/min; Glucose 206 mg/dL (74-106); Potassium 3.6 mmol/L (3.5-5.1); Sodium Level 144 mmol/L (136-145)
[2018-03-26 06:35] LABS: POSITIVE COUNT NO; POSITIVE DIFFERENTIAL NO; POSITIVE MORPHOLOGY NO
[2018-03-26 08:02] LABS: Hemoglobin A1c 7.4 % (4.2-6.3)
--- NOTE | 2018-03-26 10:17 | PCM.PN.REN ---
Patient Problems: Active and Suspected Problems Acute renal failure (Acute) Hyperkalemia (Acute) Dehydration (Acute) Metabolic encephalopathy (Acute) Hypernatremia (Acute) Hypernatremia (Acute) Subjective: No acute events. Opens his eyes but does not answer my questions - Physical Exam General: Alert, Non-Cooperative HEENT: Atraumatic Oral: Dry Mucosa Neck: Supple, No JVD Lungs: Clear to auscultation, Normal air movement, No rales Cardiovascular: Normal S1, Normal S2, No murmurs Abdomen: Bowel Sounds Present, Soft, Non Tender Extremities: No clubbing, No cyanosis, No edema Skin: No rashes Musculoskeletal: No Tenderness to Palpation of Joints or Extremities Lymphatic: No Cervical, Supraclavicular, or Inguinal Adenopathy Psych/Mental Status: Flat Affect Vital Signs Temp Pulse Resp BP Pulse Ox 98.9 F 92 18 148/80 H 95 03/26/18 08:25 03/26/18 08:25 03/26/18 08:25 03/26/18 08:25 03/26/18 08:25 Oxygen Flow Rate (L/min) 3 Oxygen Delivery Method Nasal Cannula Weight: 93.6 kg Body Mass Index (BMI) 29.5 Intake and Output for Last 24 Hours 03/24/18 03/25/18 03/26/18 23:59 23:59 23:59 Intake Total 2220 / 2220 2465.1 / 2465.1 567 / 567 Output Total 1225 / 1225 2150 / 2150 325 / 325 Balance 995 / 995 315.1 / 315.1 242 / 242 Laboratory Tests Past 24 Hrs 03/25/18 03/25/18 03/25/18 12:10 12:10 19:22 WBC 10.4 RBC 3.98 L Hgb 11.2 L Hct 34.3 L MCV 86.2 MCH 28.1 MCHC 32.7 RDW 15.6 H RDW Differential 48.5 H Plt Count 166 MPV 12.3 H Immature Gran % (Auto) 0.100 Neut % (Auto) 74.7 H Lymph % (Auto) 12.2 L [place] % (Auto) 8.7 Eos % (Auto) 3.9 Baso % (Auto) 0.4 Absolute Neuts (auto) 7.8 H Absolute Lymphs (auto) 1.27 Total Counted Not Reportable PT 14.8 INR 1.2 APTT 42.1 H 104.1 H* Sodium Potassium Chloride Carbon Dioxide Anion Gap BUN Creatinine Estim Creat Clear Calc Est GFR (MDRD) Af Amer Est GFR (MDRD) Non-Af BUN/Creatinine Ratio Glucose Hemoglobin A1c Calcium 03/26/18 03/26/18 03/26/18 01:26 05:10 05:10 WBC 9.9 RBC 4.01 L Hgb 11.6 L Hct 34.7 L MCV 86.5 MCH 28.9 MCHC 33.4 RDW 15.3 H RDW Differential 46.9 H Plt Count 189 MPV 12.6 H Immature Gran % (Auto) 0.100 Neut % (Auto) 70.4 H Lymph % (Auto) 12.5 L [place] % (Auto) 11.0 H Eos % (Auto) 5.1 H Baso % (Auto) 0.9 Absolute Neuts (auto) 7.0 Absolute Lymphs (auto) 1.24 Total Counted Not Reportable PT INR APTT 54.4 H 53.5 H Sodium Potassium Chloride Carbon Dioxide Anion Gap BUN Creatinine Estim Creat Clear Calc Est GFR (MDRD) Af Amer Est GFR (MDRD) Non-Af BUN/Creatinine Ratio Glucose Hemoglobin A1c Calcium 03/26/18 03/26/18 05:10 05:10 WBC RBC Hgb Hct MCV MCH MCHC RDW RDW Differential Plt Count MPV Immature Gran % (Auto) Neut % (Auto) Lymph % (Auto) [place] % (Auto) Eos % (Auto) Baso % (Auto) Absolute Neuts (auto) Absolute Lymphs (auto) Total Counted PT INR APTT Sodium 144 Potassium 3.6 Chloride 115 H Carbon Dioxide 23.0 Anion Gap 6 BUN 12 Creatinine 0.88 Estim Creat Clear Calc 85.26 Est GFR (MDRD) Af Amer 112 Est GFR (MDRD) Non-Af 93 BUN/Creatinine Ratio 13.7 Glucose 206 H Hemoglobin A1c 7.4 H Calcium 9.2 POC Glucose 03/26/18 03/25/18 03/25/18 05:57 23:54 18:19 POC Glucose 206 H 204 H 180 H 03/25/18 11:54 POC Glucose 230 H Medical Necessity - Tobacco Use Smoking Status: Light Smoker (<10/day) Tobacco Use: Cigarettes Assessment/Plan All Active Problems Acute renal failure (Acute) Hyperkalemia (Acute) Dehydration (Acute) Metabolic encephalopathy (Acute) Hypernatremia (Acute) Hypernatremia (Acute) 1- KARO . most probably from dehydration with decreased effective circulatory volume Cr peaked at 4 mg/dL .Cr improved to normal with IVF. Today Cr is 0.88 mg/dL Non oliguric. Electrolytes are okay. UOP 2.1 L No need of lasix today ( Patient was on lasix 40 mg PO BID at home) 2- Hyperkalemia . due to KARO along with KCl supplements and lisinopril. Resolved. 3- Hypernatremia. resolved with replacing water deficit 4- HTN: might resume lisinopril today 5- dysphagia. might need PEG tube placement Renal team will continue to follow Chelsea Kilgore MD [phone]
--- NOTE | 2018-03-26 10:58 | PCM.PN.HOSP ---
Patient Problems: Active and Suspected Problems Acute renal failure (Acute) Hyperkalemia (Acute) Dehydration (Acute) Metabolic encephalopathy (Acute) Hypernatremia (Acute) Hypernatremia (Acute) Subjective: Seen and examined this morning. He has no complaints was lying comfortably in bed. According to his notes there were no active issues overnight. He denies any fever or chills, cough or chest pain, shortness of breath, any abdominal pain, any diarrhea vomiting. Heparin currently on hold and is awaiting PEG tube placement today. Vitals/I&O's: Vital Signs Temp Pulse Resp BP Pulse Ox 98.9 F 92 18 148/80 H 95 03/26/18 08:25 03/26/18 08:25 03/26/18 08:25 03/26/18 08:25 03/26/18 08:25 Oxygen Flow Rate (L/min) 3 Oxygen Delivery Method Nasal Cannula Weight: 206 lb 5.643 oz Body Mass Index (BMI) 29.5 Intake and Output for Last 24 Hours 03/24/18 03/25/18 03/26/18 23:59 23:59 23:59 Intake Total 2220 / 2220 2465.1 / 2465.1 567 / 567 Output Total 1225 / 1225 2150 / 2150 325 / 325 Balance 995 / 995 315.1 / 315.1 242 / 242 General: Alert, Oriented x3, Cooperative, No apparent distress HEENT: Atraumatic, PERRLA, EOMI, Normocephalic Oral: Moist Mucosa Neck: Supple, No JVD, Negative Carotid Bruits Lungs: Clear to auscultation, Normal air movement, No rhonchi, No wheeze, No rales Cardiovascular: Regular rate, Normal S1, Normal S2, No murmurs, No Ectopic Activity, Irregular Rate - And rhythm Abdomen: Bowel Sounds Present, Soft, Non Tender, Non-Distended, No Hepato-splenomegaly Extremities: No clubbing, No cyanosis, No edema, Capillary Refill Less than 3 Seconds Skin: No rashes, No breakdown Musculoskeletal: No Tenderness to Palpation of Joints or Extremities Lymphatic: Supraclavicular Adenopathy Neurological: - - tremors have improved significantly Psych/Mental Status: Normal Affect, Appropriate Laboratory Results 03/25/18 11:54: POC Glucose 230 H 03/25/18 12:10: WBC 10.4, RBC 3.98 L, Hgb 11.2 L, Hct 34.3 L, MCV 86.2, MCH 28.1, MCHC 32.7, RDW 15.6 H, RDW Differential 48.5 H, Plt Count 166, MPV 12.3 H, Immature Gran % (Auto) 0.100, Neut % (Auto) 74.7 H, Lymph % (Auto) 12.2 L, Donley % (Auto) 8.7, Eos % (Auto) 3.9, Baso % (Auto) 0.4, Absolute Neuts (auto) 7.8 H, Absolute Lymphs (auto) 1.27, Total Counted Not Reportable 03/25/18 12:10: PT 14.8, INR 1.2, APTT 42.1 H 03/25/18 18:19: POC Glucose 180 H 03/25/18 19:22: APTT 104.1 H* 03/25/18 23:54: POC Glucose 204 H 03/26/18 01:26: APTT 54.4 H 03/26/18 05:10: WBC 9.9, RBC 4.01 L, Hgb 11.6 L, Hct 34.7 L, MCV 86.5, MCH 28.9, MCHC 33.4, RDW 15.3 H, RDW Differential 46.9 H, Plt Count 189, MPV 12.6 H, Immature Gran % (Auto) 0.100, Neut % (Auto) 70.4 H, Lymph % (Auto) 12.5 L, Donley % (Auto) 11.0 H, Eos % (Auto) 5.1 H, Baso % (Auto) 0.9, Absolute Neuts (auto) 7.0, Absolute Lymphs (auto) 1.24, Total Counted Not Reportable 03/26/18 05:10: APTT 53.5 H 03/26/18 05:10: Sodium 144, Potassium 3.6, Chloride 115 H, Carbon Dioxide 23.0, Anion Gap 6, BUN 12, Creatinine 0.88, Estim Creat Clear Calc 85.26, Est GFR (MDRD) Af Amer 112, Est GFR (MDRD) Non-Af 93, BUN/Creatinine Ratio 13.7, Glucose 206 H, Calcium 9.2 03/26/18 05:10: Hemoglobin A1c 7.4 H 03/26/18 05:57: POC Glucose 206 H Current Medications Allopurinol (Zyloprim) 100 mg PO DAILYCM [facility] Last Admin: 03/26/18 08:23 Dose: Not Given Aspirin (Aspirin, Baby) 81 mg PO DAILY@0800 [facility] Last Admin: 03/26/18 08:23 Dose: Not Given Atorvastatin Calcium (Lipitor) 80 mg PO QHS [facility] Last Admin: 03/25/18 22:47 Dose: Not Given Carbidopa/Levodopa (Sinemet) 1 tablet PO BIDAC [facility] Last Admin: 03/26/18 07:52 Dose: Not Given Chlorhexidine Gluconate () 1 each TOPICAL DAILY [facility] Last Admin: 03/25/18 10:13 Dose: Not Given Famotidine (Pepcid) 20 mg PO BID [facility] Last Admin: 03/25/18 22:47 Dose: Not Given Heparin Sodium (Porcine) (Heparin Na) 0 unit IV UD PRN PRN Reason: Protocol Sodium Chloride () 250 mls @ 15 mls/hr IV .[id number] PRN PRN Reason: SALINE FLUSH Dextrose/Sodium Chloride () 1,000 mls @ 100 mls/hr IV .Q10H [facility] Last Admin: 03/26/18 03:58 Dose: 100 mls/hr Heparin Sodium/Dextrose () 25,000 units in 250 mls @ 14 mls/hr IV .[id number] [facility]; As Directed PRN Reason: Protocol Last Admin: 03/25/18 13:10 Dose: 14 mls/hr Clindamycin Phosphate 900 mg/ (Dextrose) 106 mls @ 75 mls/hr IV X1 ONE Stop: 03/26/18 13:24 Insulin Human Lispro (Humalog Kwikpen (Bkc)) 0 unit SC Q6 [facility] PRN Reason: Protocol Last Admin: 03/26/18 06:12 Dose: 4 u Magnesium Hydroxide (Milk Of Magnesia) 30 ml PO DAILY PRN PRN PRN Reason: Constipation Nicotine (Nicoderm Cq (Pbkc)) 21 mg TRANSDERM. DAILY [facility] Last Admin: 03/26/18 10:48 Dose: Not Given [id number] Ethyl Esters (Lovaza) 1 gm PO DAILY [facility] Last Admin: 03/25/18 10:14 Dose: Not Given Sodium Chloride () 5 - 30 ml IV UD PRN PRN Reason: SALINE FLUSH Last Admin: 03/22/18 09:34 Dose: 10 ml Sotalol HCl (Betapace (G)) 80 mg PO BID [facility] Last Admin: 03/25/18 22:47 Dose: Not Given Medical Necessity - Tobacco Use Smoking Status: Light Smoker (<10/day) Tobacco Use: Cigarettes Assessment/Plan All Active Problems Acute renal failure (Acute) Hyperkalemia (Acute) Dehydration (Acute) Metabolic encephalopathy (Acute) Hypernatremia (Acute) Hypernatremia (Acute) This 68-year-old male admitted from the long term with complaint of altered mental status and worsening kidney function. 1. metabolic encephalopathy from azotemia and hypernatremia resolved 2. Pre-renal KARO and azotemia from decreased intake resolved. renal ultrasound WNL nephrology on board 5 Dysphagia due to stroke (bilateral cerebellar infarcts) Resolving. Speech is much clear today. Currently n.p.o. on account of feeling multiple swallow evaluations. For PEG tube placement today. Per hospital policy, will keep for next 24 hours to see how patient tolerates tube feeding after PEG tube placement. 6. Reactive Leucocytosis: resolved. 7. Diabetes mellitus accuchecks q6hrs on NPO sliding scale currently NPO, awaiting PEG tube placement on ISS: 8. History of bilateral cerebellar infarcts Stable. resumed heparin drip as he was made NPO again 9. Afib: rate controlled. On sotalol and xarelto. on account of n.p.o. status, xarelto on hold, and patient on heparin drip patient had a short 18 run beat of Vtach this afternoon. Had a similar episode this weekend. Will get cardiology consult due to patient's extensive cardiac history will check magnesium; K is WNL 10. Parkinson's disease: on levodopa/carbidopa; 11. Gout: on allopurinol 12. CAD with CABG: on aspirin, statin, 13. history of depression: stable 14. DVT prophylaxis; SCDs; heparin drip Disposition: For DC to SNF once Precert is received. This note was generated with [employer] dictation software. It may contain incorrect words, spelling, and punctuation that were not noted in checking the note before signing. Code Visit Inpatient E&M: 84244 Subs Hosp L3
--- NOTE | 2018-03-26 11:03 | PN_ITS ---
Patient Problems: Active and Suspected Problems Acute renal failure (Acute) Hyperkalemia (Acute) Dehydration (Acute) Metabolic encephalopathy (Acute) Hypernatremia (Acute) Hypernatremia (Acute) Subjective: Seen and examined this morning. He has no complaints was lying comfortably in bed. According to his notes there were no active issues overnight. He denies any fever or chills, cough or chest pain, shortness of breath, any abdominal pain, any diarrhea vomiting. Heparin currently on hold and is awaiting PEG tube placement today. Vitals/I&O's: Vital Signs Temp Pulse Resp BP Pulse Ox 98.9 F 92 18 148/80 H 95 03/26/18 08:25 03/26/18 08:25 03/26/18 08:25 03/26/18 08:25 03/26/18 08:25 Oxygen Flow Rate (L/min) 3 Oxygen Delivery Method Nasal Cannula Weight: 206 lb 5.643 oz Body Mass Index (BMI) 29.5 Intake and Output for Last 24 Hours 03/24/18 03/25/18 03/26/18 23:59 23:59 23:59 Intake Total 2220 / 2220 2465.1 / 2465.1 567 / 567 Output Total 1225 / 1225 2150 / 2150 325 / 325 Balance 995 / 995 315.1 / 315.1 242 / 242 General: Alert, Oriented x3, Cooperative, No apparent distress HEENT: Atraumatic, PERRLA, EOMI, Normocephalic Oral: Moist Mucosa Neck: Supple, No JVD, Negative Carotid Bruits Lungs: Clear to auscultation, Normal air movement, No rhonchi, No wheeze, No rales Cardiovascular: Regular rate, Normal S1, Normal S2, No murmurs, No Ectopic Activity, Irregular Rate - And rhythm Abdomen: Bowel Sounds Present, Soft, Non Tender, Non-Distended, No Hepato- splenomegaly Extremities: No clubbing, No cyanosis, No edema, Capillary Refill Less than 3 Seconds Skin: No rashes, No breakdown Musculoskeletal: No Tenderness to Palpation of Joints or Extremities Lymphatic: Supraclavicular Adenopathy Neurological: - - tremors have improved significantly Psych/Mental Status: Normal Affect, Appropriate Laboratory Results 03/25/18 11:54: POC Glucose 230 H 03/25/18 12:10: WBC 10.4, RBC 3.98 L, Hgb 11.2 L, Hct 34.3 L, MCV 86.2, MCH 28.1 , MCHC 32.7, RDW 15.6 H, RDW Differential 48.5 H, Plt Count 166, MPV 12.3 H, Immature Gran % (Auto) 0.100, Neut % (Auto) 74.7 H, Lymph % (Auto) 12.2 L, Edgar % (Auto) 8.7, Eos % (Auto) 3.9, Baso % (Auto) 0.4, Absolute Neuts (auto) 7.8 H, Absolute Lymphs (auto) 1.27, Total Counted Not Reportable 03/25/18 12:10: PT 14.8, INR 1.2, APTT 42.1 H 03/25/18 18:19: POC Glucose 180 H 03/25/18 19:22: APTT 104.1 H* 03/25/18 23:54: POC Glucose 204 H 03/26/18 01:26: APTT 54.4 H 03/26/18 05:10: WBC 9.9, RBC 4.01 L, Hgb 11.6 L, Hct 34.7 L, MCV 86.5, MCH 28.9 , MCHC 33.4, RDW 15.3 H, RDW Differential 46.9 H, Plt Count 189, MPV 12.6 H, Immature Gran % (Auto) 0.100, Neut % (Auto) 70.4 H, Lymph % (Auto) 12.5 L, Edgar % (Auto) 11.0 H, Eos % (Auto) 5.1 H, Baso % (Auto) 0.9, Absolute Neuts (auto) 7.0, Absolute Lymphs (auto) 1.24, Total Counted Not Reportable 03/26/18 05:10: APTT 53.5 H 03/26/18 05:10: Sodium 144, Potassium 3.6, Chloride 115 H, Carbon Dioxide 23.0, Anion Gap 6, BUN 12, Creatinine 0.88, Estim Creat Clear Calc 85.26, Est GFR ( MDRD) Af Amer 112, Est GFR (MDRD) Non-Af 93, BUN/Creatinine Ratio 13.7, Glucose 206 H, Calcium 9.2 03/26/18 05:10: Hemoglobin A1c 7.4 H 03/26/18 05:57: POC Glucose 206 H Current Medications Allopurinol (Zyloprim) 100 mg PO DAILYCM [facility] Last Admin: 03/26/18 08:23 Dose: Not Given Aspirin (Aspirin, Baby) 81 mg PO DAILY@0800 [facility] Last Admin: 03/26/18 08:23 Dose: Not Given Atorvastatin Calcium (Lipitor) 80 mg PO QHS [facility] Last Admin: 03/25/18 22:47 Dose: Not Given Carbidopa/Levodopa (Sinemet) 1 tablet PO BIDAC [facility] Last Admin: 03/26/18 07:52 Dose: Not Given Chlorhexidine Gluconate () 1 each TOPICAL DAILY [facility] Last Admin: 03/25/18 10:13 Dose: Not Given Famotidine (Pepcid) 20 mg PO BID [facility] Last Admin: 03/25/18 22:47 Dose: Not Given Heparin Sodium (Porcine) (Heparin Na) 0 unit IV UD PRN PRN Reason: Protocol Sodium Chloride () 250 mls @ 15 mls/hr IV .[id number] PRN PRN Reason: SALINE FLUSH Dextrose/Sodium Chloride () 1,000 mls @ 100 mls/hr IV .Q10H [facility] Last Admin: 03/26/18 03:58 Dose: 100 mls/hr Heparin Sodium/Dextrose () 25,000 units in 250 mls @ 14 mls/hr IV .[id number] [facility] ; As Directed PRN Reason: Protocol Last Admin: 03/25/18 13:10 Dose: 14 mls/hr Clindamycin Phosphate 900 mg/ (Dextrose) 106 mls @ 75 mls/hr IV X1 ONE Stop: 03/26/18 13:24 Insulin Human Lispro (Humalog Kwikpen (Bkc)) 0 unit SC Q6 [facility] PRN Reason: Protocol Last Admin: 03/26/18 06:12 Dose: 4 u Magnesium Hydroxide (Milk Of Magnesia) 30 ml PO DAILY PRN PRN PRN Reason: Constipation Nicotine (Nicoderm Cq (Pbkc)) 21 mg TRANSDERM. DAILY [facility] Last Admin: 03/26/18 10:48 Dose: Not Given [id number] Ethyl Esters (Lovaza) 1 gm PO DAILY [facility] Last Admin: 03/25/18 10:14 Dose: Not Given Sodium Chloride () 5 - 30 ml IV UD PRN PRN Reason: SALINE FLUSH Last Admin: 03/22/18 09:34 Dose: 10 ml Sotalol HCl (Betapace (G)) 80 mg PO BID [facility] Last Admin: 03/25/18 22:47 Dose: Not Given Medical Necessity - Tobacco Use Smoking Status: Light Smoker (<10/day) Tobacco Use: Cigarettes Assessment/Plan All Active Problems Acute renal failure (Acute) Hyperkalemia (Acute) Dehydration (Acute) Metabolic encephalopathy (Acute) Hypernatremia (Acute) Hypernatremia (Acute) This 68-year-old male admitted from the intermediate with complaint of altered mental status and worsening kidney function. 1. metabolic encephalopathy from azotemia and hypernatremia * resolved * 2. Pre-renal KARO and azotemia from decreased intake * resolved. * renal ultrasound WNL * nephrology on board * 5 Dysphagia due to stroke (bilateral cerebellar infarcts) * Resolving. Speech is much clear today. * Currently n.p.o. on account of feeling multiple swallow evaluations. For PEG tube placement today. * Per hospital policy, will keep for next 24 hours to see how patient tolerates tube feeding after PEG tube placement. * * 6. Reactive Leucocytosis: * resolved. 7. Diabetes mellitus * accuchecks q6hrs * on NPO sliding scale * currently NPO, awaiting PEG tube placement * on ISS: * 8. History of bilateral cerebellar infarcts * Stable. * resumed heparin drip as he was made NPO again 9. Afib: rate controlled. * On sotalol and xarelto. * on account of n.p.o. status, xarelto on hold, and patient on heparin drip * patient had a short 18 run beat of Vtach this afternoon. Had a similar episode this weekend. Will get cardiology consult due to patient's extensive cardiac history * will check magnesium; K is WNL 10. Parkinson's disease: on levodopa/carbidopa; 11. Gout: on allopurinol 12. CAD with CABG: on aspirin, statin, 13. history of depression: stable 14. DVT prophylaxis; SCDs; heparin drip Disposition: For DC to SNF once Precert is received. This note was generated with [employer] dictation software. It may contain incorrect words, spelling, and punctuation that were not noted in checking the note before signing. Code Visit Inpatient E&M: 50740 Subs Hosp L3
[2018-03-26 12:51] LABS: Bedside Glucose 206 mg/dL (70-110)
[2018-03-26] MEDS: 0.9% NaCl Peripheral Flush Adult/Peds IV (13:47)
--- NOTE | 2018-03-26 14:06 | NURSING ---
Report called to [place] for PEG tube placement
--- NOTE | 2018-03-26 15:57 | OP.PCM_ITS ---
Problem List (1) Dysphagia Status: Chronic Qualifiers: Dysphagia type: unspecified Qualified Code(s): R13.10 - Dysphagia, unspecified Report of Operation Date of Procedure: 03/26/18 Pre-Operative Diagnosis: Esophageal dysphagia with recurrent aspiration risk Post-Operative Diagnosis: Esophageal dysphagia with recurrent aspiration risk. Duodenitis, mild antral gastritis Surgery/Procedure Performed:: Esophagogastroduodenoscopy with duodenal and antral biopsies and percutaneous endoscopic gastrostomy tube placement Description of Surgical Findings:: Timeout and informed consent was obtained. 68-year-old gentleman was taken to the endoscopy suite. His oropharynx anesthetized with Topex. He was placed in the left lateral decubitus position. 50 mcg of fentanyl and 1.5 mg of Versed were given as intravenous sedation. Under direct visitation gastroscope was inserted into the esophageal inlet there was extraordinarily thick mucousy discharge occluding the orifice of the esophagus this was carefully aspirated free with a Yankauer suction and with the gastroscope suction. Having clear that I was then able to advance the gastroscope. Proximal mid distal esophagus did not appear to be grossly remarkable. EG junction at 40 cm. Scope was advanced in the stomach minimal amount of erythema of the antrum scope was nicely advanced into the duodenum. Minimal erythema of the duodenum no ulcerations no erosions. The first and second portion of the duodenum were inspected and was unremarkable. Biopsy was obtained of the duodenum. This was done with cold forceps. The scope was withdrawn back to the antrum and cold forcep biopsy obtained. The scope was retroflexed the EG junction cardia greater curvature inspected this did not appear to be grossly remarkable. Transabdominal palpation was performed demonstrating nice transillumination in the right upper quadrant and nice indentation of the stomach. The left upper quadrant of the abdomen sterilely prepped and draped at the xiphoid area with chlorhexidine. 1% lidocaine was instilled as a local anesthetic a total of 3 cc was used small transverse incision was created then the Angiocath was advanced under direct endoscopic visualization through the abdominal wall into the stomach. The snare was placed around the wire was placed through the catheter the wire was grasped with the snare this wire was exited out through the mouth the 20 [place]ese gastrostomy tube was lubricated and then with the snare and scope as a follow tag on it was withdrawn back through the abdominal wall. It was placed to about 3-1/2 cm and the external bumper was applied. Internal inspection revealed that the internal bumper was in good position absolutely no bleeding. The wire was discarded. And the snare was released. The tubing was cut to length and the attachment device was placed. He tolerated that well excess fluid and air was aspirated free the procedure was completed he tolerated it nicely with us no significant ectopy throughout the entire procedure. Sterile dressings were applied. He was taken to the recovery area in satisfactory condition. Drains none. Specimens include duodenal and antral biopsies. Blood loss minimal. I would advise leaving the PEG tube rest overnight with only water flushes and can consider initiating tube feedings tomorrow. Roni Cavazos M.D., F.A.C.S. Type of Anesthesia:: IV Sedation
[2018-03-26 16:50] LABS: Magnesium 1.6 mg/dL (1.6-2.6)
--- NOTE | 2018-03-26 17:24 | PCM.CONS.C ---
Reason for Consult Date of Consultation: 03/26/18 Reason for Consultation: Abnormal electrocardiogram History of Present Illness: The patient is a 68 year old M with a past medical history of COPD, coronary artery disease, CABG in the past, hypertension, diabetes mellitus type 2, GERD, hyperlipidemia, depression, atrial fibrillation, tobacco dependence, recently diagnosed Parkinson's disease and recently diagnosed bilateral cerebellar ischemic infarcts in early February 2018 who was sent to the [facility] ED due to increasing BUN/CREAT in association with change in mental status. Vital signs at presentation to the emergency room were temperature 97.5, pulse rate 90, blood pressure 140/80, respiratory rate 18 and he was 93% saturated on room air. White blood cell count was elevated at 21.5 with 84.5% neutrophils. Hemoglobin was 15.6 and platelets were within normal limits. Sodium was increased at 157 and the potassium was increased at 7.1. Bicarb was low at 19 and the BUN was 86 with a creatinine of 4.18. UA had 0-5 WBCs but 10-25 hyaline casts per high-power field. On physical examination he is unable to follow commands and is obtunded with slurred speech. His stated he has not been eating at the [facility] because he does not like how the food looks and dose not like thickened liquids. He has continued to take Furosemide despite poor intake. He has been hydrated in the hospital and his laboratory profile appears to have improved significantly. He however has had difficulty swallowing and therefore it was decided that we should proceed with a PEG tube. He had had an echocardiogram performed during her previous admission over the last 2 months which had demonstrated preserved ejection fraction and mild aortic sclerosis and stenosis. On the hall monitor he was noted to have an episode of wide complex tachycardia of about 28 beats. There was no hemodynamic compromise associated with this. Cardiology was called to evaluate the patient. Past Medical History Allergies/Adverse Reactions: Allergies Penicillins Allergy (Verified 03/20/18 19:39) Rash varenicline [From Chantix] Adverse Reaction (Verified 03/20/18 19:39) Unknown Home Medications: Ambulatory Orders Medication Instructions Recorded Metformin HCl 500 mg PO BID 10/23/17 Omeprazole 20 mg PO DAILY 10/23/17 Potassium Chloride [Klor-Con M20] 20 meq PO DAILY 10/23/17 Sotalol HCl [Betapace AF (Beta 80 mg PO BID 10/23/17 Ahsan)] Aspirin [Aspirin, Baby] 81 mg PO DAILY@0800 tab.chew 10/25/17 Albuterol Inhaler [Ventolin Hfa] 1 puff INHALATION Q4H PRN PRN 02/26/18 Allopurinol 100 mg PO DAILY 02/26/18 Carbidopa/Levodopa 25/100 [Sinemet 1 tablet PO BIDAC 02/26/18 25/100] Furosemide [Lasix] 40 mg PO BID 02/26/18 Insulin Aspart [Novolog Flexpen] 8 units SC TIDCM 02/26/18 Atorvastatin Calcium [Lipitor] 80 mg PO QHS tablet 02/27/18 Famotidine [Pepcid] 20 mg PO BID tablet 02/27/18 Ferrous Sulfate 325 mg PO BID tablet 02/27/18 Lisinopril [Zestril] 10 mg PO DAILY tablet 02/27/18 [place]-3 Acid Ethyl Esters [Lovaza] 1 gm PO DAILY capsule 02/27/18 Rivaroxaban [Xarelto] 20 mg PO DAILY 30 Days #30 tablet 02/27/18 Nicotine [Nicotine Patch] 21 mg TD DAILY 03/20/18 Past Medical History (Chronic Problems): Chronic Problems Parkinsons disease (Chronic) Recent cerebrovascular accident (CVA) (Chronic) BL cerebellar infarcts February 2018 Dysphagia (Chronic) Depression (Chronic) COPD (chronic obstructive pulmonary disease) (Chronic) 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) Tobacco abuse (Chronic) 1/2 ppd now 3ppd in the past Hyperlipidemia (Chronic) Gastroesophageal reflux disease (Chronic) Type 2 diabetes mellitus (Chronic) Benign essential hypertension (Chronic) Slurred speech (Chronic) CHF (congestive heart failure) (Chronic) ef=40% 2012, 55% in February of 2018 Atrial fibrillation (Chronic) Surgical History: coronary bypass surgery Psychiatric History: Depression - *Family History Maternal History Items: Cancer - Breast cancer Paternal History Items: Heart Disease - Congestive heart failure Lives: Detention Smoking Status: Light Smoker (<10/day) Tobacco Use: Cigarettes Alcohol: None Drugs: None Review of Systems - Review of Systems General: Reports: Fatigue, Malaise. Denies: Fever, Night Sweats Cardiovascular: Denies: Chest Discomfort, Shortness of Breath, Orthopnea, PND, Peripheral Edema, Palpitations, Lightheadedness, Dizziness, Near Syncope, Syncope Respiratory: Denies: Cough, Sputum Production, Hemoptysis Gastrointestinal: Denies: Hematemesis, Hematochezia, Melena Genitourinary: Denies: Dysuria, Hematuria Skin: Denies: Rash Neurological: Reports: Confusion, Decreased Coordination Subjectve: Middle-aged man who looks much older than his stated age Objective: Vital Signs Temp Pulse Resp BP Pulse Ox 98.3 F 96 18 149/73 H 98 03/26/18 17:05 03/26/18 17:05 03/26/18 17:05 03/26/18 17:05 03/26/18 17:05 Oxygen Flow Rate (L/min) 3 Oxygen Delivery Method Nasal Cannula Weight: 206 lb 5.643 oz Body Mass Index (BMI) 29.5 Intake and Output for Last 24 Hours 03/24/18 03/25/18 03/26/18 23:59 23:59 23:59 Intake Total 2220 / 2220 2465.1 / 2465.1 1679 / 1679 Output Total 1225 / 1225 2150 / 2150 625 / 625 Balance 995 / 995 315.1 / 315.1 1054 / 1054 General: Ill Appearing, Disoriented, Non-Cooperative HEENT: PERRL, EOMI, Sclera Non Icteric Neck: Supple, Good ROM, No Lymph Node Enlargement Lungs: Clear to auscultation Cardiovascular: Regular Rhythm, Normal S1, Normal S2, No Murmurs, No Rubs, No Gallops Vascular: No Carotid Bruits, Normal Femoral Pulses, Normal Radial Pulses, Normal Dorsalis Pedal Pulse, Normal Posterior Tibial Pulses Abdomen: Bowel Sounds Present, Soft, Non Tender, No HSM, No Organomegaly Extremities: No Cyanosis, No Clubbing, No edema Neurological: No Focal Motor or Sensory Deficit 03/25/18 19:22: APTT 104.1 H* 03/26/18 01:26: APTT 54.4 H 03/26/18 05:10: WBC 9.9, RBC 4.01 L, Hgb 11.6 L, Hct 34.7 L, MCV 86.5, MCH 28.9, MCHC 33.4, RDW 15.3 H, RDW Differential 46.9 H, Plt Count 189, MPV 12.6 H, Immature Gran % (Auto) 0.100, Neut % (Auto) 70.4 H, Lymph % (Auto) 12.5 L, [place] % (Auto) 11.0 H, Eos % (Auto) 5.1 H, Baso % (Auto) 0.9, Absolute Neuts (auto) 7.0, Total Counted Not Reportable 03/26/18 05:10: APTT 53.5 H 03/26/18 05:10: Sodium 144, Potassium 3.6, Chloride 115 H, Carbon Dioxide 23.0, Anion Gap 6, BUN 12, Creatinine 0.88, Est GFR (MDRD) Af Amer 112, Est GFR (MDRD) Non-Af 93, BUN/Creatinine Ratio 13.7, Glucose 206 H, Calcium 9.2 03/26/18 05:10: Hemoglobin A1c 7.4 H 03/26/18 05:10: Magnesium 1.6 Rhythm: Sinus rhythm with 28 beat run of wide complex tachycardia EKG: Normal sinus rhythm with no acute changes ECHO: Normal ejection fraction estimated EF 55% see report for full details Assessment/Plan 1. Wide complex tachycardia asymptomatic. He presents with significant electrolyte and metabolic derangements and is noted to have a wide complex tachycardia with a suggestion of possible aberrancy. He does have preserved left ventricular ejection fraction and I suspect that the above was likely secondary to electrolyte abnormalities including relatively low potassium and magnesium as well as the fact that he has not been absorbing his sotalol over the last few days. My recommendation will be to replace the potassium and magnesium Restart sotalol through the PEG tube to ensure absorption The discussion with the patient's we would not pursue any invasive therapeutic approaches at this time or electrophysiology study or ischemic evaluation. 2. Atrial fibrillation Patient appears to be maintaining sinus rhythm though paroxysms of atrial for ablation cannot be completely excluded. Sotalol will be reinstituted Xarelto can be reinstituted once safe from the surgical standpoint 3. Coronary artery disease Patient has a history of coronary artery disease status post carotid bypass surgery At this time he does not have any evidence of angina I do not think that this current presentation is an anginal equivalent. Thank you for allowing me to participate in the care of your patient. Please don't hesitate to call if any issues arise
--- NOTE | 2018-03-26 17:32 | CON.PCM_ITS ---
Reason for Consult Date of Consultation: 03/26/18 Reason for Consultation: Abnormal electrocardiogram History of Present Illness: The patient is a 68 year old M with a past medical history of COPD, coronary artery disease, CABG in the past, hypertension, diabetes mellitus type 2, GERD, hyperlipidemia, depression, atrial fibrillation, tobacco dependence, recently diagnosed Parkinson's disease and recently diagnosed bilateral cerebellar ischemic infarcts in early February 2018 who was sent to the [facility] ED due to increasing BUN/CREAT in association with change in mental status. Vital signs at presentation to the emergency room were temperature 97.5, pulse rate 90, blood pressure 140/80, respiratory rate 18 and he was 93% saturated on room air. White blood cell count was elevated at 21.5 with 84.5% neutrophils. Hemoglobin was 15.6 and platelets were within normal limits. Sodium was increased at 157 and the potassium was increased at 7.1. Bicarb was low at 19 and the BUN was 86 with a creatinine of 4.18. UA had 0-5 WBCs but 10-25 hyaline casts per high-power field. On physical examination he is unable to follow commands and is obtunded with slurred speech. His stated he has not been eating at the [facility] because he does not like how the food looks and dose not like thickened liquids. He has continued to take Furosemide despite poor intake. He has been hydrated in the hospital and his laboratory profile appears to have improved significantly. He however has had difficulty swallowing and therefore it was decided that we should proceed with a PEG tube. He had had an echocardiogram performed during her previous admission over the last 2 months which had demonstrated preserved ejection fraction and mild aortic sclerosis and stenosis. On the monitor tech he was noted to have an episode of wide complex tachycardia of about 28 beats. There was no hemodynamic compromise associated with this. Cardiology was called to evaluate the patient. Past Medical History Allergies/Adverse Reactions: Allergies Penicillins Allergy (Verified 03/20/18 19:39) Rash varenicline [From Chantix] Adverse Reaction (Verified 03/20/18 19:39) Unknown Home Medications: Ambulatory Orders Medication Instructions Recorded Metformin HCl 500 mg PO BID 10/23/17 Omeprazole 20 mg PO DAILY 10/23/17 Potassium Chloride [Klor-Con M20] 20 meq PO DAILY 10/23/17 Sotalol HCl [Betapace AF (Beta 80 mg PO BID 10/23/17 Ahsan)] Aspirin [Aspirin, Baby] 81 mg PO DAILY@0800 tab.chew 10/25/17 Albuterol Inhaler [Ventolin Hfa] 1 puff INHALATION Q4H PRN PRN 02/26/18 Allopurinol 100 mg PO DAILY 02/26/18 Carbidopa/Levodopa 25/100 [Sinemet 1 tablet PO BIDAC 02/26/18 25/100] Furosemide [Lasix] 40 mg PO BID 02/26/18 Insulin Aspart [Novolog Flexpen] 8 units SC TIDCM 02/26/18 Atorvastatin Calcium [Lipitor] 80 mg PO QHS tablet 02/27/18 Famotidine [Pepcid] 20 mg PO BID tablet 02/27/18 Ferrous Sulfate 325 mg PO BID tablet 02/27/18 Lisinopril [Zestril] 10 mg PO DAILY tablet 02/27/18 [place]-3 Acid Ethyl Esters [Lovaza] 1 gm PO DAILY capsule 02/27/18 Rivaroxaban [Xarelto] 20 mg PO DAILY 30 Days #30 tablet 02/27/18 Nicotine [Nicotine Patch] 21 mg TD DAILY 03/20/18 Past Medical History (Chronic Problems): Chronic Problems Parkinsons disease (Chronic) Recent cerebrovascular accident (CVA) (Chronic) BL cerebellar infarcts February 2018 Dysphagia (Chronic) Depression (Chronic) COPD (chronic obstructive pulmonary disease) (Chronic) 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) Tobacco abuse (Chronic) 1/2 ppd now 3ppd in the past Hyperlipidemia (Chronic) Gastroesophageal reflux disease (Chronic) Type 2 diabetes mellitus (Chronic) Benign essential hypertension (Chronic) Slurred speech (Chronic) CHF (congestive heart failure) (Chronic) ef=40% 2012, 55% in February of 2018 Atrial fibrillation (Chronic) Surgical History: coronary bypass surgery Psychiatric History: Depression - *Family History Maternal History Items: Cancer - Breast cancer Paternal History Items: Heart Disease - Congestive heart failure Lives: [facility] Smoking Status: Light Smoker (<10/day) Tobacco Use: Cigarettes Alcohol: None Drugs: None Review of Systems - Review of Systems General: Reports: Fatigue, Malaise. Denies: Fever, Night Sweats Cardiovascular: Denies: Chest Discomfort, Shortness of Breath, Orthopnea, PND, Peripheral Edema, Palpitations, Lightheadedness, Dizziness, Near Syncope, Syncope Respiratory: Denies: Cough, Sputum Production, Hemoptysis Gastrointestinal: Denies: Hematemesis, Hematochezia, Melena Genitourinary: Denies: Dysuria, Hematuria Skin: Denies: Rash Neurological: Reports: Confusion, Decreased Coordination Subjectve: Middle-aged man who looks much older than his stated age Objective: Vital Signs Temp Pulse Resp BP Pulse Ox 98.3 F 96 18 149/73 H 98 03/26/18 17:05 03/26/18 17:05 03/26/18 17:05 03/26/18 17:05 03/26/18 17:05 Oxygen Flow Rate (L/min) 3 Oxygen Delivery Method Nasal Cannula Weight: 206 lb 5.643 oz Body Mass Index (BMI) 29.5 Intake and Output for Last 24 Hours 03/24/18 03/25/18 03/26/18 23:59 23:59 23:59 Intake Total 2220 / 2220 2465.1 / 2465.1 1679 / 1679 Output Total 1225 / 1225 2150 / 2150 625 / 625 Balance 995 / 995 315.1 / 315.1 1054 / 1054 General: Ill Appearing, Disoriented, Non-Cooperative HEENT: PERRL, EOMI, Sclera Non Icteric Neck: Supple, Good ROM, No Lymph Node Enlargement Lungs: Clear to auscultation Cardiovascular: Regular Rhythm, Normal S1, Normal S2, No Murmurs, No Rubs, No Gallops Vascular: No Carotid Bruits, Normal Femoral Pulses, Normal Radial Pulses, Normal Dorsalis Pedal Pulse, Normal Posterior Tibial Pulses Abdomen: Bowel Sounds Present, Soft, Non Tender, No HSM, No Organomegaly Extremities: No Cyanosis, No Clubbing, No edema Neurological: No Focal Motor or Sensory Deficit 03/25/18 19:22: APTT 104.1 H* 03/26/18 01:26: APTT 54.4 H 03/26/18 05:10: WBC 9.9, RBC 4.01 L, Hgb 11.6 L, Hct 34.7 L, MCV 86.5, MCH 28.9 , MCHC 33.4, RDW 15.3 H, RDW Differential 46.9 H, Plt Count 189, MPV 12.6 H, Immature Gran % (Auto) 0.100, Neut % (Auto) 70.4 H, Lymph % (Auto) 12.5 L, [place] % (Auto) 11.0 H, Eos % (Auto) 5.1 H, Baso % (Auto) 0.9, Absolute Neuts (auto) 7.0, Total Counted Not Reportable 03/26/18 05:10: APTT 53.5 H 03/26/18 05:10: Sodium 144, Potassium 3.6, Chloride 115 H, Carbon Dioxide 23.0, Anion Gap 6, BUN 12, Creatinine 0.88, Est GFR (MDRD) Af Amer 112, Est GFR (MDRD ) Non-Af 93, BUN/Creatinine Ratio 13.7, Glucose 206 H, Calcium 9.2 03/26/18 05:10: Hemoglobin A1c 7.4 H 03/26/18 05:10: Magnesium 1.6 Rhythm: Sinus rhythm with 28 beat run of wide complex tachycardia EKG: Normal sinus rhythm with no acute changes ECHO: Normal ejection fraction estimated EF 55% see report for full details Assessment/Plan 1. Wide complex tachycardia asymptomatic. He presents with significant electrolyte and metabolic derangements and is noted to have a wide complex tachycardia with a suggestion of possible aberrancy. He does have preserved left ventricular ejection fraction and I suspect that the above was likely secondary to electrolyte abnormalities including relatively low potassium and magnesium as well as the fact that he has not been absorbing his sotalol over the last few days. * My recommendation will be to replace the potassium and magnesium * Restart sotalol through the PEG tube to ensure absorption * The discussion with the patient's we would not pursue any invasive therapeutic approaches at this time or electrophysiology study or ischemic evaluation. 2. Atrial fibrillation * Patient appears to be maintaining sinus rhythm though paroxysms of atrial for ablation cannot be completely excluded. * Sotalol will be reinstituted * Xarelto can be reinstituted once safe from the surgical standpoint * 3. Coronary artery disease * Patient has a history of coronary artery disease status post carotid bypass surgery * At this time he does not have any evidence of angina I do not think that this current presentation is an anginal equivalent. * * Thank you for allowing me to participate in the care of your patient. Please don't hesitate to call if any issues arise
--- NOTE | 2018-03-26 18:42 | EKG12_ITS ---
Test Reason : AFIB Blood Pressure : / mmHG Vent. Rate : 093 BPM Atrial Rate : 094 BPM P-R Int : 000 ms QRS Dur : 122 ms QT Int : 376 ms P-R-T Axes : 000 -41 090 degrees QTc Int : 467 ms Atrial fibrillation with premature ventricular or aberrantly conducted complexes Left axis deviation Abnormal ECG When compared with ECG of 20-MAR-2018 19:59, Atrial fibrillation has replaced Sinus rhythm Confirmed by EMELIA RAINES, LUIS MIGUEL ([id number]), editorial specialist NATALIYA RODRIGUEZ ([id number]) on 03/29/2018 1:59:28 PM Referred By: NELI Confirmed By:LUIS MIGUEL KAPOOR MD
[2018-03-26 19:06] LABS: Bedside Glucose 264 mg/dL (70-110)
--- NOTE | 2018-03-26 21:30 | NURSING ---
PEG tube placement checked with instilling air. No residual noted. Flushed PEG with 30 cc water. Pt. tolerated well.
[2018-03-27] VITALS (12 sets, daily range): BP systolic 137–151; BP diastolic 66–96; PULSE 85–116; RESP 16–38; TEMP 36.6–36.9; O2SAT 79–94
[2018-03-27 00:31] LABS: Bedside Glucose 171 mg/dL (70-110)
--- NOTE | 2018-03-27 01:00 | NURSING ---
Unable to give IV lopressor at this time, as IV access is not available. Two nurses tried to get new IV and were unsuccessful. Nursing airfreight loading supervisor called to try to start IV.
[2018-03-27] MEDS: Insulin Lispro 100 UNIT/ML INSULN.PEN SC ×2 (01:07→07:16)
--- NOTE | 2018-03-27 01:30 | NURSING ---
PEG tube checked for placement via air instillation. No residual noted. Flushed with 30 cc sterile water. Pt. tolerated well.
[2018-03-27] MEDS: Metoprolol Tartrate 5 MG/5 ML Vial IV (01:57)
[2018-03-27] MEDS: 0.9% NaCl Peripheral Flush Adult/Peds IV (01:58)
--- NOTE | 2018-03-27 05:30 | NURSING ---
PEG tube checked for placement via air instillation. No residual noted. Flushed with 30 cc sterile water. Flushes easily. Pt. tolerated well.
--- NOTE | 2018-03-27 05:36 | PN.SURG_ITS ---
Patient Problems: Active and Suspected Problems Acute renal failure (Acute) Hyperkalemia (Acute) Dehydration (Acute) Metabolic encephalopathy (Acute) Hypernatremia (Acute) Hypernatremia (Acute) Subjective: Pt resting comfortably Denies any pain - Physical Exam Abdomen: Soft, Non Tender - dressings intact, binder in place Vital Signs Temp Pulse Resp BP Pulse Ox 98.4 F 85 20 H 142/66 H 94 03/27/18 01:02 03/27/18 02:59 03/27/18 01:02 03/27/18 01:57 03/27/18 01:02 Oxygen Flow Rate (L/min) 3 Oxygen Delivery Method Nasal Cannula Weight: 206 lb 5.643 oz Body Mass Index (BMI) 29.5 Intake and Output for Last 24 Hours 03/25/18 03/26/18 03/27/18 23:59 23:59 23:59 Intake Total 2465.1 / 2465.1 2316 / 2316 30 30 Output Total 2150 / 2150 1025 / 1025 Balance 315.1 / 315.1 1291 / 1291 30 Laboratory Tests Past 24 Hrs 03/26/18 03/26/18 03/26/18 05:10 05:10 05:10 WBC 9.9 RBC 4.01 L Hgb 11.6 L Hct 34.7 L MCV 86.5 MCH 28.9 MCHC 33.4 RDW 15.3 H RDW Differential 46.9 H Plt Count 189 MPV 12.6 H Immature Gran % (Auto) 0.100 Neut % (Auto) 70.4 H Lymph % (Auto) 12.5 L [place] % (Auto) 11.0 H Eos % (Auto) 5.1 H Baso % (Auto) 0.9 Absolute Neuts (auto) 7.0 Absolute Lymphs (auto) 1.24 Total Counted Not Reportable APTT 53.5 H Sodium 144 Potassium 3.6 Chloride 115 H Carbon Dioxide 23.0 Anion Gap 6 BUN 12 Creatinine 0.88 Estim Creat Clear Calc 85.26 Est GFR (MDRD) Af Amer 112 Est GFR (MDRD) Non-Af 93 BUN/Creatinine Ratio 13.7 Glucose 206 H Hemoglobin A1c Calcium 9.2 Magnesium 03/26/18 03/26/18 05:10 05:10 WBC RBC Hgb Hct MCV MCH MCHC RDW RDW Differential Plt Count MPV Immature Gran % (Auto) Neut % (Auto) Lymph % (Auto) [place] % (Auto) Eos % (Auto) Baso % (Auto) Absolute Neuts (auto) Absolute Lymphs (auto) Total Counted APTT Sodium Potassium Chloride Carbon Dioxide Anion Gap BUN Creatinine Estim Creat Clear Calc Est GFR (MDRD) Af Amer Est GFR (MDRD) Non-Af BUN/Creatinine Ratio Glucose Hemoglobin A1c 7.4 H Calcium Magnesium 1.6 POC Glucose 03/27/18 03/26/18 03/26/18 00:23 18:11 12:09 POC Glucose 171 H 264 H 206 H 03/26/18 05:57 POC Glucose 206 H Medical Necessity - Tobacco Use Smoking Status: Light Smoker (<10/day) Tobacco Use: Cigarettes Assessment/Plan All Active Problems Acute renal failure (Acute) Hyperkalemia (Acute) Dehydration (Acute) Metabolic encephalopathy (Acute) Hypernatremia (Acute) Hypernatremia (Acute) Satis s/p PEG May start TFings at this time
[2018-03-27 05:51] LABS: Bedside Glucose 237 mg/dL (70-110)
[2018-03-27 06:27] LABS: Anion Gap 9 (5-15); BUN 9 mg/dL (7-18); BUN/Creat Ratio 11.1 RATIO (10-20); Calcium,Total 8.8 mg/dL (8.5-10.1); Chloride 112 mmol/L (98-107); Creatinine, Serum 0.81 mg/dL (0.70-1.30); EST Glomerular Filtration Rate 101 mL/min (>60); Est Glom Filt Rate - Afr Amer 122 mL/min (>60); Estimated Creatinine Clearance 92.63 ml/min; Glucose 205 mg/dL (74-106); Magnesium 1.5 mg/dL (1.6-2.6); Potassium 3.3 mmol/L (3.5-5.1); Sodium Level 143 mmol/L (136-145)
[2018-03-27] MEDS: Dext 5%-0.45% NS 1,000 ML 100 ML IV (08:16)
--- NOTE | 2018-03-27 08:33 | NS ---
1.) Suggest start tube feeds with Glucerna 1.5 Glenn @ 30 ml/hr & increase as tolerated by 10 ml/hr every 6-8 hours to goal rate of 60 ml/hr. TF at goal rate will provide 2160 kcal, 119 gm protein, 1093 ml free water. 2.) Suggest 180 ml water flush every 4 hours for a total of 2173 ml free water per day. 3.) Maintain NPO so long as pt is deemed unsafe for PO nutrition. TF as rec above will meet ~100% of estimated nutrition needs.
--- NOTE | 2018-03-27 08:50 | CASEMGMT ---
ANT spoke with Jackie at [facility]. She said she did start pre-cert, but has not heard back yet. She asked [facility] to send tube feed recommendations. [facility]T faxed dietary's notes on tube feed recommendations. Arlene PAREDES MSW
[2018-03-27] MEDS: Aspirin 81 MG TAB.CHEW GT (10:15)
[2018-03-27] MEDS: Allopurinol 100 MG Tablet GT (10:16)
[2018-03-27] MEDS: Sotalol Hydrochloride 80 MG Tablet GT (10:16)
[2018-03-27] MEDS: Famotidine 20 MG Tablet GT (10:16)
--- NOTE | 2018-03-27 10:44 | RAD_ITS ---
STUDY: X-RAY CHEST REASON FOR EXAM: Male, 68 years old. Shortness of breath. TECHNIQUE: Single AP portable view of the chest. COMPARISON: Comparison is made with prior study dated March 20, 2018. FINDINGS: EKG electrodes are seen. There was evidence of a vascular congestion and CHF with increased markings at the lung bases worse on the right side suggestive of superimposed basilar atelectasis and/or infiltrate. There is no demonstrated pleural abnormality. Sternal cerclage wires and vascular clips are present from a prior sternotomy and coronary artery bypass graft procedure (CABG). Mild cardiomegaly. Normal mediastinum and nba. Normal visualized pulmonary arteries. There is atherosclerotic calcification of the aortic arch with tortuosity. There are diffuse degenerative changes of the visualized thoracic spine. Normal visualized ribs, clavicles, and shoulders. There is no demonstrated abnormality of the visualized soft tissue structures of the upper abdomen. RAD/Chest 1 View (Portable) IMPRESSION: Findings suggestive of a mild degree of CHF with bibasilar atelectasis worse on the right side. Electronically Signed: Shiva Payne MD at 11:50 EDT Tel [phone], Service support ,
[2018-03-27 11:00] LABS: Allen Test POS; Base Excess 0 mmol/L (-2 to +2); Bicarbonate 25.2 mmol/L (22-26); Blood Gas Specimen Type ART; O2 Delivery Device NRB Mask; PO2 53 mmHG (75-100); SITE R Radial; SO2 86 % (95-99); Time Given 1050; Total Carbon Dioxide 26 mmol/L; pCO2 43.1 mmHg (35-45); pH 7.38 (7.35-7.45)
--- NOTE | 2018-03-27 11:15 | PCM.PN.HOSP ---
Patient Problems: Active and Suspected Problems Acute renal failure (Acute) Hyperkalemia (Acute) Dehydration (Acute) Metabolic encephalopathy (Acute) Hypernatremia (Acute) Hypernatremia (Acute) Subjective: Patient seen and examined earlier this morning. At that time he had no complaints and felt well. He denied any fever or chills, any shortness of breath, any cough, any abdominal pain, any diarrhea vomiting. View of systems was otherwise negative. About 3 hours after I saw patient this morning, I was called by nurse because patient was noted to be very short of breath and desaturating. The saturation level was noted to be in the 70s when checked. According to nurse, when she went in she found out the patient had vomited and so she put his NG tube on suction. He had just started tube feeds at that time. Patient seen and reviewed at that time. He was very short of breath and had audible crackles and rhonchi even without listening to his lungs. He looks very uncomfortable and was saturating in the 60s and 70s on 15 L by nasal cannula. Oxygen was switched to 15 L by nonrebreather mask he was doing relatively better and increased to around 85%. I talked patient at this point about the need for intubation and patient refused intubation. He said he would want to be intubated if needed but he wanted everything else done including CPR. Patient's was at his bedside at this time. Vitals/I&O's: Vital Signs Temp Pulse Resp BP Pulse Ox 98.0 F 116 H 30 H 150/96 H 87 03/27/18 11:05 03/27/18 11:05 03/27/18 11:05 03/27/18 11:05 03/27/18 11:05 Oxygen Flow Rate (L/min) 6 Oxygen Delivery Method Non-Rebreather Weight: 206 lb 2.115 oz Body Mass Index (BMI) 29.5 Intake and Output for Last 24 Hours 03/25/18 03/26/18 03/27/18 23:59 23:59 23:59 Intake Total 2465.1 / 2465.1 2316 / 2316 408 / 408 Output Total 2150 / 2150 1025 / 1025 Balance 315.1 / 315.1 1291 / 1291 408 / 408 General: Alert, Oriented x3, Cooperative, - - moderate respiratory distress HEENT: Atraumatic, PERRLA, EOMI, Normocephalic Oral: Moist Mucosa Neck: Supple, No JVD, Negative Carotid Bruits Lungs: - - Coarse crackles and rhonchi in all lung pineda bilaterally. Cardiovascular: Regular rate, Regular Rhythm, Normal S1, Normal S2, No murmurs Abdomen: Bowel Sounds Present, Soft, Non Tender, Non-Distended, - - PEG tube placed on 03/26/[address] with abdominal binder in place. Extremities: No edema, Capillary Refill Less than 3 Seconds Skin: No rashes, No breakdown Musculoskeletal: No Tenderness to Palpation of Joints or Extremities Lymphatic: No Cervical, Supraclavicular, or Inguinal Adenopathy Neurological: Cranial nerves II-XII grossly intact, - - still has tremors of RUE and RLE, but it is much improved Psych/Mental Status: Flat Affect, Depressed Laboratory Results 03/26/18 05:10: Magnesium 1.6 03/26/18 12:09: POC Glucose 206 H 03/26/18 18:11: POC Glucose 264 H 03/27/18 00:23: POC Glucose 171 H 03/27/18 05:07: Sodium 143, Potassium 3.3 L, Chloride 112 H, Carbon Dioxide 22.0, Anion Gap 9, BUN 9, Creatinine 0.81, Estim Creat Clear Calc 92.63, Est GFR (MDRD) Af Amer 122, Est GFR (MDRD) Non-Af 101, BUN/Creatinine Ratio 11.1, Glucose 205 H, Calcium 8.8, Magnesium 1.5 L 03/27/18 05:45: POC Glucose 237 H 03/27/18 10:54: Specimen Type ART, Sample Site R Radial, pH 7.38, Bicarbonate Actual 25.2, POC Total CO2 26, Base Excess 0, O2 Saturation 86 L, ABG pCO2 43.1, ABG pO2 53 L, Espinoza Test POS, O2 Delivery Device NRB Mask, Liter Flow 15.0, Blood Gas Notified Whom MAGDY RANIES, Blood Gas Notified Time 1050 Current Medications Allopurinol (Zyloprim) 100 mg GT DAILYCM [facility] Last Admin: 03/27/18 10:16 Dose: 100 mg Aspirin (Aspirin, Baby) 81 mg GT DAILY@0800 [facility] Last Admin: 03/27/18 10:15 Dose: 81 mg Atorvastatin Calcium (Lipitor) 80 mg GT QHS [facility] Carbidopa/Levodopa (Sinemet) 1 tablet GT BIDAC [facility] Chlorhexidine Gluconate () 1 each TOPICAL DAILY [facility] Last Admin: 03/27/18 10:16 Dose: Not Given Famotidine (Pepcid) 20 mg GT BID [facility] Last Admin: 03/27/18 10:16 Dose: 20 mg Heparin Sodium (Porcine) (Heparin Na) 0 unit IV UD PRN PRN Reason: Protocol Sodium Chloride () 250 mls @ 15 mls/hr IV .[id number] PRN PRN Reason: SALINE FLUSH Dextrose/Sodium Chloride () 1,000 mls @ 100 mls/hr IV .Q10H [facility] Last Admin: 03/27/18 08:16 Dose: 100 mls/hr Magnesium Sulfate (4 Gm/100 Ml) 4 gm in 100 mls @ 25 mls/hr IV X1 ONE Stop: 03/27/18 11:59 Last Admin: 03/27/18 08:40 Dose: 25 mls/hr Enteral Nutritional Formula (Glucerna 1.5) 1,000 mls @ 30 mls/hr GT .[id number] [facility] Last Admin: 03/27/18 10:33 Dose: 30 mls/hr Insulin Human Lispro (Humalog Kwikpen (Bkc)) 0 unit SC Q6 ALCIRA PRN Reason: Protocol Last Admin: 03/27/18 07:16 Dose: 4 u Ipratropium [place] (Atrovent) 0.5 mg INHALATION Q4H.RT [facility] Magnesium Hydroxide (Milk Of Magnesia) 30 ml GT DAILY PRN PRN PRN Reason: Constipation Nicotine (Nicoderm Cq (Pbkc)) 21 mg TRANSDERM. DAILY [facility] Last Admin: 03/27/18 10:16 Dose: Not Given Chtgg-2-[id number] Ethyl Esters (Lovaza) 1 gm PO DAILY [facility] Last Admin: 03/27/18 08:15 Dose: Not Given Ondansetron HCl (Zofran) 4 mg IV Q6H PRN PRN PRN Reason: NAUSEA Sodium Chloride () 5 - 30 ml IV UD PRN PRN Reason: SALINE FLUSH Last Admin: 03/27/18 01:58 Dose: 10 ml Sotalol HCl (Betapace (G)) 80 mg GT BID [facility] Last Admin: 07/10/18 10:16 Dose: 80 mg Medical Necessity - Tobacco Use Smoking Status: Light Smoker (<10/day) Tobacco Use: Cigarettes Assessment/Plan All Active Problems Acute renal failure (Acute) Hyperkalemia (Acute) Dehydration (Acute) Metabolic encephalopathy (Acute) Hypernatremia (Acute) Hypernatremia (Acute) This 68-year-old male admitted from the residential with complaint of altered mental status and worsening kidney function. 1. Acute hypoxic respiratory failure due to aspiration pneumonitis patient found to have vomited this morning, and most likely aspirated was found acutely short of breath, with severe rhonchi saturation was down in 60s and 70s, even with oxygen by nasal canula; went up to mid 80s on 15L of oxygen by nonrebreather mask. stat ABG ordered showed pO2 of 53, with pCO2 of Stat xray done: patient counselled that he would need CPAP. Patient refused CPAP, and said he didnt want the oxygen by face mask. Patient's at his bedside. Counseled the patient had a chance of improvement while she was in the CPAP as his symptoms were due to aspiration pneumonitis which had just happened; he was therefore likely to improve enough to go back to SNF; course of care may include intubation, CPAP and BiPAP use. However said patient did not want any further care as he was tired of his quality of life after the stroke and did not think that he would want to live with all these tubes. I spoke to them and said patient had earlier told me that he did not want intubation but would want compressions. stated the patient wanted to be hospice and patient noted an absence. This was corroborated by nurse who had also had this discussion with the patient and and they have told her that they wanted hospice care. I informed patient and that currently his CODE STATUS was full code as he said he wanted everything done except intubation and said he wanted compressions done. I counseled him that going on hospice would entail them changing CODE STATUS to DNR. stated that she understood what was going on. I doubt that patient really had understanding of was going on and this may be due to some anoxia as he kept on pulling of the oxygen face mask and saturation remained in the low 80s. as next of kin, she would have to sign any DNR papers and stated that she was ready to sign the DNR papers and understood that patient would without any further management. She stated that even though she loved very much his quality of life is very poor and patient was very unhappy and she was okay with whatever he wanted. hospice consult placed. code status changed to DNRCC. Papers signed by . 2. Pre-renal KARO and azotemia from decreased intake resolved. renal ultrasound WNL nephrology on board 3. Hypokalemia: K is 3.3 today.replace and monitor 4., Hypomagnesemia:L mg today is 1.5 Replace and monitor 5. Dysphagia due to stroke (bilateral cerebellar infarcts) resolving. Had PEG tube placed on 03/26/18. tube feeding was due to be started today, but will be stopped in light of DNRCC status. 6. Reactive Leucocytosis: resolved. 7. Diabetes mellitus accuchecks q6hrs 8. History of bilateral cerebellar infarcts Stable. 9. Afib: rate controlled. On sotalol and xarelto. xarelto resumed today 10. Vtach: had recurrent runs of Vtach, ~ 18 beats yesterday and over the weekend. Cardiology. Believed was due to the fact the patient attempting getting his sotalol because he had been n.p.o. To optimize potassium and magnesium levels. To resume sotalol. 11. Parkinson's disease: on levodopa/carbidopa; 12. Gout: on allopurinol 13. CAD with CABG: on aspirin, statin, 14. history of depression: stable 15. DVT prophylaxis; SCDs; heparin drip Code status: I spent 30 mins counseling patient and about code status, as documented above. Patient and chose to withdraw all care as he feels his quality of life is very very poor. Patient doesnt want intubation, and now doesnt want CPR if needed. is in agreement. Code status changed to DNRCC This note was generated with [employer] dictation software. It may contain incorrect words, spelling, and punctuation that were not noted in checking the note before signing. Code Visit Inpatient E&M: 63290 Subs Hosp L3 Procedures: 42222 Advncd Care Plan 30 Min
--- NOTE | 2018-03-27 11:18 | PN_ITS ---
Patient Problems: Active and Suspected Problems Acute renal failure (Acute) Hyperkalemia (Acute) Dehydration (Acute) Metabolic encephalopathy (Acute) Hypernatremia (Acute) Hypernatremia (Acute) Subjective: Patient seen and examined earlier this morning. At that time he had no complaints and felt well. He denied any fever or chills, any shortness of breath, any cough, any abdominal pain, any diarrhea vomiting. View of systems was otherwise negative. About 3 hours after I saw patient this morning, I was called by nurse because patient was noted to be very short of breath and desaturating. The saturation level was noted to be in the 70s when checked. According to nurse, when she went in she found out the patient had vomited and so she put his NG tube on suction. He had just started tube feeds at that time. Patient seen and reviewed at that time. He was very short of breath and had audible crackles and rhonchi even without listening to his lungs. He looks very uncomfortable and was saturating in the 60s and 70s on 15 L by nasal cannula. Oxygen was switched to 15 L by nonrebreather mask he was doing relatively better and increased to around 85%. I talked patient at this point about the need for intubation and patient refused intubation. He said he would want to be intubated if needed but he wanted everything else done including CPR. Patient' s was at his bedside at this time. Vitals/I&O's: Vital Signs Temp Pulse Resp BP Pulse Ox 98.0 F 116 H 30 H 150/96 H 87 03/27/18 11:05 03/27/18 11:05 03/27/18 11:05 03/27/18 11:05 03/27/18 11:05 Oxygen Flow Rate (L/min) 6 Oxygen Delivery Method Non-Rebreather Weight: 206 lb 2.115 oz Body Mass Index (BMI) 29.5 Intake and Output for Last 24 Hours 03/25/18 03/26/18 03/27/18 23:59 23:59 23:59 Intake Total 2465.1 / 2465.1 2316 / 2316 408 / 408 Output Total 2150 / 2150 1025 / 1025 Balance 315.1 / 315.1 1291 / 1291 408 / 408 General: Alert, Oriented x3, Cooperative, - - moderate respiratory distress HEENT: Atraumatic, PERRLA, EOMI, Normocephalic Oral: Moist Mucosa Neck: Supple, No JVD, Negative Carotid Bruits Lungs: - - Coarse crackles and rhonchi in all lung pineda bilaterally. Cardiovascular: Regular rate, Regular Rhythm, Normal S1, Normal S2, No murmurs Abdomen: Bowel Sounds Present, Soft, Non Tender, Non-Distended, - - PEG tube placed on 03/26/[address] abdominal binder in place. Extremities: No edema, Capillary Refill Less than 3 Seconds Skin: No rashes, No breakdown Musculoskeletal: No Tenderness to Palpation of Joints or Extremities Lymphatic: No Cervical, Supraclavicular, or Inguinal Adenopathy Neurological: Cranial nerves II-XII grossly intact, - - still has tremors of RUE and RLE, but it is much improved Psych/Mental Status: Flat Affect, Depressed Laboratory Results 03/26/18 05:10: Magnesium 1.6 03/26/18 12:09: POC Glucose 206 H 03/26/18 18:11: POC Glucose 264 H 03/27/18 00:23: POC Glucose 171 H 03/27/18 05:07: Sodium 143, Potassium 3.3 L, Chloride 112 H, Carbon Dioxide 22.0 , Anion Gap 9, BUN 9, Creatinine 0.81, Estim Creat Clear Calc 92.63, Est GFR ( MDRD) Af Amer 122, Est GFR (MDRD) Non-Af 101, BUN/Creatinine Ratio 11.1, Glucose 205 H, Calcium 8.8, Magnesium 1.5 L 03/27/18 05:45: POC Glucose 237 H 03/27/18 10:54: Specimen Type ART, Sample Site R Radial, pH 7.38, Bicarbonate Actual 25.2, POC Total CO2 26, Base Excess 0, O2 Saturation 86 L, ABG pCO2 43.1 , ABG pO2 53 L, Espinoza Test POS, O2 Delivery Device NRB Mask, Liter Flow 15.0, Blood Gas Notified Whom MAGDY RAINES, Blood Gas Notified Time 1050 Current Medications Allopurinol (Zyloprim) 100 mg GT DAILYCM [facility] Last Admin: 03/27/18 10:16 Dose: 100 mg Aspirin (Aspirin, Baby) 81 mg GT DAILY@0800 [facility] Last Admin: 03/27/18 10:15 Dose: 81 mg Atorvastatin Calcium (Lipitor) 80 mg GT QHS [facility] Carbidopa/Levodopa (Sinemet) 1 tablet GT BIDAC [facility] Chlorhexidine Gluconate () 1 each TOPICAL DAILY [facility] Last Admin: 03/27/18 10:16 Dose: Not Given Famotidine (Pepcid) 20 mg GT BID [facility] Last Admin: 03/27/18 10:16 Dose: 20 mg Heparin Sodium (Porcine) (Heparin Na) 0 unit IV UD PRN PRN Reason: Protocol Sodium Chloride () 250 mls @ 15 mls/hr IV .[id number] PRN PRN Reason: SALINE FLUSH Dextrose/Sodium Chloride () 1,000 mls @ 100 mls/hr IV .Q10H [facility] Last Admin: 03/27/18 08:16 Dose: 100 mls/hr Magnesium Sulfate (4 Gm/100 Ml) 4 gm in 100 mls @ 25 mls/hr IV X1 ONE Stop: 03/27/18 11:59 Last Admin: 03/27/18 08:40 Dose: 25 mls/hr Enteral Nutritional Formula (Glucerna 1.5) 1,000 mls @ 30 mls/hr GT .[id number] [facility] Last Admin: 03/27/18 10:33 Dose: 30 mls/hr Insulin Human Lispro (Humalog Kwikpen (Bkc)) 0 unit SC Q6 ALCIRA PRN Reason: Protocol Last Admin: 03/27/18 07:16 Dose: 4 u Ipratropium [place] (Atrovent) 0.5 mg INHALATION Q4H.RT [facility] Magnesium Hydroxide (Milk Of Magnesia) 30 ml GT DAILY PRN PRN PRN Reason: Constipation Nicotine (Nicoderm Cq (Pbkc)) 21 mg TRANSDERM. DAILY [facility] Last Admin: 03/27/18 10:16 Dose: Not Given [id number] Ethyl Esters (Lovaza) 1 gm PO DAILY [facility] Last Admin: 03/27/18 08:15 Dose: Not Given Ondansetron HCl (Zofran) 4 mg IV Q6H PRN PRN PRN Reason: NAUSEA Sodium Chloride () 5 - 30 ml IV UD PRN PRN Reason: SALINE FLUSH Last Admin: 03/27/18 01:58 Dose: 10 ml Sotalol HCl (Betapace (G)) 80 mg GT BID [facility] Last Admin: 07/10/18 10:16 Dose: 80 mg Medical Necessity - Tobacco Use Smoking Status: Light Smoker (<10/day) Tobacco Use: Cigarettes Assessment/Plan All Active Problems Acute renal failure (Acute) Hyperkalemia (Acute) Dehydration (Acute) Metabolic encephalopathy (Acute) Hypernatremia (Acute) Hypernatremia (Acute) This 68-year-old male admitted from the [place] [facility] with complaint of altered mental status and worsening kidney function. 1. Acute hypoxic respiratory failure due to aspiration pneumonitis * patient found to have vomited this morning, and most likely aspirated * was found acutely short of breath, with severe rhonchi * saturation was down in 60s and 70s, even with oxygen by nasal canula; went up to mid 80s on 15L of oxygen by nonrebreather mask. * stat ABG ordered showed pO2 of 53, with pCO2 of * Stat xray done: * patient counselled that he would need CPAP. Patient refused CPAP, and said he didnt want the oxygen by face mask. * Patient's at his bedside. Counseled the patient had a chance of improvement while she was in the CPAP as his symptoms were due to aspiration pneumonitis which had just happened; he was therefore likely to improve enough to go back to SNF; course of care may include intubation, CPAP and BiPAP use. However said patient did not want any further care as he was tired of his quality of life after the stroke and did not think that he would want to live with all these tubes. I spoke to them and said patient had earlier told me that he did not want intubation but would want compressions. stated the patient wanted to be hospice and patient noted an absence. This was corroborated by nurse who had also had this discussion with the patient and and they have told her that they wanted hospice care. I informed patient and that currently his CODE STATUS was full code as he said he wanted everything done except intubation and said he wanted compressions done. I counseled him that going on hospice would entail them changing CODE STATUS to DNR. stated that she understood what was going on. I doubt that patient really had understanding of was going on and this may be due to some anoxia as he kept on pulling of the oxygen face mask and saturation remained in the low 80s. as next of kin, she would have to sign any DNR papers and stated that she was ready to sign the DNR papers and understood that patient would without any further management. She stated that even though she loved very much his quality of life is very poor and patient was very unhappy and she was okay with whatever he wanted. * hospice consult placed. code status changed to DNRCC. Papers signed by . * 2. Pre-renal KARO and azotemia from decreased intake * resolved. * renal ultrasound WNL * nephrology on board 3. Hypokalemia: K is 3.3 today.replace and monitor 4., Hypomagnesemia:L mg today is 1.5 Replace and monitor 5. Dysphagia due to stroke (bilateral cerebellar infarcts) * resolving. Had PEG tube placed on 03/26/18. * tube feeding was due to be started today, but will be stopped in light of DNRCC status. * 6. Reactive Leucocytosis: * resolved. 7. Diabetes mellitus * accuchecks q6hrs * * 8. History of bilateral cerebellar infarcts * Stable. * 9. Afib: rate controlled. * On sotalol and xarelto. * xarelto resumed today * 10. Vtach: * had recurrent runs of Vtach, ~ 18 beats yesterday and over the weekend. Cardiology. Believed was due to the fact the patient attempting getting his sotalol because he had been n.p.o. To optimize potassium and magnesium levels. To resume sotalol. 11. Parkinson's disease: on levodopa/carbidopa; 12. Gout: on allopurinol 13. CAD with CABG: on aspirin, statin, 14. history of depression: stable 15. DVT prophylaxis; SCDs; heparin drip Code status: I spent 30 mins counseling patient and about code status, as documented above. Patient and chose to withdraw all care as he feels his quality of life is very very poor. Patient doesnt want intubation, and now doesnt want CPR if needed. is in agreement. Code status changed to DNRCC This note was generated with [employer] dictation software. It may contain incorrect words, spelling, and punctuation that were not noted in checking the note before signing. Code Visit Inpatient E&M: 53570 Subs Hosp L3 Procedures: 92312 Advncd Care Plan 30 Min
[2018-03-27] MEDS: Ipratropium 0.5 MG/2.5 ML SOLUTION INHALATION (11:23)
--- NOTE | 2018-03-27 11:48 | CASEMGMT ---
ANT called Hospice with referral as well as faxed referral information. Arlene PAREDES MSW
--- NOTE | 2018-03-27 15:14 | CASEMGMT ---
Patient went to the Inpatient Hospice Unit. ANT notified Jackie at [facility]. Plan: Inpatient Hospice Unit Arlene JACKSON
--- NOTE | 2018-03-27 15:35 | DS.PCM_ITS ---
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) Tobacco abuse (Chronic) 1/2 ppd now 3ppd in the past Hyperlipidemia (Chronic) Gastroesophageal reflux disease (Chronic) Type 2 diabetes mellitus (Chronic) Benign essential hypertension (Chronic) Slurred speech (Chronic) CHF (congestive heart failure) (Chronic) ef=40% 2012, 55% in February of 2018 Atrial fibrillation (Chronic) Hospital Course and Treatment Imaging Results: 03/27/18 10:44 CXR [Chest 1 View (Portable)] [RAD] Stat Consultations 03/26/18 15:57 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 He was admitted via the ED on 03/20/18 from his senior living on account of altered mental status and increase in BUN and creatinine. In the ED was noted to have hyperkalemia with potassium of 7.1 and hyponatremia with sodium of 157. He was reported to not have been eating in the senior living because he did not like the nectar thick liquids. Labs also showed leukocytosis with white cell count of 21.5 with 84.5% neutrophils, platelets and hemoglobin were within normal limits. BUN was 86 and creatinine was 4.18. He was admitted and managed for acute kidney injury, metabolic encephalopathy, hyperkalemia and hypernatremia. Metabolic encephalopathy was thought to be due to dehydration and azotemia; KARO and hypernatremia as well as metabolic encephalopathy subsequently resolved with administration of IVF. Patient however failed numerous swallowing evaluations and was too lethargic to even undergo modified barium swallow test. He therefore had a PEG tube placed on 03/26/18, and tolerated procedure well. Patient remained stable and was awaiting PreCert for discharge. On the morning of 03/27/18, patient was found to be verys short of breath by his nurse. He had been fine earlier in the morning, but developed acute onset shortness of breath after he threw up. He desaturated into the 60s on room air, and even on 6L of oxygen by nasal canula, his saturation only remained in the 70s. Saturation went up only to 85-87% on 15L of oxygen by non-rebreather mask. ABGs done showed ph of 7.38, wth pO2 of 53 and pCO2 of 43.1. Patient had severe new onset crackles and rhonchi in upper and mid lung pineda bilaterally. He was diagnosed with acute hypoxic respiratory failure due likely to aspiration pneumonitis. CXR done showed evidence of mild degree of CHF with increased markings at lung bases worse on right suggestive of superimposed basilar atelectasis and/or infiltrate. Patient however adamantly refused intubation if needed, and refused CPAP/BIPAP therapy also. With his by his bedside, darellt continously took off the oxygen mask and refused to tolerate it. counselled extensively that patient had a fair chance of recovering from aspiration pneumonitis with treatment, which would likely include CPAP/BIPAP and intubation if his saturation didnt improve. however stated that patient said he wanted to go on hospice care, as he was tired of all that he had been through, and his life quality would be very poor even if he got better after aspiration pneumonitis. After extensive counseling, decided to switch patient's code status to DNRCC and opt for hospice care. Hospice personnel came and spoke to his , and after further counseling, patient was discharged to inpatient hospice facility on 03/27/18. [] Discharge Diet: 2000 mg Sodium Diet Weight Bearing Status: Weight bearing as tolerated Home Medications: Medications to take at Discharge Metformin HCl 500 mg PO BID 10/23/17 Omeprazole 20 mg PO DAILY 10/23/17 Potassium Chloride [Klor-Con M20] 20 meq PO DAILY 10/23/17 Sotalol HCl [Betapace AF (Beta Ahsan)] 80 mg PO BID 10/23/17 Aspirin [Aspirin, Baby] 81 mg PO DAILY@0800 tab.chew 10/25/17 Albuterol Inhaler [Ventolin Hfa] 1 puff INHALATION Q4H PRN PRN 02/26/18 Allopurinol 100 mg PO DAILY 02/26/18 Carbidopa/Levodopa 25/100 [Sinemet 25/100] 1 tablet PO BIDAC 02/26/18 Furosemide [Lasix] 40 mg PO BID 02/26/18 Insulin Aspart [Novolog Flexpen] 8 units SC TIDCM 02/26/18 Atorvastatin Calcium [Lipitor] 80 mg PO QHS tablet 02/27/18 Famotidine [Pepcid] 20 mg PO BID tablet 02/27/18 Ferrous Sulfate 325 mg PO BID tablet 02/27/18 Lisinopril [Zestril] 10 mg PO DAILY tablet 02/27/18 Leoma-3 Acid Ethyl Esters [Lovaza] 1 gm PO DAILY capsule 02/27/18 Rivaroxaban [Xarelto] 20 mg PO DAILY 30 Days #30 tablet 02/27/18 Nicotine [Nicotine Patch] 21 mg TD DAILY 03/20/18 Primary Care Physician: Wesley Maldonado MD [Primary Care Provider] - Please follow up with your Primary Care Physician in: one week Disposition: Hospice Medical Facility Minutes spent on discharge:: 50 Patient Condition:: Critical Medical Necessity - Tobacco Use Smoking Status: Light Smoker (<10/day) Tobacco Use: Cigarettes Meaningful Use Info Meaningful Use Diagnoses (Choose all that apply): None applicable Code Visit Inpatient E&M: 75347 Disch Hosp
== END 2018-03-27 15:00 | disposition hospice, inpatient (51) | DRG 682 ==
LOC: ED 19:55 → ICU 21:53 → PCU 03-23 16:33
PROVIDERS: Internal Medicine Cardiovascular Disease; Internal Medicine Critical Care Medicine; Internal Medicine Nephrology; Surgery; Admitting Provider Internal Medicine; Emergency Provider Emergency Medicine; Visit Provider Student in an Organized Health Care Education/Training Program
PROC: 0DB68ZX Excision of Stomach, Via Natural or Artificial Opening Endoscopic, Diagnostic (ICD-10-PCS; principal; 2018-03-26 10:40)
DX: N17.9 Acute kidney failure, unspecified (principal); G93.41 Metabolic encephalopathy; J96.01 Acute respiratory failure with hypoxia; J69.0 Pneumonitis due to inhalation of food and vomit; E87.0 Hyperosmolality and hypernatremia; E86.0 Dehydration; E87.5 Hyperkalemia; Z95.1 Presence of aortocoronary bypass graft; I25.10 Atherosclerotic heart disease of native coronary artery without angina pectoris; K21.9 Gastro-esophageal reflux disease without esophagitis; Z79.01 Long term (current) use of anticoagulants; G20 Parkinson's disease; M10.9 Gout, unspecified; J44.9 Chronic obstructive pulmonary disease, unspecified; E11.9 Type 2 diabetes mellitus without complications; Z79.4 Long term (current) use of insulin; Z79.899 Other long term (current) drug therapy; E78.5 Hyperlipidemia, unspecified; I11.0 Hypertensive heart disease with heart failure; F17.210 Nicotine dependence, cigarettes, uncomplicated; Z51.5 Encounter for palliative care; Z66 Do not resuscitate; I48.91 Unspecified atrial fibrillation; I69.391 Dysphagia following cerebral infarction; R13.10 Dysphagia, unspecified; K29.80 Duodenitis without bleeding; K29.60 Other gastritis without bleeding
CPT/HCPCS: 36415; 36600; 51702; 70450; 71045; 74220; 76770; 80048; 80053; 80069; 81001; 82570; 82803; 82962; 83036; 83690; 83735; 83930; 83935; 84100; 84484; 84540; 85025; 85610; 85730; 87641; 88305; 88342; 92507; 92526; 93005; 94640; 97110; 97161; 97166; 97530; 97802; 97803; 99152; 99153; 99285; J7030; J7040; A4216; J7799